=== PATIENT | female | born 1945 | race Caucasian/White ===

== ENCOUNTER → 2017-07-23 | Outpatient (CLI) | payer MEDICARE, BC ==
--- NOTE | 2017-07-23 12:58 | XR ---
EXAMINATION TYPE: XR Hip Complete RT DATE OF EXAM: 07/23/2017 COMPARISON: NONE HISTORY: Chronic pain TECHNIQUE: 2 views submitted FINDINGS: There is no evidence of erosive change or acute fracture. Complete loss of joint space of the right hip with remodeling of the femoral head and acetabulum. Vas cular calcifications noted. IMPRESSION: 1. Severe osteoarthritis with complete loss of joint space.
== END | disposition home or self-care (01) ==
LOC: RADXRYALE 12:34
PROVIDERS: ATTEND Family Medicine
DX: M16.11 Unilateral primary osteoarthritis, right hip (principal)
CPT/HCPCS: 73502

== ENCOUNTER → 2017-09-12 | Outpatient (CLI) | payer MEDICARE, BC ==
[2017-09-12 09:07] LABS: HCT 31.7 % (34.0-46.0); Hypochromasia Slight; MCH 31.1 pg (25.0-35.0); MCHC 31.6 g/dL (31.0-37.0); MCV 98.6 fL (80.0-100.0); Mean Platelet Volume 6.6; Platelet Count 316 k/uL (150-450); RBC 3.21 m/uL (3.80-5.40); RDW 13.6 % (11.5-15.5); WBC 9.3 k/uL (3.8-10.6)
[2017-09-12 09:11] LABS: Appearance,Urine Clear (Clear); Bilirubin,Urine Negative (Negative); Blood,Urine Negative (Negative); Color,Urine Colorless; Glucose,Urine (UA) Negative (Negative); Ketones,Urine Negative (Negative); Leukocyte Esterase,Urine Negative (Negative); Nitrite,Urine Negative (Negative); Protein,Urine Negative (Negative); Specific Gravity,Urine 1.006 (1.001-1.035); Urobilinogen,Urine <2.0 mg/dL (<2.0)
[2017-09-12 09:13] LABS: Partial Thromboplastin Time 23.2 sec (22.0-30.0); Prothrombin Time 9.6 sec (9.0-12.0)
[2017-09-12 09:18] LABS: Albumin 3.7 g/dL (3.5-5.0); Calcium 9.4 mg/dL (8.4-10.2); Potassium 5.4 mmol/L (3.5-5.1); Total Bilirubin 0.3 mg/dL (0.2-1.3); Total Protein 6.4 g/dL (6.3-8.2)
== END | disposition home or self-care (01) ==
LOC: LABPAT 08:20
PROVIDERS: ATTEND Orthopaedic Surgery
DX: Z01.812 Encounter for preprocedural laboratory examination (principal)
CPT/HCPCS: 80053; 81003; 85027; 85610; 85730; 87070

== ENCOUNTER 2017-09-23 07:00 | Inpatient (IN) | payer MEDICARE, BC ==
[2017-09-11 09:23] VITALS: BMI 34.7
[~2017-09-23 07:00] MED LIST: ACETAMINOPHEN TAB 500 MG TAB PO ONE; HYDROmorphone 0.5 MG/0.5 ML SYRINGE IVP PRN; LIDOCAINE 1% 20 ML VIAL (10MG/ML) FOR IV START INTRADERMA PRN; MELOXICAM 7.5 MG TAB PO ONE; ONDANSETRON 4 MG/2 ML VIAL IVP ONE; ROPIVACAINE 246.25 MG, EPINEPHrine 0.5 MG, KETOROLAC 30 MG, cloNIDine HCL/PF 80 MCG, WA... MISCELLANE ONE; TRANEXAMIC ACID 1,000 MG in SODIUM CHLORIDE 0.9% 50 ML IVPB ONE; ceFAZolin IN SWFI 2 GM/20 ML SYRINGE IVP ONE
[2017-09-23] MEDS: LACTATED RINGERS 1,000 ML IV SCH (08:05)
[2017-09-23 08:09] LABS: Glucose,Whole Blood 174 mg/dL (75-99)
[2017-09-23] MEDS ORDERED: HYDROmorphone 0.5 MG/0.5 ML SYRINGE IVP PRN ×3 (08:52)
[2017-09-23] MEDS ORDERED: DIAZEPAM 5 MG TAB PO PRN ×2 (08:52)
[2017-09-23] MEDS ORDERED: MAGNESIUM HYDROXIDE 2,400 MG/10 ML CUP PO PRN (08:52)
[2017-09-23] MEDS ORDERED: NALOXONE 0.4 MG/ML 1 ML VIAL IV PRN (08:52)
[2017-09-23] MEDS ORDERED: hydrOXYzine PAMOATE 25 MG CAP PO PRN (08:52)
[2017-09-23] MEDS ORDERED: ONDANSETRON 4 MG/2 ML VIAL IVP PRN (08:52)
[2017-09-23] MEDS ORDERED: HYDROcodone/APAP 5-325MG 1 EACH TAB PO PRN ×2 (08:52)
[2017-09-23] MEDS ORDERED: SODIUM CHLORIDE 0.9% 100 ML BAG ONE (09:02)
[2017-09-23] MEDS ORDERED: TRANEXAMIC ACID 1,000 MG/10 ML VIAL ONE (09:02)
[2017-09-23] MEDS ORDERED: MIDAZOLAM 2 MG/2 ML VIAL ONE (09:02)
[2017-09-23] MEDS ORDERED: fentaNYL (PF) 50 MCG/ML 2 ML AMP ONE (09:02)
[2017-09-23] MEDS ORDERED: SODIUM CHLORIDE 0.9% IRRIG 1,000 ML BTL IRRIGATION ONE (09:02)
[2017-09-23] MEDS ORDERED: LIDOCAINE 1% INJ 10MG/ML (20 ML MDV) ONE (09:02)
[2017-09-23] MEDS ORDERED: HEPARIN SODIUM,PORCINE 10,000 UNIT/ML 1 ML VIAL ONE (09:02)
[2017-09-23] MEDS ORDERED: PROPOFOL 10 MG/ML 20 ML VIAL IV ONE (09:02)
[2017-09-23] MEDS ORDERED: ceFAZolin 3,000 MG in SODIUM CHLORIDE 0.9% IRRIGATIO 3,000 ML IRRIGATION ONE (09:47)
[2017-09-23] MEDS ORDERED: LACTATED RINGERS 1,000 ML IV ONE ×2 (10:05)
--- NOTE | 2017-09-23 10:43 | P.OP ---
Date of Procedure: 09/23/17 Preoperative Diagnosis: Severe osteoarthritis right hip Postoperative Diagnosis: Severe osteoarthritis right hip Procedure(s) Performed: Right total hip arthroplasty with a direct anterior approach Implants: Johnson and nephew Polarstem size 2 standard Johnson & Nephew R3, 3 hole acetabular shell, 48 mm Johnson & Nephew reflection 6.5 mm cancellus screw, 20 mm 2 Johnson [employer] Nephew R3, XLPE 20 acetabular liner Johnson & Nephew Oxinium femoral head 32 m, +0 All components were press-fit. The articulation is Oxinium on polyethylene. Anesthesia: spinal Surgeon: Neil Ann Housetrailer Servicer #1: Briseida Ledesma Estimated Blood Loss (ml): 50 Pathology: other (Femoral head) Condition: stable Disposition: PACU Indications for Procedure: After failure of conservative treatment we discussed the surgical and nonsurgical treatment options at length. Patient wishes to proceed with a total hip arthroplasty with a direct anterior approach. Complications specific to this procedure were discussed at length, including but not limited to infection, leg length discrepancy, dislocation, and nerve injury. Patient is aware of all these complications and informed consent was obtained Operative Findings: The operative findings are consistent with severe osteoarthritis the right hip Description of Procedure: Patient was seen and evaluated in the preoperative area, consent was reviewed, and the surgical site was marked with a skin marker. Patient was then brought to the operating room and given prophylactic antibiotics intravenously. 1 g of Tranexamic acid was also given. A spinal anesthetic was administered by the anesthesia department. The patient was then placed on the [place] table with the bony prominences well-padded. The hip area was then prepped and draped in usual sterile fashion. A universal timeout was then performed, which confirmed the patient's name, surgical site, ALLERGIES, and procedure being performed. Next the incision site was located at 1 cm distal and 1 cm lateral to the anterior superior iliac spine. The skin and subcutaneous tissues were sharply incised. Incision was carefully dissected down to the fascia overlying the tensor fascia nelia muscle. This fascia was then incised in line with the incision. Next, using blunt finger dissection, the tensor fascia nelia muscle was dissected off its investing fascia. The muscle was then carefully retracted laterally with a cobra retractor over the lateral neck of the femur. Next, the circumflex vessels were identified and cauterized using the AquaMantis device. The anterior hip capsule was then exposed. The capsule was then opened and an inverted T fashion. Cobra retractors were then placed intracapsularly. The proximal femur was then visualized. The femoral neck was then osteotomized appropriate level above the lesser trochanter. Small amount of traction was placed with the [place] table. A small wedge of bone was then removed from the remaining femoral head. Next, using a corkscrew femoral head was easily removed from the acetabulum. On gross visual inspection, the femoral head had complete loss of articular cartilage in multiple periarticular osteophytes. Attention was then turned to the acetabulum. the acetabulum was exposed and any remaining labrum was excised. Sequential reaming of the acetabulum was performed using fluoroscopic guidance. When the appropriate size was reached, a trial was then placed. The position and fit of the trial was checked with fluoroscopy. The trial was then removed. Then, using fluoroscopic guidance, the final implant was impacted at 20 of anteversion and 40 of abduction, and fully seated in the acetabulum. 2 screws were then placed in the acetabulum. Again fluoroscopy was used to check position of the screws. Next, the liner was then impacted, with a 20 elevated liner located in the anterior superior quadrant. Component locking was confirmed. Attention was then directed to the femur. With the aid of the [place] table, the femur was externally rotated to approximately 130, extended, and abducted under the opposite leg. A side hook was then placed under the proximal femur, and the side hook elevator was used to elevate the proximal femur. Retractors were then placed. A capsular release was performed, as well as a release of the conjoined tendon, which afforded excellent visualization of the proximal femur. Next, a box osteotome was used to lateralize the proximal femur. A deck hand was then used to locate the femoral canal. Sequential broaching was then performed with appropriate size which afforded excellent fixation in the proximal femur. A trial was then placed with appropriate head and neck, and the hip was gently reduced with the aid of the [place] table. Fluoroscopy was then used to check position of the components, as well as to ensure equal leg lengths. The hip was then gently dislocated and the trials were then removed. Final implants were then impacted and the hip was again reduced. Final fluoroscopic x-rays confirmed that the components were in anatomic position, as well as equal leg lengths. The hip was also taken through range of motion, and found to be stable. The hip was then copiously irrigated with antibiotic solution with pulsatile lavage. The hip was then irrigated with Irrisept solution. The soft tissues were then injected with a ropivacaine solution, which consisted of 246.25 mg of ropivacaine, 0.5 mg of epinephrine, 30 mg of Toradol, 80 g of clonidine, and 48.45 mL of sterile water, for a total of 100 mL of fluid injected. A second dose of 1 g of Tranexamic acid was also given. the fascia was then closed with 2-0 strata fix suture. The subcutaneous tissue was closed with 3-0 Vicryl. The subcuticular tissue was closed with 3-0 strata fix suture. The skin was then closed with Dermabond glue and a sterile silver dressing. The patient was then transferred to the recovery room in stable condition. The wardrobe assistant ALEN Tinajero was required due to the complexity of surgery, and the need for skilled certified surgical tech/first assistant for positioning, draping, exposure, retraction, and closure of the wound.
[2017-09-23 11:11] LABS: Glucose,Whole Blood 169 mg/dL (75-99)
--- NOTE | 2017-09-23 11:52 | XR ---
Limited right hip HISTORY: Status post right hip arthroplasty Single frontal view of the right hip Patient is post right hip arthroplasty. Lucency present in the soft tissues compatible with postop st ate. The calcifications noted. There is anatomic alignment. IMPRESSION: Orthopedic follow-up.
--- NOTE | 2017-09-23 12:21 | XR ---
Limited right hip HISTORY: Anterior hip replacement 2 intraoperative C-arm images document the procedure.
--- NOTE | 2017-09-23 12:21 | FL ---
Fluoroscopy HISTORY: Anterior hip replacement 30 seconds fluoroscopy time supplied to the referring clinician. 2 intraoperative C-arm images docum ent the procedure. See dictated report from orthopedic surgery.
[2017-09-23 17:20] LABS: Glucose,Whole Blood 212 mg/dL (75-99)
[2017-09-23] MEDS: SODIUM CHLORIDE 0.9% 1,000 ML IV SCH (18:16)
[2017-09-23] MEDS: ceFAZolin IN SWFI 2 GM/20 ML SYRINGE IVP SCH ×2 (18:17→23:07)
[2017-09-23] MEDS: SENNOSIDES-DOCUSATE SODIUM 1 EACH TAB PO SCH (20:19)
[2017-09-23] MEDS: metFORMIN 500 MG TAB PO SCH (20:20)
[2017-09-23] MEDS: ASPIRIN 325 MG TAB PO SCH (20:20)
[2017-09-23] MEDS: ATORVASTATIN 40 MG TAB PO SCH (20:20)
[2017-09-23] MEDS: glipiZIDE 10 MG TAB PO SCH (20:20)
[2017-09-23 21:19] LABS: Glucose,Whole Blood 211 mg/dL (75-99)
[2017-09-23] MEDS ORDERED: INSULIN ASPART 100 UNIT/ML 1 ML 10 ML VIAL SQ ONE (21:24)
--- NOTE | 2017-09-23 22:41 | P.CONS ---
History of Present Illness - Reason for Consult Consult date: 09/23/17 Medical management of hypertension and diabetes - Chief Complaint Right hip surgery elective - History of Present Illness Patient is a 72-year-old female with a known history of hypertension, diabetes type 2 [id number] and osteoarthritis admitted to the hospital for right total hip arthroplasty due to worsening pain. Patient tolerated the procedure very well. Currently denied any complaints of chest pain or shortness of breath. No nausea vomiting or abdominal pain. No headache or dizziness or lightheadedness. Patient denied any other complaints. No complaints of chest pain or shortness of breath. Right hip pain is controlled with pain medications. Review of Systems Constitutional: Patient denies any fever or chills . No generalized weakness or weight loss. Abdomen: Patient denied nausea vomiting and diarrhea and abdominal pain. Cardiovascular: Patient denies any chest pain or short of breath no palpitations. Respiratory: patient denied any cough is from production. No shortness of breath Neurologic: Patient denied any numbness or tingling headache. Musculoskeletal: Patient denies any complaints of joint swelling or deformity. Skin: Negative Psychiatric: Negative Endocrine: No heat or cold intolerance. No recent weight gain. Genitourinary: No dysuria or hematuria. All other 14 point ROS negative except the above Past Medical History Past Medical History: Diabetes Mellitus, Hypertension, Osteoarthritis (OA) Additional Past Medical History / Comment(s): LOW IRON., URINE URGENCY., BACK AND HIP PAIN, USING CANE. History of Any Multi-Drug Resistant Organisms: None Reported Past Surgical History: Tubal Ligation Additional Past Surgical History / Comment(s): COLONOSCOPY, EGD., TRH Past Anesthesia/Blood Transfusion Reactions: No Reported Reaction Past Psychological History: No Psychological Hx Reported Smoking Status: Never smoker Past Alcohol Use History: None Reported Past Drug Use History: None Reported - Past Family History Mother Family Medical History: Cancer Additional Family Medical History / Comment(s): SKIN CANCER Father Family Medical History: CVA/TIA Medications and Allergies Home Medications Medication Instructions Recorded Confirmed Type Cholecalciferol [Vitamin D3] 1,000 unit PO DAILY 09/11/17 09/23/17 History Cinnamon Bark [Cinnamon] 1,000 mg PO BID 09/11/17 09/23/17 History Ferrous Sulfate [Iron] 325 mg PO HS 09/11/17 09/23/17 History Garlic 1 tab PO DAILY 09/11/17 09/23/17 History Losartan [Cozaar] 25 mg PO DAILY 09/11/17 09/23/17 History Pioglitazone [Actos] 45 mg PO DAILY 09/11/17 09/23/17 History Selenium 100 mcg PO HS 09/11/17 09/23/17 History Simvastatin [Zocor] 80 mg PO HS 09/11/17 09/23/17 History glipiZIDE [Glucotrol] 20 mg PO BID 09/11/17 09/23/17 History metFORMIN HCL [Glucophage] 1,000 mg PO BID 09/11/17 09/23/17 History Allergies Allergy/AdvReac Type Severity Reaction Status Date / Time ciprofloxacin [From Cipro] Allergy Unknown Itching, Verified 09/23/17 12:01 Rash Physical Exam Vitals: Vital Signs Temp Pulse Pulse Resp BP Pulse Ox 09/23/17 12:05 16 09/23/17 12:04 97.3 F L 09/23/17 11:30 68 16 127/57 99 09/23/17 11:15 70 16 127/59 99 09/23/17 11:00 96.8 F L 71 71 H 128/60 100 09/23/17 08:03 98.1 F 79 16 190/74 97 Intake and Output 09/23/17 09/23/17 09/23/17 06:59 14:59 22:59 Intake Total 1301 Output Total 150 Balance 1151 Intake: IV 1301 Output: Urine 100 Estimated Blood Loss 50 Other: Weight 86.183 kg PHYSICAL EXAMINATION: Patient is lying in the bed comfortably, no acute distress, awake alert and oriented.. HEENT: Normocephalic. Neck is supple. Pupils reactive. Nostrils clear. Oral cavity is moist. Ears reveal no drainage. Neck reveals no JVD, carotid bruits, or thyromegaly. CHEST EXAMINATION: Trachea is central. Symmetrical expansion. Lung cristobal clear to auscultation and percussion. CARDIAC: Normal S1, S2 with no gallops. No murmurs ABDOMEN: Soft. Bowel sounds normal. No organomegaly. No abdominal bruits. Extremities: reveal no edema. No clubbing or cyanosis Neurologically awake, alert, oriented x3 with well-coordinated movements. No focal deficits noted Skin: No rash or skin lesions. Psychiatric: Coperative. Nonsuicidal Musculoskeletal: No joint swelling or deformity. Normal range of motion. Right hip surgical site anterior intact. Results CBC & Chem 7: 09/23/17 08:01 Labs: Abnormal Lab Results - Last 24 Hours (Table) 09/23/17 09/23/17 09/23/17 Range/Units 08:01 08:04 11:09 Potassium 5.4 H (3.5-5.1) mmol/L POC Glucose (mg/dL) 174 H 169 H (75-99) mg/dL 09/23/17 Range/Units 17:01 Potassium (3.5-5.1) mmol/L POC Glucose (mg/dL) 212 H (75-99) mg/dL Assessment and Plan Assessment: Status post right total hip arthroplasty Diabetes type 2 mew-yqvaglf-gwclosjoe Hypertension Osteoarthritis Urinary urgency Back pain and hip pain. DVT prophylaxis Plan: Patient will be continued on current pain management and bowel regimen. Incentive spirometry and DVT prophylaxis. Patient will be continued on metformin, Actos and glipizide as per home dose. Continue with losartan. Encourage ambulation. Will follow closely and further recommendations based on the clinical course. Thank you for your consult Time with Patient: Greater than 30
[2017-09-24 01:31] LABS: Glucose,Whole Blood 95 mg/dL (75-99)
[2017-09-24] MEDS: LACTATED RINGERS 1,000 ML IV SCH (05:23)
[2017-09-24] MEDS: SODIUM CHLORIDE 0.9% 1,000 ML IV SCH (05:23)
[2017-09-24 07:01] LABS: Glucose,Whole Blood 162 mg/dL (75-99)
[2017-09-24] MEDS: INSULIN ASPART 100 UNIT/ML 1 ML 10 ML VIAL SQ SCH ×4 (07:40→20:32)
[2017-09-24] MEDS: ONDANSETRON 4 MG/2 ML VIAL IVP PRN ×2 (07:40→16:20)
[2017-09-24 07:47] LABS: Basophils % (A) 0 %; Eosinophils # (A) 0.1 k/uL (0-0.7); Eosinophils % (A) 1 %; Hypochromasia Slight; Lymphocytes % (A) 9 %; MCH 30.1 pg (25.0-35.0); MCHC 30.9 g/dL (31.0-37.0); MCV 97.4 fL (80.0-100.0); Mean Platelet Volume 8.1; Monocytes # (A) 1.1 k/uL (0-1.0); Monocytes % (A) 11 %; Neutrophils % (A) 78 %; Platelet Count 264 k/uL (150-450); RBC 2.77 m/uL (3.80-5.40); RDW 13.3 % (11.5-15.5); WBC 10.2 k/uL (3.8-10.6)
[2017-09-24 07:58] LABS: HGB 8.3 gm/dL (11.4-16.0)
[2017-09-24] MEDS: PIOGLITAZONE 45 MG TAB PO SCH (08:22)
[2017-09-24] MEDS: glipiZIDE 10 MG TAB PO SCH ×2 (08:23→20:34)
[2017-09-24] MEDS: LOSARTAN 25 MG TAB PO SCH (08:23)
[2017-09-24] MEDS: ASPIRIN 325 MG TAB PO SCH ×2 (08:23→20:33)
[2017-09-24] MEDS: MELOXICAM 7.5 MG TAB PO SCH (08:23)
[2017-09-24] MEDS: metFORMIN 500 MG TAB PO SCH ×2 (08:23→20:34)
[2017-09-24] MEDS ORDERED: KETOROLAC 60 MG/2 ML VIAL IM STA (10:16)
[2017-09-24] MEDS ORDERED: traMADol 50 MG TAB PO PRN ×2 (10:18)
[2017-09-24] MEDS: KETOROLAC 30 MG/ML 1 ML VIAL IVP PRN ×2 (10:25→16:20)
--- NOTE | 2017-09-24 10:26 | P.PN ---
Subjective Progress Note Date: 09/24/17 This is a 72-year-old female who is status post right total hip arthroplasty. This is post-operative day #1. Patient is seen and evaluated at bedside with Dr. Neil Ann. Patient reports pain in the right hip and states that the pain medication made her sick. Patient states that she has not been up and walking with physical therapy yet. Patient denies any fever/chills, numbness, weakness, tingling, abdominal pain, shortness of breath or chest pain. Objective - Vital Signs Vital signs: Vital Signs Temp 98.1 F 09/24/17 07:42 Pulse 77 09/24/17 07:42 Resp 16 09/24/17 07:42 BP 164/68 09/24/17 07:42 Pulse Ox 100 09/24/17 07:42 Intake & Output 09/23/17 09/24/17 09/24/17 18:59 06:59 18:59 Intake Total 1301 1240 Output Total 150 Balance 1151 1240 Weight 86.183 kg Intake: IV 1301 Intake, IV Titration 1040 Amount Sodium Chloride 0.9% 1, 1040 000 ml @ 65 mls/hr IV . [id number] [facility] Rx#:[id number] Other 200 Output: Urine 100 Estimated Blood Loss 50 Other: # Voids 1 - Exam Vital signs are stable. Patient is in no acute distress and is alert and oriented 3. Calf is soft and nontender to palpation. Dressing is clean, dry, and intact. Patient has full foot and ankle motion without pain or difficulty. Neurovascular status and circulatory status are intact. - Labs CBC & Chem 7: 09/24/17 06:23 09/23/17 08:01 Labs: Abnormal Lab Results - Last 24 Hours (Table) 09/23/17 09/23/17 09/23/17 Range/Units 11:09 17:01 21:04 RBC (3.80-5.40) m/uL Hgb (11.4-16.0) gm/dL Hct (34.0-46.0) % MCHC (31.0-37.0) g/dL Neutrophils # (1.3-7.7) k/uL Monocytes # (0-1.0) k/uL POC Glucose (mg/dL) 169 H 212 H 211 H (75-99) mg/dL 09/24/17 09/24/17 Range/Units 06:23 06:56 RBC 2.77 L (3.80-5.40) m/uL Hgb 8.3 L D (11.4-16.0) gm/dL Hct 27.0 L (34.0-46.0) % MCHC 30.9 L (31.0-37.0) g/dL Neutrophils # 8.0 H (1.3-7.7) k/uL Monocytes # 1.1 H (0-1.0) k/uL POC Glucose (mg/dL) 162 H (75-99) mg/dL Assessment and Plan (1) Primary osteoarthritis of right hip Current Visit: Yes Status: Acute Code(s): M16.11 - UNILATERAL PRIMARY OSTEOARTHRITIS, RIGHT HIP SNOMED Code(s): 494269824 (2) S/P total hip arthroplasty Current Visit: Yes Status: Acute Code(s): Z96.649 - PRESENCE OF UNSPECIFIED ARTIFICIAL HIP JOINT SNOMED Code(s): 614938466832 Plan: Continue routine postop care. Toradol and tramadol for pain. Continue antocoagulation with aspirin. Weightbearing as tolerated with a walker. Leave dressing in place for 1 week. Possible discharge home tomorrow.
[2017-09-24 11:52] LABS: Glucose,Whole Blood 182 mg/dL (75-99)
[2017-09-24 17:24] LABS: Glucose,Whole Blood 146 mg/dL (75-99)
[2017-09-24 20:33] LABS: Glucose,Whole Blood 251 mg/dL (75-99)
[2017-09-24] MEDS: SENNOSIDES-DOCUSATE SODIUM 1 EACH TAB PO SCH (20:33)
[2017-09-24] MEDS: ATORVASTATIN 40 MG TAB PO SCH (20:33)
--- NOTE | 2017-09-24 22:24 | P.PN ---
Subjective Progress Note Date: 09/24/17 Principal diagnosis: status post right total hip arthroplasty Patient is a 72-year-old female with a known history of hypertension, diabetes type 2 [id number] and osteoarthritis admitted to the hospital for right total hip arthroplasty due to worsening pain. Patient tolerated the procedure very well. Currently denied any complaints of chest pain or shortness of breath. No nausea vomiting or abdominal pain. No headache or dizziness or lightheadedness. Patient denied any other complaints. No complaints of chest pain or shortness of breath. Right hip pain is controlled with pain medications. 09/24/2017 Patient denied any complaints of chest pain or shortness of breath. Patient still having right hip pain. Patient says that [place] made her sick and she was feeling nauseated. Patient did receive Zofran. Otherwise no fever no chills. Patient says that she did not have any bowel movement today. No headache or dizziness or lightheadedness. Patient is using incentive spirometry. Blood sugar up to 182 today All other review of systems negative except the above Current medications reviewed Objective - Vital Signs Vital signs: Vital Signs Temp 97.8 F 09/24/17 20:00 Pulse 84 09/24/17 20:00 Resp 16 09/24/17 20:00 BP 144/67 09/24/17 20:00 Pulse Ox 98 09/24/17 20:00 Intake & Output 09/24/17 09/24/17 09/25/17 06:59 18:59 06:59 Intake Total 1240 195 Balance 1240 195 Intake: Intake, IV Titration 1040 195 Amount Sodium Chloride 0.9% 1, 1040 195 000 ml @ 65 mls/hr IV . [id number] [facility] Rx#:[id number] Other 200 Other: Voiding Method Toilet # Voids 1 1 1 - Exam PHYSICAL EXAMINATION: Patient is lying in the bed comfortably, no acute distress, awake alert and oriented.. HEENT: Normocephalic. Neck is supple. Pupils reactive. Nostrils clear. Oral cavity is moist. Ears reveal no drainage. Neck reveals no JVD, carotid bruits, or thyromegaly. CHEST EXAMINATION: Trachea is central. Symmetrical expansion. Lung cristobal clear to auscultation and percussion. CARDIAC: Normal S1, S2 with no gallops. No murmurs ABDOMEN: Soft. Bowel sounds normal. No organomegaly. No abdominal bruits. Extremities: reveal no edema. No clubbing or cyanosis Neurologically awake, alert, oriented x3 with well-coordinated movements. No focal deficits noted Skin: No rash or skin lesions. Psychiatric: Coperative. Nonsuicidal Musculoskeletal: No joint swelling or deformity. Normal range of motion. Right hip surgical site intact - Labs CBC & Chem 7: 09/24/17 06:23 09/23/17 08:01 Labs: Abnormal Lab Results - Last 24 Hours (Table) 09/24/17 09/24/17 09/24/17 Range/Units 06:23 06:56 11:35 RBC 2.77 L (3.80-5.40) m/uL Hgb 8.3 L D (11.4-16.0) gm/dL Hct 27.0 L (34.0-46.0) % MCHC 30.9 L (31.0-37.0) g/dL Neutrophils # 8.0 H (1.3-7.7) k/uL Monocytes # 1.1 H (0-1.0) k/uL POC Glucose (mg/dL) 162 H 182 H (75-99) mg/dL 09/24/17 09/24/17 Range/Units 17:12 20:30 RBC (3.80-5.40) m/uL Hgb (11.4-16.0) gm/dL Hct (34.0-46.0) % MCHC (31.0-37.0) g/dL Neutrophils # (1.3-7.7) k/uL Monocytes # (0-1.0) k/uL POC Glucose (mg/dL) 146 H 251 H (75-99) mg/dL Assessment and Plan Assessment: Status post right total hip arthroplasty Diabetes type 2 [id number]-ydtbkrizu Nausea likely due to narcotic pain medications. Improved now Normocytic anemia with hemoglobin 8.3 Hypertension Osteoarthritis Urinary urgency Back pain and hip pain. DVT prophylaxis Plan: Patient will be continued on current pain management and bowel regimen. Incentive spirometry and DVT prophylaxis. Patient will be continued on metformin, Actos and glipizide as per home dose. Added insulin sliding scale as well. Continue with losartan. Encourage ambulation. Will follow closely and further recommendations based on the clinical course. Thank you for your consult Time with Patient: Greater than 30
[2017-09-25 07:04] LABS: Glucose,Whole Blood 166 mg/dL (75-99)
[2017-09-25] MEDS: INSULIN ASPART 100 UNIT/ML 1 ML 10 ML VIAL SQ SCH ×5 (07:20→20:33)
--- NOTE | 2017-09-25 08:15 | P.PN ---
Subjective This is a 72-year-old female who is status post right total hip arthroplasty. This is post-operative day #2. Patient is seen and evaluated at bedside. Patient complains of constipation today. Patient states that she is passing gas. Patient states that she has been up and walking with physical therapy the bathroom and back. Patient denies any fever/chills, numbness, weakness, tingling , abdominal pain, shortness of breath or chest pain. Objective - Vital Signs Vital signs: Vital Signs Temp 99.0 F 09/25/17 00:05 Pulse 74 09/25/17 00:05 Resp 14 09/25/17 00:05 BP 123/65 09/25/17 00:05 Pulse Ox 100 09/25/17 00:05 Intake & Output 09/24/17 09/25/17 09/25/17 18:59 06:59 18:59 Intake Total 195 Balance 195 Intake: Intake, IV Titration 195 Amount Sodium Chloride 0.9% 1, 195 000 ml @ 65 mls/hr IV . [id number] [facility] Rx#:[id number] Other: Voiding Method Toilet # Voids 1 1 - Exam Vital signs are stable. Patient is in no acute distress and is alert and oriented 3. Calf is soft and nontender to palpation. Dressing is clean, dry, and intact. Patient has full foot and ankle motion without pain or difficulty. Neurovascular status and circulatory status are intact. - Labs CBC & Chem 7: 09/24/17 06:23 09/23/17 08:01 Labs: Abnormal Lab Results - Last 24 Hours (Table) 09/24/17 09/24/17 09/24/17 Range/Units 11:35 17:12 20:30 POC Glucose (mg/dL) 182 H 146 H 251 H (75-99) mg/dL 09/25/17 Range/Units 06:45 POC Glucose (mg/dL) 166 H (75-99) mg/dL Assessment and Plan (1) Primary osteoarthritis of right hip Current Visit: Yes Status: Acute Code(s): M16.11 - UNILATERAL PRIMARY OSTEOARTHRITIS, RIGHT HIP SNOMED Code(s): 989526447 (2) S/P total hip arthroplasty Current Visit: Yes Status: Acute Code(s): Z96.649 - PRESENCE OF UNSPECIFIED ARTIFICIAL HIP JOINT SNOMED Code(s): 806864194241 Plan: Continue routine postop care. Toradol and tramadol for pain. Continue antocoagulation with aspirin. Weightbearing as tolerated with a walker. Leave dressing in place for 1 week. Possible discharge home tomorrow.
[2017-09-25] MEDS: metFORMIN 500 MG TAB PO SCH ×2 (08:30→20:33)
[2017-09-25] MEDS: MELOXICAM 7.5 MG TAB PO SCH (08:30)
[2017-09-25] MEDS: glipiZIDE 10 MG TAB PO SCH ×2 (08:30→20:33)
[2017-09-25] MEDS: ASPIRIN 325 MG TAB PO SCH ×2 (08:30→20:33)
[2017-09-25] MEDS: LOSARTAN 25 MG TAB PO SCH (08:30)
[2017-09-25] MEDS: PIOGLITAZONE 45 MG TAB PO SCH (08:30)
[2017-09-25] MEDS: KETOROLAC 30 MG/ML 1 ML VIAL IVP PRN (09:13)
[2017-09-25 11:06] LABS: Glucose,Whole Blood 181 mg/dL (75-99)
[2017-09-25 12:51] LABS: Hemoglobin A1C 7.1 % (4.0-6.0)
--- NOTE | 2017-09-25 16:29 | P.PN ---
Subjective Progress Note Date: 09/25/17 Progress note being dictated for Dr. Bowens status post right total hip arthroplasty Patient is a 72-year-old female with a known history of hypertension, diabetes type 2 bft-qfvvsfs-hoykznrpd and osteoarthritis admitted to the hospital for right total hip arthroplasty due to worsening pain. Patient tolerated the procedure very well. Currently denied any complaints of chest pain or shortness of breath. No nausea vomiting or abdominal pain. No headache or dizziness or lightheadedness. Patient denied any other complaints. No complaints of chest pain or shortness of breath. Right hip pain is controlled with pain medications. 09/24/2017 Patient denied any complaints of chest pain or shortness of breath. Patient still having right hip pain. Patient says that [place] made her sick and she was feeling nauseated. Patient did receive Zofran. Otherwise no fever no chills. Patient says that she did not have any bowel movement today. No headache or dizziness or lightheadedness. Patient is using incentive spirometry. Blood sugar up to 182 today All other review of systems negative except the above Current medications reviewed 09/25/2017 passing flatus, positive bowel movement this morning. Nausea subsided. Ambulating with physical therapy in the hallway, tolerating exertion well. Blood sugars 180 to 200s. Denies chest pain, palpitations or shortness of breath. Denies lightheadedness dizziness or focal deficits. Objective - Vital Signs Vital signs: Vital Signs Temp 99.0 F 09/25/17 13:54 Pulse 99 09/25/17 13:54 Resp 18 09/25/17 13:54 BP 133/69 09/25/17 13:54 Pulse Ox 100 09/25/17 00:05 Intake & Output 09/24/17 09/25/17 09/25/17 18:59 06:59 18:59 Intake Total 195 300 Balance 195 300 Intake: Intake, IV Titration 195 Amount Sodium Chloride 0.9% 1, 195 000 ml @ 65 mls/hr IV . [id number] DOROTHY Rx#:[id number] Oral 300 Other: Voiding Method Toilet # Voids 1 1 2 - Exam Patient is sitting up in chair comfortably, no acute distress, awake alert and oriented.. HEENT: Normocephalic. Neck is supple. Pupils reactive. Nostrils clear. Oral cavity is moist. Ears reveal no drainage. Neck reveals no JVD, carotid bruits, or thyromegaly. CHEST EXAMINATION: Trachea is central. Symmetrical expansion. Lung cristobal clear to auscultation and percussion. CARDIAC: Normal S1, S2 with no gallops. No murmurs ABDOMEN: Soft. Bowel sounds normal. No organomegaly. No abdominal bruits. Extremities: reveal no edema. No clubbing or cyanosis Neurologically awake, alert, oriented x3 with well-coordinated movements. No focal deficits noted Skin: No rash or skin lesions. Psychiatric: Coperative. Nonsuicidal Musculoskeletal: No joint swelling or deformity. Normal range of motion. Right hip surgical site intact - Labs CBC & Chem 7: 09/24/17 06:23 09/23/17 08:01 Labs: Abnormal Lab Results - Last 24 Hours (Table) 09/24/17 09/24/17 09/24/17 Range/Units 06:23 17:12 20:30 POC Glucose (mg/dL) 146 H 251 H (75-99) mg/dL Hemoglobin A1c 7.1 H (4.0-6.0) % 09/25/17 09/25/17 Range/Units 06:45 10:56 POC Glucose (mg/dL) 166 H 181 H (75-99) mg/dL Hemoglobin A1c (4.0-6.0) % Assessment and Plan Assessment: Status post right total hip arthroplasty Diabetes type 2 caw-lmwophb-mzuzgzzco Nausea likely due to narcotic pain medications. Resolved Normocytic anemia with hemoglobin 8.3 Hypertension Osteoarthritis Urinary urgency Back pain and hip pain. DVT prophylaxis Plan: Continue current medication regime ,monitoring and symptomatic treatment. Pre-meal insulin added to med regime in addition to metformin, Actos and glipizide as per home dose. Patient will be continued on current pain management and bowel regimen. Aggressive pulmonary toileting with Incentive spirometry reinforced. DVT prophylaxis as per orthopedics. Discharge planning in progress for tomorrow as per orthopedics to subacute rehab. The impression and plan of care has been dictated as directed. : I performed a history and examination of this patient, discussed the same with the dictator. I agree with the dictator's note ,documented as a scribe. Any additional findings or plans will be noted.
[2017-09-25 17:10] LABS: Glucose,Whole Blood 234 mg/dL (75-99)
[2017-09-25 19:56] LABS: Glucose,Whole Blood 232 mg/dL (75-99)
[2017-09-25] MEDS: ATORVASTATIN 40 MG TAB PO SCH (20:33)
[2017-09-25] MEDS: SENNOSIDES-DOCUSATE SODIUM 1 EACH TAB PO SCH (20:36)
[2017-09-26 01:59] VITALS: RESP 16
[2017-09-26 06:58] LABS: Glucose,Whole Blood 125 mg/dL (75-99)
[2017-09-26 07:04] LABS: Basophils % (A) 0 %; Eosinophils # (A) 0.2 k/uL (0-0.7); Eosinophils % (A) 2 %; HCT 24.6 % (34.0-46.0); Lymphocytes # (A) 1.1 k/uL (1.0-4.8); Lymphocytes % (A) 9 %; MCH 31.1 pg (25.0-35.0); MCHC 32.5 g/dL (31.0-37.0); MCV 95.7 fL (80.0-100.0); Mean Platelet Volume 7.7; Monocytes # (A) 1.1 k/uL (0-1.0); Monocytes % (A) 9 %; Neutrophils # (A) 9.7 k/uL (1.3-7.7); Neutrophils % (A) 80 %; Platelet Count 261 k/uL (150-450); RBC 2.57 m/uL (3.80-5.40); RDW 13.4 % (11.5-15.5); WBC 12.2 k/uL (3.8-10.6)
[2017-09-26] MEDS: INSULIN ASPART 100 UNIT/ML 1 ML 10 ML VIAL SQ SCH ×4 (07:08→12:52)
[2017-09-26 07:43] VITALS: BP 142/78; PULSE 96; TEMP 99.5
[2017-09-26] MEDS: ASPIRIN 325 MG TAB PO SCH (08:00)
[2017-09-26] MEDS: glipiZIDE 10 MG TAB PO SCH (08:00)
[2017-09-26] MEDS: MELOXICAM 7.5 MG TAB PO SCH (08:00)
[2017-09-26] MEDS: metFORMIN 500 MG TAB PO SCH (08:01)
[2017-09-26] MEDS: LOSARTAN 25 MG TAB PO SCH (08:01)
[2017-09-26] MEDS: PIOGLITAZONE 45 MG TAB PO SCH (08:01)
--- NOTE | 2017-09-26 08:09 | P.DS ---
Providers Date of admission: 09/23/17 07:29 Expected date of discharge: 09/26/17 Attending physician: Neil Ann Consults: 09/23/17 08:52 Consult Physician Routine Consulting Provider: Neil Clay Consult Reason/Comments: medical management Do you want consulting provider notified?: Yes 09/23/17 11:34 Consult Physician Routine Consulting Provider: Emperatriz Veliz Consult Reason/Comments: medical management Do you want consulting provider notified?: Already Contacted Primary care physician: Neil Clay - Discharge Diagnosis(es) (1) Primary osteoarthritis of right hip Current Visit: Yes Status: Acute (2) S/P total hip arthroplasty Current Visit: Yes Status: Acute Hospital Course: This is a 72-year-old female with known history of degenerative arthritis of the right hip. The patient presents for evaluation. After discussion and consideration patient elects to proceed with total hip arthroplasty. The patient is seen preoperatively by Dr. Ann and medically cleared for surgery by their primary care physician. Patient is admitted to [facility] on 09/23/2017 for total hip arthroplasty. The procedures performed without complication or sequelae. The patient is doing well postoperatively. Labs and vital signs are stable on day of discharge. On day of discharge patient's hip incision is healing well. There is minimal erythema. There is no drainage noted at this time. There is minimal soft tissue swelling to the hip and thigh. Patient has full foot and ankle motion without difficulty or pain. Neurovascular status to the right lower extremity is intact. Patient is discharged to rehab in good condition. Please see med rec for accurate list of home medications. Plan - Discharge Summary Discharge Rx Participant: Yes New Discharge Prescriptions: New Aspirin 325 mg PO BID #60 tab Sennosides [Senokot] 1 tab PO BID #60 tablet traMADol HCl [Ultram] 50 mg PO Q6H PRN #90 tab PRN Reason: Pain No Action metFORMIN HCL [Glucophage] 1,000 mg PO BID glipiZIDE [Glucotrol] 20 mg PO BID Losartan [Cozaar] 25 mg PO DAILY Cholecalciferol [Vitamin D3] 1,000 unit PO DAILY Pioglitazone [Actos] 45 mg PO DAILY Simvastatin [Zocor] 80 mg PO HS Selenium 100 mcg PO HS Garlic 1 tab PO DAILY Ferrous Sulfate [Iron] 325 mg PO HS Cinnamon Bark [Cinnamon] 1,000 mg PO BID Discharge Medication List Cholecalciferol [Vitamin D3] 1,000 unit PO DAILY 09/11/17 [History] Cinnamon Bark [Cinnamon] 1,000 mg PO BID 09/11/17 [History] Ferrous Sulfate [Iron] 325 mg PO HS 09/11/17 [History] Garlic 1 tab PO DAILY 09/11/17 [History] Losartan [Cozaar] 25 mg PO DAILY 09/11/17 [History] Pioglitazone [Actos] 45 mg PO DAILY 09/11/17 [History] Selenium 100 mcg PO HS 09/11/17 [History] Simvastatin [Zocor] 80 mg PO HS 09/11/17 [History] glipiZIDE [Glucotrol] 20 mg PO BID 09/11/17 [History] metFORMIN HCL [Glucophage] 1,000 mg PO BID 09/11/17 [History] Aspirin 325 mg PO BID #60 tab 09/26/17 [Rx] Sennosides [Senokot] 1 tab PO BID #60 tablet 09/26/17 [Rx] traMADol HCl [Ultram] 50 mg PO Q6H PRN #90 tab 09/26/17 [Rx] Follow up Appointment(s)/Referral(s): Neil Ann DO [Doctor of Osteopathic Medicine] - 10/06/17 3:30 pm Neil Clay DO [Primary Care Provider] - 10/03/17 11:00 am (with ALEN Copeland) [facility] Visiting Nurse, [NON-STAFF] - Patient Instructions/Handouts: Anterior Hip Replacement (DC) Activity/Diet/Wound Care/Special [phone] - delivered to bedside Weightbearing as tolerated with walker Leave dressing intact. Dressing may be removed by home care nurse in 10 days. May shower with dressing on. Follow-up with [facility] in 2 weeks, please call with any questions or concerns [phone] Discharge Disposition: TRANSFER TO SNF/ECF
[2017-09-26 11:27] LABS: Glucose,Whole Blood 144 mg/dL (75-99)
--- NOTE | 2017-09-26 16:21 | P.PN ---
Subjective Progress Note Date: 09/26/17 Progress note being dictated for Dr. Bowens status post right total hip arthroplasty Patient is a 72-year-old female with a known history of hypertension, diabetes type 2 yri-hjtexsq-xwspojxgy and osteoarthritis admitted to the hospital for right total hip arthroplasty due to worsening pain. Patient tolerated the procedure very well. Currently denied any complaints of chest pain or shortness of breath. No nausea vomiting or abdominal pain. No headache or dizziness or lightheadedness. Patient denied any other complaints. No complaints of chest pain or shortness of breath. Right hip pain is controlled with pain medications. 09/24/2017 Patient denied any complaints of chest pain or shortness of breath. Patient still having right hip pain. Patient says that [place] made her sick and she was feeling nauseated. Patient did receive Zofran. Otherwise no fever no chills. Patient says that she did not have any bowel movement today. No headache or dizziness or lightheadedness. Patient is using incentive spirometry. Blood sugar up to 182 today All other review of systems negative except the above Current medications reviewed 09/25/2017 passing flatus, positive bowel movement this morning. Nausea subsided. Ambulating with physical therapy in the hallway, tolerating exertion well. Blood sugars 180 to 200s. Denies chest pain, palpitations or shortness of breath. Denies lightheadedness dizziness or focal deficits. 09/26/2017 continues to do well. Pain controlled. Blood sugars controlled. Denies nausea vomiting. Passing flatus. Denies lightheadedness dizziness or focal deficits. Awaiting discharge to subacute rehab. Objective - Vital Signs Vital signs: Vital Signs Temp 99.5 F 09/26/17 07:27 Pulse 96 09/26/17 07:27 Resp 16 09/26/17 07:27 BP 142/78 09/26/17 07:27 Pulse Ox 100 09/26/17 07:27 Intake & Output 09/25/17 09/26/17 09/26/17 18:59 06:59 18:59 Intake Total 540 300 358 Balance 540 300 358 Intake: Oral 540 300 358 Other: # Voids 2 1 2 # Bowel Movements 2 - Exam Patient is sitting up in bed comfortably, no acute distress, awake alert and oriented.. HEENT: Normocephalic. Neck is supple. Pupils reactive. Nostrils clear. Oral cavity is moist. Neck reveals no JVD, carotid bruits, or thyromegaly. CHEST EXAMINATION: Trachea is central. Symmetrical expansion. Lung cristobal clear to auscultation and percussion. CARDIAC: Normal S1, S2 with no gallops. No murmurs ABDOMEN: Soft. Bowel sounds normal. No organomegaly. No abdominal bruits. Extremities: reveal no edema. No clubbing or cyanosis Neurologically awake, alert, oriented x3 with well-coordinated movements. No focal deficits noted Skin: No rash or skin lesions. Psychiatric: Coperative. Nonsuicidal Musculoskeletal: No joint swelling or deformity. Normal range of motion. Right hip surgical site intact - Labs CBC & Chem 7: 09/26/17 06:20 09/23/17 08:01 Labs: Abnormal Lab Results - Last 24 Hours (Table) 09/25/17 09/25/17 09/26/17 Range/Units 17:04 19:50 06:20 WBC 12.2 H (3.8-10.6) k/uL RBC 2.57 L (3.80-5.40) m/uL Hgb 8.0 L (11.4-16.0) gm/dL Hct 24.6 L (34.0-46.0) % Neutrophils # 9.7 H (1.3-7.7) k/uL Monocytes # 1.1 H (0-1.0) k/uL POC Glucose (mg/dL) 234 H 232 H (75-99) mg/dL 09/26/17 09/26/17 Range/Units 06:51 11:10 WBC (3.8-10.6) k/uL RBC (3.80-5.40) m/uL Hgb (11.4-16.0) gm/dL Hct (34.0-46.0) % Neutrophils # (1.3-7.7) k/uL Monocytes # (0-1.0) k/uL POC Glucose (mg/dL) 125 H 144 H (75-99) mg/dL Assessment and Plan Assessment: Status post right total hip arthroplasty Diabetes type 2 ztt-vhorumx-emzvpfhqm Nausea likely due to narcotic pain medications. Resolved Normocytic anemia with hemoglobin 8.3 Hypertension Osteoarthritis Urinary urgency Back pain and hip pain. DVT prophylaxis Plan: Continue current medication regime ,monitoring and symptomatic treatment. Pain management, DVT prophylaxis as per orthopedic surgery.Aggressive pulmonary toileting with Incentive spirometry. Discharge planning in progress as per orthopedics to subacute rehab. Follow-up with PCP 1 week after discharge from subacute rehab. The impression and plan of care has been dictated as directed. : I performed a history and examination of this patient, discussed the same with the dictator. I agree with the dictator's note ,documented as a scribe. Any additional findings or plans will be noted.
== END 2017-09-26 14:46 | DRG 470 ==
LOC: 2ORMAIN 07:29 → 3SUR 10:59
PROVIDERS: ADMIT Orthopaedic Surgery; ATTEND Orthopaedic Surgery
PROC: 0SR906A Replacement of Right Hip Joint with Oxidized Zirconium on Polyethylene Synthetic Substitute, Uncemented, Open Approach (ICD-10-PCS; principal; 2017-09-23 09:15)
DX: M16.11 Unilateral primary osteoarthritis, right hip (principal); D64.9 Anemia, unspecified; E11.9 Type 2 diabetes mellitus without complications; I10 Essential (primary) hypertension; K59.00 Constipation, unspecified; Z80.8 Family history of malignant neoplasm of other organs or systems; Z79.84 Long term (current) use of oral hypoglycemic drugs; Z79.899 Other long term (current) drug therapy; Z88.1 Allergy status to other antibiotic agents; E78.5 Hyperlipidemia, unspecified; R11.0 Nausea; T40.2X5A Adverse effect of other opioids, initial encounter; R39.15 Urgency of urination; M54.9 Dorsalgia, unspecified
CPT/HCPCS: 73501; 83036; 84132; 85025; 86850; 86891; 86900; 86901; 88300

== ENCOUNTER → 2017-12-23 | Outpatient (CLI) | payer MEDICARE, BC ==
--- NOTE | 2017-12-24 11:20 | MM ---
Reason for exam: screening (asymptomatic). Last mammogram was performed 7 years and 7 months ago. History: Patient is postmenopausal. Physical Findings: A clinical breast exam by your physician is recommended on an annual basis and results should be correlated with mammographic findings. MG 3D Screening Mammo W/Cad Bilateral CC and MLO view(s) were taken. Prior study comparison: June 06, 2010, bilateral digital screening mammo w/CAD. July 01, 2008, bilateral digital screening mammogram. The breast tissue is heterogeneously dense. This may lower the sensitivity of mammography. No significant changes when compared with prior studies. ASSESSMENT: Negative, BI-RAD 1 RECOMMENDATION: Routine screening mammogram of both breasts in 1 year.
== END | disposition home or self-care (01) ==
LOC: RADMAMWWP 06:45
PROVIDERS: ATTEND Family Medicine
DX: Z12.31 Encounter for screening mammogram for malignant neoplasm of breast (principal)
CPT/HCPCS: 77063; 77067

== ENCOUNTER → 2020-07-19 | Outpatient (CLI) | payer MEDICARE, BC ==
--- NOTE | 2020-07-20 07:22 | ECHOF ---
Referral Reason:Cardiomegaly I51.7 MEASUREMENTS -------- HEIGHT: 157.5 cm WEIGHT: 81.6 kg BP: RVIDd: 3.5 cm (< 3.3) IVSd: 1.1 cm (0.6 - 1.1) LVIDd: 5.0 cm (3.9 - 5.3) LVPWd: 1.0 cm (0.6 - 1.1) IVSs: 1.6 cm LVIDs: 3.8 cm LVPWs: 1.4 cm LA Diam: 4.8 cm (2.7 - 3.8) LAESV Index (A-L): 34.21 ml/m Ao Diam: 2.6 cm (2.0 - 3.7) AV Cusp: 1.9 cm (1.5 - 2.6) MV EXCURSION: 18.742 mm (> 18.000) MV EF SLOPE: 131 mm/s (70 - 150) EPSS: 1.0 cm RAP: 5.00 mmHg RVSP: 55.38 mmHg FINDINGS -------- Atrial fibrillation. This was a technically adequate study. The left ventricular size is normal. There is borderline concentric left ventricular hypertrophy. There is moderate global hypokinesis of LV . Overall left ventricular systolic function is moderat ricci impaired with, an EF between 35 - 40 %. The right ventricle is mildly enlarged. LA is moderately dilated 34-39 ml/m2 The right atrial size is normal. Interatrial and interventricular septum intact. There is mild aortic valve sclerosis. The mitral valve leaflets are mildly thickened. Moderate mitral annular calcification present. Mo hkmwmw-jy-kyuirz mitral regurgitation is present. Moderate tricuspid regurgitation present. There is moderate to severe pulmonary hypertension. The right ventricular systolic pressure, as measured by Doppler, is 55.38mmHg. Trace/mild (physiologic) pulmonic regurgitation. The aortic root size is normal. Normal inferior vena cava with normal inspiratory collapse consistent with estimated right atrial pre ssure of 5 mmHg. There is a trivial pericardial effusion present. CONCLUSIONS -------- 1. There is borderline concentric left ventricular hypertrophy. 2. There is moderate global hypokinesis of LV . 3. Overall left ventricular systolic function is moderately impaired with, an EF between 35 - 40 %. 4. The right ventricle is mildly enlarged. 5. LA is moderately dilated 34-39 ml/m2 6. There is mild aortic valve sclerosis. 7. The mitral valve leaflets are mildly thickened. 8. Moderate mitral annular calcification present. 9. Hglxrmsg-ab-rjvunq mitral regurgitation is present. 10. Moderate tricuspid regurgitation present. 11. There is moderate to severe pulmonary hypertension. 12. Trace/mild (physiologic) pulmonic regurgitation. 13. There is a trivial pericardial effusion present. INSULATION POWER UNIT TENDER: Christy Ramesh RDCS
== END | disposition home or self-care (01) ==
LOC: RADECHMAIN 13:48
PROVIDERS: ATTEND Family Medicine
DX: I08.1 Rheumatic disorders of both mitral and tricuspid valves (principal); I27.20 Pulmonary hypertension, unspecified; I31.3 Pericardial effusion (noninflammatory)
CPT/HCPCS: 93306

== ENCOUNTER 2022-03-20 06:12 | Day surgery (SDC) | payer MEDICARE, BC ==
[2022-03-15 15:20] VITALS: BMI 28.5
[~2022-03-20 06:12] MED LIST changes: -ACETAMINOPHEN TAB 500 MG TAB PO ONE; +GENTAMICIN 0.3% OPHTH DROPS 5 ML BTL OPHTHALMIC PRN; -HYDROmorphone 0.5 MG/0.5 ML SYRINGE IVP PRN; -LIDOCAINE 1% 20 ML VIAL (10MG/ML) FOR IV START INTRADERMA PRN; -MELOXICAM 7.5 MG TAB PO ONE; -ONDANSETRON 4 MG/2 ML VIAL IVP ONE; -ROPIVACAINE 246.25 MG, EPINEPHrine 0.5 MG, KETOROLAC 30 MG, cloNIDine HCL/PF 80 MCG, WA... MISCELLANE ONE; +TETRACAINE 0.5% OPHTH (PF) DROPS 4 ML BTL OP PRN; +TIMOLOL 0.5% OPHTH DROPS 5 ML BTL OP PRN; -TRANEXAMIC ACID 1,000 MG in SODIUM CHLORIDE 0.9% 50 ML IVPB ONE; -ceFAZolin IN SWFI 2 GM/20 ML SYRINGE IVP ONE
[2022-03-20] MEDS: CYCLOPENTOLATE 1% OPHTH SOLN 2 ML BTL OP PRN ×3 (06:55→07:22)
[2022-03-20] MEDS ORDERED: LACTATED RINGERS 1,000 ML IV ONE (06:57)
[2022-03-20] MEDS: PHENYLEPHRINE 2.5% OPHTH DRP 2ML OP PRN ×3 (07:00→07:27)
[2022-03-20 07:03] VITALS: RESP 16; TEMP 97.9
[2022-03-20] MEDS ORDERED: LACTATED RINGERS 1,000 ML IV SCH (07:09)
[2022-03-20 07:22] LABS: Glucose,Whole Blood 132 mg/dL (70-110)
[2022-03-20] MEDS ORDERED: MIDAZOLAM 2 MG/2 ML VIAL ONE (07:44)
[2022-03-20] MEDS ORDERED: fentaNYL (PF) 50 MCG/ML 2 ML AMP ONE (07:44)
[2022-03-20] MEDS ORDERED: LIDOCAINE 1% (PF) 10MG/ML VIAL SQ ONE (08:00)
[2022-03-20] MEDS ORDERED: BALANCED SALT IRRIG SOLN COMB2 15 ML IRRIG.SOLN INTRAOCULA ONE (08:00)
[2022-03-20] MEDS ORDERED: EPINEPHrine (PF) 0.3 ML in BALANCED SALT IRRIG SOLN COMB2 500 ML IRRIGATION ONE (08:00)
[2022-03-20] MEDS ORDERED: HYALURONATE SODIUM INTRAOCULAR 1 EACH SYRINGE (12MG/ML) INTRAOCULA ONE (08:00)
--- NOTE | 2022-03-20 08:13 | P.OP ---
Date of Procedure: 03/20/22 Preoperative Diagnosis: NS & CS Postoperative Diagnosis: same Procedure(s) Performed: PIOL, OD Implants: [id number] 18.50 Anesthesia: MAC Surgeon: Alvaro Ramirez Pathology: none sent Condition: stable Disposition: same day Indications for Procedure: blurry vision Operative Findings: no complications
[2022-03-20 08:38] VITALS: BP 137/63; PULSE 69
--- NOTE | 2022-03-21 00:09 | OP ---
OPERATIVE REPORT PREOPERATIVE DIAGNOSIS: Nuclear sclerosis, cortical sclerosis. POSTOPERATIVE DIAGNOSIS: Nuclear sclerosis, cortical sclerosis. OPERATION: Phacoemulsification of cataract and interocular lens implant, right eye. ESTIMATED BLOOD LOSS: Zero. SPECIMEN TAKEN: None. NARRATIVE: After obtaining the appropriate consent, the patient was brought to the operating room where the patient was placed under cardiac monitoring and prepped and draped in the usual sterile manner. At the 11 o'clock position, a 15-degree super sharp blade was used to create a paracentesis followed by instillation of 1% Xylocaine MPF 50:50 mix with BSS into the anterior chamber. This was followed by Amvisc viscoelastic to stabilize the anterior chamber. At the 9 o'clock position a self-sealing corneal flap incision was created using 2.8 mm uzair keratome. A cystotome was used to initiate a continuous tear capsulorrhexis which was completed with the Utrata forceps. A Binkhorst cannula was used to hydrodissect the lens nucleus followed by hydrodelineation. Phacoemulsification of the lens was performed utilizing phacochop in 13.31 seconds at 20% power. The remaining cortical material was removed using the irrigation aspiration mode followed by additional 1% Xylocaine MPF into the anterior chamber followed by viscoelastic to stabilize the capsular bag. A [employer]ch [employer] Lomb MX60e 18.5 diopters posterior chamber lens was placed into the capsular bag without difficulty. The remaining viscoelastic material was removed from the anterior chamber with the irrigation/aspiration. Balanced salt solution was used to normalize the intraocular pressure. The incision was checked for watertight integrity. The patient then received 2 drops of 0.5% timolol followed by 2 drops Vigamox, was lightly patched and shielded in the usual manner. There were no complications from the procedure. The patient tolerated the procedure well and was returned to recovery in good condition. MMODL / IJN: [id number] /
== END 2022-03-20 08:59 | disposition home or self-care (01) ==
LOC: OR 06:12
PROVIDERS: ATTEND Ophthalmology
DX: H25.11 Age-related nuclear cataract, right eye (principal); I25.10 Atherosclerotic heart disease of native coronary artery without angina pectoris; I12.9 Hypertensive chronic kidney disease with stage 1 through stage 4 chronic kidney disease, or unspecified chronic kidney disease; E11.22 Type 2 diabetes mellitus with diabetic chronic kidney disease; E78.5 Hyperlipidemia, unspecified; Z88.5 Allergy status to narcotic agent; Z79.899 Other long term (current) drug therapy
CPT/HCPCS: 66984; C1780; J2250; J0171; J3010; J2001

== ENCOUNTER 2022-04-17 06:23 | Day surgery (SDC) | payer MEDICARE, BC ==
[2022-04-12 15:51] VITALS: BMI 28.5
[2022-04-17] MEDS ORDERED: LACTATED RINGERS 1,000 ML IV SCH (06:25)
[2022-04-17] MEDS ORDERED: LIDOCAINE 1% (10MG/ML) FOR IV START INTRADERMA PRN (06:25)
[2022-04-17] MEDS ORDERED: fentaNYL (PF) 50 MCG/ML 2 ML AMP IV PRN (07:00)
[2022-04-17] MEDS ORDERED: ONDANSETRON 4 MG/2 ML VIAL IVP PRN (07:00)
[2022-04-17] MEDS: CYCLOPENTOLATE 1% OPHTH SOLN 2 ML BTL OP PRN ×3 (07:26→07:36)
[2022-04-17 07:31] VITALS: TEMP 97.1
[2022-04-17] MEDS: PHENYLEPHRINE 2.5% OPHTH DRP 2ML OP PRN ×3 (07:48→07:56)
[2022-04-17] MEDS ORDERED: MIDAZOLAM 2 MG/2 ML VIAL ONE (08:13)
[2022-04-17] MEDS ORDERED: fentaNYL (PF) 50 MCG/ML 2 ML AMP ONE (08:13)
[2022-04-17] MEDS ORDERED: HYALURONATE SODIUM INTRAOCULAR 1 EACH SYRINGE (12MG/ML) INTRAOCULA ONE (08:22)
[2022-04-17] MEDS ORDERED: LIDOCAINE 1% (PF) 10MG/ML VIAL MISCELLANE ONE (08:22)
[2022-04-17] MEDS ORDERED: BALANCED SALT IRRIG SOLN COMB2 15 ML IRRIG.SOLN IRRIGATION ONE (08:22)
[2022-04-17] MEDS ORDERED: EPINEPHrine (PF) 0.3 ML in BALANCED SALT IRRIG SOLN COMB2 500 ML IRRIGATION ONE (08:24)
--- NOTE | 2022-04-17 08:40 | P.OP ---
Date of Procedure: 04/17/22 Preoperative Diagnosis: NS & CS Postoperative Diagnosis: same Procedure(s) Performed: PIOL, OS Implants: [id number] 18.50 Anesthesia: MAC Surgeon: Alvaro Ramirez Pathology: none sent Disposition: same day Indications for Procedure: blurry vision Operative Findings: no complications
[2022-04-17 08:46] VITALS: RESP 16
[2022-04-17 09:17] VITALS: BP 144/56; PULSE 70
--- NOTE | 2022-04-17 21:19 | OP ---
OPERATIVE REPORT PREOPERATIVE DIAGNOSES: Nuclear sclerosis, cortical sclerosis. POSTOPERATIVE DIAGNOSES: Nuclear sclerosis, cortical sclerosis. OPERATION: Phacoemulsification of cataract and interocular lens implant, left eye. ESTIMATED BLOOD LOSS: Zero. SPECIMEN TAKEN: None. NARRATIVE: After obtaining the appropriate consent, the patient was brought to the operating room where the patient was placed under cardiac monitoring and prepped and draped in the usual sterile manner. At the 5 o'clock position, a 15-degree super sharp blade was used to create a paracentesis followed by instillation of 1% Xylocaine MPF 50:50 mix with BSS into the anterior chamber. This was followed by Amvisc viscoelastic to stabilize the anterior chamber. At the 3 o'clock position a self-sealing corneal flap incision was created using 2.8 mm uzair keratome. A cystotome was used to initiate a continuous tear capsulorrhexis which was completed with the Utrata forceps. A Binkhorst cannula was used to hydrodissect the lens nucleus followed by hydrodelineation. Phacoemulsification of the lens was performed utilizing phacochop in 12.69 seconds at 16% power. The remaining cortical material was removed using the irrigation aspiration mode followed by additional 1% Xylocaine MPF into the anterior chamber followed by viscoelastic to stabilize the capsular bag. A [employer]ch [employer] Lomb MX60E 18.5 diopters posterior chamber lens was placed into the capsular bag without difficulty. The remaining viscoelastic material was removed from the anterior chamber with the irrigation/aspiration. Balanced salt solution was used to normalize the intraocular pressure. The incision was checked for watertight integrity. The patient then received 2 drops of 0.5% timolol followed by 2 drops Vigamox, was lightly patched and shielded in the usual manner. There were no complications from the procedure. The patient tolerated the procedure well and was returned to recovery in good condition. MMODL / IJN: [id number] /
== END 2022-04-17 09:35 | disposition home or self-care (01) ==
LOC: OR 06:23
PROVIDERS: ATTEND Ophthalmology
DX: H25.12 Age-related nuclear cataract, left eye (principal); H53.8 Other visual disturbances; E11.22 Type 2 diabetes mellitus with diabetic chronic kidney disease; H00.023 Hordeolum internum right eye, unspecified eyelid; H00.026 Hordeolum internum left eye, unspecified eyelid; N18.4 Chronic kidney disease, stage 4 (severe); Z96.1 Presence of intraocular lens
CPT/HCPCS: 66984; C1780; J2250; J0171; J3010; J2001

== ENCOUNTER 2022-09-22 18:16 | Inpatient (IN) | payer MEDICARE, BC ==
--- NOTE | 2022-09-22 19:06 | ED ---
General Adult HPI - General Chief complaint: Weakness Stated complaint: chest pain SOB Time Seen by Provider: 09/22/22 18:18 Source: patient Mode of arrival: wheelchair - History of Present Illness Initial comments: Dictation was produced using [employer] dictation software. please excuse any grammatical, word or spelling errors. Chief Complaint: 77-year-old female with past medical history of irregular heartbeat, diabetes hypertension presents to the ER for exertional dyspnea, exertional weakness and episode of chest pain today. History of Present Illness: 77-year-old female she has multiple comorbidities. She takes Coumadin for alleged irregular heartbeat. She is not sure if she's been diagnosed with A. fib. Patient has history of diabetes mellitus hypertension. Over the last couple days she's been having exertional fatigue, exertional shortness of breath. She did have some bouts of chest pressure earlier today. States of substernal. Non-rating associated diaphoresis or nausea. Does have some mild nausea. Episodes of chest pain earlier did not radiate. Patient denies any chest pain at the bedside. Daughter at the bedside states that patient had a echo cardiac exam that showed some mild fluid around the heart. Patient states that she does not feel any symptoms when at rest. Symptoms only seem to be noticeable whenever she tries to perform her activities of daily living. The ROS documented in this emergency department record has been reviewed and confirmed by me. Those systems with pertinent positive or negative responses have been documented in the HPI. All other systems are other negative and/or noncontributory. - Related Data Home Medications Medication Instructions Recorded Confirmed Pioglitazone [Actos] 45 mg PO DAILY 09/11/17 09/22/22 Warfarin [Coumadin] 5 mg PO MOFR@2100 12/16/18 09/22/22 allopurinoL [Zyloprim] 100 mg PO HS 12/16/18 09/22/22 calcitrioL [Calcitriol] 0.25 mcg PO MOWEFRSA 12/16/18 09/22/22 Cholecalciferol [Vitamin D3 (125 125 mcg PO HS 09/14/21 09/22/22 Mcg = 5000 Iu)] Cinnamon Bark [Cinnamon] 1,000 mg PO QID 09/14/21 09/22/22 Cyanocobalamin [Vitamin B-12] 500 mg PO DAILY 09/14/21 09/22/22 Garlic 1,000 mg PO DAILY 09/14/21 09/22/22 Glimepiride [Amaryl] 2 mg PO DAILY 09/14/21 09/22/22 Pravastatin Sodium [Pravachol] 10 mg PO HS 09/14/21 09/22/22 Selenium 200 mg PO HS 09/14/21 09/22/22 Darbepoetin Matt [Aranesp] 40 mcg SQ Q14D 09/22/22 09/22/22 Folic Acid 0.4 mg PO DAILY 09/22/22 09/22/22 Metoprolol Succinate (ER) [Toprol 50 mg PO DAILY 09/22/22 09/22/22 Xl] Sodium Bicarbonate Tab 650 mg PO TID 09/22/22 09/22/22 Spironolactone [Aldactone] 12.5 mg PO HS 09/22/22 09/22/22 Warfarin [Coumadin] 2.5 mg PO SUTUWETHSA@2100 09/22/22 09/22/22 Allergies Allergy/AdvReac Type Severity Reaction Status Date / Time ciprofloxacin [From Cipro] Allergy Unknown Itching, Verified 09/22/22 19:48 Rash codeine Allergy Itching Verified 09/22/22 19:48 Review of Systems ROS Statement: Those systems with pertinent positive or pertinent negative responses have been documented in the HPI. ROS Other: All systems not noted in ROS Statement are negative. Past Medical History Past Medical History: Blood Disorder, Diabetes Mellitus, Hypertension, Osteoarthritis (OA), Renal Disease Additional Past Medical History / Comment(s): LOW IRON., URINE URGENCY., BACK AND HIP PAIN, USING CANE. STAGE 4 KIDNEY DISEASE. History of Any Multi-Drug Resistant Organisms: None Reported Past Surgical History: Orthopedic Surgery, Tubal Ligation Additional Past Surgical History / Comment(s): COLONOSCOPY, EGD., TRH. RIGHT HIP REPLACEMENT. LEFT CATARACT SURGERY - MAR 2022 Past Anesthesia/Blood Transfusion Reactions: No Reported Reaction Past Psychological History: No Psychological Hx Reported Smoking Status: Never smoker Past Alcohol Use History: None Reported Past Drug Use History: None Reported - Past Family History Mother Family Medical History: Cancer Additional Family Medical History / Comment(s): SKIN CANCER Father Family Medical History: CVA/TIA General Exam - General Exam Comments Initial Comments: PHYSICAL EXAM: General Impression: Alert and oriented x3, not in acute distress HEENT: Normocephalic atraumatic, extra-ocular movements intact, pupils equal and reactive to light bilaterally, mucous membranes moist. Cardiovascular: Heart regular rate and rhythm Chest: Able to complete full sentences, no retractions, no tachypnea Abdomen: abdomen soft, non-tender, non-distended, no organomegaly Musculoskeletal: Pulses present and equal in all extremities, no peripheral edema Motor: no focal deficits noted Neurological: CN II-XII grossly intact, no focal motor or sensory deficits noted Skin: Intact with no visualized rashes Psych: Normal affect and mood Course Vital Signs 09/22/22 09/22/22 09/22/22 18:19 19:30 21:16 Temperature 98.3 F Pulse Rate 100 90 85 Respiratory 20 18 20 Rate Blood Pressure 128/68 116/66 116/66 O2 Sat by Pulse 96 96 98 Oximetry EKG Findings - EKG Comments: EKG Findings:: My EKG interpretation: Ventricular rate 94, A. fib, QRS 86, QTC 44. No [place] prolongation, no QTC prolongation, no ST or T-wave changes noted. No old EKG for comparison. Medical Decision Making - Medical Decision Making Was pt. sent in by a medical professional or institution (, PA, EMPLOYMENT TRAINING SPECIALIST, urgent care, hospital, or correction...) When possible be specific @ -No Did you speak to anyone other than the patient for history (EMS, parent, family, police, friend...)? What history was obtained from this source @ -Family at the bedside reports patient has a cough Did you review nursing and triage notes (agree or disagree)? Why? @ -I reviewed and agree with nursing and triage notes Were old charts reviewed (outside hosp., previous admission, EMS record, old EKG, old radiological studies, urgent care reports/EKG's, correction records)? Report findings @ -No old charts were reviewed Differential Diagnosis (chest pain, altered mental status, abdominal pain women, abdominal pain men, vaginal bleeding, musculoskeletal, weakness, fever, dyspnea, syncope, headache, dizziness, GI bleed, back pain, seizure, CVA, palpatations, mental health)? @ -Differential Weakness: Hypoglycemia, shock, sepsis, hyponatremia, anemia, infection, [place], ETOH, adverse medicine reaction, overdose, stroke, this is not meant to be an all-inclusive list. EKG interpreted by me (3pts min.). @ -See above X-rays interpreted by me (1pt min.). @ -Findings of congestive heart failure on chest x-ray CT interpreted by me (1pt min.). @ -None done U/S interpreted by me (1pt. min.). @ -None done What testing was considered but not performed or refused? (CT, X-rays, U/S, labs)? Why? @ -None What meds were considered but not given or refused? Why? @ -None Did you discuss the management of the patient with other professionals (pr ofessionals i.e. , PA, EMPLOYMENT TRAINING SPECIALIST, lab, RT, psych nurse, clinical social work therapist, computer tester, teacher, press officer, home health care case manager)? Give summary @ -Discussed with Anayeli for admission to [facility] hospitalist group Was smoking cessation discussed for >3mins.? @ -No Was critical care preformed (if so, how long)? @ -No Were there social determinants of health that impacted care today? How? (Amanda elessness, low income, unemployed, alcoholism, drug addiction, transportation, low edu. Level, literacy, decrease access to med. care, care home, rehab)? @ -No Was there de-escalation of care discussed even if they declined (Discuss DNR or withdrawal of care, Hospice)? DNR status @ -No What co-morbidities impacted this encounter? (DM, HTN, Smoking, COPD, CAD, Cancer, CVA, ARF, Chemo, Hep., AIDS, mental health diagnosis, sleep apnea, morbid obesity)? @ -History of congestive heart failure Was patient admitted / discharged? Hospital course, mention meds given and route, prescriptions, significant lab abnormalities, going to OR and other pertinent info. @ -77-year-old female multiple comorbidities presents to the emergency department with exertional symptoms of fatigue, dyspnea and nausea. Denies any chest pain. Vital signs stable. EKG does not show any signs of ischemia or infarction. Laboratory evaluation shows elevated renal function with creatinine 3.05. Her baseline creatinine is below 2. Patient also has dyspnea with findings of congestive heart failure and x-ray. IV fluids. Patient will need gentle hydration. Undiagnosed new problem with uncertain prognosis? @ -No Drug Therapy requiring intensive monitoring for toxicity (Heparin, Nitro, Insulin, Cardizem)? @ -No Were any procedures done? @ -No Diagnosis/symptom? Acute, or Chronic, or Acute on Chronic? Uncomplicated (without systemic symptoms) or Complicated (systemic symptoms)? @ -1. Acute kidney injury with 2. History of heart failure Side effects of treatment? @ -No Exacerbation, Progression, or Severe Exacerbation? @ -No Poses a threat to life or bodily function? How? (Chest pain, [place], [place], pneumonia, PE, COPD, DKA, ARF, appy, cholecystitis, CVA, Diverticulitis, Homicidal, Suicidal, threat to staff... and all critical care pts) @ -yes - Lab Data Result diagrams: 09/22/22 18:57 09/22/22 18:57 Lab Results 09/22/22 09/22/22 09/22/22 Range/Units 18:57 18:57 18:57 WBC 10.7 H (3.8-10.6) k/uL RBC 3.70 L (3.80-5.40) m/uL Hgb 11.7 (11.4-16.0) gm/dL Hct 37.2 (34.0-46.0) % MCV 100.4 H (80.0-100.0) fL MCH 31.5 (25.0-35.0) pg MCHC 31.4 (31.0-37.0) g/dL RDW 15.2 (11.5-15.5) % Plt Count 181 (150-450) k/uL MPV 11.8 Neutrophils % 77 % Lymphocytes % 8 % Monocytes % 12 % Eosinophils % 1 % Basophils % 0 % Neutrophils # 8.3 H (1.3-7.7) k/uL Lymphocytes # 0.9 L (1.0-4.8) k/uL Monocytes # 1.3 H (0-1.0) k/uL Eosinophils # 0.1 (0-0.7) k/uL Basophils # 0.0 (0-0.2) k/uL Large Platelets Present RBC Morphology Normal Hypochromasia Slight Macrocytosis Slight PT 33.6 H (9.0-12.0) sec INR 3.4 H (<1.2) APTT 38.1 H (22.0-30.0) sec Sodium 134 L (137-145) mmol/L Potassium 5.2 H (3.5-5.1) mmol/L Chloride 101 (98-107) mmol/L Carbon Dioxide 21 L (22-30) mmol/L Anion Gap 12 mmol/L BUN 56 H (7-17) mg/dL Creatinine 3.05 H (0.52-1.04) mg/dL Est GFR (CKD-EPI)AfAm 16 (>60 ml/min/1.73 sqM) Est GFR (CKD-EPI)NonAf 14 (>60 ml/min/1.73 sqM) Glucose 147 H (74-99) mg/dL Calcium 9.0 (8.4-10.2) mg/dL Total Bilirubin 0.8 (0.2-1.3) mg/dL AST 31 (14-36) U/L ALT 22 (4-34) U/L Alkaline Phosphatase 55 (38-126) U/L Troponin I (0.000-0.034) ng/mL Total Protein 7.3 (6.3-8.2) g/dL Albumin 3.7 (3.5-5.0) g/dL 09/22/22 Range/Units 18:57 WBC (3.8-10.6) k/uL RBC (3.80-5.40) m/uL Hgb (11.4-16.0) gm/dL Hct (34.0-46.0) % MCV (80.0-100.0) fL MCH (25.0-35.0) pg MCHC (31.0-37.0) g/dL RDW (11.5-15.5) % Plt Count (150-450) k/uL MPV Neutrophils % % Lymphocytes % % Monocytes % % Eosinophils % % Basophils % % Neutrophils # (1.3-7.7) k/uL Lymphocytes # (1.0-4.8) k/uL Monocytes # (0-1.0) k/uL Eosinophils # (0-0.7) k/uL Basophils # (0-0.2) k/uL Large Platelets RBC Morphology Hypochromasia Macrocytosis PT (9.0-12.0) sec INR (<1.2) APTT (22.0-30.0) sec Sodium (137-145) mmol/L Potassium (3.5-5.1) mmol/L Chloride (98-107) mmol/L Carbon Dioxide (22-30) mmol/L Anion Gap mmol/L BUN (7-17) mg/dL Creatinine (0.52-1.04) mg/dL Est GFR (CKD-EPI)AfAm (>60 ml/min/1.73 sqM) Est GFR (CKD-EPI)NonAf (>60 ml/min/1.73 sqM) Glucose (74-99) mg/dL Calcium (8.4-10.2) mg/dL Total Bilirubin (0.2-1.3) mg/dL AST (14-36) U/L ALT (4-34) U/L Alkaline Phosphatase (38-126) U/L Troponin I 0.023 (0.000-0.034) ng/mL Total Protein (6.3-8.2) g/dL Albumin (3.5-5.0) g/dL Disposition Clinical Impression: HUY (acute kidney injury) Disposition: ADMITTED IP TO THIS HOSP Condition: Fair Referrals: Casey Okeefe MD [Primary Care Provider] - 1-2 days Decision Time: 21:00
[2022-09-22 19:29] LABS: Basophils % (A) 0 %; Eosinophils # (A) 0.1 k/uL (0-0.7); Eosinophils % (A) 1 %; HCT 37.2 % (34.0-46.0); HGB 11.7 gm/dL (11.4-16.0); Hypochromasia Slight; Lymphocytes # (A) 0.9 k/uL (1.0-4.8); Lymphocytes % (A) 8 %; MCH 31.5 pg (25.0-35.0); MCHC 31.4 g/dL (31.0-37.0); MCV 100.4 fL (80.0-100.0); Macrocytosis Slight; Mean Platelet Volume 11.8; Monocytes # (A) 1.3 k/uL (0-1.0); Monocytes % (A) 12 %; Neutrophils # (A) 8.3 k/uL (1.3-7.7); Neutrophils % (A) 77 %; Platelet Count 181 k/uL (150-450); RDW 15.2 % (11.5-15.5); WBC 10.7 k/uL (3.8-10.6)
[2022-09-22 19:35] LABS: ALT 22 U/L (4-34); AST 31 U/L (14-36); African American GFR (CKD) 16 (>60 ml/min/1.73 sqM); Albumin 3.7 g/dL (3.5-5.0); Alkaline Phosphatase 55 U/L (38-126); Anion Gap 12 mmol/L; Blood Urea Nitrogen 56 mg/dL (7-17); Carbon Dioxide 21 mmol/L (22-30); Chloride 101 mmol/L (98-107); Glucose 147 mg/dL (74-99); Non-African American GFR(CKD) 14 (>60 ml/min/1.73 sqM); Potassium 5.2 mmol/L (3.5-5.1); Sodium 134 mmol/L (137-145); Total Bilirubin 0.8 mg/dL (0.2-1.3); Total Protein 7.3 g/dL (6.3-8.2)
--- NOTE | 2022-09-22 19:38 | XR ---
EXAMINATION TYPE: XR chest 2V DATE OF EXAM: 09/22/2022 7:19 PM COMPARISON: None TECHNIQUE: XR chest 2V Frontal and lateral views of the chest. CLINICAL INDICATION:Female, 77 years old with history of Weakness; FINDINGS: Lungs/Pleura: No evidence of focal consolidation or pneumothorax. Blunting of the costophrenic angles is present. Pulmonary vascularity: Pulmonary vascular congestion. Heart/mediastinum: Cardiomediastinal silhouette is enlarged and stable. Musculoskeletal: No acute osseous pathology. IMPRESSION: Cardiomegaly, pulmonary vascular congestion and bilateral pleural effusions. Correlate with BNP for c ongestive heart failure.
[2022-09-22 19:53] LABS: INR 3.4 (<1.2); Partial Thromboplastin Time 38.1 sec (22.0-30.0); Prothrombin Time 33.6 sec (9.0-12.0)
[2022-09-22] MEDS ORDERED: SODIUM CHLORIDE 0.9% 1,000 ML IV STA (20:38)
[2022-09-22] MEDS ORDERED: SODIUM CHLORIDE 0.9% 500 ML IV STA (20:39)
[2022-09-22] MEDS ORDERED: ASPIRIN 81 MG PO STA (20:39)
[2022-09-22 21:33] LABS: Large Platelets Present; RBC Morphology Normal
[2022-09-22] MEDS ORDERED: NALOXONE 0.4 MG/ML 1 ML VIAL IV PRN (21:47)
[2022-09-22] MEDS: SODIUM CHLORIDE 0.9% 1,000 ML IV SCH (22:29)
[2022-09-23] MEDS: SODIUM CHLORIDE 0.9% 1,000 ML IV SCH (04:20)
[2022-09-23 04:46] LABS: Glucose,Whole Blood 114 mg/dL (70-110)
--- NOTE | 2022-09-23 10:38 | P.CRDCN ---
History of Present Illness History of present illness: HISTORY OF PRESENT ILLNESS: This is a 77-year-old female with a past medical history significant for atrial fibrillation, hypertension, hyperlipidemia, diabetes, valvular heart disease, and chronic kidney disease. Patient follows in the office with Dr. Sherman. We hav e been asked to see the patient in consultation for CHF. Patient examined at the bedside. Patient presented to the hospital with weakness, chest pain, and shortness of breath. She states she had blood work drawn outpatient and was told it was abnormal and recommended her to come to the hospital. Patient was found to have worsening kidney function with a creatinine of 3.05. Patient denies any new medication changes. She states she has been eating and drinking okay at home. No vomiting or diarrhea. She denies chest pain or pressure. She reports mild SOB. Vital signs are stable. * EKG reveals atrial fibrillation with controlled ventricular rate * Chest xray cardiomegaly, pulmonary vascular congestion and bilateral pleural effusions. * Laboratory data: WBC 10.7. Hemoglobin 11.7. Platelet count 181. INR 3.4. Sodium 134. Potassium 4.2. BUN 56. Creatinine 3.05 troponin negative 1 * Current home cardiac medications include Coumadin 5 mg on Friday and Friday and 2.5 mg Friday and Friday and Friday, Pravachol 10 mg at night, and Aldactone 12.5 mg at night * Most recent echocardiogram obtained in the office in June 2022 revealed ejection fraction 45-50%, small hypokinetic areas of the inferior and inferior septal nazario at the base, moderate to severe MR, severe TR and moderate pericardial effusion * Patient underwent Lexiscan stress test in August 2020 in the office which was negative for ischemia REVIEW OF SYSTEMS: At the time of my exam: CONSTITUTIONAL: Denies fever or chills. HEENT: Denies blurred vision, vision changes, or eye pain. Denies hemoptysis CARDIOVASCULAR: Denies chest pain. Denies orthopnea. Denies PND. Denies palpitations RESPIRATORY: Denies shortness of breath. GASTROINTESTINAL: Denies abdominal pain. Denies nausea or vomiting. HEMATOLOGIC: Denies bleeding disorders. GENITOURINARY: Denies any blood in urine. SKIN: Denies pruitis. Denies rash. PHYSICAL EXAM: VITAL SIGNS: Reviewed. GENERAL: Well-developed in no acute distress. HEENT: Head is normocephalic. Pupils are equal, round. Sclerae anicteric. Mucous membranes of the mouth are moist. Neck supple. No JVD or thyromegaly LUNGS: Respirations even and unlabored. Lungs diminished bilaterally. HEART: Irregular rate and rhythm. S1 and S2 heard. Systolic murmur ABDOMEN: Soft. Nondistended. Nontender. EXTREMITIES: Normal range of motion. No clubbing or cyanosis. Peripheral pulses intact. No lower extremity edema NEUROLOGIC: Awake and alert. Oriented x 3. ASSESSMENT: Acute kidney injury Chronic kidney disease Volume overload, secondary to acute renal failure Permanent atrial fibrillation Hypertension Hyperlipidemia Diabetes Valvular heart disease PLAN: Obtain 2D echo to assess cardiac structure and function Resume home cardiac medications Hold Aldactone Hold Coumadin secondary to elevated INR. Monitor INR. Await recommendations from nephrology Further recommendations pending patient course Nurse practitioner note has been reviewed by physician. Signing provider agrees with the documented findings, assessment, and plan of care. Past Medical History Past Medical History: Blood Disorder, Diabetes Mellitus, Hypertension, Osteoarthritis (OA), Renal Disease Additional Past Medical History / Comment(s): LOW IRON., URINE URGENCY., Ireg Heartbeat (unsure if afib) On coumadin. STAGE 4 KIDNEY DISEASE. History of Any Multi-Drug Resistant Organisms: None Reported Past Surgical History: Orthopedic Surgery, Tubal Ligation Additional Past Surgical History / Comment(s): COLONOSCOPY, EGD., TRH. RIGHT HIP REPLACEMENT. LEFT CATARACT SURGERY - MAR 2022, Lens implant to bilat eyes June 2022 Past Anesthesia/Blood Transfusion Reactions: No Reported Reaction Past Psychological History: No Psychological Hx Reported Smoking Status: Never smoker Past Alcohol Use History: None Reported Past Drug Use History: None Reported - Past Family History Mother Family Medical History: Cancer Additional Family Medical History / Comment(s): SKIN CANCER Father Family Medical History: CVA/TIA Medications and Allergies Home Medications Medication Instructions Recorded Confirmed Type Pioglitazone [Actos] 45 mg PO DAILY 09/11/17 09/22/22 History Warfarin [Coumadin] 5 mg PO MOFR@2100 12/16/18 09/22/22 History allopurinoL [Zyloprim] 100 mg PO HS 12/16/18 09/22/22 History calcitrioL [Calcitriol] 0.25 mcg PO MOWEFRSA 12/16/18 09/22/22 History Cholecalciferol [Vitamin D3 (125 125 mcg PO HS 09/14/21 09/22/22 History Mcg = 5000 Iu)] Cinnamon Bark [Cinnamon] 1,000 mg PO QID 09/14/21 09/22/22 History Cyanocobalamin [Vitamin B-12] 500 mg PO DAILY 09/14/21 09/22/22 History Garlic 1,000 mg PO DAILY 09/14/21 09/22/22 History Glimepiride [Amaryl] 2 mg PO DAILY 09/14/21 09/22/22 History Pravastatin Sodium [Pravachol] 10 mg PO HS 09/14/21 09/22/22 History Selenium 200 mg PO HS 09/14/21 09/22/22 History Darbepoetin Matt [Aranesp] 40 mcg SQ Q14D 09/22/22 09/22/22 History Folic Acid 0.4 mg PO DAILY 09/22/22 09/22/22 History Metoprolol Succinate (ER) [Toprol 50 mg PO DAILY 09/22/22 09/22/22 History Xl] Sodium Bicarbonate Tab 650 mg PO TID 09/22/22 09/22/22 History Spironolactone [Aldactone] 12.5 mg PO HS 09/22/22 09/22/22 History Warfarin [Coumadin] 2.5 mg PO SUTUWETHSA@2100 09/22/22 09/22/22 History Allergies Allergy/AdvReac Type Severity Reaction Status Date / Time ciprofloxacin [From Cipro] Allergy Unknown Itching, Verified 09/22/22 19:48 Rash codeine Allergy Itching Verified 09/22/22 19:48 Physical Exam Vitals: Vital Signs Temp Pulse Pulse Resp BP BP Pulse Ox 09/23/22 04:50 98.1 F 83 16 112/51 97 09/23/22 04:22 98 F 85 18 124/67 99 09/23/22 02:21 84 16 116/64 96 09/23/22 00:19 86 16 117/62 96 09/22/22 21:16 85 20 116/66 98 09/22/22 19:30 90 18 116/66 96 09/22/22 18:19 98.3 F 100 20 128/68 96 Intake and Output 07/02/23 07/03/23 07/03/23 22:59 06:59 14:59 Intake Total 150 Balance 150 Intake: Intake, IV Titration 150 Amount Sodium Chloride 0.9% 1, 150 000 ml @ 75 mls/hr IV . [id number] [facility] Rx#:[id number] Other: Weight 58.967 kg 58.967 kg Results 09/22/22 18:57 09/22/22 18:57 Cardiac Enzymes 09/22/22 09/22/22 Range/Units 18:57 18:57 AST 31 (14-36) U/L Troponin I 0.023 (0.000-0.034) ng/mL Coagulation 09/22/22 Range/Units 18:57 PT 33.6 H (9.0-12.0) sec APTT 38.1 H (22.0-30.0) sec CBC 09/22/22 Range/Units 18:57 WBC 10.7 H (3.8-10.6) k/uL RBC 3.70 L (3.80-5.40) m/uL Hgb 11.7 (11.4-16.0) gm/dL Hct 37.2 (34.0-46.0) % Plt Count 181 (150-450) k/uL Comprehensive Metabolic Panel 09/22/22 Range/Units 18:57 Sodium 134 L (137-145) mmol/L Potassium 5.2 H (3.5-5.1) mmol/L Chloride 101 (98-107) mmol/L Carbon Dioxide 21 L (22-30) mmol/L BUN 56 H (7-17) mg/dL Creatinine 3.05 H (0.52-1.04) mg/dL Glucose 147 H (74-99) mg/dL Calcium 9.0 (8.4-10.2) mg/dL AST 31 (14-36) U/L ALT 22 (4-34) U/L Alkaline Phosphatase 55 (38-126) U/L Total Protein 7.3 (6.3-8.2) g/dL Albumin 3.7 (3.5-5.0) g/dL Current Medications Generic Name Dose Route Start Last Admin Trade Name Freq PRN Reason Stop Dose Admin Sodium Chloride 1,000 mls @ 75 mls/hr 09/22/22 22:00 09/23/22 04:20 Saline 0.9% IV 75 mls/hr .[id number] DOROTHY Administration Naloxone HCl 0.2 mg 09/22/22 21:47 Naloxone 0.4 Mg/Ml 1 Ml Vial IV Q2M PRN Opioid Reversal Intake and Output 09/22/22 09/23/22 09/23/22 22:59 06:59 14:59 Intake Total 150 Balance 150 Intake: Intake, IV Titration 150 Amount Sodium Chloride 0.9% 1, 150 000 ml @ 75 mls/hr IV . [id number] [facility] Rx#:[id number] Other: Weight 58.967 kg 58.967 kg 09/22/22 18:57 09/22/22 18:57
[2022-09-23] MEDS ORDERED: DEXTROSE 50% SYRINGE 50 ML IVP PRN ×2 (11:08)
--- NOTE | 2022-09-23 11:09 | P.HPIM ---
History of Present Illness This is a pleasant 77 years old female with multiple medical problems including Diabetes Mellitus, Hypertension, Osteoarthritis chronic kidney disease atrial fibrillation on Coumadin Patient presents because of chest pain which is resolved now but she was complaining of from the nausea since yesterday we'll generally weak although walking fine. She didn't vomit and she had a good appetite. She denies any urinary symptoms, no abdominal pain or diarrhea. No headaches weakness numbness. Vitals are stable and patient is afebrile Showing mild leukocytosis 10.7, rest of CBC is unremarkable. INR 3.4. Creatinine is elevated at 3.05, baseline is around 1.8-2.1 EKG showing atrial fibrillation with a rate of 94. chest x-ray: Cardia megaly, pulmonary vascular Congestion, procedure In the emergency room patient received aspirin and normal saline echo from 06/2820 showing ejection fraction 35-40% with moderate to severe mitral regurgitation and moderate tricuspid regurgitation Review of Systems Review of systems CONSTITUTIONAL: No fever, no malaise, no fatigue. HEENT: No recent visual problems or hearing problems. Denied any sore throat. CARDIOVASCULAR: No orthopnea, PND, no palpitations, no syncope. PULMONARY: No shortness of breath, no cough, no hemoptysis. GASTROINTESTINAL: No diarrhea, no nausea, no vomiting, no abdominal pain. Normoactive bowel sounds. NEUROLOGICAL: No headaches, no weakness, no numbness. HEMATOLOGICAL: Denies any bleeding or petechiae. GENITOURINARY: Denies any burning micturition, frequency, or urgency. MUSCULOSKELETAL/RHEUMATOLOGICAL: Denies any joint pain, swelling, or any muscle pain. ENDOCRINE: Denies any polyuria or polydipsia. Past Medical History Past Medical History: Blood Disorder, Diabetes Mellitus, Hypertension, Osteoarthritis (OA), Renal Disease Additional Past Medical History / Comment(s): LOW IRON., URINE URGENCY., Ireg Heartbeat (unsure if afib) On coumadin. STAGE 4 KIDNEY DISEASE. History of Any Multi-Drug Resistant Organisms: None Reported Past Surgical History: Orthopedic Surgery, Tubal Ligation Additional Past Surgical History / Comment(s): COLONOSCOPY, EGD., TRH. RIGHT HIP REPLACEMENT. LEFT CATARACT SURGERY - MAR 2022, Lens implant to bilat eyes June 2022 Past Anesthesia/Blood Transfusion Reactions: No Reported Reaction Past Psychological History: No Psychological Hx Reported Smoking Status: Never smoker Past Alcohol Use History: None Reported Past Drug Use History: None Reported - Past Family History Mother Family Medical History: Cancer Additional Family Medical History / Comment(s): SKIN CANCER Father Family Medical History: CVA/TIA Medications and Allergies Home Medications Medication Instructions Recorded Confirmed Type Pioglitazone [Actos] 45 mg PO DAILY 09/11/17 09/22/22 History Warfarin [Coumadin] 5 mg PO MOFR@2100 12/16/18 09/22/22 History allopurinoL [Zyloprim] 100 mg PO 12/16/18 09/22/22 History calcitrioL [Calcitriol] 0.25 mcg PO MOWEFRSA 12/16/18 09/22/22 History Cholecalciferol [Vitamin D3 (125 125 mcg PO HS 09/14/21 09/22/22 History Mcg = 5000 Iu)] Cinnamon Bark [Cinnamon] 1,000 mg PO QID 09/14/21 09/22/22 History Cyanocobalamin [Vitamin B-12] 500 mg PO DAILY 09/14/21 09/22/22 History Garlic 1,000 mg PO DAILY 09/14/21 09/22/22 History Glimepiride [Amaryl] 2 mg PO DAILY 09/14/21 09/22/22 History Pravastatin Sodium [Pravachol] 10 mg PO 09/14/21 09/22/22 History Selenium 200 mg PO 09/14/21 09/22/22 History Darbepoetin Matt [Aranesp] 40 mcg SQ Q14D 09/22/22 09/22/22 History Folic Acid 0.4 mg PO DAILY 09/22/22 09/22/22 History Metoprolol Succinate (ER) [Toprol 50 mg PO DAILY 09/22/22 09/22/22 History Xl] Sodium Bicarbonate Tab 650 mg PO TID 09/22/22 09/22/22 History Spironolactone [Aldactone] 12.5 mg PO 09/22/22 09/22/22 History Warfarin [Coumadin] 2.5 mg PO SUTUWETHSA@2100 09/22/22 09/22/22 History Allergies Allergy/AdvReac Type Severity Reaction Status Date / Time ciprofloxacin [From Cipro] Allergy Unknown Itching, Verified 09/22/22 19:48 Rash codeine Allergy Itching Verified 09/22/22 19:48 Physical Exam Vitals: Vital Signs Temp Pulse Pulse Pulse Resp BP BP 09/23/22 08:13 98.0 F 82 19 09/23/22 04:50 98.1 F 83 16 112/51 09/23/22 04:22 98 F 85 18 124/67 09/23/22 02:21 84 16 116/64 09/23/22 00:19 86 16 117/62 09/22/22 21:16 85 20 116/66 09/22/22 19:30 90 18 116/66 09/22/22 18:19 98.3 F 100 20 128/68 BP Pulse Ox 09/23/22 08:13 116/65 98 09/23/22 04:50 97 09/23/22 04:22 99 09/23/22 02:21 96 09/23/22 00:19 96 09/22/22 21:16 98 09/22/22 19:30 96 09/22/22 18:19 96 Intake and Output 09/22/22 09/23/22 09/23/22 22:59 06:59 14:59 Intake Total 150 Balance 150 Intake: Intake, IV Titration 150 Amount Sodium Chloride 0.9% 1, 150 000 ml @ 75 mls/hr IV . [id number] [facility] Rx#:[id number] Other: Weight 58.967 kg 58.967 kg GENERAL: The patient is alert and oriented x3, not in any acute distress. Well developed, well nourished. HEENT: Pupils are round and equally reacting to light. EOMI. No scleral icterus. No conjunctival pallor. Normocephalic, atraumatic. No pharyngeal erythema. No thyromegaly. CARDIOVASCULAR: S1 and S2 present. No murmurs, rubs, or gallops. PULMONARY: Chest is clear to auscultation, no wheezing , no crackles. ABDOMEN: Soft, nontender, nondistended, normoactive bowel sounds. No palpable organomegaly. MUSCULOSKELETAL: No joint swelling or deformity. EXTREMITIES: No cyanosis, clubbing, or pedal edema. NEUROLOGICAL: Gross neurological examination did not reveal any focal deficits. SKIN: No rashes. no petechiae. Results CBC & Chem 7: 09/22/22 18:57 09/22/22 18:57 Labs: Abnormal Lab Results - Last 24 Hours (Table) 09/22/22 09/22/22 09/22/22 Range/Units 18:57 18:57 18:57 WBC 10.7 H (3.8-10.6) k/uL RBC 3.70 L (3.80-5.40) m/uL MCV 100.4 H (80.0-100.0) fL Neutrophils # 8.3 H (1.3-7.7) k/uL Lymphocytes # 0.9 L (1.0-4.8) k/uL Monocytes # 1.3 H (0-1.0) k/uL PT 33.6 H (9.0-12.0) sec INR 3.4 H (<1.2) APTT 38.1 H (22.0-30.0) sec Sodium 134 L (137-145) mmol/L Potassium 5.2 H (3.5-5.1) mmol/L Carbon Dioxide 21 L (22-30) mmol/L BUN 56 H (7-17) mg/dL Creatinine 3.05 H (0.52-1.04) mg/dL Glucose 147 H (74-99) mg/dL POC Glucose (mg/dL) (70-110) mg/dL 09/23/22 Range/Units 04:45 WBC (3.8-10.6) k/uL RBC (3.80-5.40) m/uL MCV (80.0-100.0) fL Neutrophils # (1.3-7.7) k/uL Lymphocytes # (1.0-4.8) k/uL Monocytes # (0-1.0) k/uL PT (9.0-12.0) sec INR (<1.2) APTT (22.0-30.0) sec Sodium (137-145) mmol/L Potassium (3.5-5.1) mmol/L Carbon Dioxide (22-30) mmol/L BUN (7-17) mg/dL Creatinine (0.52-1.04) mg/dL Glucose (74-99) mg/dL POC Glucose (mg/dL) 114 H (70-110) mg/dL Thrombosis Risk Factor Assmnt - Choose All That Apply Each Risk Factor Represents 3 Points: Age 75 years or older Other congenital or acquired thrombophilia - If yes, enter type in comment: No Thrombosis Risk Factor Assessment Total Risk Factor Score: 3 Thrombosis Risk Factor Assessment Level: Moderate Risk Assessment and Plan Assessment: acute kidney injury on chronic kidney disease stage III, most likely diabetic nephropathy. Mild coagulopathy secondary to Coumadin Chest pain, resolved most likely musculoskeletal Diabetes mellitus Hypertension Hyperlipidemia History of osteoarthritis Hypothyroidism moderate to severe mitral regurgitation and moderate tricuspid regurgitation Plan: continue with gentle hydration and monitor creatinine. Check a bladder scan. Nephrology consult Monitor glucose hold Coumadin and check INR, goal 2-3 Labs and medication were reviewed.. Continue same treatment. Continue with symptomatic treatment. Resume home medication. Monitor lytes and vitals. DVT and GI prophylaxis. Further recommendations depends on the clinical course of the patient DVT prophylaxis: Subcutaneous heparin GI Prophylaxis: Pepcid PT/OT: Pending Prognosis is guarded
[2022-09-23 11:44] LABS: Glucose,Whole Blood 170 mg/dL (70-110)
[2022-09-23] MEDS: INSULIN ASPART (NovoLOG) 100 UNIT/ML VIAL SQ SCH ×3 (11:57→21:10)
--- NOTE | 2022-09-23 12:10 | P.NPCON ---
History of Present Illness - Reason for Consult chronic renal failure - History of Present Illness Patient is a 77-year-old female with history of type 2 diabetes, hypertension, osteoarthritis and chronic kidney disease NKF stage IV with baseline creatinine around 2.2 mg/dL. Patient is admitted to the hospital with complaints of increased shortness of breath . Patient also has had nausea and is complaining of weakness. She was recently diuresed as outpatient. Not on any diuretics currently. Patient reported chest pain as well which is now resolved. No history of fever or cough Chest x-ray showed evidence of pulmonary vascular congestion. Blood pressure is on the lower side but remains above 100 mmHg systolic. Review of Systems As for HPI Past Medical History Past Medical History: Blood Disorder, Diabetes Mellitus, Hypertension, Osteoarthritis (OA), Renal Disease Additional Past Medical History / Comment(s): LOW IRON., URINE URGENCY., Ireg Heartbeat (unsure if afib) On coumadin. STAGE 4 KIDNEY DISEASE. History of Any Multi-Drug Resistant Organisms: None Reported Past Surgical History: Orthopedic Surgery, Tubal Ligation Additional Past Surgical History / Comment(s): COLONOSCOPY, EGD., TRH. RIGHT HIP REPLACEMENT. LEFT CATARACT SURGERY - MAR 2022, Lens implant to bilat eyes June 2022 Past Anesthesia/Blood Transfusion Reactions: No Reported Reaction Past Psychological History: No Psychological Hx Reported Smoking Status: Never smoker Past Alcohol Use History: None Reported Past Drug Use History: None Reported - Past Family History Mother Family Medical History: Cancer Additional Family Medical History / Comment(s): SKIN CANCER Father Family Medical History: CVA/TIA Medications and Allergies Home Medications Medication Instructions Recorded Confirmed Type Pioglitazone [Actos] 45 mg PO DAILY 09/11/17 09/22/22 History Warfarin [Coumadin] 5 mg PO MOFR@2100 12/16/18 09/22/22 History allopurinoL [Zyloprim] 100 mg PO HS 12/16/18 09/22/22 History calcitrioL [Calcitriol] 0.25 mcg PO MOWEFRSA 12/16/18 09/22/22 History Cholecalciferol [Vitamin D3 (125 125 mcg PO HS 09/14/21 09/22/22 History Mcg = 5000 Iu)] Cinnamon Bark [Cinnamon] 1,000 mg PO QID 09/14/21 09/22/22 History Cyanocobalamin [Vitamin B-12] 500 mcg PO DAILY 09/14/21 09/23/22 History Garlic 1,000 mg PO DAILY 09/14/21 09/22/22 History Glimepiride [Amaryl] 2 mg PO DAILY 09/14/21 09/22/22 History Pravastatin Sodium [Pravachol] 10 mg PO HS 09/14/21 09/22/22 History Selenium 200 mg PO HS 09/14/21 09/22/22 History Darbepoetin Matt [Aranesp] 40 mcg SQ Q14D 09/22/22 09/22/22 History Folic Acid 0.4 mg PO DAILY 09/22/22 09/22/22 History Metoprolol Succinate (ER) [Toprol 50 mg PO DAILY 09/22/22 09/22/22 History Xl] Sodium Bicarbonate Tab 650 mg PO TID 09/22/22 09/22/22 History Spironolactone [Aldactone] 12.5 mg PO HS 09/22/22 09/22/22 History Warfarin [Coumadin] 2.5 mg PO SUTUWETHSA@2100 09/22/22 09/22/22 History Allergies Allergy/AdvReac Type Severity Reaction Status Date / Time ciprofloxacin [From Cipro] Allergy Unknown Itching, Verified 09/22/22 19:48 Rash codeine Allergy Itching Verified 09/22/22 19:48 Physical Exam Vitals: Vital Signs Temp Pulse Pulse Pulse Resp BP BP 09/23/22 08:13 98.0 F 82 19 09/23/22 04:50 98.1 F 83 16 112/51 09/23/22 04:22 98 F 85 18 124/67 09/23/22 02:21 84 16 116/64 09/23/22 00:19 86 16 117/62 09/22/22 21:16 85 20 116/66 09/22/22 19:30 90 18 116/66 09/22/22 18:19 98.3 F 100 20 128/68 BP Pulse Ox 09/23/22 08:13 116/65 98 09/23/22 04:50 97 09/23/22 04:22 99 09/23/22 02:21 96 09/23/22 00:19 96 09/22/22 21:16 98 09/22/22 19:30 96 09/22/22 18:19 96 Intake and Output 09/22/22 09/23/22 09/23/22 22:59 06:59 14:59 Intake Total 150 Balance 150 Intake: Intake, IV Titration 150 Amount Sodium Chloride 0.9% 1, 150 000 ml @ 75 mls/hr IV . [id number] [facility] Rx#:[id number] Other: # Voids 2 Weight 58.967 kg 58.967 kg Patient is awake, comfortable, no acute distress Examination of the heart S1 and S2 Examination of the lungs decreased breath sounds at the bases. No crackles are heard Abdomen is soft nontender Examination of lower extremity shows no significant edema [employer] exam grossly intact Results - Lab Results Most recent lab results Calcium 9.0 mg/dL (8.4-10.2) 09/22/22 18:57 09/22/22 18:57 09/22/22 18:57 Assessment and Plan Assessment: 1. Acute kidney injury, nonoliguric, rule out urine retention. They may be a component of ATN associated with some degree of hypoperfusion. I will continue off of diuretics. Patient received a fluid bolus last night and was started on IV fluids upon admission. Labs are pending from today. No nephrotoxic agents on board. 2. Chronic kidney disease NKF stage IV with baseline creatinine around 2.2-2.5 mg/dL secondary to nephrosclerosis. Patient has been talked to regarding renal replacement therapy as outpatient. 3. Cardiomyopathy with ejection fraction 35-40% on echocardiogram on 07/19/2020 4. Mild hyperkalemia associated with acute kidney injury and use of Aldactone. Rule out urine retention Plan: Follow-up on labs from today. Check bladder scan and rule out urine retention Check UA Hold IV fluids and diuretics for now. Continue with sodium bicarb and calcitriol Thank you for the consultation. We will continue to follow the patient with you during her hospitalization
[2022-09-23] MEDS: METOPROLOL SUCCINATE (ER) 50 MG TAB.ER.24H PO SCH (12:19)
--- NOTE | 2022-09-23 12:23 | CA ---
Transthoracic Echo Report Name: Isabel Klein Age: 77 Gender: F : 1945 Exam Date: 09/23/2022 09:51 Exam Location: [facility] Ht (in): 62 Wt (lb): 130 Ordering Physician: Julia Childers Attending/Referring Phys: [id number], Liseth Dot Compliance Coordinator Christy Ramesh RDCS Procedure CPT: Indications: LV function Cardiac Hx: DM Technical Quality: Good Contrast 1: Total Dose (mL): Contrast 2: Total Dose (mL): MEASUREMENTS (Male / Female) Normal Values 2D ECHO LV Diastolic Diameter PLAX 3.9 cm 4.2 - 5.9 / 3.9 - 5.3 cm LV Systolic Diameter PLAX 3.2 cm IVS Diastolic Thickness 1.2 cm 0.6 - 1.0 / 0.6 - 0.9 cm LVPW Diastolic Thickness 1.3 cm 0.6 - 1.0 / 0.6 - 0.9 cm LV Relative Wall Thickness 0.6 RV Internal Dim ED PLAX 3.4 cm LA Systolic Diameter LX 4.5 cm 3.0 - 4.0 / 2.7 - 3.8 cm LV Diastolic Volume MOD BP 67.4 cm??? 67 - 155 / 56 - 104 cm??? LV Systolic Volume MOD BP 40.4 cm??? - / 19 - 49 cm??? LV Ejection Fraction MOD BP 40.0 % >= 55 % LV Cardiac Index MOD BP 1638.0 cm???/min???m??? LV Diastolic Volume MOD 4C 54.5 cm??? LV Systolic Volume MOD 4C 39.5 cm??? LV Ejection Fraction MOD 4C 27.5 % LV Cardiac Index MOD 4C 911.1 cm???/min???m??? LV Diastolic Length 4C 7.1 cm LV Systolic Length 4C 6.7 cm LV Diastolic Volume MOD 2C 82.2 cm??? LV Systolic Volume MOD 2C 41.5 cm??? LV Ejection Fraction MOD 2C 49.6 % LV Cardiac Index MOD 2C 2473.9 cm???/min???m??? LV Diastolic Length 2C 7.3 cm LV Systolic Length 2C 6.7 cm LA Volume 66.4 cm??? - 58 / 22 - 52 cm??? M-MODE Aortic Root Diameter MM 2.7 cm MV E Point Septal Separation 1.7 cm AV Cusp Separation MM 1.6 cm DOPPLER AV Peak Velocity 120.7 cm/s AV Peak Gradient 5.8 mmHg MV Peak Velocity 168.6 cm/s MV Peak Gradient 11.4 mmHg MV Mean Velocity 77.1 cm/s MV Mean Gradient 3.1 mmHg MV Velocity Time Integral 34.0 cm MV Area PHT 4.8 cm??? Mitral E Point Velocity 137.0 cm/s Mitral A Point Velocity 46.9 cm/s Mitral E to A Ratio 2.9 MV Deceleration Time 158.4 ms TR Peak Velocity 379.0 cm/s TR Peak Gradient 57.5 mmHg Right Ventricular Systolic Press 60.7 mmHg FINDINGS Left Ventricle Left ventricular ejection fraction is estimated at 30-35 %. Mildly increased septal wall thickness. Mildly increased posterior wall thickness. Moderately decreased left ventricular ejection fraction. Right Ventricle Mild right ventricular dilatation. Severe pulmonary hypertension. Right ventricular systolic pressure estimated at 61 mm hg. Right Atrium Normal right atrial size. Left Atrium Moderately increased left atrial diameter. Moderately increased left atrial volume. Mildly increased left atrial area. Mitral Valve Mitral valve thickened. Mild mitral annular calcification. Mild mitral regurgitation. Aortic Valve Trileaflet aortic valve. No aortic valve stenosis or regurgitation. Thickened aortic valve without stenosis. Tricuspid Valve Structurally normal tricuspid valve. Moderate tricuspid regurgitation. Pulmonic Valve Structurally normal pulmonic valve. Trace pulmonic regurgitation. Pericardium Large pericardial effusion. Aorta Normal size aortic root and proximal ascending aorta. CONCLUSIONS Reduced LV systolic function ejection fraction 30-35% Increase right ventricular systolic pressures Moderate to large pericardial effusion with evidence of fibrinous material overlying the epicardial consistent with its chronic nature Previewed by: Dr. Delbert Bond MD (Electronically Signed) Final Date: 23 September 2022 12:22
[2022-09-23 12:28] LABS: INR 2.8 (<1.2); Prothrombin Time 27.4 sec (9.0-12.0)
[2022-09-23 12:36] LABS: African American GFR (CKD) 17 (>60 ml/min/1.73 sqM); Anion Gap 12 mmol/L; Blood Urea Nitrogen 58 mg/dL (7-17); Calcium 8.5 mg/dL (8.4-10.2); Carbon Dioxide 17 mmol/L (22-30); Chloride 102 mmol/L (98-107); Glucose 157 mg/dL (74-99); Non-African American GFR(CKD) 14 (>60 ml/min/1.73 sqM); Sodium 131 mmol/L (137-145)
[2022-09-23 13:51] VITALS: BMI 23.8
[2022-09-23 16:50] LABS: Glucose,Whole Blood 178 mg/dL (70-110)
[2022-09-23] MEDS: SODIUM BICARBONATE TAB 650 MG TAB PO SCH ×2 (17:14→21:11)
[2022-09-23] MEDS ORDERED: WARFARIN 2 MG TAB PO ONE (18:00)
[2022-09-23 20:55] LABS: Glucose,Whole Blood 125 mg/dL (70-110)
[2022-09-23] MEDS: allopurinoL 100 MG TAB PO SCH (21:11)
[2022-09-23] MEDS: PRAVASTATIN SODIUM 20 MG TAB PO SCH (21:11)
[2022-09-23 21:12] LABS: Appearance,Urine Clear (Clear); Bilirubin,Urine Negative (Negative); Blood,Urine Small (Negative); Color,Urine Yellow; Glucose,Urine (UA) Trace (Negative); Ketones,Urine Negative (Negative); Leukocyte Esterase,Urine Moderate (Negative); Nitrite,Urine Negative (Negative); PH, Urine 5.5 (5.0-8.0); Protein,Urine 2+ (Negative); RBC,Urine 4 /hpf (0-5); Specific Gravity,Urine 1.017 (1.001-1.035); Urobilinogen,Urine <2.0 mg/dL (<2.0); WBC,Urine 6 /hpf (0-5)
[2022-09-24 06:20] LABS: Glucose,Whole Blood 83 mg/dL (70-110)
[2022-09-24] MEDS: INSULIN ASPART (NovoLOG) 100 UNIT/ML VIAL SQ SCH ×4 (06:24→21:04)
[2022-09-24 07:27] LABS: INR 2.3 (<1.2); Prothrombin Time 22.2 sec (9.0-12.0)
[2022-09-24] MEDS: CYANOCOBALAMIN 500 MCG TAB PO SCH (09:02)
[2022-09-24] MEDS: FOLIC ACID 1 MG TAB PO SCH (09:02)
[2022-09-24] MEDS: METOPROLOL SUCCINATE (ER) 50 MG TAB.ER.24H PO SCH (09:02)
[2022-09-24] MEDS: SODIUM BICARBONATE TAB 650 MG TAB PO SCH ×3 (09:02→21:04)
[2022-09-24 11:09] LABS: Glucose,Whole Blood 139 mg/dL (70-110)
--- NOTE | 2022-09-24 11:25 | P.PN ---
Subjective HISTORY OF PRESENT ILLNESS: This is a 77-year-old female with a past medical history significant for atrial fibrillation, hypertension, hyperlipidemia, diabetes, valvular heart disease, and chronic kidney disease. Patient follows in the office with Dr. Sherman. We have been asked to see the patient in consultation for CHF. Patient examined at the bedside. Patient presented to the hospital with weakness, chest pain, and shortness of breath. She states she had blood work drawn outpatient and was told it was abnormal and recommended her to come to the hospital. Patient was found to have worsening kidney function with a creatinine of 3.05. Patient denies any new medication changes. She states she has been eating and drinking okay at home. No vomiting or diarrhea. She denies chest pain or pressure. She reports mild SOB. Vital signs are stable. * EKG reveals atrial fibrillation with controlled ventricular rate * Chest xray cardiomegaly, pulmonary vascular congestion and bilateral pleural effusions. * Laboratory data: WBC 10.7. Hemoglobin 11.7. Platelet count 181. INR 3.4. Sodium 134. Potassium 4.2. BUN 56. Creatinine 3.05 troponin negative 1 * Current home cardiac medications include Coumadin 5 mg on Friday and Friday and 2.5 mg Friday and Friday and Friday, Pravachol 10 mg at night, and Aldactone 12.5 mg at night * Most recent echocardiogram obtained in the office in June 2022 revealed ejection fraction 45-50%, small hypokinetic areas of the inferior and inferior septal nazario at the base, moderate to severe MR, severe TR and moderate pericardial effusion * Patient underwent Lexiscan stress test in August 2020 in the office which was negative for ischemia 09/24/2022 Patient examined this morning at the bedside. Patient denies chest pain or pressure. She currently denies shortness of breath. Echocardiogram completed revealing ejection fraction 30-35%, increased right ventricular systolic pressures, moderate to large pericardial effusion with evidence of fibrinous material overlying the epicardial consistent with its chronic nature. INR 2.3 PHYSICAL EXAM: VITAL SIGNS: Reviewed. GENERAL: Well-developed in no acute distress. HEENT: Head is normocephalic. Pupils are equal, round. Sclerae anicteric. Mucous membranes of the mouth are moist. Neck supple. No JVD or thyromegaly LUNGS: Respirations even and unlabored. Lungs diminished bilaterally. HEART: Irregular rate and rhythm. S1 and S2 heard. Systolic murmur ABDOMEN: Soft. Nondistended. Nontender. EXTREMITIES: Normal range of motion. No clubbing or cyanosis. Peripheral pulses intact. No lower extremity edema NEUROLOGIC: Awake and alert. Oriented x 3. ASSESSMENT: Acute kidney injury Chronic kidney disease Volume overload, secondary to acute renal failure Permanent atrial fibrillation Nonischemic cardiomyopathy, EF 45%, now 30-35% Hypertension Hyperlipidemia Diabetes Valvular heart disease PLAN: Continue current cardiac medications Hold Aldactone Recommend ACEI/ARB when renal function improves Continue Coumadin. Monitor INR. Nephrology following Will address worsening cardiomyopathy on an outpatient basis Further recommendations pending patient course Nurse practitioner note has been reviewed by physician. Signing provider agrees with the documented findings, assessment, and plan of care. Objective - Vital Signs Vital signs: Vital Signs Temp 98.7 F 09/24/22 07:21 Pulse 87 09/24/22 07:21 Resp 16 09/24/22 07:21 BP 129/76 09/24/22 07:21 Pulse Ox 95 09/24/22 09:32 FiO2 Intake & Output 09/23/22 09/24/22 09/24/22 18:59 06:59 18:59 Weight 58.967 kg 67 kg Other: Voiding Method Toilet # Voids 3 0 # Bowel Movements 1 - Labs CBC & Chem 7: 09/22/22 18:57 09/23/22 11:12 Labs: Abnormal Lab Results - Last 24 Hours (Table) 09/23/22 09/23/22 09/23/22 Range/Units 11:12 11:12 11:20 PT 27.4 H (9.0-12.0) sec INR 2.8 H (<1.2) Sodium 131 L (137-145) mmol/L Carbon Dioxide 17 L (22-30) mmol/L BUN 58 H (7-17) mg/dL Creatinine 2.96 H (0.52-1.04) mg/dL Glucose 157 H (74-99) mg/dL POC Glucose (mg/dL) (70-110) mg/dL Hemoglobin A1c 7.2 H (<=6.0) % Urine Protein (Negative) Urine Glucose (UA) (Negative) Urine Blood (Negative) Ur Leukocyte Esterase (Negative) Urine WBC (0-5) /hpf 0709/23/22 09/23/22 Range/Units 11:42 16:41 16:48 PT (9.0-12.0) sec INR (<1.2) Sodium (137-145) mmol/L Carbon Dioxide (22-30) mmol/L BUN (7-17) mg/dL Creatinine (0.52-1.04) mg/dL Glucose (74-99) mg/dL POC Glucose (mg/dL) 170 H 178 H (70-110) mg/dL Hemoglobin A1c (<=6.0) % Urine Protein 2+ H (Negative) Urine Glucose (UA) Trace H (Negative) Urine Blood Small H (Negative) Ur Leukocyte Esterase Moderate H (Negative) Urine WBC 6 H (0-5) /hpf 09/23/22 09/24/22 09/24/22 Range/Units 20:53 05:30 11:07 PT 22.2 H (9.0-12.0) sec INR 2.3 H (<1.2) Sodium (137-145) mmol/L Carbon Dioxide (22-30) mmol/L BUN (7-17) mg/dL Creatinine (0.52-1.04) mg/dL Glucose (74-99) mg/dL POC Glucose (mg/dL) 125 H 139 H (70-110) mg/dL Hemoglobin A1c (<=6.0) % Urine Protein (Negative) Urine Glucose (UA) (Negative) Urine Blood (Negative) Ur Leukocyte Esterase (Negative) Urine WBC (0-5) /hpf
--- NOTE | 2022-09-24 11:54 | P.PN ---
Subjective Patient is seen for follow-up for chronic kidney disease and acute kidney injury. Patient was admitted to the hospital with weakness. She was also short of breath. Chest x-ray showed evidence of pulmonary vascular congestion however clinically patient does not appear to be volume overloaded. Blood pressure was on the lower side. Patient received IV fluids initially after admission. Patient reports good urine output with bladder scan not documented. Labs are pending from today Objective - Vital Signs Vital signs: Vital Signs Temp 98.7 F 09/24/22 07:21 Pulse 87 09/24/22 07:21 Resp 16 09/24/22 07:21 BP 129/76 09/24/22 07:21 Pulse Ox 95 09/24/22 09:32 FiO2 Intake & Output 09/23/22 09/24/22 09/24/22 18:59 06:59 18:59 Weight 58.967 kg 67 kg Other: Voiding Method Toilet # Voids 3 0 # Bowel Movements 1 - Exam Patient is awake, comfortable, no acute distress Examination of the heart S1 and S2 Examination of the lungs decreased breath sounds at the bases. No crackles are heard Abdomen is soft nontender Examination of lower extremity shows no significant edema [employer]MENT [employer]GER exam grossly intact - Labs CBC & Chem 7: 09/22/22 18:57 09/23/22 11:12 Labs: Abnormal Lab Results - Last 24 Hours (Table) 09/23/22 09/23/22 09/23/22 Range/Units 11:12 11:12 11:20 PT 27.4 H (9.0-12.0) sec INR 2.8 H (<1.2) Sodium 131 L (137-145) mmol/L Carbon Dioxide 17 L (22-30) mmol/L BUN 58 H (7-17) mg/dL Creatinine 2.96 H (0.52-1.04) mg/dL Glucose 157 H (74-99) mg/dL POC Glucose (mg/dL) (70-110) mg/dL Hemoglobin A1c 7.2 H (<=6.0) % Urine Protein (Negative) Urine Glucose (UA) (Negative) Urine Blood (Negative) Ur Leukocyte Esterase (Negative) Urine WBC (0-5) /hpf 09/23/22 09/23/22 09/23/22 Range/Units 16:41 16:48 20:53 PT (9.0-12.0) sec INR (<1.2) Sodium (137-145) mmol/L Carbon Dioxide (22-30) mmol/L BUN (7-17) mg/dL Creatinine (0.52-1.04) mg/dL Glucose (74-99) mg/dL POC Glucose (mg/dL) 178 H 125 H (70-110) mg/dL Hemoglobin A1c (<=6.0) % Urine Protein 2+ H (Negative) Urine Glucose (UA) Trace H (Negative) Urine Blood Small H (Negative) Ur Leukocyte Esterase Moderate H (Negative) Urine WBC 6 H (0-5) /hpf 09/24/22 09/24/22 Range/Units 05:30 11:07 PT 22.2 H (9.0-12.0) sec INR 2.3 H (<1.2) Sodium (137-145) mmol/L Carbon Dioxide (22-30) mmol/L BUN (7-17) mg/dL Creatinine (0.52-1.04) mg/dL Glucose (74-99) mg/dL POC Glucose (mg/dL) 139 H (70-110) mg/dL Hemoglobin A1c (<=6.0) % Urine Protein (Negative) Urine Glucose (UA) (Negative) Urine Blood (Negative) Ur Leukocyte Esterase (Negative) Urine WBC (0-5) /hpf Assessment and Plan Assessment: 1. Acute kidney injury, nonoliguric. Bladder scan not documented. They may be a component of ATN associated with some degree of hypoperfusion. I will continue off of diuretics. Patient received a fluid bolus last night and was started on IV fluids upon admission. Labs are pending from today. No nephrotoxic agents on board. 2. Chronic kidney disease NKF stage IV with baseline creatinine around 2.2-2.5 mg/dL secondary to nephrosclerosis. Patient has been talked to regarding renal replacement therapy as outpatient. 3. Cardiomyopathy with ejection fraction 35-40% on echocardiogram on 07/19/2020 4. Mild hyperkalemia associated with acute kidney injury and use of Aldactone. No urine retention 5. Non-gap metabolic acidosis secondary to renal failure maintained on sodium bicarb. Plan: Follow-up on labs from today. Check bladder scan and rule out urine retention Continue off of IV fluids Continue with sodium bicarb and calcitriol
[2022-09-24 16:43] LABS: Glucose,Whole Blood 217 mg/dL (70-110)
[2022-09-24] MEDS ORDERED: WARFARIN 2.5 MG TAB PO ONE (18:00)
[2022-09-24 20:39] LABS: Glucose,Whole Blood 162 mg/dL (70-110)
[2022-09-24] MEDS: PRAVASTATIN SODIUM 20 MG TAB PO SCH (21:04)
[2022-09-24] MEDS: allopurinoL 100 MG TAB PO SCH (21:04)
[2022-09-25 06:29] LABS: Glucose,Whole Blood 83 mg/dL (70-110)
[2022-09-25] MEDS: INSULIN ASPART (NovoLOG) 100 UNIT/ML VIAL SQ SCH ×2 (07:03→11:57)
[2022-09-25 07:26] LABS: Prothrombin Time 19.9 sec (9.0-12.0)
[2022-09-25 07:28] VITALS: BP 126/70; PULSE 68; RESP 15; TEMP 97.8
--- NOTE | 2022-09-25 09:14 | P.PN ---
Subjective Date of service for this note a 09/24/2022 This is a pleasant 77 years old female with multiple medical problems including Diabetes Mellitus, Hypertension, Osteoarthritis chronic kidney disease atrial fibrillation on Coumadin Patient presents because of chest pain which is resolved now but she was complaining of from the nausea since yesterday we'll generally weak although walking fine. She didn't vomit and she had a good appetite. She denies any urinary symptoms, no abdominal pain or diarrhea. No headaches weakness numbness. Vitals are stable and patient is afebrile Showing mild leukocytosis 10.7, rest of CBC is unremarkable. INR 3.4. Creatinine is elevated at 3.05, baseline is around 1.8-2.1 EKG showing atrial fibrillation with a rate of 94. chest x-ray: Cardia megaly, pulmonary vascular Congestion, procedure In the emergency room patient received aspirin and normal saline echo from 06/2820 showing ejection fraction 35-40% with moderate to severe mitral regurgitation and moderate tricuspid regurgitation 09/24/2022, patient seen and examined by me at bedside. She is lying in bed comfortable, no new complaints. She is overall looks tired and weak but improving gradually. No chest pain or dyspnea. INR was 2.3 and pharmacy to dose Coumadin. Patient remains on ceftriaxone with urine cultures pending She has evidence of cardiomyopathy with 30-35% and cardiology will address as an outpatient including stress test. Aldactone on hold CREATININE IS 2.9, BASELINE 1.8. CONTINUE TO MONITOR CREATININE Objective - Vital Signs Vital signs: Vital Signs Temp 97.8 F 09/25/22 07:28 Pulse 68 09/25/22 07:28 Resp 15 09/25/22 07:28 BP 126/70 09/25/22 07:28 Pulse Ox 95 09/25/22 07:28 FiO2 Intake & Output 09/24/22 09/25/22 09/25/22 18:59 06:59 18:59 Output Total 0 Balance 0 Weight 66 kg Output: Post Void Residual 0 Other: # Voids 5 3 # Bowel Movements 1 - Exam GENERAL: The patient is alert and oriented x3, not in any acute distress. Well developed, well nourished. HEENT: Pupils are round and equally reacting to light. EOMI. No scleral icterus. No conjunctival pallor. Normocephalic, atraumatic. No pharyngeal erythema. No thyromegaly. CARDIOVASCULAR: S1 and S2 present. No murmurs, rubs, or gallops. PULMONARY: Chest is clear to auscultation, no wheezing . no crackles. ABDOMEN: Soft, nontender, nondistended, normoactive bowel sounds. No palpable organomegaly. MUSCULOSKELETAL: No joint swelling or deformity. EXTREMITIES: No cyanosis, clubbing, . No leg edema. NEUROLOGICAL: Gross neurological examination did not reveal any focal deficits. SKIN: No rashes. no petechiae. - Labs CBC & Chem 7: 09/22/22 18:57 09/23/22 11:12 Labs: Abnormal Lab Results - Last 24 Hours (Table) 09/24/22 09/24/22 09/24/22 Range/Units 11:07 16:42 20:38 PT (9.0-12.0) sec INR (<1.2) POC Glucose (mg/dL) 139 H 217 H 162 H (70-110) mg/dL 09/25/22 Range/Units 06:07 PT 19.9 H (9.0-12.0) sec INR 2.0 H (<1.2) POC Glucose (mg/dL) (70-110) mg/dL Assessment and Plan Assessment: acute kidney injury on chronic kidney disease stage III, most likely diabetic nephropathy. Mild coagulopathy secondary to Coumadin Chest pain, resolved most likely musculoskeletal Diabetes mellitus Hypertension Hyperlipidemia History of osteoarthritis Hypothyroidism moderate to severe mitral regurgitation and moderate tricuspid regurgitation Plan: continue with gentle hydration and monitor creatinine. Check a bladder scan. Nephrology consult Monitor glucose hold Coumadin and check INR, goal 2-3 Labs and medication were reviewed.. Continue same treatment. Continue with symptomatic treatment. Resume home medication. Monitor lytes and vitals. DVT and GI prophylaxis. Further recommendations depends on the clinical course of the patient DVT prophylaxis: Subcutaneous heparin GI Prophylaxis: Pepcid PT/OT: Pending Prognosis is guarded
[2022-09-25] MEDS: SODIUM BICARBONATE TAB 650 MG TAB PO SCH (09:59)
[2022-09-25] MEDS: METOPROLOL SUCCINATE (ER) 50 MG TAB.ER.24H PO SCH (10:00)
[2022-09-25] MEDS: CYANOCOBALAMIN 500 MCG TAB PO SCH (10:00)
[2022-09-25] MEDS: FOLIC ACID 1 MG TAB PO SCH (10:00)
--- NOTE | 2022-09-25 10:00 | P.PN ---
Subjective HISTORY OF PRESENT ILLNESS: This is a 77-year-old female with a past medical history significant for atrial fibrillation, hypertension, hyperlipidemia, diabetes, valvular heart disease, and chronic kidney disease. Patient follows in the office with Dr. Sherman. We have been asked to see the patient in consultation for CHF. Patient examined at the bedside. Patient presented to the hospital with weakness, chest pain, and shortness of breath. She states she had blood work drawn outpatient and was told it was abnormal and recommended her to come to the hospital. Patient was found to have worsening kidney function with a creatinine of 3.05. Patient denies any new medication changes. She states she has been eating and drinking okay at home. No vomiting or diarrhea. She denies chest pain or pressure. She reports mild SOB. Vital signs are stable. * EKG reveals atrial fibrillation with controlled ventricular rate * Chest xray cardiomegaly, pulmonary vascular congestion and bilateral pleural effusions. * Laboratory data: WBC 10.7. Hemoglobin 11.7. Platelet count 181. INR 3.4. Sodium 134. Potassium 4.2. BUN 56. Creatinine 3.05 troponin negative 1 * Current home cardiac medications include Coumadin 5 mg on Friday and Friday and 2.5 mg Friday and Friday and Friday, Pravachol 10 mg at night, and Aldactone 12.5 mg at night * Most recent echocardiogram obtained in the office in June 2022 revealed ejection fraction 45-50%, small hypokinetic areas of the inferior and inferior septal nazario at the base, moderate to severe MR, severe TR and moderate pericardial effusion * Patient underwent Lexiscan stress test in August 2020 in the office which was negative for ischemia 09/24/2022 Patient examined this morning at the bedside. Patient denies chest pain or pressure. She currently denies shortness of breath. Echocardiogram completed revealing ejection fraction 30-35%, increased right ventricular systolic pressures, moderate to large pericardial effusion with evidence of fibrinous material overlying the epicardial consistent with its chronic nature. INR 2.3 09/25/2022 Patient examined this morning. Patient denies chest pain or pressure. She denies shortness of breath. Vital signs are stable. INR today 2.0. Patient remains on Coumadin. Kidney function from this morning is currently pending. PHYSICAL EXAM: VITAL SIGNS: Reviewed. GENERAL: Well-developed in no acute distress. HEENT: Head is normocephalic. Pupils are equal, round. Sclerae anicteric. Mucous membranes of the mouth are moist. Neck supple. No JVD or thyromegaly LUNGS: Respirations even and unlabored. Lungs diminished bilaterally. HEART: Irregular rate and rhythm. S1 and S2 heard. Systolic murmur ABDOMEN: Soft. Nondistended. Nontender. EXTREMITIES: Normal range of motion. No clubbing or cyanosis. Peripheral pulses intact. No lower extremity edema NEUROLOGIC: Awake and alert. Oriented x 3. ASSESSMENT: Acute kidney injury Chronic kidney disease Mild volume overload, secondary to acute renal failure Permanent atrial fibrillation Nonischemic cardiomyopathy, EF 45%, now 30-35% Hypertension Hyperlipidemia Diabetes Valvular heart disease PLAN: Continue current cardiac medications Hold Aldactone Recommend ACEI/ARB when renal function improves Continue Coumadin. Monitor INR. Nephrology following Will address worsening cardiomyopathy on an outpatient basis Stable from a cardiac standpoint Further recommendations pending patient course Nurse practitioner note has been reviewed by physician. Signing provider agrees with the documented findings, assessment, and plan of care. Objective - Vital Signs Vital signs: Vital Signs Temp 97.8 F 09/25/22 07:28 Pulse 68 09/25/22 07:28 Resp 15 09/25/22 07:28 BP 126/70 09/25/22 07:28 Pulse Ox 95 09/25/22 07:28 FiO2 Intake & Output 09/24/22 09/25/22 09/25/22 18:59 06:59 18:59 Output Total 0 Balance 0 Weight 66 kg Output: Post Void Residual 0 Other: # Voids 5 3 # Bowel Movements 1 - Labs CBC & Chem 7: 09/22/22 18:57 09/23/22 11:12 Labs: Abnormal Lab Results - Last 24 Hours (Table) 09/24/22 09/24/22 09/24/22 Range/Units 11:07 16:42 20:38 PT (9.0-12.0) sec INR (<1.2) POC Glucose (mg/dL) 139 H 217 H 162 H (70-110) mg/dL 09/25/22 Range/Units 06:07 PT 19.9 H (9.0-12.0) sec INR 2.0 H (<1.2) POC Glucose (mg/dL) (70-110) mg/dL
[2022-09-25 11:01] LABS: Glucose,Whole Blood 150 mg/dL (70-110)
[2022-09-25 11:33] LABS: BUN/Creat Ratio 21.21 Ratio (12.00-20.00); Blood Urea Nitrogen 61.5 mg/dL (9.0-27.0); Calcium 8.4 mg/dL (8.7-10.3); Carbon Dioxide 15.4 mmol/L (21.6-31.8); Chloride 101 mmol/L (96-109); Glucose 90 mg/dL (70-110); Potassium 4.7 mmol/L (3.5-5.5); Sodium 132 mmol/L (135-145)
--- NOTE | 2022-09-25 12:20 | P.PN ---
Subjective Patient is seen for follow-up for chronic kidney disease and acute kidney injury. Patient was admitted to the hospital with weakness. She was also short of breath. Chest x-ray showed evidence of pulmonary vascular congestion however clinically patient does not appear to be volume overloaded. Blood pressure was on the lower side. Patient received IV fluids initially after admission. Patient reports good urine output with bladder scan not documented. Serum creatinine remains around 2.9 mg/dL. Patient wants to go home. Objective - Vital Signs Vital signs: Vital Signs Temp 97.8 F 09/25/22 07:28 Pulse 68 09/25/22 07:28 Resp 15 09/25/22 07:28 BP 126/70 09/25/22 07:28 Pulse Ox 95 09/25/22 07:28 FiO2 Intake & Output 09/24/22 09/25/22 09/25/22 18:59 06:59 18:59 Output Total 0 Balance 0 Weight 66 kg Output: Post Void Residual 0 Other: # Voids 5 3 # Bowel Movements 1 - Exam Patient is awake, comfortable, no acute distress Examination of the heart S1 and S2 Examination of the lungs decreased breath sounds at the bases. No crackles are heard Abdomen is soft nontender Examination of lower extremity shows no significant edema TOOL SMITH exam grossly intact - Labs CBC & Chem 7: 09/22/22 18:57 09/25/22 06:07 Labs: Abnormal Lab Results - Last 24 Hours (Table) 09/24/22 09/24/22 09/25/22 Range/Units 16:42 20:38 06:07 PT (9.0-12.0) sec INR (<1.2) Sodium 132 L (135-145) mmol/L Carbon Dioxide 15.4 L (21.6-31.8) mmol/L Anion Gap 15.60 H (4.00-12.00) mmol/L BUN 61.5 H (9.0-27.0) mg/dL Creatinine 2.9 H (0.6-1.5) mg/dL Est GFR (CKD-EPI) 16 L (>=60) BUN/Creatinine Ratio 21.21 H (12.00-20.00) Ratio POC Glucose (mg/dL) 217 H 162 H (70-110) mg/dL Calcium 8.4 L (8.7-10.3) mg/dL 09/25/22 09/25/22 Range/Units 06:07 11:00 PT 19.9 H (9.0-12.0) sec INR 2.0 H (<1.2) Sodium (135-145) mmol/L Carbon Dioxide (21.6-31.8) mmol/L Anion Gap (4.00-12.00) mmol/L BUN (9.0-27.0) mg/dL Creatinine (0.6-1.5) mg/dL Est GFR (CKD-EPI) (>=60) BUN/Creatinine Ratio (12.00-20.00) Ratio POC Glucose (mg/dL) 150 H (70-110) mg/dL Calcium (8.7-10.3) mg/dL Microbiology - Last 24 Hours (Table) 09/24/22 08:45 Urine Culture - Final Urine,Clean Catch Assessment and Plan Assessment: 1. Acute kidney injury, nonoliguric. Nurine retention.. They may be a component of ATN associated with some degree of hypoperfusion. I will continue off of diuretics. Patient received a fluid bolus last night and was started on IV fluids upon admission. Creatinine staying around 2.9 mg/dL No nephrotoxic agents on board. 2. Chronic kidney disease NKF stage IV with baseline creatinine around 2.2-2.5 mg/dL secondary to nephrosclerosis. Patient has been talked to regarding renal replacement therapy as outpatient. 3. Cardiomyopathy with ejection fraction 35-40% on echocardiogram on 07/19/2020 4. Mild hyperkalemia associated with acute kidney injury and use of Aldactone. No urine retention 5. Non-gap metabolic acidosis secondary to renal failure maintained on sodium bicarb. Plan: Patient can be discharged from nephrology standpoint. Follow-up as outpatient in 1 week.
--- NOTE | 2022-09-25 12:46 | P.DS ---
Providers Date of admission: 09/22/22 21:47 Expected date of discharge: 09/25/22 Attending physician: Jessica Hernandes Consults: 09/22/22 21:47 Consult Physician Routine Consulting Provider: Shane Sherman Consult Reason/Comments: heart failure Do you want consulting provider notified?: Yes Consult Physician Routine Consulting Provider: Ebony Sommer Consult Reason/Comments: ilda Do you want consulting provider notified?: Yes Primary care physician: Casey Okeefe Hospital Course: Discharge diagnoses; acute kidney injury on chronic kidney disease stage III, most likely diabetic nephropathy. Mild coagulopathy secondary to Coumadin Chest pain, resolved most likely musculoskeletal Diabetes mellitus Hypertension Hyperlipidemia History of osteoarthritis Hypothyroidism moderate to severe mitral regurgitation and moderate tricuspid regurgitation Cardiomyopathy Hospital course; This is a pleasant 77 years old female with multiple medical problems including Diabetes Mellitus, Hypertension, Osteoarthritis chronic kidney disease atrial fibrillation on Coumadin Patient presents because of chest pain which is resolved now but she was complaining of from the nausea since yesterday we'll generally weak although walking fine. She didn't vomit and she had a good appetite. She denies any urinary symptoms, no abdominal pain or diarrhea. No headaches weakness numbness. Vitals are stable and patient is afebrile Showing mild leukocytosis 10.7, rest of CBC is unremarkable. INR 3.4. Creatinine is elevated at 3.05, baseline is around 1.8-2.1 EKG showing atrial fibrillation with a rate of 94. chest x-ray: Cardia megaly, pulmonary vascular Congestion, procedure In the emergency room patient received aspirin and normal saline echo from 06/2820 showing ejection fraction 35-40% with moderate to severe mitral regurgitation and moderate tricuspid regurgitation 09/24/2022, patient seen and examined by me at bedside. She is lying in bed comfortable, no new complaints. She is overall looks tired and weak but improving gradually. No chest pain or dyspnea. INR was 2.3 and pharmacy to dose Coumadin. Patient remains on ceftriaxone with urine cultures pending She has evidence of cardiomyopathy with 30-35% and cardiology will address as an outpatient including stress test. Aldactone on hold CREATININE IS 2.9, BASELINE 1.8. CONTINUE TO MONITOR CREATININE 09/25 Patient seen and examined. Renal function remains stable, nephrology cleared the patient for discharge. Cardiology recommended outpatient follow-up at which time they will consider ischemic workup for patient's cardiomyopathy PHYSICAL EXAMINATION: GENERAL: The patient is alert and oriented x3, not in any acute distress. Well developed, well nourished. HEENT: Pupils are round and equally reacting to light. EOMI. No scleral icterus. No conjunctival pallor. Normocephalic, atraumatic. No pharyngeal erythema. No thyromegaly. CARDIOVASCULAR: S1 and S2 present. No murmurs, rubs, or gallops. PULMONARY: Chest is clear to auscultation, no wheezing or crackles. ABDOMEN: Soft, nontender, nondistended, normoactive bowel sounds. No palpable organomegaly. MUSCULOSKELETAL: No joint swelling or deformity. EXTREMITIES: No cyanosis, clubbing, or pedal edema. NEUROLOGICAL: Gross neurological examination did not reveal any focal deficits. SKIN: No rashes. Patient Condition at Discharge: Fair Plan - Discharge Summary Discharge Rx Participant: No New Discharge Prescriptions: Continue Pioglitazone [Actos] 45 mg PO DAILY allopurinoL [Zyloprim] 100 mg PO HS calcitrioL [Calcitriol] 0.25 mcg PO MOWEFRSA Warfarin [Coumadin] 5 mg PO MOFR@2100 Garlic 1,000 mg PO DAILY Cyanocobalamin [Vitamin B-12] 500 mcg PO DAILY Metoprolol Succinate (ER) [Toprol XL] 50 mg PO DAILY Sodium Bicarbonate Tab 650 mg PO TID Darbepoetin Matt [Aranesp] 40 mcg SQ Q14D Selenium 200 mg PO HS Pravastatin Sodium [Pravachol] 10 mg PO HS Glimepiride [Amaryl] 2 mg PO DAILY Cinnamon Bark [Cinnamon] 1,000 mg PO QID Cholecalciferol [Vitamin D3 (125 Mcg = 5000 Iu)] 125 mcg PO HS Folic Acid 0.4 mg PO DAILY Discontinued Warfarin [Coumadin] 2.5 mg PO SUTUWETHSA@2100 Spironolactone [Aldactone] 12.5 mg PO HS Discharge Medication List Pioglitazone [Actos] 45 mg PO DAILY 09/11/17 [History] Warfarin [Coumadin] 5 mg PO MOFR@2100 12/16/18 [History] allopurinoL [Zyloprim] 100 mg PO HS 12/16/18 [History] calcitrioL [Calcitriol] 0.25 mcg PO MOWEFRSA 12/16/18 [History] Cholecalciferol [Vitamin D3 (125 Mcg = 5000 Iu)] 125 mcg PO HS 09/14/21 [History] Cinnamon Bark [Cinnamon] 1,000 mg PO QID 09/14/21 [History] Cyanocobalamin [Vitamin B-12] 500 mcg PO DAILY 09/14/21 [History] Garlic 1,000 mg PO DAILY 09/14/21 [History] Glimepiride [Amaryl] 2 mg PO DAILY 09/14/21 [History] Pravastatin Sodium [Pravachol] 10 mg PO HS 09/14/21 [History] Selenium 200 mg PO HS 09/14/21 [History] Darbepoetin Matt [Aranesp] 40 mcg SQ Q14D 09/22/22 [History] Folic Acid 0.4 mg PO DAILY 09/22/22 [History] Metoprolol Succinate (ER) [Toprol XL] 50 mg PO DAILY 09/22/22 [History] Sodium Bicarbonate Tab 650 mg PO TID 09/22/22 [History] Follow up Appointment(s)/Referral(s): Casey Okeefe MD [Primary Care Provider] - 1-2 days Ebony Sommer MD [STAFF PHYSICIAN] - 1 Week Shane Sherman MD [STAFF PHYSICIAN] - 1 Week Discharge Disposition: HOME SELF-CARE
[2022-09-25] MEDS ORDERED: WARFARIN 3 MG TAB PO ONE (18:00)
--- NOTE | 2022-09-26 12:02 | CDI ---
Documentation Clarification Form Date: 09/26/2022 11:49:42 AM From: Monae Vivar Phone: Admit Date: 09/22/2022 09:47:00 PM Patient Name: Isabel Klein Visit Number: [id number] Discharge Date: 09/25/2022 02:32:00 PM ATTENTION: The Clinical Documentation Specialists (CDI) and [facility] Coding Staff appreciate your assistance in clarifying documentation. Please respond to the clarification below the line at the bottom and electronically sign. The CDI & [facility] Coding staff will review the response and follow-up if needed. Please note: Queries are made part of the Legal Health Record. If you have any questions, please contact the author of this message via ITS. Dr. Lex Daniels Your patient has the documented diagnosis of unspecified CHF ED Note and throughout the notes. Additional information regarding the type & acuity of CHF is requested. History/Risk Factors: 77yo F, DMII w CKD IV, Volume overload, secondary toacute renal failure, mildcoagulopathyd/t Coumadin, HTN, HLD, OA, Hypothyroidism, MR & TR, NICM, Permanent atrial fibrillation Clinical Indicators: VS/Pulse OX: 98 Echocardiogram Results: ReducedLV systolic function ejection fraction 30-35% Increase RV systolicpressures. Moderate to largepericardial effusionwith evidence of fibrinous material overlying the epicardial consistent with its chronic nature Chest X Ray: Cardiomegaly, pulmonary vascularcongestionandbilateral pleural effusions. Correlate with BNP forcongestive heart failure. Treatment: Continue current cardiac medications. Hold Aldactone. Recommend ACEI/ARB when renal function improves. Continue Coumadin. Monitor INR. Nephrology following In your professional opinion, can you please clarify the type & acuity of CHF if known? [ ] Acute Systolic Heart Failure (reduced EF) [ ] Chronic Systolic Heart Failure (reduced EF) [ ] Acute on Chronic Systolic Heart Failure (reduced EF) [ ] Acute Diastolic Heart Failure (preserved EF) [ ] Chronic Diastolic Heart Failure (preserved EF) [ ] Acute on Chronic Diastolic Heart Failure (preserved EF) [ ] Acute Systolic & Diastolic Heart Failure [ ] Chronic Systolic & Diastolic Heart Failure [ ] Acute on Chronic Heart Failure Systolic & Diastolic Heart Failure [ ] Other, please specify [ ] Unable to determine (Template Last Revised: April 2020) MTDD
--- NOTE | 2022-09-30 11:18 | CDI ---
Documentation Clarification Form Date: 09/30/2022 11:09 AM From: Monae Vivar Phone: Admit Date:309:47:00 PM Patient Name:Mireille Klein Visit Number: [id number] Discharge Date::32:00 PM ATTENTION: The Clinical Documentation Specialists (CDI) and [facility] Coding Staff appreciate yourassistancein clarifying documentation. Please respond to the clarification below the line at the bottom and electronically sign. The CDI [facility] Coding staff will review the response andfollow-upif needed. Please note: Queries are made part of the Legal Health Record. If you have any questions, pleasecontactthe author of this message via ITS. Dr. Lex Daniels Thank you for acknowledging the previous query; however, it was signed with no clarification. Your patient has the documented diagnosis of unspecifiedCHFED Note and throughout the notes. Additional information regarding the type acuity ofCHF is requested. History/Risk Factors: 77yo F,DMIIwCKD IV,Volume overload, secondary toacute renal failure, HTN,HLD,OA,MR, TR,mildcoagulopathyd/t Coumadin,Hypothyroidism, MR, TR,NICM,Permanent atrial fibrillation Clinical Indicators: VS/Pulse OX: 98 EchocardiogramResults:ReducedLV systolic function ejection fraction 30-35%. Increase RV systolicpressures. Moderate to largepericardial effusionwith evidence of fibrinous material overlying the epicardial consistent with its chronic nature Chest X Ray:Cardiomegaly, pulmonary vascularcongestionandbilateral pleural effusions. Correlate with BNP forcongestive heart failure. Treatment: Continue current cardiac medications. Hold Aldactone. Recommend ACEI/ARB when renal function improves. Continue Coumadin. Monitor INR. Nephrology following In your professional opinion, can you please clarify the type acuity ofCHFif known? [ x]Acute Systolic Heart Failure(reducedEF) [ ]Chronic Systolic Heart Failure(reducedEF) [ ]Acute on Chronic Systolic Heart Failure(reducedEF) [ ]Acute Diastolic Heart Failure(preserved EF) [ ]Chronic Diastolic Heart Failure(preserved EF) [ ]Acute on Chronic Diastolic Heart Failure(preserved EF) [ ] Acute SystolicDiastolic Heart Failure [ ] Chronic SystolicDiastolic Heart Failure [ ]Acute on Chronic Heart Failure SystolicDiastolic Heart Failure [ ] Other, please specify [ ] Unable to determine (Template LastRevised: April 2020) MTDD
== END 2022-09-25 14:32 | disposition home or self-care (01) | DRG 682 ==
LOC: EC 18:16 → 4SSUR 21:47
PROVIDERS: ADMIT Hospitalist; ATTEND Hospitalist
DX: N17.0 Acute kidney failure with tubular necrosis (principal); I50.21 Acute systolic (congestive) heart failure; E87.20 Acidosis, unspecified; I13.0 Hypertensive heart and chronic kidney disease with heart failure and stage 1 through stage 4 chronic kidney disease, or unspecified chronic kidney disease; I42.8 Other cardiomyopathies; I48.21 Permanent atrial fibrillation; I31.39 Other pericardial effusion (noninflammatory); N18.4 Chronic kidney disease, stage 4 (severe); E11.22 Type 2 diabetes mellitus with diabetic chronic kidney disease; E03.9 Hypothyroidism, unspecified; I08.1 Rheumatic disorders of both mitral and tricuspid valves; R79.1 Abnormal coagulation profile; T45.515A Adverse effect of anticoagulants, initial encounter; M19.90 Unspecified osteoarthritis, unspecified site; E78.5 Hyperlipidemia, unspecified; E87.5 Hyperkalemia; R07.89 Other chest pain; Z96.641 Presence of right artificial hip joint; Z79.01 Long term (current) use of anticoagulants; Z79.84 Long term (current) use of oral hypoglycemic drugs; Z79.899 Other long term (current) drug therapy; Z88.5 Allergy status to narcotic agent; Z88.1 Allergy status to other antibiotic agents
CPT/HCPCS: 36415; 71046; 80048; 80053; 81001; 83036; 83605; 84484; 85025; 85610; 85730; 87086; 93005; 93306; 94760; 99285

== ENCOUNTER → 2023-04-08 | Outpatient (CLI) | payer MEDICARE, BC ==
[2023-04-08 18:48] LABS: BUN/Creat Ratio 16.69 Ratio (12.00-20.00); Blood Urea Nitrogen 48.4 mg/dL (9.0-27.0); Calcium 9.3 mg/dL (8.7-10.3); Carbon Dioxide 21.7 mmol/L (21.6-31.8); Chloride 98 mmol/L (96-109); Glucose 132 mg/dL (70-110); Potassium 4.7 mmol/L (3.5-5.5); Sodium 134 mmol/L (135-145)
== END | disposition home or self-care (01) ==
LOC: LABWHC1 13:41
PROVIDERS: ATTEND Internal Medicine
DX: N18.4 Chronic kidney disease, stage 4 (severe) (principal)
CPT/HCPCS: 36415; 80048; 83735

== ENCOUNTER → 2023-05-13 | Day surgery (SDC) | payer MEDICARE, BC ==
[2023-05-09 10:57] VITALS: BMI 27.6
[~2023-05-13] MED LIST changes: -GENTAMICIN 0.3% OPHTH DROPS 5 ML BTL OPHTHALMIC PRN; +LACTATED RINGERS 1,000 ML IV SCH; +LIDOCAINE 1% (10MG/ML) FOR IV START INTRADERMA PRN; +NALOXONE 0.4 MG/ML 1 ML VIAL IV PRN; +PROPOFOL 10 MG/ML 20 ML VIAL IV ONE; -TETRACAINE 0.5% OPHTH (PF) DROPS 4 ML BTL OP PRN; -TIMOLOL 0.5% OPHTH DROPS 5 ML BTL OP PRN; +fentaNYL (PF) 50 MCG/ML 2 ML AMP IV PRN; +fentaNYL (PF) 50 MCG/ML 2 ML AMP ONE; +traMADol 50 MG TAB PO PRN
--- NOTE | 2023-05-13 11:04 | P.GSHP ---
History of Present Illness H&P Date: 05/13/23 Chief Complaint: Renal failure 78-year-old female here today for dialysis catheter insertion. Last seen 2 years ago roughly. Patient with chronic renal failure. We were contacted by her residential worker stating that she needed dialysis catheter placement BRITTANY. Past Medical History Past Medical History: Atrial Fibrillation, Blood Disorder, Chest Pain / Angina, Heart Failure, Diabetes Mellitus, Hypertension, Mitral Valve Prolapse (MVP), Osteoarthritis (OA), Renal Disease Additional Past Medical History / Comment(s): LOW IRON., URINE URGENCY., BACK AND HIP PAIN, USING CANE. STAGE 4 KIDNEY DISEASE,Valvular heart disease. History of Any Multi-Drug Resistant Organisms: None Reported Past Surgical History: Orthopedic Surgery, Tubal Ligation Additional Past Surgical History / Comment(s): COLONOSCOPY, EGD., TRH. RIGHT HIP REPLACEMENT. bilat CATARACT SURGERY Past Anesthesia/Blood Transfusion Reactions: No Reported Reaction Smoking Status: Never smoker - Past Family History Mother Family Medical History: Cancer Additional Family Medical History / Comment(s): SKIN CANCER, stroke Father Family Medical History: CVA/TIA Medications and Allergies Home Medications Medication Instructions Recorded Confirmed Type Pioglitazone [Actos] 45 mg PO DAILY 09/11/17 05/09/23 History Warfarin [Coumadin] 2.5 tab PO SUMOTUTHFRSA 12/16/18 05/12/23 History calcitrioL 0.25 mcg PO MOWEFR 12/16/18 05/09/23 History Cholecalciferol [Vitamin D3 (125 125 mcg PO HS 09/14/21 05/09/23 History Mcg = 5000 Iu)] Cinnamon Bark [Cinnamon] 1,000 mg PO QID 09/14/21 05/09/23 History Cyanocobalamin [Vitamin B-12] 500 mcg PO DAILY 09/14/21 05/09/23 History Garlic 1,000 mg PO DAILY 09/14/21 05/09/23 History Glimepiride [Amaryl] 2 mg PO DAILY 09/14/21 05/09/23 History Pravastatin Sodium [Pravachol] 10 mg PO HS 09/14/21 05/09/23 History Selenium 200 mg PO HS 09/14/21 05/09/23 History Folic Acid 0.4 mg PO DAILY 09/22/22 05/09/23 History Metoprolol Succinate (ER) [Toprol 25 mg PO DAILY 09/22/22 05/09/23 History XL] Sodium Bicarbonate Tab 650 mg PO TID 09/22/22 05/09/23 History Warfarin [Coumadin] 5 mg PO WE 05/09/23 05/09/23 History Allergies Allergy/AdvReac Type Severity Reaction Status Date / Time ciprofloxacin [From Cipro] Allergy Unknown Itching, Verified 05/13/23 10:56 Rash codeine Allergy Itching Verified 05/13/23 10:56 Surgical - Exam Physical exam: General: Well-developed, well-nourished HEENT: Normocephalic, sclerae nonicteric Abdomen: Nontender, nondistended, no palpable hernias Extremities: No edema Neuro: Alert and oriented Assessment and Plan (1) Renal failure Narrative/Plan: 78-year-old female with renal failure. Will proceed with peritoneal dialysis catheter insertion at this time. Risks of bleeding, infection, scarring, poor function, fluid leak, hernia all reviewed. Patient understands and wishes to proceed. Current Visit: Yes Status: Acute Code(s): N19 - UNSPECIFIED KIDNEY FAILURE SNOMED Code(s): 41997861
[2023-05-13 11:13] LABS: Glucose,Whole Blood 66 mg/dL (70-110)
[2023-05-13] MEDS: SODIUM CHLORIDE 0.9% 1,000 ML IV ONE (11:24)
[2023-05-13] MEDS: HEPARIN SODIUM,PORCINE 5,000 UNIT/ML 1 ML VIAL SQ PRN (11:25)
[2023-05-13] MEDS: ONDANSETRON 4 MG/2 ML VIAL IVP ONE (11:25)
[2023-05-13] MEDS: ACETAMINOPHEN TAB 500 MG TAB PO PRN (11:25)
[2023-05-13] MEDS: DEXTROSE 50% SYRINGE 50 ML IVP ONE (11:25)
[2023-05-13 11:41] VITALS: TEMP 97.9
[2023-05-13 11:47] LABS: Glucose,Whole Blood 118 mg/dL (70-110)
[2023-05-13] MEDS: LIDOCAINE 1%-EPI 1:100,000 50 ML VIAL SQ ONE ×2 (11:49)
[2023-05-13 12:19] LABS: African American GFR (CKD) 16 (>60 ml/min/1.73 sqM); Anion Gap 14 mmol/L; Blood Urea Nitrogen 67 mg/dL (7-17); Calcium 8.6 mg/dL (8.4-10.2); Carbon Dioxide 16 mmol/L (22-30); Chloride 105 mmol/L (98-107); Glucose 73 mg/dL (74-99); Non-African American GFR(CKD) 14 (>60 ml/min/1.73 sqM); Sodium 135 mmol/L (137-145)
[2023-05-13 12:22] LABS: Potassium 5.2 mmol/L (3.5-5.1)
--- NOTE | 2023-05-13 12:27 | P.OP ---
Date of Procedure: 05/13/23 Procedure(s) Performed: PREOPERATIVE DIAGNOSIS: Renal failure POSTOPERATIVE DIAGNOSIS: Same PROCEDURE: Peritoneal dialysis catheter insertion SURGEON: Enzo EBL: Minimal ANESTHESIA: Sedation plus local COMPLICATIONS: None OPERATIVE PROCEDURE: The patient was placed in the operative table in the supine position. The abdomen was prepped and draped in usual sterile fashion. A small vertical incision was made in the right periumbilical location. Dissection down through the subcutaneous tissues took place using electrocautery. The anterior rectus was divided vertically using the scalpel. The rectus was bluntly. The posterior rectus was visualized. An 0 Vicryl pursestring was placed. A small opening in the posterior rectus fascia and peritoneum took place using a Metzenbaum scissors. There were no adhesions to the suture that was placed. The patient did have ascites that was serous in nature. Approximately 200 cc was evacuated. The pigtail catheter was advanced into the pelvis over a stylette. No resistance was met. The inner cuff was secured to the fascia using the 0 Vicryl pursestring that was placed. The catheter was tunneled to an exit site in the right lateral lower quadrant. The catheter was connected to the 1 L bag of saline and approximated 800 mL of saline was easily introduced into the peritoneal cavity. The fluid was then allowed to evacuate. The majority of the fluid was returned. The anterior rectus fascia was then reapproximated using a running 0 Vicryl stitch. The subcutaneous tissues reprepped using 3-0 Vicryl sutures and the skin using 4-0 Monocryl sutures. The outpatient dialysis adapter was applied to the end of the catheter. Sterile dressings were then applied after skin glue was placed over the incision. DISPOSITION: Stable to recovery room
[2023-05-13 12:40] LABS: Glucose,Whole Blood 117 mg/dL (70-110)
[2023-05-13 12:47] LABS: INR 1.6 (<1.2); Prothrombin Time 16.8 sec (10.0-12.5)
[2023-05-13 13:46] VITALS: RESP 16
[2023-05-13 14:16] VITALS: BP 123/73; PULSE 68
== END ==
LOC: OR 10:41
PROVIDERS: ATTEND Surgery
DX: I13.0 Hypertensive heart and chronic kidney disease with heart failure and stage 1 through stage 4 chronic kidney disease, or unspecified chronic kidney disease (principal); E11.22 Type 2 diabetes mellitus with diabetic chronic kidney disease; N18.9 Chronic kidney disease, unspecified; I50.9 Heart failure, unspecified; M19.90 Unspecified osteoarthritis, unspecified site; I48.91 Unspecified atrial fibrillation; Z79.84 Long term (current) use of oral hypoglycemic drugs; Z88.1 Allergy status to other antibiotic agents; Z79.899 Other long term (current) drug therapy; Z88.5 Allergy status to narcotic agent
CPT/HCPCS: 80048; 85610; 49421; C1752; J1644; J0690; J2405; J3010; J2704

== ENCOUNTER 2023-05-14 09:54 | Inpatient (IN) | payer MEDICARE, BC ==
--- NOTE | 2023-05-14 11:49 | ED ---
Recheck HPI - General Chief Complaint: Recheck/Abnormal Lab/Rx Stated Complaint: post op-abn labs Time Seen by Provider: 05/14/23 10:30 Source: patient, RN notes reviewed Mode of arrival: wheelchair Limitations: no limitations - History of Present Illness Initial Comments: 78-year-old female presents emergency department with chief complaint of abnormal labs. Patient states she had a peritoneal dialysis catheter placed by Dr. Giraldo yesterday. Patient states that her blood sugar was low at that time which was corrected and she was sent home. She received a phone call from her PCP stating that her labs were off and she needed to come back to emergency department. She has no complaints other than that there is some drainage of her dressing. Patient denies fever or increasing pain - Related Data Home Medications Medication Instructions Recorded Confirmed Pioglitazone [Actos] 45 mg PO DAILY 09/11/17 05/14/23 Warfarin [Coumadin] 2.5 tab PO SUMOTUTHFRSA@209912/16/18 05/14/23 calcitrioL 0.25 mcg PO MOTUWETHFR 12/16/18 05/14/23 Cholecalciferol [Vitamin D3 (125 125 mcg PO HS 09/14/21 05/14/23 Mcg = 5000 Iu)] Cinnamon Bark [Cinnamon] 1,000 mg PO QID 09/14/21 05/14/23 Cyanocobalamin [Vitamin B-12] 500 mcg PO DAILY 09/14/21 05/14/23 Garlic 1,000 mg PO DAILY 09/14/21 05/14/23 Glimepiride [Amaryl] 2 mg PO DAILY 09/14/21 05/14/23 Pravastatin Sodium [Pravachol] 10 mg PO HS 09/14/21 05/14/23 Selenium 200 mg PO HS 09/14/21 05/14/23 Metoprolol Succinate (ER) [Toprol 25 mg PO DAILY 09/22/22 05/14/23 XL] Sodium Bicarbonate Tab 650 mg PO BID 09/22/22 05/14/23 Warfarin [Coumadin] 5 mg PO WE@209905/09/23 05/14/23 Folic Acid 0.8 mg PO DAILY 05/14/23 05/14/23 Allergies Allergy/AdvReac Type Severity Reaction Status Date / Time ciprofloxacin [From Cipro] Allergy Unknown Itching, Verified 05/14/23 13:10 Rash codeine Allergy Itching Verified 05/14/23 13:10 Review of Systems ROS Statement: Those systems with pertinent positive or pertinent negative responses have been documented in the HPI. ROS Other: All systems not noted in ROS Statement are negative. Past Medical History Past Medical History: Atrial Fibrillation, Blood Disorder, Chest Pain / Angina, Heart Failure, Diabetes Mellitus, Hypertension, Mitral Valve Prolapse (MVP), Osteoarthritis (OA), Renal Disease Additional Past Medical History / Comment(s): LOW IRON., URINE URGENCY., BACK AND HIP PAIN, USING CANE. STAGE 4 KIDNEY DISEASE,Valvular heart disease. History of Any Multi-Drug Resistant Organisms: None Reported Past Surgical History: Orthopedic Surgery, Tubal Ligation Additional Past Surgical History / Comment(s): COLONOSCOPY, EGD., TRH. RIGHT HIP REPLACEMENT. bilat CATARACT SURGERY Past Anesthesia/Blood Transfusion Reactions: No Reported Reaction Past Psychological History: No Psychological Hx Reported Smoking Status: Never smoker - Past Family History Mother Family Medical History: Cancer Additional Family Medical History / Comment(s): SKIN CANCER, stroke Father Family Medical History: CVA/TIA General Exam Limitations: no limitations General appearance: alert, in no apparent distress Head exam: Present: atraumatic, normocephalic, normal inspection Eye exam: Present: normal appearance, PERRL, EOMI. Absent: scleral icterus, conjunctival injection, periorbital swelling ENT exam: Present: normal exam, normal oropharynx, mucous membranes moist Neck exam: Present: normal inspection, full ROM. Absent: tenderness, meningismus, lymphadenopathy Respiratory exam: Present: normal lung sounds bilaterally. Absent: respiratory distress, wheezes, rales, rhonchi, stridor Cardiovascular Exam: Present: regular rate, normal rhythm, normal heart sounds. Absent: systolic murmur, diastolic murmur, rubs, gallop, clicks GI/Abdominal exam: Present: soft, normal bowel sounds. Absent: distended, tenderness, guarding, rebound, rigid Course Vital Signs 05/14/23 09:55 Temperature 97.3 F L Pulse Rate 56 L Respiratory 16 Rate Blood Pressure 119/75 O2 Sat by Pulse 98 Oximetry Medical Decision Making - Medical Decision Making Was pt. sent in by a medical professional or institution (, PA, [employer] WINDOW REPAIRER, urgent care, hospital, or long term...) When possible be specific @ -No Did you speak to anyone other than the patient for history (EMS, parent, family, police, friend...)? What history was obtained from this source @ -No Did you review nursing and triage notes (agree or disagree)? Why? @ -I reviewed and agree with nursing and triage notes Were old charts reviewed (outside hosp., previous admission, EMS record, old EKG, old radiological studies, urgent care reports/EKG's, long term records)? Report findings @ -[Reviewed procedure and labs from yesterday Differential Diagnosis (chest pain, altered mental status, abdominal pain women, abdominal pain men, vaginal bleeding, weakness, fever, dyspnea, syncope, headache, dizziness, GI bleed, back pain, seizure, CVA, palpatations, mental health, musculoskeletal)? @ -Hyperkalemia, renal failure, dehydration, peritoneal dialysis, EKG interpreted by me (3pts min.). @ -As above X-rays interpreted by me (1pt min.). @ -None done CT interpreted by me (1pt min.). @ -None done U/S interpreted by me (1pt. min.). @ -None done What testing was considered but not performed or refused? (CT, X-rays, U/S, labs)? Why? @ -None What meds were considered but not given or refused? Why? @ -None Did you discuss the management of the patient with other professionals (professionals i.e. , PA, [employer] WINDOW REPAIRER, lab, RT, psych nurse, social sciences department chair, operations business partner, teacher, forest fire management officer, shelter case manager)? Give summary @ -Dr. dickinson for admission for hyperkalemia, renal failure Was smoking cessation discussed for >3mins.? @ -No Was critical care preformed (if so, how long)? @ -No Were there social determinants of health that impacted care today? How? (Homelessness, low income, unemployed, alcoholism, drug addiction, transportation, low edu. Level, literacy, decrease access to med. care, m[facility], rehab)? @ -No Was there de-escalation of care discussed even if they declined (Discuss DNR or withdrawal of care, Hospice)? DNR status @ -No What co-morbidities impacted this encounter? (DM, HTN, Smoking, COPD, CAD, Cancer, CVA, ARF, Chemo, Hep., AIDS, mental health diagnosis, sleep apnea, morbid obesity)? @ -[Renal failure Was patient admitted / discharged? Hospital course, mention meds given and route, prescriptions, significant lab abnormalities, going to OR and other p ertinent info. @ -Admitted patient has hyperkalemia, worsening kidney function. Patient be admitted for mild hydration, treatment of hyperkalemia. Undiagnosed new problem with uncertain prognosis? @ -No Drug Therapy requiring intensive monitoring for toxicity (Heparin, Nitro, Insulin, Cardizem)? @ -No Were any procedures done? @ -No Diagnosis/symptom? @ -[Hyperkalemia, renal failure Acute, or Chronic, or Acute on Chronic? @ -Acute Uncomplicated (without systemic symptoms) or Complicated (systemic symptoms)? @ -[Complicated Side effects of treatment? @ -[No Exacerbation, Progression, or Severe Exacerbation? @ -No Poses a threat to life or bodily function? How? (Chest pain, [place], [place], pneumonia, PE, COPD, DKA, ARF, appy, cholecystitis, CVA, Diverticulitis, Homicidal, Suicidal, threat to staff... and all critical care pts) @ -Yes renal failure, hyperkalemia may cause dysrhythmia - Lab Data Result diagrams: 05/14/23 11:56 05/14/23 11:56 Lab Results 05/14/23 05/14/23 05/14/23 Range/Units 11:56 11:56 11:56 WBC 11.7 H (3.8-10.6) k/uL RBC 3.84 (3.80-5.40) m/uL Hgb 12.5 (11.4-16.0) gm/dL Hct 40.1 (34.0-46.0) % MCV 104.5 H (80.0-100.0) fL MCH 32.4 (25.0-35.0) pg MCHC 31.0 (31.0-37.0) g/dL RDW 14.2 (11.5-15.5) % Plt Count 176 (150-450) k/uL MPV 8.9 Neutrophils % 85 % Lymphocytes % 7 % Monocytes % 6 % Eosinophils % 1 % Basophils % 0 % Neutrophils # 10.0 H (1.3-7.7) k/uL Lymphocytes # 0.8 L (1.0-4.8) k/uL Monocytes # 0.7 (0-1.0) k/uL Eosinophils # 0.1 (0-0.7) k/uL Basophils # 0.0 (0-0.2) k/uL Hypochromasia Moderate Macrocytosis Moderate PT 14.7 H (10.0-12.5) sec INR 1.4 H (<1.2) APTT 28.4 (22.0-30.0) sec Sodium 133 L (137-145) mmol/L Potassium 6.1 H* (3.5-5.1) mmol/L Chloride 107 (98-107) mmol/L Carbon Dioxide 16 L (22-30) mmol/L Anion Gap 10 mmol/L BUN 71 H (7-17) mg/dL Creatinine 3.06 H (0.52-1.04) mg/dL Est GFR (CKD-EPI)AfAm 16 (>60 ml/min/1.73 sqM) Est GFR (CKD-EPI)NonAf 14 (>60 ml/min/1.73 sqM) Glucose 153 H (74-99) mg/dL Calcium 8.5 (8.4-10.2) mg/dL Total Bilirubin 0.8 (0.2-1.3) mg/dL AST 34 (14-36) U/L ALT 14 (4-34) U/L Alkaline Phosphatase 65 (38-126) U/L Total Protein 7.1 (6.3-8.2) g/dL Albumin 3.3 L (3.5-5.0) g/dL - EKG Data -: EKG Interpreted by [place] EKG Comments: EKG performed at 13: 52 A-fib with a rate of 66 QRS 138 QT/QTc 466/480 Disposition Clinical Impression: Renal failure, Hyperkalemia Disposition: ADMITTED IP TO THIS HOSP Condition: Fair Referrals: Casey Okeefe MD [Primary Care Provider] - 1-2 days Time of Disposition: 14:18
[2023-05-14 13:00] LABS: Basophils % (A) 0 %; Eosinophils # (A) 0.1 k/uL (0-0.7); Eosinophils % (A) 1 %; HCT 40.1 % (34.0-46.0); HGB 12.5 gm/dL (11.4-16.0); Hypochromasia Moderate; Lymphocytes # (A) 0.8 k/uL (1.0-4.8); Lymphocytes % (A) 7 %; MCH 32.4 pg (25.0-35.0); MCV 104.5 fL (80.0-100.0); Macrocytosis Moderate; Mean Platelet Volume 8.9; Monocytes # (A) 0.7 k/uL (0-1.0); Monocytes % (A) 6 %; Neutrophils % (A) 85 %; Platelet Count 176 k/uL (150-450); RBC 3.84 m/uL (3.80-5.40); RDW 14.2 % (11.5-15.5); WBC 11.7 k/uL (3.8-10.6)
[2023-05-14 13:06] LABS: INR 1.4 (<1.2); Partial Thromboplastin Time 28.4 sec (22.0-30.0); Prothrombin Time 14.7 sec (10.0-12.5)
[2023-05-14 13:12] LABS: ALT 14 U/L (4-34); AST 34 U/L (14-36); African American GFR (CKD) 16 (>60 ml/min/1.73 sqM); Albumin 3.3 g/dL (3.5-5.0); Alkaline Phosphatase 65 U/L (38-126); Anion Gap 10 mmol/L; Blood Urea Nitrogen 71 mg/dL (7-17); Calcium 8.5 mg/dL (8.4-10.2); Carbon Dioxide 16 mmol/L (22-30); Chloride 107 mmol/L (98-107); Glucose 153 mg/dL (74-99); Non-African American GFR(CKD) 14 (>60 ml/min/1.73 sqM); Sodium 133 mmol/L (137-145); Total Bilirubin 0.8 mg/dL (0.2-1.3); Total Protein 7.1 g/dL (6.3-8.2)
[2023-05-14 13:40] LABS: Potassium 6.1 mmol/L (3.5-5.1)
[2023-05-14] MEDS ORDERED: ACETAMINOPHEN TAB 325 MG TAB PO PRN (14:18)
[2023-05-14] MEDS ORDERED: NALOXONE 0.4 MG/ML 1 ML VIAL IV PRN (14:18)
[2023-05-14] MEDS: DEXTROSE 50% SYRINGE 50 ML IVP ONE (15:28)
[2023-05-14] MEDS: INSULIN REGULAR 100 UNIT/ML VIAL (IV) IV ONE (15:28)
[2023-05-14] MEDS: SODIUM CHLORIDE 0.9% 500 ML 500 ML IV ONE (15:40)
[2023-05-14] MEDS: SODIUM ZIRCONIUM CYCLOSILICATE 10 GM PACKET PO ONE (15:40)
[2023-05-15] MEDS ORDERED: DEXTROSE 50% SYRINGE 50 ML IVP PRN ×2 (10:27)
[2023-05-15] MEDS: METOPROLOL SUCCINATE (ER) 25 MG TAB.ER.24H PO SCH (11:03)
[2023-05-15] MEDS: SODIUM BICARBONATE TAB 650 MG TAB PO SCH (11:03)
[2023-05-15] MEDS: CYANOCOBALAMIN 500 MCG TAB PO SCH (11:03)
[2023-05-15] MEDS: FOLIC ACID 1 MG TAB PO SCH (11:03)
[2023-05-15 12:05] LABS: Glucose,Whole Blood 96 mg/dL (70-110)
[2023-05-15] MEDS: INSULIN ASPART (NovoLOG) 100 UNIT/ML VIAL SQ SCH (12:10)
--- NOTE | 2023-05-15 14:05 | P.NPCON ---
History of Present Illness - Reason for Consult chronic renal failure - History of Present Illness Patient is an 78-year-old female with chronic kidney disease and Stage V status post PD catheter placement [address] Giraldo. Patient is admitted to the hospital with elevated potassium noted on labs done as outpatient. Patient has had decreased oral intake. No complaints of nausea or vomiting. No complaints of shortness of breath. Diuretics were recently decreased as outpatient per daughter. Potassium was 6.1 and serum creatinine at 3.0 yesterday. Serum potassium improved to 5.4. Patient denies any urinary symptoms. Blood pressure has been 102-117 systolic. Review of Systems As per HPI Past Medical History Past Medical History: Atrial Fibrillation, Blood Disorder, Chest Pain / Angina, Heart Failure, Diabetes Mellitus, Hypertension, Mitral Valve Prolapse (MVP), Osteoarthritis (OA), Renal Disease Additional Past Medical History / Comment(s): LOW IRON., URINE URGENCY., BACK AND HIP PAIN, USING CANE. STAGE 4 KIDNEY DISEASE,Valvular heart disease. History of Any Multi-Drug Resistant Organisms: None Reported Past Surgical History: Orthopedic Surgery, Tubal Ligation Additional Past Surgical History / Comment(s): COLONOSCOPY, EGD., TRH. RIGHT HIP REPLACEMENT. bilat CATARACT SURGERY Past Anesthesia/Blood Transfusion Reactions: No Reported Reaction Past Psychological History: No Psychological Hx Reported Smoking Status: Never smoker - Past Family History Mother Family Medical History: Cancer Additional Family Medical History / Comment(s): SKIN CANCER, stroke Father Family Medical History: CVA/TIA Medications and Allergies Home Medications Medication Instructions Recorded Confirmed Type Pioglitazone [Actos] 45 mg PO DAILY 09/11/17 05/14/23 History Warfarin [Coumadin] 2.5 tab PO SUMOTUTHFRSA@2100 12/16/18 05/14/23 History calcitrioL 0.25 mcg PO MOTUWETHFR 12/16/18 05/14/23 History Cholecalciferol [Vitamin D3 (125 125 mcg PO HS 09/14/21 05/14/23 History Mcg = 5000 Iu)] Cinnamon Bark [Cinnamon] 1,000 mg PO QID 09/14/21 05/14/23 History Cyanocobalamin [Vitamin B-12] 500 mcg PO DAILY 09/14/21 05/14/23 History Garlic 1,000 mg PO DAILY 09/14/21 05/14/23 History Glimepiride [Amaryl] 2 mg PO DAILY 09/14/21 05/14/23 History Pravastatin Sodium [Pravachol] 10 mg PO HS 09/14/21 05/14/23 History Selenium 200 mg PO HS 09/14/21 05/14/23 History Metoprolol Succinate (ER) [Toprol 25 mg PO DAILY 09/22/22 05/14/23 History XL] Sodium Bicarbonate Tab 650 mg PO BID 09/22/22 05/14/23 History Warfarin [Coumadin] 5 mg PO WE@2100 05/09/23 05/14/23 History Folic Acid 0.8 mg PO DAILY 05/14/23 05/14/23 History Allergies Allergy/AdvReac Type Severity Reaction Status Date / Time ciprofloxacin [From Cipro] Allergy Unknown Itching, Verified 05/14/23 13:10 Rash codeine Allergy Itching Verified 05/14/23 13:10 Physical Exam Vitals: Vital Signs Temp Pulse Pulse Resp BP BP Pulse Ox 05/15/23 08:20 97.8 F 81 16 120/57 97 05/15/23 05:08 97.8 F 80 18 102/75 98 05/15/23 00:36 88 16 117/56 97 05/14/23 21:10 66 16 107/50 97 05/14/23 20:21 18 108/53 98 05/14/23 18:00 72 19 116/72 97 05/14/23 16:38 69 20 118/76 97 Patient is awake, comfortable, no acute distress Examination of the heart S1 and S2 Examination of the lungs bilateral breath sounds are heard. Abdomen is soft nontender PD catheter site is dressed. Some drainage noted on the dressing. Examination of lower extremity shows chronic edema 3+ bilaterally [employer] SUPER[employer] exam grossly intact Results - Lab Results Most recent lab results Calcium 8.5 mg/dL (8.4-10.2) 05/14/23 11:56 05/14/23 11:56 05/14/23 19:50 Assessment and Plan Assessment: 1. CKD stage V with renal function not too far from baseline. Previous creatinine was 2.9 and 3.1 in March 2023 and in September 2022. Status post PD catheter placement 2 days ago. No indication for acute hemodialysis. 2. Hyperkalemia associated with advanced chronic kidney disease and recent decrease in dose of loop diuretics 3. [place] metabolic acidosis secondary to renal failure 4. Volume overload Plan: Add IV loop diuretics Repeat labs in a.m. Consults Dr. Giraldo as drainage noted from PD catheter exit site. No indication for acute hemodialysis Continue with oral sodium bicarb Continue with calcitriol Thank you for the consultation. We will continue to follow the patient with you during her hospitalization
[2023-05-15 16:58] LABS: Glucose,Whole Blood 227 mg/dL (70-110)
[2023-05-15 20:11] LABS: Glucose,Whole Blood 205 mg/dL (70-110)
[2023-05-15] MEDS: CHOLECALCIFEROL 125 MCG (5000 IU) TABLET PO SCH (20:42)
[2023-05-15] MEDS: PRAVASTATIN SODIUM 20 MG TAB PO SCH (20:42)
[2023-05-15] MEDS: FUROSEMIDE 10 MG/ML 10 ML VIAL IV SCH (20:44)
[2023-05-15] MEDS: DOCUSATE 100 MG CAP PO SCH (21:06)
--- NOTE | 2023-05-15 23:29 | P.HPIM ---
History of Present Illness H&P Date: 05/15/23 Chief Complaint: Abnormal labs Patient is a 78-year-old female with a past medical history of CKD stage V, status post peritoneal dialysis catheter placed on last Friday, atrial fibrillation on anticoagulation with Coumadin, hypertension, diabetes type 2, mitral valve prolapse and osteoarthritis was sent to ER by his PCP due to abnormal lab. Patient received phone call from her PCP stating her labs are off and was recommended to go to ER. Patient had peritoneal dialysis catheter placed by Dr. melendez on Friday. Patient also complaining of some blood oozing from her dressing as well. Denies any complaints of fever or chills. No nausea or vomiting. Complains of cough and congestion in the lungs. No complaints of chest pain. Does have leg swelling. EKG showed atrial fibrillation with heart rate 66. Laboratory data showed WBC 11.7 hemoglobin 12.5 and platelets 176 INR 1.4 Sodium 133 potassium 6.1 with slight hemolysis Chloride 107 bicarb is 16 BUN 71 and creatinine 3.06 and blood sugar 153. Liver enzymes are not elevated. Review of Systems Constitutional: Patient denies any fever or chills . Does complain of generalized weakness. Abdomen: Patient denied any nausea or vomiting or abd. pain. Abdominal distention. Cardiovascular: Patient denies any chest pain. Patient does have short of breath no palpitations. Leg swelling. Respiratory: patient does have cough with whitish sputum production. Positive for shortness of breath Neurologic: Patient denied any numbness or tingling or headache. Musculoskeletal: Patient denies any complaints of joint swelling or deformity. Skin: Negative Psychiatric: Negative Endocrine: No heat or cold intolerance. No recent weight gain. Genitourinary: No dysuria or hematuria. All other 14 point ROS negative except the above Past Medical History Past Medical History: Atrial Fibrillation, Blood Disorder, Chest Pain / Angina, Heart Failure, Diabetes Mellitus, Hypertension, Mitral Valve Prolapse (MVP), Osteoarthritis (OA), Renal Disease Additional Past Medical History / Comment(s): LOW IRON., URINE URGENCY., BACK AND HIP PAIN, USING CANE. STAGE 4 KIDNEY DISEASE,Valvular heart disease. History of Any Multi-Drug Resistant Organisms: None Reported Past Surgical History: Orthopedic Surgery, Tubal Ligation Additional Past Surgical History / Comment(s): COLONOSCOPY, EGD., TRH. RIGHT HIP REPLACEMENT. bilat CATARACT SURGERY Past Anesthesia/Blood Transfusion Reactions: No Reported Reaction Past Psychological History: No Psychological Hx Reported Smoking Status: Never smoker - Past Family History Mother Family Medical History: Cancer Additional Family Medical History / Comment(s): SKIN CANCER, stroke Father Family Medical History: CVA/TIA Medications and Allergies Home Medications Medication Instructions Recorded Confirmed Type Pioglitazone [Actos] 45 mg PO DAILY 09/11/17 05/14/23 History Warfarin [Coumadin] 2.5 tab PO SUMOTUTHFRSA@209912/16/18 05/14/23 History calcitrioL 0.25 mcg PO MOTUWETHFR 12/16/18 05/14/23 History Cholecalciferol [Vitamin D3 (125 125 mcg PO HS 09/14/21 05/14/23 History Mcg = 5000 Iu)] Cinnamon Bark [Cinnamon] 1,000 mg PO QID 09/14/21 05/14/23 History Cyanocobalamin [Vitamin B-12] 500 mcg PO DAILY 09/14/21 05/14/23 History Garlic 1,000 mg PO DAILY 09/14/21 05/14/23 History Glimepiride [Amaryl] 2 mg PO DAILY 09/14/21 05/14/23 History Pravastatin Sodium [Pravachol] 10 mg PO HS 09/14/21 05/14/23 History Selenium 200 mg PO HS 09/14/21 05/14/23 History Metoprolol Succinate (ER) [Toprol 25 mg PO DAILY 09/22/22 05/14/23 History XL] Sodium Bicarbonate Tab 650 mg PO BID 09/22/22 05/14/23 History Warfarin [Coumadin] 5 mg PO WE@209905/09/23 05/14/23 History Folic Acid 0.8 mg PO DAILY 05/14/23 05/14/23 History Allergies Allergy/AdvReac Type Severity Reaction Status Date / Time ciprofloxacin [From Cipro] Allergy Unknown Itching, Verified 05/15/23 18:52 Rash codeine Allergy Itching Verified 05/15/23 18:52 Physical Exam Vitals: Vital Signs Temp Pulse Pulse Resp BP BP Pulse Ox 05/15/23 08:20 97.8 F 81 16 120/57 97 05/15/23 05:08 97.8 F 80 18 102/75 98 05/15/23 00:36 88 16 117/56 97 05/14/23 21:10 66 16 107/50 97 05/14/23 20:21 18 108/53 98 05/14/23 18:00 72 19 116/72 97 05/14/23 16:38 69 20 118/76 97 PHYSICAL EXAMINATION: Patient is lying in the bed comfortably, no acute distress, awake alert and oriented.. HEENT: Normocephalic. Neck is supple. Pupils reactive. Nostrils clear. Oral cavity is moist. Neck reveals no JVD, carotid bruits, or thyromegaly. CHEST EXAMINATION: Trachea is central. Symmetrical expansion. Bibasilar coarse sounds. No wheezing or rhonchi. CARDIAC: Normal S1, S2 with no gallops. No murmurs ABDOMEN: Soft. Bowel sounds present. Nontender. Dressing currently catheter site. Mild distention. No organomegaly. No abdominal bruits. Extremities: Bilateral trace pedal edema. No clubbing or cyanosis Neurologically awake, alert, oriented x3 with well-coordinated movements. No focal deficits noted Skin: No rash or skin lesions. Psychiatric: Coperative. Nonsuicidal, Musculoskeletal: No joint swelling or deformity. Normal range of motion. Results CBC & Chem 7: 05/14/23 11:56 05/14/23 19:50 Labs: Abnormal Lab Results - Last 24 Hours (Table) 05/14/23 05/14/23 05/14/23 Range/Units 11:56 11:56 11:56 WBC 11.7 H (3.8-10.6) k/uL MCV 104.5 H (80.0-100.0) fL Neutrophils # 10.0 H (1.3-7.7) k/uL Lymphocytes # 0.8 L (1.0-4.8) k/uL PT 14.7 H (10.0-12.5) sec INR 1.4 H (<1.2) Sodium 133 L (137-145) mmol/L Potassium 6.1 H* (3.5-5.1) mmol/L Carbon Dioxide 16 L (22-30) mmol/L BUN 71 H (7-17) mg/dL Creatinine 3.06 H (0.52-1.04) mg/dL Glucose 153 H (74-99) mg/dL Albumin 3.3 L (3.5-5.0) g/dL 02/21/24 Range/Units 19:50 WBC (3.8-10.6) k/uL MCV (80.0-100.0) fL Neutrophils # (1.3-7.7) k/uL Lymphocytes # (1.0-4.8) k/uL PT (10.0-12.5) sec INR (<1.2) Sodium (137-145) mmol/L Potassium 5.4 H (3.5-5.1) mmol/L Carbon Dioxide (22-30) mmol/L BUN (7-17) mg/dL Creatinine (0.52-1.04) mg/dL Glucose (74-99) mg/dL Albumin (3.5-5.0) g/dL Thrombosis Risk Factor Assmnt - DVT/VTE Prophylaxis DVT/VTE Prophylaxis: Pharmacologic Prophylaxis ordered Assessment and Plan Assessment: Hyperkalemia due to chronic kidney disease CKD stage V status post peritoneal dialysis catheter placement on 05/13/2023 Fluid overload Normal anion gap metabolic acidosis leading to CKD Chronic atrial fibrillation on anticoagulation with Coumadin Subtherapeutic INR Mitral valve prolapse Hypertension Osteoarthritis Diabetes type 2 [id number] DVT prophylaxis patient is already on Coumadin Plan: Patient was given a dose of Lokelma and D50/insulin in the ER. Repeat potassium level came down to 5.4. Patient be started back on diuretics and also initiate peritoneal dialysis as per nephrology recommendations.. Continue with sodium bicarbonate and multivitamins. Continue with home medications and follow-up closely. Coumadin is on hold due to bloody oozing from the catheter insertion site. C ontinue the dressing changes and follow-up closely. Nephrology is on board. Continue with insulin sliding scale while in the hospital. Time with Patient: Greater than 30
[2023-05-16 06:17] LABS: Glucose,Whole Blood 105 mg/dL (70-110)
[2023-05-16 08:33] LABS: Basophils # (A) 0.07 X 10*3/uL (0.00-0.10); Eosinophils # (A) 0.15 X 10*3/uL (0.04-0.35); Eosinophils % (A) 2.2 %; HCT 33.3 % (37.2-46.3); HGB 10.7 g/dL (12.0-15.0); Lymphocytes # (A) 0.71 X 10*3/uL (0.90-5.00); Lymphocytes % (A) 10.2 %; MCH 32.3 pg (27.0-32.0); MCHC 32.1 g/dL (32.0-37.0); MCV 100.6 FL (80.0-97.0); Monocytes # (A) 0.93 X 10*3/uL (0.20-1.00); Monocytes % (A) 13.4 %; NRBC Per 100 WBC 0 X 10*3/uL (0.00-0.01); Neutrophils # (A) 5.08 X 10*3/uL (1.80-7.70); Neutrophils % (A) 72.9 %; Platelet Count 154 X 10*3/uL (140-440); RBC 3.31 X 10*6/uL (4.10-5.20); WBC 6.96 X 10*3/uL (4.50-10.00)
[2023-05-16 08:53] LABS: BUN/Creat Ratio 21.48 Ratio (12.00-20.00); Blood Urea Nitrogen 70.9 mg/dL (9.0-27.0); Glucose 89 mg/dL (70-110)
[2023-05-16 08:54] LABS: Calcium 8.6 mg/dL (8.7-10.3); Carbon Dioxide 16.9 mmol/L (21.6-31.8); Chloride 102 mmol/L (96-109); Potassium 5.9 mmol/L (3.5-5.5); Sodium 133 mmol/L (135-145)
[2023-05-16] MEDS: DEXTROSE 50% SYRINGE 50 ML IVP STA (10:40)
[2023-05-16] MEDS: SODIUM BICARB 8.4% 50 ML SYR (1 MEQ/ML) IV STA (10:41)
[2023-05-16] MEDS: INSULIN REGULAR 100 UNIT/ML VIAL (IV) IV ONE (10:41)
--- NOTE | 2023-05-16 11:12 | P.PN ---
Subjective Patient is seen for follow-up CKD stage IV-V. Status post PD catheter placement 3 days ago. Patient was noted to have some drainage which was mostly the ascitic fluid yesterday. The exit site appears to be dry today. Patient was admitted with hyperkalemia. Bladder scan to be performed now to rule out urine retention. Serum potassium was elevated this morning at 5.9. Blood sugar is not high. No active GI bleed noted. Serum creatinine is not too far from baseline of around 2.9 mg/dL No significant complaints today except for constipation. Objective - Vital Signs Vital signs: Vital Signs Temp 98.3 F 05/16/23 06:51 Pulse 77 05/16/23 06:51 Resp 16 05/16/23 06:51 BP 123/73 05/16/23 06:51 Pulse Ox 95 05/16/23 06:51 FiO2 Intake & Output 05/15/23 05/16/23 05/16/23 18:59 06:59 18:59 Output Total 1 250 Balance -1 -250 Weight 67.585 kg Output: Urine 250 Stool 1 Other: Voiding Method Toilet # Voids 2 5 # Bowel Movements 1 - Exam Patient is awake, comfortable, no acute distress Examination of the heart S1 and S2 Examination of the lungs bilateral breath sounds are heard. Abdomen is soft nontender PD catheter site is dressed. Some drainage noted on the dressing. Examination of lower extremity shows chronic edema 3+ bilaterally [employer] exam grossly intact - Labs CBC & Chem 7: 05/16/23 05:11 05/16/23 05:11 Labs: Abnormal Lab Results - Last 24 Hours (Table) 05/15/23 05/15/23 05/16/23 Range/Units 16:57 20:05 05:11 RBC (4.10-5.20) X 10*6/uL Hgb (12.0-15.0) g/dL Hct (37.2-46.3) % MCV (80.0-97.0) FL MCH (27.0-32.0) pg RDW (11.5-14.5) % Lymphocytes # (0.90-5.00) X 10*3/uL Sodium (135-145) mmol/L Potassium (3.5-5.5) mmol/L Carbon Dioxide (21.6-31.8) mmol/L Anion Gap (4.00-12.00) mmol/L BUN (9.0-27.0) mg/dL Creatinine (0.6-1.5) mg/dL Est GFR (CKD-EPI) (>=60) BUN/Creatinine Ratio (12.00-20.00) Ratio POC Glucose (mg/dL) 227 H 205 H (70-110) mg/dL Hemoglobin A1c 7.3 H (<=6.0) % Calcium (8.7-10.3) mg/dL 05/16/23 05/16/23 Range/Units 05:11 05:11 RBC 3.31 L (4.10-5.20) X 10*6/uL Hgb 10.7 L (12.0-15.0) g/dL Hct 33.3 L (37.2-46.3) % MCV 100.6 H (80.0-97.0) FL MCH 32.3 H (27.0-32.0) pg RDW 15.0 H (11.5-14.5) % Lymphocytes # 0.71 L (0.90-5.00) X 10*3/uL Sodium 133 L (135-145) mmol/L Potassium 5.9 H (3.5-5.5) mmol/L Carbon Dioxide 16.9 L (21.6-31.8) mmol/L Anion Gap 14.10 H (4.00-12.00) mmol/L BUN 70.9 H (9.0-27.0) mg/dL Creatinine 3.3 H (0.6-1.5) mg/dL Est GFR (CKD-EPI) 14 L (>=60) BUN/Creatinine Ratio 21.48 H (12.00-20.00) Ratio POC Glucose (mg/dL) (70-110) mg/dL Hemoglobin A1c (<=6.0) % Calcium 8.6 L (8.7-10.3) mg/dL Assessment and Plan Assessment: 1. CKD stage V with renal function not too far from baseline. Previous creatinine was 2.9 and 3.1 in March 2023 and in September 2022. Status post PD catheter placement on 05/13/2023. No indication for acute hemodialysis. 2. Hyperkalemia associated with advanced chronic kidney disease and recent decrease in dose of loop diuretics 3. [place] metabolic acidosis secondary to renal failure 4. Volume overload Plan: Continue with IV Lasix Treat hyperkalemia with insulin D50 and bicarb Continue with oral sodium bicarb. Check bladder scan rule out urine retention. If patient continues to have drainage from the exit site we will drain the ascitic fluid off. This morning however it appears that the exit site was dry with no drainage noted.
[2023-05-16 11:24] LABS: Glucose,Whole Blood 153 mg/dL (70-110)
--- NOTE | 2023-05-16 12:18 | P.GSCN ---
History of Present Illness Consult date: 05/16/23 History of present illness: CHIEF COMPLAINT: Abnormal labs Reason for consult drainage from peritoneal dialysis catheter site HISTORY OF PRESENT ILLNESS: This is a 78-year-old female who was brought into the ER due to abnormal labs with hyperkalemia. Patient is status post peritoneal dialysis catheter placement on 05/13/2023. Patient reports that she was having bloody drainage from the dialysis catheter site. Since the procedure she had to change the bandage about 5 times. Since being admitted to the hospital drainage has slowed down. Drainage had apparently been more serosanguineous in color. Patient is followed by nephrology. They started her on Lasix. Patient denies any abdominal pain. Denies any nausea or vomiting. Ascitic fluid was not drained yesterday. PAST MEDICAL HISTORY: See below PAST SURGICAL HISTORY: See below MEDICATIONS: See below ALLERGIES: See below SOCIAL HISTORY: No illicit drug use. REVIEW OF SYSTEMS: CONSTITUTIONAL: Denies fever or chills. HEENT: Denies blurred vision, vision changes, or eye pain. Denies hemoptysis CARDIOVASCULAR: Denies chest pain or pressure. RESPIRATORY: No shortness of breath. GASTROINTESTINAL: See HPI for pertinent findings HEMATOLOGIC: Denies bleeding disorders. GENITOURINARY: Denies any blood in urine or increased urinary frequency. SKIN: Denies pruitis. Denies rash. PHYSICAL EXAM: VITAL SIGNS: Reviewed GENERAL: Well-developed in no acute distress. HEENT: No sclera icterus. Extraocular movements grossly intact. Moist buccal mucosa. Head is atraumatic, normocephalic. No nasal drainage. ABDOMEN: Soft. Nondistended. PD catheter site with some minimal bleeding noted. Bandage with a small amount of old dried serosanguineous drainage NEUROLOGIC: Alert and oriented. Cranial nerves II through XII grossly intact. LABORATORY DATA: WBC 11.7 down to 6.96 Hgb 12.5 down to 10.7 platelets 154 Sodium 133 potassium 6.1 now 5.9 creatinine 3.3 IMAGING: ASSESSMENT: 1. Serosanguineous drainage from peritoneal dialysis catheter 2. Chronic kidney disease stage IV 3. Volume overload 4. Hyperkalemia PLAN: -Drainage appears to have improved. Continue to monitor. -Nephrology plans if drainage continues to exit from PD catheter site they will drain the ascitic fluid off. -Continue diuretics per nephrology -Continue hyperkalemia management per nephrology -No surgical intervention planned Physician Last Putter Away note has been reviewed by physician. Signing provider agrees with the documented findings, assessment, and plan of care. I have personally seen and examined the patient, reviewed the COATING MIXER /PAs history, exam and MDM and agree with the assessment and plan as written. Based on total visit time, I have performed more than 50% of the visit. As above: Patient doing better with drainage around the catheter exit site. This is likely related to the patient's indwelling ascites. If drainage persist recommend intermittent drainage of her ascites using the dialysis catheter itself. Will follow. Past Medical History Past Medical History: Atrial Fibrillation, Blood Disorder, Chest Pain / Angina, Heart Failure, Diabetes Mellitus, Hypertension, Mitral Valve Prolapse (MVP), Osteoarthritis (OA), Renal Disease Additional Past Medical History / Comment(s): LOW IRON., URINE URGENCY., BACK AND HIP PAIN, USING CANE. STAGE 4 KIDNEY DISEASE,Valvular heart disease. History of Any Multi-Drug Resistant Organisms: None Reported Past Surgical History: Orthopedic Surgery, Tubal Ligation Additional Past Surgical History / Comment(s): COLONOSCOPY, EGD., TRH. RIGHT HIP REPLACEMENT. bilat CATARACT SURGERY Past Anesthesia/Blood Transfusion Reactions: No Reported Reaction Past Psychological History: No Psychological Hx Reported Smoking Status: Never smoker - Past Family History Mother Family Medical History: Cancer Additional Family Medical History / Comment(s): SKIN CANCER, stroke Father Family Medical History: CVA/TIA Medications and Allergies Home Medications Medication Instructions Recorded Confirmed Type Pioglitazone [Actos] 45 mg PO DAILY 09/11/17 05/14/23 History Warfarin [Coumadin] 2.5 tab PO SUMOTUTHFRSA@2100 12/16/18 05/14/23 History calcitrioL 0.25 mcg PO MOTUWETHFR 12/16/18 05/14/23 History Cholecalciferol [Vitamin D3 (125 125 mcg PO HS 09/14/21 05/14/23 History Mcg = 5000 Iu)] Cinnamon Bark [Cinnamon] 1,000 mg PO QID 09/14/21 05/14/23 History Cyanocobalamin [Vitamin B-12] 500 mcg PO DAILY 09/14/21 05/14/23 History Garlic 1,000 mg PO DAILY 09/14/21 05/14/23 History Glimepiride [Amaryl] 2 mg PO DAILY 09/14/21 05/14/23 History Pravastatin Sodium [Pravachol] 10 mg PO HS 09/14/21 05/14/23 History Selenium 200 mg PO HS 09/14/21 05/14/23 History Metoprolol Succinate (ER) [Toprol 25 mg PO DAILY 09/22/22 05/14/23 History XL] Sodium Bicarbonate Tab 650 mg PO BID 09/22/22 05/14/23 History Warfarin [Coumadin] 5 mg PO WE@2100 05/09/23 05/14/23 History Folic Acid 0.8 mg PO DAILY 05/14/23 05/14/23 History Allergies Allergy/AdvReac Type Severity Reaction Status Date / Time ciprofloxacin [From Cipro] Allergy Unknown Itching, Verified 05/15/23 18:52 Rash codeine Allergy Itching Verified 05/15/23 18:52 Surgical - Exam Vital Signs Temp Pulse Resp BP Pulse Ox 97.3 F L 56 L 16 119/75 98 05/14/23 09:55 05/14/23 09:55 05/14/23 09:55 05/14/23 09:55 05/14/23 09:55 Results - Labs 05/16/23 05:11 05/16/23 05:11 Abnormal Lab Results - Last 24 Hours (Table) 05/15/23 05/15/23 05/16/23 Range/Units 16:57 20:05 05:11 RBC (4.10-5.20) X 10*6/uL Hgb (12.0-15.0) g/dL Hct (37.2-46.3) % MCV (80.0-97.0) FL MCH (27.0-32.0) pg RDW (11.5-14.5) % Lymphocytes # (0.90-5.00) X 10*3/uL Sodium (135-145) mmol/L Potassium (3.5-5.5) mmol/L Carbon Dioxide (21.6-31.8) mmol/L Anion Gap (4.00-12.00) mmol/L BUN (9.0-27.0) mg/dL Creatinine (0.6-1.5) mg/dL Est GFR (CKD-EPI) (>=60) BUN/Creatinine Ratio (12.00-20.00) Ratio POC Glucose (mg/dL) 227 H 205 H (70-110) mg/dL Hemoglobin A1c 7.3 H (<=6.0) % Calcium (8.7-10.3) mg/dL 05/16/23 05/16/23 05/16/23 Range/Units 05:11 05:11 11:23 RBC 3.31 L (4.10-5.20) X 10*6/uL Hgb 10.7 L (12.0-15.0) g/dL Hct 33.3 L (37.2-46.3) % MCV 100.6 H (80.0-97.0) FL MCH 32.3 H (27.0-32.0) pg RDW 15.0 H (11.5-14.5) % Lymphocytes # 0.71 L (0.90-5.00) X 10*3/uL Sodium 133 L (135-145) mmol/L Potassium 5.9 H (3.5-5.5) mmol/L Carbon Dioxide 16.9 L (21.6-31.8) mmol/L Anion Gap 14.10 H (4.00-12.00) mmol/L BUN 70.9 H (9.0-27.0) mg/dL Creatinine 3.3 H (0.6-1.5) mg/dL Est GFR (CKD-EPI) 14 L (>=60) BUN/Creatinine Ratio 21.48 H (12.00-20.00) Ratio POC Glucose (mg/dL) 153 H (70-110) mg/dL Hemoglobin A1c (<=6.0) % Calcium 8.6 L (8.7-10.3) mg/dL Diabetes panel 05/16/23 05/16/23 Range/Units 05:11 05:11 Sodium 133 L (135-145) mmol/L Potassium 5.9 H (3.5-5.5) mmol/L Chloride 102 (96-109) mmol/L Carbon Dioxide 16.9 L (21.6-31.8) mmol/L BUN 70.9 H (9.0-27.0) mg/dL Creatinine 3.3 H (0.6-1.5) mg/dL Glucose 89 (70-110) mg/dL Hemoglobin A1c 7.3 H (<=6.0) % Calcium 8.6 L (8.7-10.3) mg/dL Calcium panel 05/16/23 Range/Units 05:11 Calcium 8.6 L (8.7-10.3) mg/dL Pituitary panel 05/16/23 Range/Units 05:11 Sodium 133 L (135-145) mmol/L Potassium 5.9 H (3.5-5.5) mmol/L Chloride 102 (96-109) mmol/L Carbon Dioxide 16.9 L (21.6-31.8) mmol/L BUN 70.9 H (9.0-27.0) mg/dL Creatinine 3.3 H (0.6-1.5) mg/dL Glucose 89 (70-110) mg/dL Calcium 8.6 L (8.7-10.3) mg/dL Adrenal panel 05/16/23 Range/Units 05:11 Sodium 133 L (135-145) mmol/L Potassium 5.9 H (3.5-5.5) mmol/L Chloride 102 (96-109) mmol/L Carbon Dioxide 16.9 L (21.6-31.8) mmol/L BUN 70.9 H (9.0-27.0) mg/dL Creatinine 3.3 H (0.6-1.5) mg/dL Glucose 89 (70-110) mg/dL Calcium 8.6 L (8.7-10.3) mg/dL
[2023-05-16] MEDS: polyethylene glycoL 3350 17 GM POWD.PACK PO PRN (12:23)
[2023-05-16 16:38] LABS: Glucose,Whole Blood 217 mg/dL (70-110)
[2023-05-16 20:36] LABS: Glucose,Whole Blood 186 mg/dL (70-110)
--- NOTE | 2023-05-17 03:00 | P.PN ---
Subjective Progress Note Date: 05/16/23 Patient is a 78-year-old female with a past medical history of CKD stage V, status post peritoneal dialysis catheter placed on last Friday, atrial fibrillation on anticoagulation with Coumadin, hypertension, diabetes type 2, mitral valve prolapse and osteoarthritis was sent to ER by his PCP due to abnorm al lab. Patient received phone call from her PCP stating her labs are off and was recommended to go to ER. Patient had peritoneal dialysis catheter placed by Dr. melendez on Friday. Patient also complaining of some blood oozing from her dressing as well. Denies any complaints of fever or chills. No nausea or vomiting. Complains of cough and congestion in the lungs. No complaints of chest pain. Does have leg swelling. EKG showed atrial fibrillation with heart rate 66. Laboratory data showed WBC 11.7 hemoglobin 12.5 and platelets 176 INR 1.4 Sodium 133 potassium 6.1 with slight hemolysis Chloride 107 bicarb is 16 BUN 71 and creatinine 3.06 and blood sugar 153. Liver enzymes are not elevated. 05/16/2023 Patient is currently sitting in the chair and is able to tolerate oral diet. No complaints of chest pain or worsening shortness of breath. Patient is still having drainage from the site of the peritoneal dialysis catheter but much improved today. Patient has been afebrile. No cough or sputum function. N no nausea vomiting or diarrhea. Laboratory showed sodium 133 potassium 5.9 chloride 102 bicarb is 16.9 BUN 17.9 creatinine 3.3 and A1c 7.3 WBC 6.9 hemoglobin 10.7 platelets 154 Current medications reviewed. Objective - Vital Signs Vital signs: Vital Signs Temp 98.1 F 05/16/23 20:00 Pulse 76 05/16/23 20:00 Resp 20 05/16/23 20:00 BP 119/50 05/16/23 20:00 Pulse Ox 100 05/16/23 20:00 FiO2 Intake & Output 05/16/23 05/16/23 05/17/23 06:59 18:59 06:59 Output Total 250 Balance -250 Weight 67.585 kg Output: Urine 250 Other: Voiding Method Toilet Toilet # Voids 5 5 1 # Bowel Movements 1 3 - Exam PHYSICAL EXAMINATION: Patient is lying in the bed comfortably, no acute distress, awake alert and oriented.. HEENT: Normocephalic. Neck is supple. Pupils reactive. Nostrils clear. Oral cavity is moist. Neck reveals no JVD, carotid bruits, or thyromegaly. CHEST EXAMINATION: Trachea is central. Symmetrical expansion. Bibasilar coarse sounds. No wheezing or rhonchi. CARDIAC: Normal S1, S2 with no gallops. No murmurs ABDOMEN: Soft. Bowel sounds present. Nontender. Dressing currently catheter site. Mild distention. No organomegaly. No abdominal bruits. Extremities: Bilateral trace pedal edema. No clubbing or cyanosis Neurologically awake, alert, oriented x3 with well-coordinated movements. No focal deficits noted Skin: No rash or skin lesions. Psychiatric: Coperative. Nonsuicidal, Musculoskeletal: No joint swelling or deformity. Normal range of motion. - Labs CBC & Chem 7: 05/16/23 05:11 05/16/23 16:45 Labs: Abnormal Lab Results - Last 24 Hours (Table) 05/16/23 05/16/23 05/16/23 Range/Units 05:11 05:11 05:11 RBC 3.31 L (4.10-5.20) X 10*6/uL Hgb 10.7 L (12.0-15.0) g/dL Hct 33.3 L (37.2-46.3) % MCV 100.6 H (80.0-97.0) FL MCH 32.3 H (27.0-32.0) pg RDW 15.0 H (11.5-14.5) % Lymphocytes # 0.71 L (0.90-5.00) X 10*3/uL Sodium 133 L (135-145) mmol/L Potassium 5.9 H (3.5-5.5) mmol/L Carbon Dioxide 16.9 L (21.6-31.8) mmol/L Anion Gap 14.10 H (4.00-12.00) mmol/L BUN 70.9 H (9.0-27.0) mg/dL Creatinine 3.3 H (0.6-1.5) mg/dL Est GFR (CKD-EPI) 14 L (>=60) BUN/Creatinine Ratio 21.48 H (12.00-20.00) Ratio POC Glucose (mg/dL) (70-110) mg/dL Hemoglobin A1c 7.3 H (<=6.0) % Calcium 8.6 L (8.7-10.3) mg/dL 05/16/23 05/16/23 05/16/23 Range/Units 11:23 16:37 20:35 RBC (4.10-5.20) X 10*6/uL Hgb (12.0-15.0) g/dL Hct (37.2-46.3) % MCV (80.0-97.0) FL MCH (27.0-32.0) pg RDW (11.5-14.5) % Lymphocytes # (0.90-5.00) X 10*3/uL Sodium (135-145) mmol/L Potassium (3.5-5.5) mmol/L Carbon Dioxide (21.6-31.8) mmol/L Anion Gap (4.00-12.00) mmol/L BUN (9.0-27.0) mg/dL Creatinine (0.6-1.5) mg/dL Est GFR (CKD-EPI) (>=60) BUN/Creatinine Ratio (12.00-20.00) Ratio POC Glucose (mg/dL) 153 H 217 H 186 H (70-110) mg/dL Hemoglobin A1c (<=6.0) % Calcium (8.7-10.3) mg/dL Assessment and Plan Assessment: Hyperkalemia due to chronic kidney disease CKD stage V status post peritoneal dialysis catheter placement on 05/13/2023 Fluid overload Normal anion gap metabolic acidosis leading to CKD Chronic atrial fibrillation on anticoagulation with Coumadin Subtherapeutic INR Mitral valve prolapse Hypertension Osteoarthritis Diabetes type 2 [id number] DVT prophylaxis patient is already on Coumadin Plan: Patient was given a dose of Lokelma and D50/insulin in the ER. Repeat potassium level came down to 5.4. Potassium went up to 5.9 today. Patient was given sodium bicarb, insulin IV/D50 was again given today. Continue with diuretics and also initiate peritoneal dialysis as per nephrology recommendations.. Patient was seen by general surgery due to serosanguineous oozing from the PEG tube insertion site. Will consider paracentesis if continues to drain. Continue with sodium bicarbonate and multivitamins. Continue with home medications and follow-up closely. Will start back on Coumadin. Continue the dressing changes and follow-up closely. Nephrology is on board. Continue with insulin sliding scale while in the hospital. Time with Patient: Greater than 30
[2023-05-17 05:56] LABS: Glucose,Whole Blood 136 mg/dL (70-110)
[2023-05-17] MEDS ORDERED: DIALYSIS (PERITONEAL) DEX 2.5% 2,500 ML BAG INTRAPERIT STA ×2 (10:10→11:16)
--- NOTE | 2023-05-17 10:39 | P.PN ---
Subjective Patient is seen for follow-up CKD stage IV-V. Status post PD catheter on 05/13/2023. Patient was noted to have some drainage which was mostly the ascitic fluid. Fluid drainage had improved yesterday. Patient was admitted with hyperkalemia. Bladder scan to be performed now to rule out urine retention. Serum potassium was elevated to 5.9 yesterday. Status post IV treatment. Serum creatinine is not too far from baseline of around 2.9 mg/dL Constipation has improved. Patient had 4 hard stools yesterday and had a soft bowel movement today. Objective - Vital Signs Vital signs: Vital Signs Temp 98.4 F 05/17/23 07:29 Pulse 70 05/17/23 07:29 Resp 18 05/17/23 07:29 BP 125/78 05/17/23 07:29 Pulse Ox 93 L 05/17/23 07:29 FiO2 Intake & Output 05/16/23 05/17/23 05/17/23 18:59 06:59 18:59 Other: Voiding Method Toilet # Voids 5 1 # Bowel Movements 3 - Exam Patient is awake, comfortable, no acute distress Examination of the heart S1 and S2 Examination of the lungs bilateral breath sounds are heard. Abdomen is soft nontender PD catheter site is dressed. Some drainage noted on the dressing. 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 CKD stage V with renal function not too far from baseline. Previous creatinine was 2.9 and 3.1 in March 2023 and in September 2022. Status post PD catheter placement on 05/13/2023. No indication for acute hemodialysis. 2. Hyperkalemia associated with advanced chronic kidney disease and recent decrease in dose of loop diuretics 3. Nongap metabolic acidosis secondary to renal failure 4. Volume overload Plan: Continue with IV Lasix Check labs today Continue with oral sodium bicarb. Check bladder scan rule out urine retention. Since patient stated that there was drainage around the PD catheter site again I will go ahead and drain the ascitic fluid off. Discussed with nursing staff.
[2023-05-17 11:27] LABS: Glucose,Whole Blood 195 mg/dL (70-110)
[2023-05-17 11:37] LABS: BUN/Creat Ratio 23.19 Ratio (12.00-20.00); Blood Urea Nitrogen 74.2 mg/dL (9.0-27.0); Glucose 137 mg/dL (70-110)
[2023-05-17 11:38] LABS: Calcium 8.5 mg/dL (8.7-10.3); Chloride 101 mmol/L (96-109); Sodium 135 mmol/L (135-145)
[2023-05-17 12:04] LABS: Basophils # (A) 0.06 X 10*3/uL (0.00-0.10); Basophils % (A) 0.9 %; Eosinophils # (A) 0.26 X 10*3/uL (0.04-0.35); Eosinophils % (A) 3.7 %; HCT 32.2 % (37.2-46.3); HGB 10.3 g/dL (12.0-15.0); Lymphocytes # (A) 0.73 X 10*3/uL (0.90-5.00); Lymphocytes % (A) 10.4 %; MCH 30.9 pg (27.0-32.0); MCV 96.7 FL (80.0-97.0); Mean Platelet Volume 12.4 FL (9.5-12.2); Monocytes # (A) 0.95 X 10*3/uL (0.20-1.00); Monocytes % (A) 13.6 %; NRBC Per 100 WBC 0 X 10*3/uL (0.00-0.01); Neutrophils # (A) 4.97 X 10*3/uL (1.80-7.70); Neutrophils % (A) 71.1 %; Platelet Count 99 X 10*3/uL (140-440); RBC 3.33 X 10*6/uL (4.10-5.20); RBC Morphology Normal (Normal); RDW 14.8 % (11.5-14.5); WBC 6.99 X 10*3/uL (4.50-10.00)
[2023-05-17] MEDS: HEPARIN SODIUM INTRAPERIT STA (13:44)
[2023-05-17] MEDS: DIALYSIS DEX INTRAPERIT STA (13:44)
[2023-05-17] MEDS: DIALYSIS (PERIT 2.5%) 2,000 ML 50 G/2,000 ML BAG INTRAPERIT STA (13:51)
[2023-05-17 13:57] LABS: INR 1.27 sec (0.93-1.11); Prothrombin Time 13.5 sec (9.9-11.9)
[2023-05-17 16:40] LABS: Glucose,Whole Blood 183 mg/dL (70-110)
[2023-05-17] MEDS: WARFARIN 5 MG TAB PO ONE (17:27)
--- NOTE | 2023-05-17 19:37 | P.PN ---
Subjective Patient is a 78-year-old female with a past medical history of CKD stage V, status post peritoneal dialysis catheter placed on last Friday, atrial fibrillation on anticoagulation with Coumadin, hypertension, diabetes type 2, mitral valve prolapse and osteoarthritis was sent to ER by his PCP due to abnormal lab. Patient received phone call from her PCP stating her labs are off and was recommended to go to ER. Patient had peritoneal dialysis catheter placed by Dr. melendez on Friday. Patient also complaining of some blood oozing from her dressing as well. Denies any complaints of fever or chills. No nausea or vomiting. Complains of cough and congestion in the lungs. No complaints of chest pain. Does have leg swelling. EKG showed atrial fibrillation with heart rate 66. Laboratory data showed WBC 11.7 hemoglobin 12.5 and platelets 176 INR 1.4 Sodium 133 potassium 6.1 with slight hemolysis Chloride 107 bicarb is 16 BUN 71 and creatinine 3.06 and blood sugar 153. Liver enzymes are not elevated. 05/16/2023 Patient is currently sitting in the chair and is able to tolerate oral diet. No complaints of chest pain or worsening shortness of breath. Patient is still having drainage from the site of the peritoneal dialysis catheter but much improved today. Patient has been afebrile. No cough or sputum function. N no nausea vomiting or diarrhea. Laboratory showed sodium 133 potassium 5.9 chloride 102 bicarb is 16.9 BUN 17.9 creatinine 3.3 and A1c 7.3 WBC 6.9 hemoglobin 10.7 platelets 154 05/17/2023 This is a pleasant 78 years old female who was sent by her PCP for abnormal labs, on admission patient had hyperkalemia with potassium 6.1, it was thought secondary to holding her Lasix as an outpatient. Patient is a known case of chronic kidney disease stage IV and she is getting peritoneal dialysis when which the catheter was placed 1 day prior to hospitalization on 05/13. There was some leakage from the PD site. Currently patient comfortable, fully awake and oriented, no specific complaint PD catheter in place with minimal or no discharge. No evidence of cellulitis, no abdominal pain or tenderness Patient on IV Lasix 60 mg twice daily She is on warfarin pharmacy to dose for her A-fib and her INR is 1.2 today. She is going to get 5 mg of Coumadin [facility] Nephrology team also following closely Objective - Vital Signs Vital signs: Vital Signs Temp 97.6 F 05/17/23 13:56 Pulse 71 05/17/23 13:56 Resp 16 05/17/23 13:56 BP 113/69 05/17/23 13:56 Pulse Ox 98 05/17/23 13:56 FiO2 Intake & Output 05/16/23 05/17/23 05/17/23 18:59 06:59 18:59 Output Total 37 Balance -37 Output: Post Void Residual 37 Other: Voiding Method Toilet # Voids 5 1 # Bowel Movements 3 - Exam GENERAL: The patient is alert and oriented x3, not in any acute distress. Well developed, well nourished. HEENT: Pupils are round and equally reacting to light. EOMI. No scleral icterus. No conjunctival pallor. Normocephalic, atraumatic. No pharyngeal erythema. No thyromegaly. CARDIOVASCULAR: S1 and S2 present. No murmurs, rubs, or gallops. PULMONARY: Chest is clear to auscultation, no wheezing , no crackles. -ABDOMEN: Soft, nontender, nondistended, normoactive bowel sounds. No palpable organomegaly. PD catheter in place with minimal or no leakage MUSCULOSKELETAL: No joint swelling or deformity. EXTREMITIES: No cyanosis, clubbing, or pedal edema. NEUROLOGICAL: Gross neurological examination did not reveal any focal deficits. SKIN: No rashes. no petechiae. - Labs CBC & Chem 7: 05/17/23 05:35 05/17/23 05:35 Labs: Abnormal Lab Results - Last 24 Hours (Table) 05/16/23 05/16/23 05/17/23 Range/Units 16:37 20:35 05:35 RBC 3.33 L (4.10-5.20) X 10*6/uL Hgb 10.3 L (12.0-15.0) g/dL Hct 32.2 L (37.2-46.3) % RDW 14.8 H (11.5-14.5) % Plt Count 99 L (140-440) X 10*3/uL MPV 12.4 H (9.5-12.2) FL Lymphocytes # 0.73 L (0.90-5.00) X 10*3/uL PT (9.9-11.9) sec INR (0.93-1.11) sec Carbon Dioxide (21.6-31.8) mmol/L Anion Gap (4.00-12.00) mmol/L BUN (9.0-27.0) mg/dL Creatinine (0.6-1.5) mg/dL Est GFR (CKD-EPI) (>=60) BUN/Creatinine Ratio (12.00-20.00) Ratio Glucose (70-110) mg/dL POC Glucose (mg/dL) 217 H 186 H (70-110) mg/dL Calcium (8.7-10.3) mg/dL 24 24 05/17/23 Range/Units 05:35 05:35 05:55 RBC (4.10-5.20) X 10*6/uL Hgb (12.0-15.0) g/dL Hct (37.2-46.3) % RDW (11.5-14.5) % Plt Count (140-440) X 10*3/uL MPV (9.5-12.2) FL Lymphocytes # (0.90-5.00) X 10*3/uL PT 13.5 H (9.9-11.9) sec INR 1.27 H (0.93-1.11) sec Carbon Dioxide 20.0 L (21.6-31.8) mmol/L Anion Gap 14.00 H (4.00-12.00) mmol/L BUN 74.2 H (9.0-27.0) mg/dL Creatinine 3.2 H (0.6-1.5) mg/dL Est GFR (CKD-EPI) 14 L (>=60) BUN/Creatinine Ratio 23.19 H (12.00-20.00) Ratio Glucose 137 H (70-110) mg/dL POC Glucose (mg/dL) 136 H (70-110) mg/dL Calcium 8.5 L (8.7-10.3) mg/dL 05/17/23 Range/Units 11:25 RBC (4.10-5.20) X 10*6/uL Hgb (12.0-15.0) g/dL Hct (37.2-46.3) % RDW (11.5-14.5) % Plt Count (140-440) X 10*3/uL MPV (9.5-12.2) FL Lymphocytes # (0.90-5.00) X 10*3/uL PT (9.9-11.9) sec INR (0.93-1.11) sec Carbon Dioxide (21.6-31.8) mmol/L Anion Gap (4.00-12.00) mmol/L BUN (9.0-27.0) mg/dL Creatinine (0.6-1.5) mg/dL Est GFR (CKD-EPI) (>=60) BUN/Creatinine Ratio (12.00-20.00) Ratio Glucose (70-110) mg/dL POC Glucose (mg/dL) 195 H (70-110) mg/dL Calcium (8.7-10.3) mg/dL Assessment and Plan Assessment: Hyperkalemia due to worsening chronic kidney disease CKD stage V status post peritoneal dialysis catheter placement on 05/13/2023 Fluid overload Chronic atrial fibrillation on anticoagulation with Coumadin Subtherapeutic INR Mitral valve prolapse Hypertension Osteoarthritis Diabetes type 2 [id number] DVT prophylaxis patient is already on Coumadin Plan: Continue with IV Lasix and monitor potassium and creatinine level Nephrology consult on the pillowcase sewer discharge from the PD catheter site Continue with warfarin pharmacy to dose and monitor INR Continue with insulin sliding scale while in the hospital. Labs and medication were reviewed.. Continue same treatment. Continue with symptomatic treatment. Resume home medication. Monitor labs and vitals. DVT and GI prophylaxis. Further recommendations as per clinical course of the demond ent DVT prophylaxis: Subcutaneous heparin Prognosis is guarded
[2023-05-17 21:12] LABS: Glucose,Whole Blood 164 mg/dL (70-110)
[2023-05-18 05:49] LABS: Glucose,Whole Blood 119 mg/dL (70-110)
[2023-05-18 08:01] LABS: INR 1.3 (<1.2); Prothrombin Time 13.7 sec (10.0-12.5)
[2023-05-18 08:10] LABS: African American GFR (CKD) 16 (>60 ml/min/1.73 sqM); Anion Gap 6 mmol/L; Blood Urea Nitrogen 80 mg/dL (7-17); Calcium 8.2 mg/dL (8.4-10.2); Carbon Dioxide 24 mmol/L (22-30); Chloride 102 mmol/L (98-107); Glucose 119 mg/dL (74-99); Non-African American GFR(CKD) 14 (>60 ml/min/1.73 sqM); Potassium 4.8 mmol/L (3.5-5.1); Sodium 132 mmol/L (137-145)
[2023-05-18] MEDS: polyethylene glycoL 3350 17 GM POWD.PACK PO SCH (09:54)
[2023-05-18 11:15] LABS: Glucose,Whole Blood 172 mg/dL (70-110)
--- NOTE | 2023-05-18 11:25 | P.PN ---
Subjective Patient is seen for follow-up CKD stage IV-V. Status post PD catheter on 05/13/2023. Patient was noted to have some drainage which was mostly the ascitic fluid. Patient was admitted with hyperkalemia. She is currently maintained on IV Lasix. No urine retention. Serum creatinine is not too far from baseline of around 2.9 mg/dL Constipation has improved. Ascitic fluid was drained through the PD catheter yesterday. Objective - Vital Signs Vital signs: Vital Signs Temp 98.8 F 05/18/23 07:29 Pulse 75 05/18/23 07:29 Resp 18 05/18/23 07:29 BP 125/88 05/18/23 07:29 Pulse Ox 98 05/18/23 07:29 FiO2 Intake & Output 05/17/23 05/18/23 05/18/23 18:59 06:59 18:59 Output Total 37 Balance -37 Output: Post Void Residual 37 Other: # Voids 10 5 - Exam Patient is awake, comfortable, no acute distress Examination of the heart S1 and S2 Examination of the lungs bilateral breath sounds are heard. Abdomen is soft nontender PD catheter site is dressed. Some drainage noted on the dressing. 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 - Labs CBC & Chem 7: 05/17/23 05:35 05/18/23 06:29 Labs: Abnormal Lab Results - Last 24 Hours (Table) 05/17/23 05/17/23 05/17/23 Range/Units 05:35 05:35 05:35 RBC 3.33 L (4.10-5.20) X 10*6/uL Hgb 10.3 L (12.0-15.0) g/dL Hct 32.2 L (37.2-46.3) % RDW 14.8 H (11.5-14.5) % Plt Count 99 L (140-440) X 10*3/uL MPV 12.4 H (9.5-12.2) FL Lymphocytes # 0.73 L (0.90-5.00) X 10*3/uL PT 13.5 H (9.9-11.9) sec INR 1.27 H (0.93-1.11) sec Sodium (137-145) mmol/L Carbon Dioxide 20.0 L (21.6-31.8) mmol/L Anion Gap 14.00 H (4.00-12.00) mmol/L BUN 74.2 H (9.0-27.0) mg/dL Creatinine 3.2 H (0.6-1.5) mg/dL Est GFR (CKD-EPI) 14 L (>=60) BUN/Creatinine Ratio 23.19 H (12.00-20.00) Ratio Glucose 137 H (70-110) mg/dL POC Glucose (mg/dL) (70-110) mg/dL Calcium 8.5 L (8.7-10.3) mg/dL 05/17/23 05/17/23 05/17/23 Range/Units 11:25 16:38 21:10 RBC (4.10-5.20) X 10*6/uL Hgb (12.0-15.0) g/dL Hct (37.2-46.3) % RDW (11.5-14.5) % Plt Count (140-440) X 10*3/uL MPV (9.5-12.2) FL Lymphocytes # (0.90-5.00) X 10*3/uL PT (9.9-11.9) sec INR (0.93-1.11) sec Sodium (137-145) mmol/L Carbon Dioxide (21.6-31.8) mmol/L Anion Gap (4.00-12.00) mmol/L BUN (9.0-27.0) mg/dL Creatinine (0.6-1.5) mg/dL Est GFR (CKD-EPI) (>=60) BUN/Creatinine Ratio (12.00-20.00) Ratio Glucose (70-110) mg/dL POC Glucose (mg/dL) 195 H 183 H 164 H (70-110) mg/dL Calcium (8.7-10.3) mg/dL 05/18/23 05/18/23 05/18/23 Range/Units 05:43 06:29 06:29 RBC (4.10-5.20) X 10*6/uL Hgb (12.0-15.0) g/dL Hct (37.2-46.3) % RDW (11.5-14.5) % Plt Count (140-440) X 10*3/uL MPV (9.5-12.2) FL Lymphocytes # (0.90-5.00) X 10*3/uL PT 13.7 H (9.9-11.9) sec INR 1.3 H (0.93-1.11) sec Sodium 132 L (137-145) mmol/L Carbon Dioxide (21.6-31.8) mmol/L Anion Gap (4.00-12.00) mmol/L BUN 80 H (9.0-27.0) mg/dL Creatinine 3.08 H (0.6-1.5) mg/dL Est GFR (CKD-EPI) (>=60) BUN/Creatinine Ratio (12.00-20.00) Ratio Glucose 119 H (70-110) mg/dL POC Glucose (mg/dL) 119 H (70-110) mg/dL Calcium 8.2 L (8.7-10.3) mg/dL 05/18/23 Range/Units 11:12 RBC (4.10-5.20) X 10*6/uL Hgb (12.0-15.0) g/dL Hct (37.2-46.3) % RDW (11.5-14.5) % Plt Count (140-440) X 10*3/uL MPV (9.5-12.2) FL Lymphocytes # (0.90-5.00) X 10*3/uL PT (9.9-11.9) sec INR (0.93-1.11) sec Sodium (137-145) mmol/L Carbon Dioxide (21.6-31.8) mmol/L Anion Gap (4.00-12.00) mmol/L BUN (9.0-27.0) mg/dL Creatinine (0.6-1.5) mg/dL Est GFR (CKD-EPI) (>=60) BUN/Creatinine Ratio (12.00-20.00) Ratio Glucose (70-110) mg/dL POC Glucose (mg/dL) 172 H (70-110) mg/dL Calcium (8.7-10.3) mg/dL Assessment and Plan Assessment: 1. CKD stage V with renal function not too far from baseline. Previous creatinine was 2.9 and 3.1 in March 2023 and in September 2022. Status post PD catheter placement on 05/13/2023. No indication for acute hemodialysis. 2. Hyperkalemia associated with advanced chronic kidney disease and recent decrease in dose of loop diuretics, currently improved. 3. Nongap metabolic acidosis secondary to renal failure, improved 4. Volume overload, improving 5. Drainage from site of PD catheter which was mostly ascitic fluid and this has been drained out through the PD catheter yesterday. Plan: Continue with IV Lasix Continue with oral sodium bicarb. Possible discharge tomorrow. Continue with MiraLAX
--- NOTE | 2023-05-18 12:39 | P.PN ---
Subjective Progress Note Date: 05/18/23 Had peritoneal dialysis yesterday with good runoff. No blood in peritoneal dialysis catheter site. Incision clean dry intact. No signs of infection. Continue dialysis per peritoneal dialysis catheter. No abdominal pain. Objective - Vital Signs Vital signs: Vital Signs Temp 98.8 F 05/18/23 07:29 Pulse 75 05/18/23 07:29 Resp 18 05/18/23 07:29 BP 125/88 05/18/23 07:29 Pulse Ox 98 05/18/23 07:29 FiO2 Intake & Output 05/17/23 05/18/23 05/18/23 18:59 06:59 18:59 Output Total 37 Balance -37 Output: Post Void Residual 37 Other: # Voids 10 5 - Labs CBC & Chem 7: 05/17/23 05:35 05/18/23 06:29 Labs: Abnormal Lab Results - Last 24 Hours (Table) 05/17/23 05/17/23 05/17/23 Range/Units 05:35 16:38 21:10 PT 13.5 H (9.9-11.9) sec INR 1.27 H (0.93-1.11) sec Sodium (137-145) mmol/L BUN (7-17) mg/dL Creatinine (0.52-1.04) mg/dL Glucose (74-99) mg/dL POC Glucose (mg/dL) 183 H 164 H (70-110) mg/dL Calcium (8.4-10.2) mg/dL 05/18/23 05/18/23 05/18/23 Range/Units 05:43 06:29 06:29 PT 13.7 H (9.9-11.9) sec INR 1.3 H (0.93-1.11) sec Sodium 132 L (137-145) mmol/L BUN 80 H (7-17) mg/dL Creatinine 3.08 H (0.52-1.04) mg/dL Glucose 119 H (74-99) mg/dL POC Glucose (mg/dL) 119 H (70-110) mg/dL Calcium 8.2 L (8.4-10.2) mg/dL 05/18/23 Range/Units 11:12 PT (9.9-11.9) sec INR (0.93-1.11) sec Sodium (137-145) mmol/L BUN (7-17) mg/dL Creatinine (0.52-1.04) mg/dL Glucose (74-99) mg/dL POC Glucose (mg/dL) 172 H (70-110) mg/dL Calcium (8.4-10.2) mg/dL
--- NOTE | 2023-05-18 13:25 | P.PN ---
Subjective Progress Note Date: 05/18/23 78-year-old female with a past medical history of CKD stage V, status post peritoneal dialysis catheter placed on last Friday, atrial fibrillation on anticoagulation with Coumadin, hypertension, diabetes type 2, mitral valve prolapse and osteoarthritis was sent to ER by his PCP due to abnormal lab. Talita ent received phone call from her PCP stating her labs are off and was recommended to go to ER. Patient had peritoneal dialysis catheter placed by Dr. melendez on Friday. Patient also complaining of some blood oozing from her dressing as well. Denies any complaints of fever or chills. No nausea or vomiting. Complains of cough and congestion in the lungs. No complaints of chest pain. Does have leg swelling. EKG showed atrial fibrillation with heart rate 66. Laboratory data showed WBC 11.7 hemoglobin 12.5 and platelets 176 INR 1.4 Sodium 133 potassium 6.1 with slight hemolysis Chloride 107 bicarb is 16 BUN 71 and creatinine 3.06 and blood sugar 153. Liver enzymes are not elevated. 05/16/2023 Patient is currently sitting in the chair and is able to tolerate oral diet. No complaints of chest pain or worsening shortness of breath. Patient is still having drainage from the site of the peritoneal dialysis catheter but much improved today. Patient has been afebrile. No cough or sputum function. N no nausea vomiting or diarrhea. Laboratory showed sodium 133 potassium 5.9 chloride 102 bicarb is 16.9 BUN 17.9 creatinine 3.3 and A1c 7.3 WBC 6.9 hemoglobin 10.7 platelets 154 05/17/2023This is a pleasant 78 years old female who was sent by her PCP for abnormal labs, on admission patient had hyperkalemia with potassium 6.1, it was thought secondary to holding her Lasix as an outpatient. Patient is a known case of chronic kidney disease stage IV and she is getting peritoneal dialysis when which the catheter was placed 1 day prior to hospitalization on 05/13. There was some leakage from the PD site. Currently patient comfortable, fully awake and oriented, no specific complaintPD catheter in place with minimal or no discharge. No evidence of cellulitis, no abdominal pain or tendernessPatient on IV Lasix 60 mg twice dailyShe is on warfarin pharmacy to dose for her A-fib and her INR is 1.2 today. She is going to get 5 mg of Coumadin [facility]rology team also following closely 05/18/23: Patient seen and evaluated at bedside, potassium levels have improved. Continue patient on Lasix seen by pulmonary medicine. INR noted to be 1.3 continue to monitor intake and output PHYSICAL EXAMINATION: GENERAL: The patient is alert and oriented x3, ill appearance, HEENT: Pupils are round and equally reacting to light. EOMI. . CARDIOVASCULAR: S1 and S2 present. No murmurs, rubs, or gallops. PULMONARY: Chest is clear to auscultation, no wheezing or crackles. ABDOMEN: Soft, nontender, nondistended, normoactive bowel sounds. PD catheter in place MUSCULOSKELETAL: No joint swelling or deformity. EXTREMITIES: No cyanosis, clubbing, or pedal edema. NEUROLOGICAL: Gross neurological examination did not reveal any focal deficits. SKIN: No rashes. Objective - Vital Signs Vital signs: Vital Signs Temp 98.8 F 05/18/23 07:29 Pulse 75 05/18/23 07:29 Resp 18 05/18/23 07:29 BP 125/88 05/18/23 07:29 Pulse Ox 98 05/18/23 07:29 FiO2 Intake & Output 05/17/23 05/18/23 05/18/23 18:59 06:59 18:59 Output Total 37 Balance -37 Output: Post Void Residual 37 Other: # Voids 10 5 - Labs CBC & Chem 7: 05/17/23 05:35 05/18/23 06:29 Labs: Abnormal Lab Results - Last 24 Hours (Table) 05/17/23 05/17/23 05/17/23 Range/Units 05:35 16:38 21:10 PT 13.5 H (9.9-11.9) sec INR 1.27 H (0.93-1.11) sec Sodium (137-145) mmol/L BUN (7-17) mg/dL Creatinine (0.52-1.04) mg/dL Glucose (74-99) mg/dL POC Glucose (mg/dL) 183 H 164 H (70-110) mg/dL Calcium (8.4-10.2) mg/dL 05/18/23 05/18/23 05/18/23 Range/Units 05:43 06:29 06:29 PT 13.7 H (9.9-11.9) sec INR 1.3 H (0.93-1.11) sec Sodium 132 L (137-145) mmol/L BUN 80 H (7-17) mg/dL Creatinine 3.08 H (0.52-1.04) mg/dL Glucose 119 H (74-99) mg/dL POC Glucose (mg/dL) 119 H (70-110) mg/dL Calcium 8.2 L (8.4-10.2) mg/dL 05/18/23 Range/Units 11:12 PT (9.9-11.9) sec INR (0.93-1.11) sec Sodium (137-145) mmol/L BUN (7-17) mg/dL Creatinine (0.52-1.04) mg/dL Glucose (74-99) mg/dL POC Glucose (mg/dL) 172 H (70-110) mg/dL Calcium (8.4-10.2) mg/dL Assessment and Plan Assessment: Assessment and plan Hyperkalemia in the setting of end-stage renal disease on peritoneal dialysis CKD stage V status post peritoneal dialysis catheter placement on 05/13/2023 Chronic atrial fibrillation on anticoagulation with Coumadin Subtherapeutic INR Mitral valve prolapse Hypertension Osteoarthritis Diabetes type 2 [id number] * In regards to hyperkalemia follow-up potassium levels improved continue patient on IV Lasix, nephrology following * In regards to atrial fibrillation, continue Coumadin pharmacy to dose continue metoprolol continue telemonitoring * In regards to history of hypertension continue metoprolol, monitor for transient hypotension * In regards to diabetes mellitus, Accu-Cheks ACHS monitor for hypoglycemia continue correctional insulin
[2023-05-18 16:26] LABS: Glucose,Whole Blood 182 mg/dL (70-110)
[2023-05-18] MEDS: WARFARIN 5 MG TAB PO ONE (18:59)
[2023-05-18 20:05] LABS: Glucose,Whole Blood 162 mg/dL (70-110)
[2023-05-19 05:57] LABS: Glucose,Whole Blood 119 mg/dL (70-110)
[2023-05-19 06:55] LABS: INR 1.4 (<1.2); Prothrombin Time 14.8 sec (10.0-12.5)
[2023-05-19 08:23] LABS: HCT 32.3 % (37.2-46.3); HGB 10.5 g/dL (12.0-15.0); MCH 31.6 pg (27.0-32.0); MCHC 32.5 g/dL (32.0-37.0); MCV 97.3 FL (80.0-97.0); Mean Platelet Volume 10.7 FL (9.5-12.2); NRBC Per 100 WBC 0 X 10*3/uL (0.00-0.01); Platelet Count 175 X 10*3/uL (140-440); RBC 3.32 X 10*6/uL (4.10-5.20); RDW 14.7 % (11.5-14.5)
[2023-05-19 08:37] LABS: BUN/Creat Ratio 24.68 Ratio (12.00-20.00); Blood Urea Nitrogen 76.5 mg/dL (9.0-27.0); Calcium 8.5 mg/dL (8.7-10.3); Carbon Dioxide 25.9 mmol/L (21.6-31.8); Chloride 98 mmol/L (96-109); Glucose 127 mg/dL (70-110); Potassium 4.6 mmol/L (3.5-5.5); Sodium 136 mmol/L (135-145)
--- NOTE | 2023-05-19 09:44 | XR ---
EXAMINATION TYPE: XR chest 1V DATE OF EXAM: 05/19/2023 9:35 AM CLINICAL INDICATION:Female, 78 years old with history of shortness breath; [facility] COMPARISON: Chest radiographs from 09/22/2022. TECHNIQUE: XR chest 1V Frontal view of the chest. FINDINGS: Lungs/Pleura: Prominent interstitial lung markings are seen scattered throughout the lungs with shannon ening of the diaphragm and increased lucency of the lung apices. No evidence of focal consolidation, pneumothorax or pleural effusion. Pulmonary vascularity: Unremarkable. Heart/mediastinum: Cardiomediastinal silhouette is enlarged and stable. Musculoskeletal: No acute osseous pathology. Other findings: None IMPRESSION: 1. Cardiomegaly and mild pulmonary vascular congestion. Correlate with BNP for congestive heart fail ure. 2. COPD/chronic interstitial lung changes.
[2023-05-19] MEDS: TORSEMIDE 20 MG TAB PO SCH (10:06)
--- NOTE | 2023-05-19 10:41 | P.PN ---
Subjective Patient is seen in follow-up for chronic kidney disease. Renal function fairly stable. Receiving IV Lasix. Edema improved. Admits to good urine output. Vital signs are stable. General: No acute distress. HEENT: Head exam is unremarkable. LUNGS: No audible rhonchi or wheezes. HEART: Rate and Rhythm are regular. ABDOMEN: Nontender. EXTREMITITES: No edema. Objective - Vital Signs Vital signs: Vital Signs Temp 98.0 F 05/19/23 07:20 Pulse 80 05/19/23 07:20 Resp 18 05/19/23 07:20 BP 121/76 05/19/23 07:20 Pulse Ox 98 05/19/23 07:20 FiO2 Intake & Output 05/18/23 05/19/23 05/19/23 18:59 06:59 18:59 Other: # Voids 6 1 - Labs CBC & Chem 7: 05/19/23 06:23 05/19/23 06:23 Labs: Abnormal Lab Results - Last 24 Hours (Table) 05/18/23 05/18/23 05/18/23 Range/Units 11:12 16:25 20:03 RBC (4.10-5.20) X 10*6/uL Hgb (12.0-15.0) g/dL Hct (37.2-46.3) % MCV (80.0-97.0) FL RDW (11.5-14.5) % PT (10.0-12.5) sec INR (<1.2) Anion Gap (4.00-12.00) mmol/L BUN (9.0-27.0) mg/dL Creatinine (0.6-1.5) mg/dL Est GFR (CKD-EPI) (>=60) BUN/Creatinine Ratio (12.00-20.00) Ratio Glucose (70-110) mg/dL POC Glucose (mg/dL) 172 H 182 H 162 H (70-110) mg/dL Calcium (8.7-10.3) mg/dL 05/19/23 05/19/23 05/19/23 Range/Units 05:56 06:23 06:23 RBC 3.32 L (4.10-5.20) X 10*6/uL Hgb 10.5 L (12.0-15.0) g/dL Hct 32.3 L (37.2-46.3) % MCV 97.3 H (80.0-97.0) FL RDW 14.7 H (11.5-14.5) % PT 14.8 H (10.0-12.5) sec INR 1.4 H (<1.2) Anion Gap (4.00-12.00) mmol/L BUN (9.0-27.0) mg/dL Creatinine (0.6-1.5) mg/dL Est GFR (CKD-EPI) (>=60) BUN/Creatinine Ratio (12.00-20.00) Ratio Glucose (70-110) mg/dL POC Glucose (mg/dL) 119 H (70-110) mg/dL Calcium (8.7-10.3) mg/dL 05/19/23 Range/Units 06:23 RBC (4.10-5.20) X 10*6/uL Hgb (12.0-15.0) g/dL Hct (37.2-46.3) % MCV (80.0-97.0) FL RDW (11.5-14.5) % PT (10.0-12.5) sec INR (<1.2) Anion Gap 12.10 H (4.00-12.00) mmol/L BUN 76.5 H (9.0-27.0) mg/dL Creatinine 3.1 H (0.6-1.5) mg/dL Est GFR (CKD-EPI) 15 L (>=60) BUN/Creatinine Ratio 24.68 H (12.00-20.00) Ratio Glucose 127 H (70-110) mg/dL POC Glucose (mg/dL) (70-110) mg/dL Calcium 8.5 L (8.7-10.3) mg/dL Assessment and Plan Plan: Assessment: 1. Chronic kidney disease stage V secondary to diabetic kidney disease and cardiorenal syndrome. GFR near baseline. 2. Hyperkalemia secondary to chronic kidney disease. Improved with medical management. 3. Hypervolemic hyponatremia. Better. 4. Chronic kidney disease mineral bone disease maintained on calcitriol. 5. Metabolic acidosis secondary to chronic kidney disease maintained on oral bicarb. Improved. 6. Volume overload. Improved with diuresis. 7. Acute on chronic systolic CHF ejection fraction of 30 to 35% with severe pulmonary hypertension. Plan: Patient does not have a functioning IV. Change IV Lasix to oral torsemide 40 mg twice daily. Patient has a PD catheter that was placed last week. She will follow-up outpatient at the dialysis unit to start training in the near future. Advised patient to maintain low-salt diet and fluid restriction of less than 40 to 45 ounces per day.
[2023-05-19 11:23] LABS: Glucose,Whole Blood 212 mg/dL (70-110)
--- NOTE | 2023-05-19 11:56 | P.PN ---
Subjective Progress Note Date: 05/19/23 78-year-old female with a past medical history of CKD stage V, status post peritoneal dialysis catheter placed on last Friday, atrial fibrillation on anticoagulation with Coumadin, hypertension, diabetes type 2, mitral valve prolapse and osteoarthritis was sent to ER by his PCP due to abnormal lab. Talita ent received phone call from her PCP stating her labs are off and was recommended to go to ER. Patient had peritoneal dialysis catheter placed by Dr. melendez on Friday. Patient also complaining of some blood oozing from her dressing as well. Denies any complaints of fever or chills. No nausea or vomiting. Complains of cough and congestion in the lungs. No complaints of chest pain. Does have leg swelling. EKG showed atrial fibrillation with heart rate 66. Laboratory data showed WBC 11.7 hemoglobin 12.5 and platelets 176 INR 1.4 Sodium 133 potassium 6.1 with slight hemolysis Chloride 107 bicarb is 16 BUN 71 and creatinine 3.06 and blood sugar 153. Liver enzymes are not elevated. 05/16/2023 Patient is currently sitting in the chair and is able to tolerate oral diet. No complaints of chest pain or worsening shortness of breath. Patient is still having drainage from the site of the peritoneal dialysis catheter but much improved today. Patient has been afebrile. No cough or sputum function. N no nausea vomiting or diarrhea. Laboratory showed sodium 133 potassium 5.9 chloride 102 bicarb is 16.9 BUN 17.9 creatinine 3.3 and A1c 7.3 WBC 6.9 hemoglobin 10.7 platelets 154 05/17/2023This is a pleasant 78 years old female who was sent by her PCP for abnormal labs, on admission patient had hyperkalemia with potassium 6.1, it was thought secondary to holding her Lasix as an outpatient. Patient is a known case of chronic kidney disease stage IV and she is getting peritoneal dialysis when which the catheter was placed 1 day prior to hospitalization on 05/13. There was some leakage from the PD site. Currently patient comfortable, fully awake and oriented, no specific complaintPD catheter in place with minimal or no discharge. No evidence of cellulitis, no abdominal pain or tendernessPatient on IV Lasix 60 mg twice dailyShe is on warfarin pharmacy to dose for her A-fib and her INR is 1.2 today. She is going to get 5 mg of Coumadin [facility] Nephrology team also following closely 05/18/23: Patient seen and evaluated at bedside, potassium levels have improved. Continue patient on Lasix seen by pulmonary medicine. INR noted to be 1.3 continue to monitor intake and output 05/19/23: Patient seen and evaluated bedside, patient was shortness breath on evaluation. Chest x-ray obtained did show pulmonary vascular congestion. Changes consistent with COPD noted. Will coordinate with case management regarding home on oxygen PHYSICAL EXAMINATION: GENERAL: The patient is alert and oriented x3, ill appearance, HEENT: Pupils are round and equally reacting to light. EOMI. . CARDIOVASCULAR: S1 and S2 present. Systolic murmur appreciated PULMONARY: Creased breath sounds bilaterally, use accessory muscle. ABDOMEN: Soft, nontender, nondistended, normoactive bowel sounds. PD catheter in place MUSCULOSKELETAL: No joint swelling or deformity. EXTREMITIES: No cyanosis, clubbing, or pedal edema. NEUROLOGICAL: Gross neurological examination did not reveal any focal deficits. SKIN: No rashes. Objective - Vital Signs Vital signs: Vital Signs Temp 98.0 F 05/19/23 07:20 Pulse 80 05/19/23 11:04 Resp 18 05/19/23 11:04 BP 121/76 05/19/23 07:20 Pulse Ox 98 05/19/23 07:20 FiO2 Intake & Output 05/18/23 05/19/23 05/19/23 18:59 06:59 18:59 Output Total 1 Balance -1 Output: Stool 1 Other: Voiding Method Toilet # Voids 6 1 - Labs CBC & Chem 7: 05/19/23 06:23 05/19/23 06:23 Labs: Abnormal Lab Results - Last 24 Hours (Table) 05/18/23 05/18/23 05/19/23 Range/Units 16:25 20:03 05:56 RBC (4.10-5.20) X 10*6/uL Hgb (12.0-15.0) g/dL Hct (37.2-46.3) % MCV (80.0-97.0) FL RDW (11.5-14.5) % PT (10.0-12.5) sec INR (<1.2) Anion Gap (4.00-12.00) mmol/L BUN (9.0-27.0) mg/dL Creatinine (0.6-1.5) mg/dL Est GFR (CKD-EPI) (>=60) BUN/Creatinine Ratio (12.00-20.00) Ratio Glucose (70-110) mg/dL POC Glucose (mg/dL) 182 H 162 H 119 H (70-110) mg/dL Calcium (8.7-10.3) mg/dL 05/19/23 05/19/23 05/19/23 Range/Units 06:23 06:23 06:23 RBC 3.32 L (4.10-5.20) X 10*6/uL Hgb 10.5 L (12.0-15.0) g/dL Hct 32.3 L (37.2-46.3) % MCV 97.3 H (80.0-97.0) FL RDW 14.7 H (11.5-14.5) % PT 14.8 H (10.0-12.5) sec INR 1.4 H (<1.2) Anion Gap 12.10 H (4.00-12.00) mmol/L BUN 76.5 H (9.0-27.0) mg/dL Creatinine 3.1 H (0.6-1.5) mg/dL Est GFR (CKD-EPI) 15 L (>=60) BUN/Creatinine Ratio 24.68 H (12.00-20.00) Ratio Glucose 127 H (70-110) mg/dL POC Glucose (mg/dL) (70-110) mg/dL Calcium 8.5 L (8.7-10.3) mg/dL 05/19/23 Range/Units 11:22 RBC (4.10-5.20) X 10*6/uL Hgb (12.0-15.0) g/dL Hct (37.2-46.3) % MCV (80.0-97.0) FL RDW (11.5-14.5) % PT (10.0-12.5) sec INR (<1.2) Anion Gap (4.00-12.00) mmol/L BUN (9.0-27.0) mg/dL Creatinine (0.6-1.5) mg/dL Est GFR (CKD-EPI) (>=60) BUN/Creatinine Ratio (12.00-20.00) Ratio Glucose (70-110) mg/dL POC Glucose (mg/dL) 212 H (70-110) mg/dL Calcium (8.7-10.3) mg/dL Assessment and Plan Assessment: Assessment and plan Hyperkalemia in the setting of end-stage renal disease on peritoneal dialysis CKD stage V status post peritoneal dialysis catheter placement on 05/13/2023 Chronic atrial fibrillation on anticoagulation with Coumadin Subtherapeutic INR Mitral valve prolapse Hypertension Osteoarthritis Diabetes type 2 [id number] * In regards to hyperkalemia follow-up potassium levels improved , patient was on IV Lasix transition to torsemide, refusing IV will monitor if remains stable overnight discharge by tomorrow * In regards to atrial fibrillation, continue Coumadin pharmacy to dose continue metoprolol continue telemonitoring, INR 1.4 * In regards to history of hypertension continue metoprolol, monitor for transient hypotension * In regards to diabetes mellitus, Accu-Cheks ACHS monitor for hypoglycemia continue correctional insulin * Potential discharge home within next 24 hours
--- NOTE | 2023-05-19 15:55 | P.PN ---
Subjective Progress Note Date: 05/19/23 CHIEF COMPLAINT: Drainage from PD catheter HISTORY OF PRESENT ILLNESS: Drainage from PD catheter has resolved. Patient denies any abdominal pain. Denies any nausea or vomiting. Patient has not started dialysis through PD catheter. Patient maintained on Lasix per nephrology. PHYSICAL EXAM: VITAL SIGNS: Reviewed. GENERAL: Well-developed in no acute distress. ABDOMEN: Soft. Nondistended. Nontender. PD catheter site clean dry and intact NEUROLOGIC: Alert and oriented. Cranial nerves II through XII grossly intact. ASSESSMENT: 1. Serosanguineous drainage from peritoneal dialysis catheter resolved 2. Chronic kidney disease stage IV 3. Volume overload PLAN: -No surgical intervention planned -Continue supportive care Physician Garment Alteration Examiner note has been reviewed by physician. Signing provider agrees with the documented findings, assessment, and plan of care. I have personally seen and examined the patient, reviewed the CROSSING WATCHMAN /PAs history, exam and MDM and agree with the assessment and plan as written. Based on total visit time, I have performed more than 50% of the visit. As above: Patient doing well today. No further drainage. No significant pain. Incision is clean and dry at this time. May still require intermittent drainage of the patient's ascites using the catheter as outpatient. No further plans from my point of view. Will sign off. Please reconsult if needed. Objective - Vital Signs Vital signs: Vital Signs Temp 97.5 F L 05/19/23 13:42 Pulse 87 05/19/23 13:42 Resp 18 05/19/23 13:42 BP 122/98 05/19/23 13:42 Pulse Ox 95 05/19/23 13:48 FiO2 Intake & Output 05/18/23 05/19/23 05/19/23 18:59 06:59 18:59 Intake Total 300 Output Total 1 Balance 299 Intake: Oral 300 Output: Stool 1 Other: Voiding Method Toilet # Voids 6 1 - Labs CBC & Chem 7: 05/19/23 06:23 05/19/23 06:23 Labs: Abnormal Lab Results - Last 24 Hours (Table) 05/18/23 05/18/23 05/19/23 Range/Units 16:25 20:03 05:56 RBC (4.10-5.20) X 10*6/uL Hgb (12.0-15.0) g/dL Hct (37.2-46.3) % MCV (80.0-97.0) FL RDW (11.5-14.5) % PT (10.0-12.5) sec INR (<1.2) Anion Gap (4.00-12.00) mmol/L BUN (9.0-27.0) mg/dL Creatinine (0.6-1.5) mg/dL Est GFR (CKD-EPI) (>=60) BUN/Creatinine Ratio (12.00-20.00) Ratio Glucose (70-110) mg/dL POC Glucose (mg/dL) 182 H 162 H 119 H (70-110) mg/dL Calcium (8.7-10.3) mg/dL 05/19/23 05/19/23 05/19/23 Range/Units 06:23 06:23 06:23 RBC 3.32 L (4.10-5.20) X 10*6/uL Hgb 10.5 L (12.0-15.0) g/dL Hct 32.3 L (37.2-46.3) % MCV 97.3 H (80.0-97.0) FL RDW 14.7 H (11.5-14.5) % PT 14.8 H (10.0-12.5) sec INR 1.4 H (<1.2) Anion Gap 12.10 H (4.00-12.00) mmol/L BUN 76.5 H (9.0-27.0) mg/dL Creatinine 3.1 H (0.6-1.5) mg/dL Est GFR (CKD-EPI) 15 L (>=60) BUN/Creatinine Ratio 24.68 H (12.00-20.00) Ratio Glucose 127 H (70-110) mg/dL POC Glucose (mg/dL) (70-110) mg/dL Calcium 8.5 L (8.7-10.3) mg/dL 05/19/23 Range/Units 11:22 RBC (4.10-5.20) X 10*6/uL Hgb (12.0-15.0) g/dL Hct (37.2-46.3) % MCV (80.0-97.0) FL RDW (11.5-14.5) % PT (10.0-12.5) sec INR (<1.2) Anion Gap (4.00-12.00) mmol/L BUN (9.0-27.0) mg/dL Creatinine (0.6-1.5) mg/dL Est GFR (CKD-EPI) (>=60) BUN/Creatinine Ratio (12.00-20.00) Ratio Glucose (70-110) mg/dL POC Glucose (mg/dL) 212 H (70-110) mg/dL Calcium (8.7-10.3) mg/dL
[2023-05-19 16:47] LABS: Glucose,Whole Blood 131 mg/dL (70-110)
[2023-05-19] MEDS: WARFARIN 5 MG TAB PO ONE (17:11)
[2023-05-19 19:58] LABS: Glucose,Whole Blood 234 mg/dL (70-110)
[2023-05-20 06:04] LABS: Glucose,Whole Blood 121 mg/dL (70-110)
[2023-05-20 09:21] LABS: INR 1.7 (<1.2)
--- NOTE | 2023-05-20 10:59 | P.PN ---
Subjective Patient is seen in follow-up for chronic kidney disease. Renal function fairly stable. On oral torsemide. Edema improved. Admits to good urine output. No active complaints. Vital signs are stable. General: No acute distress. HEENT: Head exam is unremarkable. LUNGS: No audible rhonchi or wheezes. HEART: Rate and Rhythm are regular. ABDOMEN: Nontender. EXTREMITITES: No edema. Objective - Vital Signs Vital signs: Vital Signs Temp 97.9 F 05/20/23 06:53 Pulse 75 05/20/23 06:53 Resp 16 05/20/23 06:53 BP 127/74 05/20/23 06:53 Pulse Ox 97 05/20/23 06:53 FiO2 Intake & Output 05/19/23 05/20/23 05/20/23 18:59 06:59 18:59 Intake Total 300 118 Output Total 1 Balance 299 118 Intake: Oral 300 118 Output: Stool 1 Other: Voiding Method Toilet Toilet Toilet # Voids 4 3 - Labs CBC & Chem 7: 05/19/23 06:23 05/19/23 06:23 Labs: Abnormal Lab Results - Last 24 Hours (Table) 05/19/23 05/19/23 05/19/23 Range/Units 11:22 16:45 19:56 PT (10.0-12.5) sec INR (<1.2) POC Glucose (mg/dL) 212 H 131 H 234 H (70-110) mg/dL 05/20/23 05/20/23 Range/Units 06:00 07:31 PT 17.0 H (10.0-12.5) sec INR 1.7 H (<1.2) POC Glucose (mg/dL) 121 H (70-110) mg/dL Assessment and Plan Plan: Assessment: 1. Chronic kidney disease stage V secondary to diabetic kidney disease and cardiorenal syndrome. GFR near baseline. 2. Hyperkalemia secondary to chronic kidney disease. Improved with medical management. 3. Hypervolemic hyponatremia. Better. 4. Chronic kidney disease mineral bone disease maintained on calcitriol. 5. Metabolic acidosis secondary to chronic kidney disease maintained on oral bicarb. Improved. 6. Volume overload. Improved with diuresis. 7. Acute on chronic systolic CHF ejection fraction of 30 to 35% with severe pulmonary hypertension. Plan: Maintain torsemide 40 mg twice daily. Patient has a PD catheter that was placed last week. She will follow-up outpatient at the dialysis unit to start training in the near future. Advised patient to maintain low-salt diet and fluid restriction of less than 40 to 45 ounces per day.
--- NOTE | 2023-05-20 11:28 | P.DS ---
Providers Date of admission: 05/14/23 14:17 Expected date of discharge: 05/20/23 Attending physician: Romulo Bowens Consults: 05/14/23 14:18 Consult Physician Urgent Consulting Provider: Ebony Sommer Consult Reason/Comments: renal failure, hyperkalemia Do you want consulting provider notified?: Yes [facility]: 78-year-old female with a past medical history of CKD stage V, status post peritoneal dialysis catheter placed on last Friday, atrial fibrillation on anticoagulation with Coumadin, hypertension, diabetes type 2, mitral valve prolapse and osteoarthritis was sent to ER by his PCP due to abnormal lab. Patient received phone call from her PCP stating her labs are off and was recommended to go to ER. Patient had peritoneal dialysis catheter placed by Dr. melendez on Friday. Patient also complaining of some blood oozing from her dressing as well. Denies any complaints of fever or chills. No nausea or vomiting. Complains of cough and congestion in the lungs. No complaints of chest pain. Does have leg swelling. EKG showed atrial fibrillation with heart rate 66. Laboratory data showed WBC 11.7 hemoglobin 12.5 and platelets 176 INR 1.4 Sodium 133 potassium 6.1 with slight hemolysis Chloride 107 bicarb is 16 BUN 71 and creatinine 3.06 and blood sugar 153. Liver enzymes are not elevated. 05/16/2023 Patient is currently sitting in the chair and is able to tolerate oral diet. No complaints of chest pain or worsening shortness of breath. Patient is still having drainage from the site of the peritoneal dialysis catheter but much improved today. Patient has been afebrile. No cough or sputum function. N no nausea vomiting or diarrhea. Laboratory showed sodium 133 potassium 5.9 chloride 102 bicarb is 16.9 BUN 17.9 creatinine 3.3 and A1c 7.3 WBC 6.9 hemoglobin 10.7 platelets 154 05/17/2023This is a pleasant 78 years old female who was sent by her PCP for abnormal labs, on admission patient had hyperkalemia with potassium 6.1, it was thought secondary to holding her Lasix as an outpatient. Patient is a known case of chronic kidney disease stage IV and she is getting peritoneal dialysis when which the catheter was placed 1 day prior to hospitalization on 05/13. There was some leakage from the PD site. Currently patient comfortable, fully awake and oriented, no specific complaintPD catheter in place with minimal or no discharge. No evidence of cellulitis, no abdominal pain or tendernessPatient on IV Lasix 60 mg twice dailyShe is on warfarin pharmacy to dose for her A-fib and her INR is 1.2 today. She is going to get 5 mg of Coumadin [facility] Nephrology team also following closely 05/18/23: Patient seen and evaluated at bedside, potassium levels have improved. Continue patient on Lasix seen by pulmonary medicine. INR noted to be 1.3 continue to monitor intake and output 05/19/23: Patient seen and evaluated bedside, patient was shortness breath on evaluation. Chest x-ray obtained did show pulmonary vascular congestion. Changes consistent with COPD noted. Will coordinate with case management regarding home on oxygen 05/20/23: Patient seen and evaluated at bedside, patient is alert and oriented patient remains on room air. Blood pressure remained stable patient remains on room air. Patient to be discharged home with home care. Patient discharged on torsemide INR improving 1.7. Continue Coumadin home regimen PHYSICAL EXAMINATION: GENERAL: The patient is alert and oriented x3, chronic ill appearance, HEENT: Pupils are round and equally reacting to light. EOMI. . CARDIOVASCULAR: S1 and S2 present. Systolic murmur appreciated PULMONARY: Improved breath sounds bilaterally, no use accessory muscle. ABDOMEN: Soft, nontender, nondistended, normoactive bowel sounds. PD catheter in place MUSCULOSKELETAL: No joint swelling or deformity. EXTREMITIES: No cyanosis, clubbing, or pedal edema. NEUROLOGICAL: Gross neurological examination did not reveal any focal deficits. SKIN: No rashes. Assessment and plan Hyperkalemia in the setting of end-stage renal disease on peritoneal dialysis CKD stage V status post peritoneal dialysis catheter placement on 05/13/2023 Chronic atrial fibrillation on anticoagulation with Coumadin Acute on chronic congestive heart failure with reduced ejection fraction of 30 to 35% moderate to large pericardial effusion noted in September 2022 Subtherapeutic INR Mitral valve prolapse Hypertension Osteoarthritis Diabetes type 2 [id number] * In regards to hyperkalemia follow-up potassium levels improved , patient was on IV Lasix transition to torsemide, prescription provided * In regards to atrial fibrillation, continue Coumadin pharmacy to dose continue metoprolol continue telemonitoring, INR 1.7, close to therapeutic range * In regards to history of hypertension continue metoprolol, monitor for transient hypotension * In regards to diabetes mellitus, Accu-Cheks ACHS monitor for hypoglycemia , Actos discontinued secondary to fluid overload contraindication and CHF, patient noted to have ejection fraction of 30 to 35% * To be discharged home with home care Patient Condition at Discharge: Fair Plan - Discharge Summary Discharge Rx Participant: Yes New Discharge Prescriptions: New Torsemide [Demadex] 40 mg PO BID 30 Days #120 tablet Continue calcitrioL 0.25 mcg PO MOTUWETHFR Warfarin [Coumadin] 2.5 tab PO SUMOTUTHFRSA@2100 Garlic 1,000 mg PO DAILY Cyanocobalamin [Vitamin B-12] 500 mcg PO DAILY Metoprolol Succinate (ER) [Toprol XL] 25 mg PO DAILY Sodium Bicarbonate Tab 650 mg PO BID Warfarin [Coumadin] 5 mg PO WE@2099 Selenium 200 mg PO HS Pravastatin Sodium [Pravachol] 10 mg PO HS Glimepiride [Amaryl] 2 mg PO DAILY Cinnamon Bark [Cinnamon] 1,000 mg PO QID Cholecalciferol [Vitamin D3 (125 Mcg = 5000 Iu)] 125 mcg PO HS Folic Acid 0.8 mg PO DAILY Discontinued Pioglitazone [Actos] 45 mg PO DAILY Discharge Medication List Warfarin [Coumadin] 2.5 tab PO SUMOTUTHFRSA@2100 12/16/18 [History] calcitrioL 0.25 mcg PO MOTUWETHFR 12/16/18 [History] Cholecalciferol [Vitamin D3 (125 Mcg = 5000 Iu)] 125 mcg PO HS 09/14/21 [His tory] Cinnamon Bark [Cinnamon] 1,000 mg PO QID 09/14/21 [History] Cyanocobalamin [Vitamin B-12] 500 mcg PO DAILY 09/14/21 [History] Garlic 1,000 mg PO DAILY 09/14/21 [History] Glimepiride [Amaryl] 2 mg PO DAILY 09/14/21 [History] Pravastatin Sodium [Pravachol] 10 mg PO HS 09/14/21 [History] Selenium 200 mg PO HS 09/14/21 [History] Metoprolol Succinate (ER) [Toprol XL] 25 mg PO DAILY 09/22/22 [History] Sodium Bicarbonate Tab 650 mg PO BID 09/22/22 [History] Warfarin [Coumadin] 5 mg PO WE@209905/09/23 [History] Folic Acid 0.8 mg PO DAILY 05/14/23 [History] Torsemide [Demadex] 40 mg PO BID 30 Days #120 tablet 05/20/23 [Rx] Follow up Appointment(s)/Referral(s): Casey Okeefe MD [Primary Care Provider] - 1-2 days [facility] Visiting Nurse, [NON-STAFF] - As Needed ([facility] will call you to schedule your in home nursing visits.) Discharge Disposition: HOME WITH HOME HEALTH SERVICES
[2023-05-20 11:48] LABS: Glucose,Whole Blood 153 mg/dL (70-110)
[2023-05-20 15:07] VITALS: BP 118/44; PULSE 73; RESP 17; TEMP 98.3
[2023-05-20] MEDS ORDERED: WARFARIN 2.5 MG TAB PO ONE (18:00)
--- NOTE | 2023-05-21 20:09 | CDI ---
Documentation Clarification Form Date: 05/21/2023 07:59:27 PM From: Monae Vivar Phone: Admit Date: 05/14/2023 02:17:00 PM Patient Name: Isabel Klein Visit Number: [id number] Discharge Date: 05/20/2023 04:26:00 PM ATTENTION: The Clinical Documentation Specialists (CDI) and [facility] Coding Staff appreciate your assistance in clarifying documentation. Please respond to the clarification below the line at the bottom and electronically sign. The CDI & [facility] Coding staff will review the response and follow-up if needed. Please note: Queries are made part of the Legal Health Record. If you have any questions, please contact the author of this message via ITS. Dr. Romulo Bowens Your patient has glucose of 227 per Progress Note 05/16. Based on this information and the findings below, is there an additional diagnosis that is clinically appropriate for this patient? Patient history/risk factors: 78yo F, Hyperkalemia, DMII w CKD on PD, chronic A Fib, ACSHF, subtherapeutic INR, MV prolapse, HTN, OA Clinical Indicators: Glucose: 05/14 153 05/15 153 05/16 89-227 05/17 136- 195 Hemoglobin A1C 7.3 Treatment: Continue with insulin sliding scale while in the hospital. Home Medications: Pioglitazone [Actos] 45 mg PO DAILY; Glimepiride [Amaryl] 2 mg PO DAILY Is there an additional diagnosis that is clinically appropriate for this patient? [ x ] Type 2 diabetes mellitus with hyperglycemia [ ] No additional diagnosis/Not clinically significant [ ] Unable to determine [ ] Other, please specify (Template Last Reviewed: April 2022) MTDD
--- NOTE | 2023-05-21 20:22 | CDI ---
Documentation Clarification Form Date: 05/21/2023 08:10:00 PM From: Monae Vivar Phone: Admit Date: 05/14/2023 02:17:00 PM Patient Name: Isabel Klein Visit Number: [id number] Discharge Date: 05/20/2023 04:26:00 PM ATTENTION: The Clinical Documentation Specialists (CDI) and [facility] Coding Staff appreciate your assistance in clarifying documentation. Please respond to the clarification below the line at the bottom and electronically sign. The CDI & [facility] Coding staff will review the response and follow-up if needed. Please note: Queries are made part of the Legal Health Record. If you have any questions, please contact the author of this message via ITS. Dr. Romulo Bowens Conflicting documentation has been found in the medical record. As attending physician, please provide clarification. End-stage renal disease on peritoneal dialysis per DC Summary CKD stage Vstatus post PDcatheter per DC Summary History/Risk Factors: 78yo F, Hyperkalemia, DMII w CKD on peritoneal dialysis, chronic A Fib, ACSHF, subtherapeutic INR, MV prolapse, HTN, OA Patients Historical: Serum creatinine is not too far from baseline of around 2.9 mg/dL Previous creatinine was 2.9 and 3.1 in March 2023 and in September 2022. Clinical Indicators: BUN: 71 CR: 3.06 AfAm: 16 NonAfAm: 14 Treatment: peritoneal dialysiscatheter placementon05/13/2023 Nephrology Consult: Add IV loop diuretics. Repeat labs in a.m. Consults Dr. Enzo bell from PD catheter exit site. Noindication for acuteHD. Continue with oral sodium bicarb. Continue with calcitriol Please clarify the stage of the CKD, if known: [ ] CKD Stage 5 [ x ] ESRD [ ] Other, please specify [ ] Unable to determine Reference: National [employer] Stage 1 eGFR = 90 and kidney damage for =3 months Stage 2 eGFR 60-89 and kidney damage for =3 months Stage 3a eGFR 45-59 and kidney damage for =3 months Stage 3b eGFR 30-44 and kidney damage for =3 months Stage 4 eGFR 15-29 r and kidney damage for =3 months Stage 5 eGFR <15 and kidney damage for =3 months (Template last revised: March 2023) MTDD
== END 2023-05-20 16:26 | disposition home health service (06) | DRG 640 ==
LOC: EC 09:54 → 4SSUR 14:17
PROVIDERS: ADMIT Internal Medicine; ATTEND Internal Medicine
DX: E87.5 Hyperkalemia (principal); I50.23 Acute on chronic systolic (congestive) heart failure; N18.6 End stage renal disease; I31.39 Other pericardial effusion (noninflammatory); I13.2 Hypertensive heart and chronic kidney disease with heart failure and with stage 5 chronic kidney disease, or end stage renal disease; I48.20 Chronic atrial fibrillation, unspecified; E87.20 Acidosis, unspecified; I27.22 Pulmonary hypertension due to left heart disease; E11.22 Type 2 diabetes mellitus with diabetic chronic kidney disease; Z99.2 Dependence on renal dialysis; E11.65 Type 2 diabetes mellitus with hyperglycemia; I34.1 Nonrheumatic mitral (valve) prolapse; E87.1 Hypo-osmolality and hyponatremia; M19.90 Unspecified osteoarthritis, unspecified site; M89.8X9 Other specified disorders of bone, unspecified site; E86.0 Dehydration; K59.00 Constipation, unspecified; R79.1 Abnormal coagulation profile; Z96.641 Presence of right artificial hip joint; Z79.84 Long term (current) use of oral hypoglycemic drugs; Z79.01 Long term (current) use of anticoagulants; Z79.899 Other long term (current) drug therapy; Z88.1 Allergy status to other antibiotic agents; Z88.5 Allergy status to narcotic agent
CPT/HCPCS: 36415; 71045; 80048; 80053; 83036; 84132; 85025; 85027; 85610; 85730; 93005; 96361; 96374; 99285

== ENCOUNTER 2024-03-25 11:42 | Inpatient (IN) | payer MEDICARE, BC ==
[2024-03-25] MEDS: SODIUM CHLORIDE 0.9% 1,000 ML IV STA (12:13)
--- NOTE | 2024-03-25 12:13 | ED ---
General Adult HPI - General Chief complaint: Weakness Stated complaint: SOB, weakness Time Seen by Provider: 03/25/24 11:43 Source: patient, RN notes reviewed Mode of arrival: EMS Limitations: no limitations - History of Present Illness Initial comments: Patient is an 78-year-old female presenting to the emergency department with concerns for not feeling well. Symptoms have been present over a week. Patient tested positive for flu. Patient has had decreased activity, some cough and shortness of breath. Patient feels very fatigued. Patient states she has been eating. Patient states it is difficult for her to get up and walk around. - Related Data Home Medications Medication Instructions Recorded Confirmed Warfarin [Coumadin] 2.5 tab PO SUMOTUTHFRSA@2100 12/16/18 05/14/23 calcitrioL 0.25 mcg PO MOTUWETHFR 12/16/18 05/14/23 Cholecalciferol [Vitamin D3 (125 125 mcg PO HS 09/14/21 05/14/23 Mcg = 5000 Iu)] Cinnamon Bark [Cinnamon] 1,000 mg PO QID 09/14/21 05/14/23 Cyanocobalamin [Vitamin B-12] 500 mcg PO DAILY 09/14/21 05/14/23 Garlic 1,000 mg PO DAILY 09/14/21 05/14/23 Glimepiride [Amaryl] 2 mg PO DAILY 09/14/21 05/14/23 Pravastatin Sodium [Pravachol] 10 mg PO HS 09/14/21 05/14/23 Selenium 200 mg PO HS 09/14/21 05/14/23 Metoprolol Succinate (ER) [Toprol 25 mg PO DAILY 09/22/22 05/14/23 XL] Sodium Bicarbonate Tab 650 mg PO BID 09/22/22 05/14/23 Warfarin [Coumadin] 5 mg PO WE@209905/09/23 05/14/23 Folic Acid 0.8 mg PO DAILY 05/14/23 05/14/23 Previous Rx's Medication Instructions Recorded Torsemide [Demadex] 40 mg PO BID 30 Days #120 tablet 05/20/23 Allergies Allergy/AdvReac Type Severity Reaction Status Date / Time ciprofloxacin [From Cipro] Allergy Unknown Itching, Verified 05/15/23 18:52 Rash codeine Allergy Itching Verified 05/15/23 18:52 Review of Systems ROS Statement: Those systems with pertinent positive or pertinent negative responses have been documented in the HPI. ROS Other: All systems not noted in ROS Statement are negative. Constitutional: Denies: fever Eyes: Denies: eye pain ENT: Denies: ear pain Respiratory: Reports: cough, dyspnea Cardiovascular: Denies: chest pain Endocrine: Reports: fatigue Gastrointestinal: Denies: abdominal pain Musculoskeletal: Denies: back pain Past Medical History Past Medical History: Atrial Fibrillation, Blood Disorder, Chest Pain / Angina, Heart Failure, Diabetes Mellitus, Hypertension, Mitral Valve Prolapse (MVP), Osteoarthritis (OA), Renal Disease Additional Past Medical History / Comment(s): LOW IRON., URINE URGENCY., BACK AND HIP PAIN, USING CANE. STAGE 4 KIDNEY DISEASE,Valvular heart disease. History of Any Multi-Drug Resistant Organisms: None Reported Past Surgical History: Orthopedic Surgery, Tubal Ligation Additional Past Surgical History / Comment(s): COLONOSCOPY, EGD., TRH. RIGHT HIP REPLACEMENT. bilat CATARACT SURGERY Past Anesthesia/Blood Transfusion Reactions: No Reported Reaction Past Psychological History: No Psychological Hx Reported Smoking Status: Never smoker - Past Family History Mother Family Medical History: Cancer Additional Family Medical History / Comment(s): SKIN CANCER, stroke Father Family Medical History: CVA/TIA General Exam Limitations: no limitations General appearance: alert, in no apparent distress Head exam: Present: normocephalic Eye exam: Present: normal appearance Neck exam: Present: normal inspection Respiratory exam: Present: normal lung sounds bilaterally Cardiovascular Exam: Present: regular rate, normal rhythm Expanded Peripheral pulses: 2+: Dorsalis Pedis (R), Dorsalis Pedis (L) GI/Abdominal exam: Present: soft. Absent: tenderness, pulsatile mass Extremities exam: Present: normal inspection Neurological exam: Present: alert Psychiatric exam: Present: normal affect, normal mood Skin exam: Present: normal color Course Vital Signs 03/25/24 03/25/24 03/25/24 11:47 12:45 13:00 Temperature 97.6 F Pulse Rate 57 L 87 87 Respiratory 24 20 14 Rate Blood Pressure 115/73 111/72 99/62 O2 Sat by Pulse 98 98 98 Oximetry 03/25/24 03/25/24 13:15 13:30 Temperature Pulse Rate 86 88 Respiratory 14 13 Rate Blood Pressure 86/71 100/80 O2 Sat by Pulse 94 L 100 Oximetry EKG Findings - EKG Results: EKG: interpreted by ERMD (PVCs present), normal axis, normal QRS, normal ST/T EKG shows: atrial fibrillation Medical Decision Making - Medical Decision Making Was pt. sent in by a medical professional or institution ([facility], [facility]MIN, urgent care, hospital, or [place] [facility] facility...) When possible be specific @ -No Did you speak to anyone other than the patient for history (EMS, parent, family, police, friend...)? What history was obtained from this source @ -No Did you review nursing and triage notes (agree or disagree)? Why? @ -I reviewed and agree with nursing and triage notes Were old charts reviewed (outside hosp., previous admission, EMS record, old EKG, old radiological studies, urgent care reports/EKG's, [place] health [facility] facility records)? Report findings @ -Previous renal function evaluated with similar findings Differential Diagnosis (chest pain, altered mental status, abdominal pain women, abdominal pain men, vaginal bleeding, weakness, fever, dyspnea, syncope, headache, dizziness, GI bleed, back pain, seizure, CVA, palpatations, mental health, musculoskeletal)? @ -Differential Weakness: Hypoglycemia, shock, sepsis, hyponatremia, anemia, infection, [place], ETOH, adverse medicine reaction, overdose, stroke, this is not meant to be an all-inclusive list. EKG interpreted by me (3pts min.). @ -As above X-rays interpreted by me (1pt min.). @ -Chest x-ray shows mild interstitial changes CT interpreted by me (1pt min.). @ -None done U/S interpreted by me (1pt. min.). @ -None done What testing was considered but not performed or refused? (CT, X-rays, U/S, labs)? Why? @ -None What meds were considered but not given or refused? Why? @ -None Did you discuss the management of the patient with other professionals (professionals i.e. [facility], [facility], lab, RT, psych nurse, social worker delinquency prevention, nurse executive, teacher, youth officer, binder caser)? Give summary @ -Case discussed with Dr. Gill who will admit covering Dr. Okeefe. He agrees no antibiotics at this time and will evaluate patient and procalcitonin will be added. No definitive bacterial infection at this time. Patient has known influenza Was smoking cessation discussed for >3mins.? @ -No Was critical care preformed (if so, how long)? @ -No Were there social determinants of health that impacted care today? How? (Homelessness, low income, unemployed, alcoholism, drug addiction, transportation, low edu. Level, literacy, decrease access to med. care, fpc, rehab)? @ -No Was there de-escalation of care discussed even if they declined (Discuss DNR or withdrawal of care, Hospice)? DNR status @ -No What co-morbidities impacted this encounter? (DM, HTN, Smoking, COPD, CAD, Cancer, CVA, ARF, Chemo, Hep., AIDS, mental health diagnosis, sleep apnea, morbid obesity)? @ -Peritoneal dialysis patient Was patient admitted / discharged? Hospital course, mention meds given and route, prescriptions, significant lab abnormalities, going to OR and other pertinent info. @ -Patient presents with generalized weakness. Flu positive. Hyponatremic. Chest x-ray questionable for atypical pneumonia which could include influenza or fluid overload. Patient will need further evaluation including cardiac and echo. Admission orders written. Patient reevaluated. Patient and family updated. Undiagnosed new problem with uncertain prognosis? @ -No Drug Therapy requiring intensive monitoring for toxicity (Heparin, Nitro, Insulin, Cardizem)? @ -No Were any procedures done? @ -No Diagnosis/symptom? @ -Hyponatremia, weakness, influenza Acute, or Chronic, or Acute on Chronic? @ -Acute, acute, acute Uncomplicated (without systemic symptoms) or Complicated (systemic symptoms)? @ -Complicated fluid status determine if there is associated CHF which will be further evaluated Side effects of treatment? @ -No Exacerbation, Progression, or Severe Exacerbation? @ -No Poses a threat to life or bodily function? How? (Chest pain, [place], AZ, pneumonia, PE, COPD, DKA, ARF, appy, cholecystitis, CVA, Diverticulitis, Homicidal, Suicidal, threat to staff... and all critical care pts) @ -Threat to cardiac and electrolyte function - Lab Data Result diagrams: 03/25/24 12:14 03/25/24 12:14 Lab Results 03/25/24 03/25/24 03/25/24 Range/Units 12:14 12:14 12:14 WBC 25.0 H (3.8-10.6) k/uL RBC 4.40 (3.80-5.40) m/uL Hgb 14.0 (11.4-16.0) gm/dL Hct 41.5 (34.0-46.0) % MCV 94.4 (80.0-100.0) fL MCH 31.8 (25.0-35.0) pg MCHC 33.7 (31.0-37.0) g/dL RDW 12.1 (11.5-15.5) % Plt Count 275 (150-450) k/uL MPV 8.1 Neutrophils % 88 % Lymphocytes % 5 % Monocytes % 5 % Eosinophils % 0 % Basophils % 0 % Neutrophils # 22.0 H (1.3-7.7) k/uL Lymphocytes # 1.2 (1.0-4.8) k/uL Monocytes # 1.3 H (0-1.0) k/uL Eosinophils # 0.1 (0-0.7) k/uL Basophils # 0.1 (0-0.2) k/uL PT 21.4 H (10.0-12.5) sec INR 2.1 H (<1.2) APTT 26.0 (22.0-30.0) sec Sodium 125 L (137-145) mmol/L Potassium 3.7 (3.5-5.1) mmol/L Chloride 87 L (98-107) mmol/L Carbon Dioxide 27 (22-30) mmol/L Anion Gap 11 mmol/L BUN 69 H (7-17) mg/dL Creatinine 3.75 H (0.52-1.04) mg/dL Est GFR (CKD-EPI)AfAm 12 (>60 ml/min/1.73 sqM) Est GFR (CKD-EPI)NonAf 11 (>60 ml/min/1.73 sqM) Glucose 133 H (74-99) mg/dL Plasma Lactic Acid Oj (0.7-2.0) mmol/L Calcium 8.1 L (8.4-10.2) mg/dL Magnesium 1.9 (1.6-2.3) mg/dL Total Bilirubin 1.0 (0.2-1.3) mg/dL AST 34 (14-36) U/L ALT 34 (4-34) U/L Alkaline Phosphatase 87 (38-126) U/L Troponin I (0.000-0.034) ng/mL NT-Pro-B Natriuret Pep 7070 pg/mL Total Protein 6.0 L (6.3-8.2) g/dL Albumin 2.9 L (3.5-5.0) g/dL Influenza Type A (PCR) (Not Detectd) Influenza Type B (PCR) (Not Detectd) RSV (PCR) (Not Detectd) SARS-CoV-2 (PCR) (Not Detectd) 03/25/24 03/25/24 03/25/24 Range/Units 12:14 12:14 12:20 WBC (3.8-10.6) k/uL RBC (3.80-5.40) m/uL Hgb (11.4-16.0) gm/dL Hct (34.0-46.0) % MCV (80.0-100.0) fL MCH (25.0-35.0) pg MCHC (31.0-37.0) g/dL RDW (11.5-15.5) % Plt Count (150-450) k/uL MPV Neutrophils % % Lymphocytes % % Monocytes % % Eosinophils % % Basophils % % Neutrophils # (1.3-7.7) k/uL Lymphocytes # (1.0-4.8) k/uL Monocytes # (0-1.0) k/uL Eosinophils # (0-0.7) k/uL Basophils # (0-0.2) k/uL PT (10.0-12.5) sec INR (<1.2) APTT (22.0-30.0) sec Sodium (137-145) mmol/L Potassium (3.5-5.1) mmol/L Chloride (98-107) mmol/L Carbon Dioxide (22-30) mmol/L Anion Gap mmol/L BUN (7-17) mg/dL Creatinine (0.52-1.04) mg/dL Est GFR (CKD-EPI)AfAm (>60 ml/min/1.73 sqM) Est GFR (CKD-EPI)NonAf (>60 ml/min/1.73 sqM) Glucose (74-99) mg/dL Plasma Lactic Acid Oj 1.9 (0.7-2.0) mmol/L Calcium (8.4-10.2) mg/dL Magnesium (1.6-2.3) mg/dL Total Bilirubin (0.2-1.3) mg/dL AST (14-36) U/L ALT (4-34) U/L Alkaline Phosphatase (38-126) U/L Troponin I 0.051 H* (0.000-0.034) ng/mL NT-Pro-B Natriuret Pep pg/mL Total Protein (6.3-8.2) g/dL Albumin (3.5-5.0) g/dL Influenza Type A (PCR) Detected A (Not Detectd) Influenza Type B (PCR) Not Detected (Not Detectd) RSV (PCR) Not Detected (Not Detectd) SARS-CoV-2 (PCR) Not Detected (Not Detectd) Disposition Clinical Impression: Hyponatremia, Influenza Disposition: ADMITTED IP TO THIS HOSP Is patient prescribed a controlled substance at d/c from ED?: No Referrals: Casey Okeefe MD [Primary Care Provider] - 1-2 days Time of Disposition: 14:44
[2024-03-25 12:43] LABS: Basophils # (A) 0.1 k/uL (0-0.2); Basophils % (A) 0 %; Eosinophils # (A) 0.1 k/uL (0-0.7); Eosinophils % (A) 0 %; HCT 41.5 % (34.0-46.0); Lymphocytes # (A) 1.2 k/uL (1.0-4.8); Lymphocytes % (A) 5 %; MCH 31.8 pg (25.0-35.0); MCHC 33.7 g/dL (31.0-37.0); MCV 94.4 fL (80.0-100.0); Mean Platelet Volume 8.1; Monocytes # (A) 1.3 k/uL (0-1.0); Monocytes % (A) 5 %; Neutrophils % (A) 88 %; Platelet Count 275 k/uL (150-450); RDW 12.1 % (11.5-15.5)
[2024-03-25 13:00] LABS: INR 2.1 (<1.2); Prothrombin Time 21.4 sec (10.0-12.5)
[2024-03-25 13:06] LABS: ALT 34 U/L (4-34); AST 34 U/L (14-36); African American GFR (CKD) 12 (>60 ml/min/1.73 sqM); Albumin 2.9 g/dL (3.5-5.0); Alkaline Phosphatase 87 U/L (38-126); Anion Gap 11 mmol/L; Blood Urea Nitrogen 69 mg/dL (7-17); Calcium 8.1 mg/dL (8.4-10.2); Carbon Dioxide 27 mmol/L (22-30); Chloride 87 mmol/L (98-107); Glucose 133 mg/dL (74-99); Magnesium 1.9 mg/dL (1.6-2.3); Non-African American GFR(CKD) 11 (>60 ml/min/1.73 sqM); Potassium 3.7 mmol/L (3.5-5.1); Sodium 125 mmol/L (137-145)
[2024-03-25 13:16] LABS: NT-Pro-B-Type Natriuretic Pept 7070 pg/mL
--- NOTE | 2024-03-25 13:37 | XR ---
EXAMINATION TYPE: XR chest 2V DATE OF EXAM: 03/25/2024 1:08 PM COMPARISON: 05/19/2023 CLINICAL INDICATION: Female, 78 years old with history of Weakness, , TECHNIQUE: AP and lateral views FINDINGS: Right anterior chest wall injection port catheter tip mid to lower SVC level. Heart mildly enlarged. Diffuse interstitial density. No brian consolidation or pleural effusion. IMPRESSION: Borderline cardiomegaly and diffuse interstitial density. Correlate for pulmonary vascular congestion versus atypical pneumonias. [facility], , 03/25/2024 1:34 PM
[2024-03-25] MEDS ORDERED: NALOXONE 0.4 MG/ML 1 ML VIAL IV PRN (14:47)
[2024-03-25] MEDS: SODIUM CHLORIDE 0.9% 1,000 ML IV SCH (17:26)
--- NOTE | 2024-03-25 20:10 | P.HPIM ---
History of Present Illness This is a pleasant 78 years old female with past medical history of multiple medical problems as below. Including end-stage renal disease on peritoneal dialysis Presents because of multiple symptoms. Information was obtained with the help of the daughter at bedside. Her symptoms has been going on for 2 to 3 weeks got worse lately including headache dizziness weakness shortness of breath and coughing. Because of her weakness she had to use a walker and she could not walk to the kitchen only to the restroom into her room. She has no energy She checked her pulse ox at home and it was low at 72 as per daughter. Patient is not on oxygen at home. She has history of lung fibrosis and follow-up with Dr. Daniels, lately she saw her appeals rn Dr. Hurt prescribed her Zithromax and steroids which she finished 2 weeks ago. Also patient is known to have a port in the right upper chest because she has small veins it hard for her to obtain blood samples which she requires given her management of peritoneal dialysis. Patient makes little amount of urine but there is no burning She feels nausea but no abdominal pain vomiting or diarrhea She is coughing with some clear phlegm but no chest pain No dizziness unilateral weakness or numbness Of note patient recently she had prescribed Tamiflu which she used for 2 to 3 days as well as Ceftin 250 mg once daily for 3 days On admission patient had no fever and vitals look stable She had leukocytosis of 25,000 as per daughter her appetite has been slowly trending up last week when he came dialysis it was 14-19 INR is 2.1, sodium 125 Creatinine 3.7 which is close to baseline of 3.0-3.5 Influenza test came back positive Troponin is mildly elevated 0.05 proBNP is elevated 7070 EKG showing A-fib with controlled rate at 90 Chest x-ray showing cardiomegaly with increased interstitial markings suspicious for CHF versus atypical pneumonia. Review of Systems Review of systems -CONSTITUTIONAL: No fever,+ malaise, + fatigue. HEENT: No recent visual problems or hearing problems. Denied any sore throat. CARDIOVASCULAR: No orthopnea, PND, no palpitations, no syncope. -PULMONARY: + shortness of breath, + cough, no hemoptysis. GASTROINTESTINAL: No diarrhea, no nausea, no vomiting, no abdominal pain. Normoactive bowel sounds. NEUROLOGICAL: No headaches, no weakness, no numbness. HEMATOLOGICAL: Denies any bleeding or petechiae. GENITOURINARY: Denies any burning micturition, frequency, or urgency. MUSCULOSKELETAL/RHEUMATOLOGICAL: Denies any joint pain, swelling, or any muscle pain. ENDOCRINE: Denies any polyuria or polydipsia. Past Medical History Past Medical History: Atrial Fibrillation, Blood Disorder, Chest Pain / Angina, Heart Failure, Diabetes Mellitus, Hypertension, Mitral Valve Prolapse (MVP), Osteoarthritis (OA), Renal Disease Additional Past Medical History / Comment(s): LOW IRON., URINE URGENCY., BACK AND HIP PAIN, USING CANE. STAGE 4 KIDNEY DISEASE,Valvular heart disease. History of Any Multi-Drug Resistant Organisms: None Reported Past Surgical History: Orthopedic Surgery, Tubal Ligation Additional Past Surgical History / Comment(s): COLONOSCOPY, EGD., TRH. RIGHT H IP REPLACEMENT. bilat CATARACT SURGERY Past Anesthesia/Blood Transfusion Reactions: No Reported Reaction Past Psychological History: No Psychological Hx Reported Smoking Status: Never smoker - Past Family History Mother Family Medical History: Cancer Additional Family Medical History / Comment(s): SKIN CANCER, stroke Father Family Medical History: CVA/TIA Medications and Allergies Home Medications Medication Instructions Recorded Confirmed Type Warfarin [Coumadin] 2.5 tab PO MOTUWEFRSA@209912/16/18 03/25/24 History Pravastatin Sodium [Pravachol] 10 mg PO HS 09/14/21 03/25/24 History Metoprolol Succinate (ER) [Toprol 25 mg PO DAILY 09/22/22 03/25/24 History XL] Warfarin [Coumadin] 5 mg PO SUTH@209905/09/23 03/25/24 History Folic Acid 1.6 mg PO DAILY 05/14/23 03/25/24 History Torsemide [Demadex] 40 mg PO BID 30 Days #120 tablet 05/20/23 03/25/24 Rx Albuterol Sulfate [Albuterol 1 puff PO RT-Q4H PRN 03/25/24 03/25/24 History Sulfate Hfa] Glucagon [Gvoke Pfs 1-Pack Syringe] 1 mg SQ DIRECTED PRN 03/25/24 03/25/24 History Insulin Aspart (Niacinamide) 5 units SQ AC-BID 03/25/24 03/25/24 History [Fiasp 100 Unit/ml Flextouch Pen] Insulin Degludec [Tresiba 15 units SQ HS 03/25/24 03/25/24 History Flextouch U-200 Pen] Insulin NPH Human Isophane 10 units SQ HS 03/25/24 03/25/24 History [NovoLIN N Flexpen] Ipratropium-Albuterol Nebulize 3 ml INHALATION RT-TID 03/25/24 03/25/24 History [Duoneb 0.5 mg-3 mg/3 ml Soln] Renaplex-D 1 tab PO DAILY 03/25/24 03/25/24 History Sevelamer [Renvela] 2,400 mg PO TID-W/MEALS 03/25/24 03/25/24 History Allergies Allergy/AdvReac Type Severity Reaction Status Date / Time ciprofloxacin [From Cipro] Allergy Unknown Itching, Verified 03/25/24 15:01 Rash codeine Allergy Itching Verified 03/25/24 15:01 Physical Exam Vitals: Vital Signs Temp Pulse Resp BP Pulse Ox 03/25/24 15:00 89 22 118/70 97 03/25/24 14:30 71 20 103/60 97 03/25/24 14:00 81 26 H 114/67 100 03/25/24 13:30 88 13 100/80 100 03/25/24 13:15 86 14 86/71 94 L 03/25/24 13:00 87 14 99/62 98 03/25/24 12:45 87 20 111/72 98 03/25/24 11:47 97.6 F 57 L 24 115/73 98 Intake and Output 03/25/24 03/25/24 03/25/24 06:59 14:59 22:59 Other: Weight 59.874 kg Results CBC & Chem 7: 03/25/24 12:14 03/25/24 12:14 Labs: Abnormal Lab Results - Last 24 Hours (Table) 03/25/24 03/25/24 03/25/24 Range/Units 12:14 12:14 12:14 WBC 25.0 H (3.8-10.6) k/uL Neutrophils # 22.0 H (1.3-7.7) k/uL Monocytes # 1.3 H (0-1.0) k/uL PT 21.4 H (10.0-12.5) sec INR 2.1 H (<1.2) Sodium 125 L (137-145) mmol/L Chloride 87 L (98-107) mmol/L BUN 69 H (7-17) mg/dL Creatinine 3.75 H (0.52-1.04) mg/dL Glucose 133 H (74-99) mg/dL Calcium 8.1 L (8.4-10.2) mg/dL Troponin I (0.000-0.034) ng/mL Total Protein 6.0 L (6.3-8.2) g/dL Albumin 2.9 L (3.5-5.0) g/dL Influenza Type A (PCR) (Not Detectd) 03/25/24 03/25/24 Range/Units 12:14 12:20 WBC (3.8-10.6) k/uL Neutrophils # (1.3-7.7) k/uL Monocytes # (0-1.0) k/uL PT (10.0-12.5) sec INR (<1.2) Sodium (137-145) mmol/L Chloride (98-107) mmol/L BUN (7-17) mg/dL Creatinine (0.52-1.04) mg/dL Glucose (74-99) mg/dL Calcium (8.4-10.2) mg/dL Troponin I 0.051 H* (0.000-0.034) ng/mL Total Protein (6.3-8.2) g/dL Albumin (3.5-5.0) g/dL Influenza Type A (PCR) Detected A (Not Detectd) Assessment and Plan Assessment: Acute influenza infection Hyponatremia Leukocytosis End-stage renal disease on peritoneal dialysis Elevated troponin most likely secondary to her kidney disease Chronic atrial fibrillation not on a blood thinner, currently rate is controlled Pulmonary fibrosis. She follows up Outpatient with Dr. Daniels. Not on oxygen at home Plan: Continue with Tamiflu Consult nephrology team for peritoneal dialysis and hyponatremia Monitor sodium level Will do panculture Monitor white cell count Nephrology team consult Cardiac team consult Labs and medication were reviewed.. Continue same treatment. Continue with symptomatic treatment. Resume home medication. Monitor labs and vitals. DVT and GI prophylaxis. Further recommendations as per clinical course of the patient DVT prophylaxis: Subcutaneous heparin GI Prophylaxis: Pepcid PT/OT: Pending Prognosis is guarded
[2024-03-25] MEDS ORDERED: GLUCAGON 1 MG/ML VIAL SQ PRN (20:12)
[2024-03-25] MEDS: PRAVASTATIN SODIUM 20 MG TAB PO SCH (21:19)
[2024-03-25] MEDS: DIALYSIS (PERIT 2.5%) 2,000 ML 50 G/2,000 ML BAG INTRAPERIT SCH (21:19)
[2024-03-25] MEDS: OSELTAMIVIR 75 MG CAP PO ONE (21:20)
[2024-03-25] MEDS: WARFARIN 5 MG TAB PO ONE (22:29)
[2024-03-25 22:56] LABS: Appearance,Urine Cloudy (Clear); Bacteria,Urine Many /hpf; Bilirubin,Urine Negative (Negative); Blood,Urine Trace (Negative); Color,Urine Light Yellow; Glucose,Urine (UA) Negative (Negative); Ketones,Urine Negative (Negative); Leukocyte Esterase,Urine Negative (Negative); Mucus,Urine Rare /hpf; Nitrite,Urine Negative (Negative); Protein,Urine Trace (Negative); RBC,Urine 2 /hpf (0-5); Squamous Epithelial Cell,Urine 14 /hpf (0-4); Urobilinogen,Urine <2.0 mg/dL (<2.0); WBC,Urine 3 /hpf (0-5)
[2024-03-26] MEDS: BENZONATATE 100 MG CAP PO PRN (00:06)
[2024-03-26 06:37] LABS: Basophils # (A) 0.1 k/uL (0-0.2); Basophils % (A) 1 %; Eosinophils # (A) 0.3 k/uL (0-0.7); Eosinophils % (A) 2 %; HGB 12.7 gm/dL (11.4-16.0); Lymphocytes # (A) 1.3 k/uL (1.0-4.8); Lymphocytes % (A) 8 %; MCH 32.5 pg (25.0-35.0); MCHC 33.5 g/dL (31.0-37.0); MCV 96.9 fL (80.0-100.0); Mean Platelet Volume 7.7; Monocytes # (A) 1.3 k/uL (0-1.0); Monocytes % (A) 7 %; Neutrophils # (A) 14.3 k/uL (1.3-7.7); Neutrophils % (A) 82 %; Platelet Count 246 k/uL (150-450); RBC 3.92 m/uL (3.80-5.40); RDW 12.4 % (11.5-15.5); WBC 17.4 k/uL (3.8-10.6)
[2024-03-26 06:49] LABS: Glucose,Whole Blood 218 mg/dL (70-110)
[2024-03-26 06:49] LABS: ALT 30 U/L (4-34); AST 32 U/L (14-36); African American GFR (CKD) 15 (>60 ml/min/1.73 sqM); Albumin 2.5 g/dL (3.5-5.0); Alkaline Phosphatase 72 U/L (38-126); Anion Gap 10 mmol/L; Blood Urea Nitrogen 57 mg/dL (7-17); C Reactive Protein 1.6 mg/dL (<1.0); Calcium 7.7 mg/dL (8.4-10.2); Carbon Dioxide 25 mmol/L (22-30); Chloride 91 mmol/L (98-107); Glucose 209 mg/dL (74-99); Magnesium 1.9 mg/dL (1.6-2.3); Non-African American GFR(CKD) 13 (>60 ml/min/1.73 sqM); Phosphorus 4.5 mg/dL (2.5-4.5); Potassium 3.2 mmol/L (3.5-5.1); Sodium 126 mmol/L (137-145); Total Bilirubin 0.7 mg/dL (0.2-1.3); Total Protein 5.4 g/dL (6.3-8.2)
[2024-03-26 07:01] LABS: INR 2.5 (<1.2); Prothrombin Time 25.2 sec (10.0-12.5)
[2024-03-26] MEDS: SEVELAMER 800 MG TAB PO SCH (07:02)
[2024-03-26] MEDS: INSULIN ASPART (NovoLOG) 100 UNIT/ML VIAL SQ SCH (07:02)
[2024-03-26] MEDS: FOLIC ACID 1 MG TAB PO SCH (07:58)
[2024-03-26] MEDS: METOPROLOL SUCCINATE (ER) 25 MG TAB.ER.24H PO SCH (07:58)
[2024-03-26] MEDS ORDERED: IOPAMIDOL CONTRAST (ORAL USE) VIAL PO PRN (08:43)
--- NOTE | 2024-03-26 09:57 | P.PN ---
Subjective This is a pleasant 78 years old female with past medical history of multiple medical problems as below. Including end-stage renal disease on peritoneal dialysis Presents because of multiple symptoms. Information was obtained with the help of the daughter at bedside. Her symptoms has been going on for 2 to 3 weeks got worse lately including headache dizziness weakness shortness of breath and coughing. Because of her weakness she had to use a walker and she could not walk to the kitchen only to the restroom into her room. She has no energy She checked her pulse ox at home and it was low at 72 as per daughter. Patient is not on oxygen at home. She has history of lung fibrosis and follow-up with Dr. Daniels, lately she saw her strip roller Dr. Hurt prescribed her Zithromax and steroids which she finished 2 weeks ago. Also patient is known to have a port in the right upper chest because she has small veins it hard for her to obtain blood samples which she requires given her management of peritoneal dialysis. Patient makes little amount of urine but there is no burning She feels nausea but no abdominal pain vomiting or diarrhea She is coughing with some clear phlegm but no chest pain No dizziness unilateral weakness or numbness Of note patient recently she had prescribed Tamiflu which she used for 2 to 3 days as well as Ceftin 250 mg once daily for 3 days On admission patient had no fever and vitals look stable She had leukocytosis of 25,000 as per daughter her appetite has been slowly trending up last week when he came dialysis it was 14-19 INR is 2.1, sodium 125 Creatinine 3.7 which is close to baseline of 3.0-3.5 Influenza test came back positive Troponin is mildly elevated 0.05 proBNP is elevated 7070 EKG showing A-fib with controlled rate at 90 Chest x-ray showing cardiomegaly with increased interstitial markings suspicious for CHF versus atypical pneumonia. 1/3 Patient awake alert She is still tachypneic today, she is refusing her Tamiflu because states it make her sick. No chest pain Patient is getting. Diagnosis this morning however she has some tenderness mainly in the lower abdomen. Patient states she has loose bowel movement last night. Will order C. difficile. Remains afebrile Leukocytosis improving down to 17 INR is 2.5, sodium is improved slightly 126 and creatinine 3.2 Troponin is stable at 0.05 and 0.06. Given her abdominal tenderness we will going to order CT of the abdomen and pelvis with oral and IV contrast. Also will send peritoneal fluid for analysis Review of systems HEENT: No recent visual problems or hearing problems. Denied any sore throat. CARDIOVASCULAR: No orthopnea, PND, no palpitations, no syncope. NEUROLOGICAL: No headaches, no weakness, no numbness. HEMATOLOGICAL: Denies any bleeding or petechiae. GENITOURINARY: Denies any burning micturition, frequency, or urgency. Active Medications Generic Name Dose Route Start Last Admin Trade Name Freq PRN Reason Stop Dose Admin Acetaminophen 650 mg 03/25/24 23:30 Acetaminophen Tab 325 Mg Tab PO Q6HR PRN Fever and/ or Pain Benzonatate 200 mg 03/25/24 23:31 03/26/24 00:06 Benzonatate 100 Mg Cap PO 200 mg TID PRN Administration Cough Folic Acid 1.5 mg 03/26/24 09:00 03/26/24 07:58 Folic Acid 1 Mg Tab PO 1.5 mg DAILY DOROTHY Administration Glucagon 1 mg 03/25/24 20:12 Glucagon 1 Mg/Ml Vial SQ DAILY PRN LOW BLOOD SUGAR Sodium Chloride 1,000 mls @ 50 mls/hr 03/25/24 15:00 03/25/24 17:26 Saline 0.9% IV 50 mls/hr .Q20H DOROTHY Administration Peritoneal Dialysis Solution 50 g in 2,000 mls @ 0 mls/hr 03/25/24 20:00 03/26/24 08:09 Delflex With 2.5% Dextrose (2,000 Ml) INTRAPERIT 2,000 mls/hr Q4HR DOROTHY Administration Protocol As Directed Insulin Aspart 5 unit 03/26/24 07:30 03/26/24 07:02 Insulin Aspart (Novolog) 100 Unit/Ml Vial SQ 5 unit AC-BID DOROTHY Administration Iopamidol 30 ml 03/26/24 08:43 Iopamidol Contrast (Oral Use) Vial PO 03/27/24 08:[address] Scan Metoprolol Succinate 25 mg 03/26/24 09:00 03/26/24 07:58 Metoprolol Succinate (Er) 25 Mg Tab.Er.24h PO 25 mg DAILY DOROTHY Administration Miscellaneous Information 1 each 03/25/24 21:31 Warfarin Per Pharmacy MISCELLANE DIRECTED PRN Per Protocol Protocol Naloxone HCl 0.2 mg 03/25/24 14:47 Naloxone 0.4 Mg/Ml 1 Ml Vial IV Q2M PRN Opioid Reversal Ondansetron HCl 4 mg 03/25/24 23:31 Ondansetron 4 Mg/2 Ml Vial IVP Q6HR PRN Nausea And Vomiting Pravastatin Sodium 10 mg 03/25/24 21:00 03/25/24 21:19 Pravastatin Sodium 20 Mg Tab PO 10 mg HS DOROTHY Administration Sevelamer Carbonate 2,400 mg 03/26/24 07:30 03/26/24 07:02 Sevelamer 800 Mg Tab PO 2,400 mg TID-W/MEALS DOROTHY Administration Warfarin Sodium 2.5 mg 03/26/24 18:00 Warfarin 2.5 Mg Tab PO 03/26/24 18:01 ONCE@1800 ONE Objective - Vital Signs Vital signs: Vital Signs Temp 97.9 F 03/26/24 05:00 Pulse 89 03/26/24 05:00 Resp 16 03/26/24 05:00 BP 109/61 03/26/24 05:00 Pulse Ox 99 03/26/24 05:00 FiO2 Intake & Output 03/25/24 03/26/24 03/26/24 18:59 06:59 18:59 Intake Total 640 118 Output Total 100 Balance 540 118 Weight 59.874 kg 59.874 kg Intake: Intake, IV Titration 100 Amount Sodium Chloride 0.9% 1, 100 000 ml @ 50 mls/hr IV . Q20H DOROTHY Rx#:[id number] Oral 540 118 Output: Urine 100 Other: Voiding Method External Catheter # Voids 2 - Exam GENERAL: The patient is alert and oriented x3, not in any acute distress. Well developed, well nourished. HEENT: Pupils are round and equally reacting to light. EOMI. No scleral icterus. No conjunctival pallor. Normocephalic, atraumatic. No pharyngeal erythema. No thyromegaly. CARDIOVASCULAR: S1 and S2 present. No murmurs, rubs, or gallops. PULMONARY: Chest is clear to auscultation, no wheezing , no crackles. -ABDOMEN: Soft, lower abd tender, nondistended, normoactive bowel sounds. No palpable organomegaly. MUSCULOSKELETAL: No joint swelling or deformity. EXTREMITIES: No cyanosis, clubbing, or pedal edema. NEUROLOGICAL: Gross neurological examination did not reveal any focal deficits. SKIN: No rashes. no petechiae. - Labs CBC & Chem 7: 03/26/24 05:45 03/26/24 05:45 Labs: Abnormal Lab Results - Last 24 Hours (Table) 03/25/24 03/25/24 03/25/24 Range/Units 12:14 12:14 12:14 WBC 25.0 H (3.8-10.6) k/uL Neutrophils # 22.0 H (1.3-7.7) k/uL Monocytes # 1.3 H (0-1.0) k/uL PT 21.4 H (10.0-12.5) sec INR 2.1 H (<1.2) Sodium 125 L (137-145) mmol/L Potassium (3.5-5.1) mmol/L Chloride 87 L (98-107) mmol/L BUN 69 H (7-17) mg/dL Creatinine 3.75 H (0.52-1.04) mg/dL Glucose 133 H (74-99) mg/dL POC Glucose (mg/dL) (70-110) mg/dL Calcium 8.1 L (8.4-10.2) mg/dL Troponin I (0.000-0.034) ng/mL C-Reactive Protein (<1.0) mg/dL Total Protein 6.0 L (6.3-8.2) g/dL Albumin 2.9 L (3.5-5.0) g/dL Urine Appearance (Clear) Urine Protein (Negative) Urine Blood (Negative) Ur Squamous Epith Cells (0-4) /hpf Urine Bacteria (None) /hpf Urine Mucus (None) /hpf Influenza Type A (PCR) (Not Detectd) 03/25/24 03/25/24 03/25/24 Range/Units 12:14 12:20 22:35 WBC (3.8-10.6) k/uL Neutrophils # (1.3-7.7) k/uL Monocytes # (0-1.0) k/uL PT (10.0-12.5) sec INR (<1.2) Sodium (137-145) mmol/L Potassium (3.5-5.1) mmol/L Chloride (98-107) mmol/L BUN (7-17) mg/dL Creatinine (0.52-1.04) mg/dL Glucose (74-99) mg/dL POC Glucose (mg/dL) (70-110) mg/dL Calcium (8.4-10.2) mg/dL Troponin I 0.051 H* (0.000-0.034) ng/mL C-Reactive Protein (<1.0) mg/dL Total Protein (6.3-8.2) g/dL Albumin (3.5-5.0) g/dL Urine Appearance Cloudy H (Clear) Urine Protein Trace H (Negative) Urine Blood Trace H (Negative) Ur Squamous Epith Cells 14 H (0-4) /hpf Urine Bacteria Many H (None) /hpf Urine Mucus Rare H (None) /hpf Influenza Type A (PCR) Detected A (Not Detectd) 03/26/24 03/26/24 03/26/24 Range/Units 05:45 05:45 05:45 WBC 17.4 H (3.8-10.6) k/uL Neutrophils # 14.3 H (1.3-7.7) k/uL Monocytes # 1.3 H (0-1.0) k/uL PT 25.2 H (10.0-12.5) sec INR 2.5 H (<1.2) Sodium 126 L (137-145) mmol/L Potassium 3.2 L (3.5-5.1) mmol/L Chloride 91 L (98-107) mmol/L BUN 57 H (7-17) mg/dL Creatinine 3.29 H (0.52-1.04) mg/dL Glucose 209 H (74-99) mg/dL POC Glucose (mg/dL) (70-110) mg/dL Calcium 7.7 L (8.4-10.2) mg/dL Troponin I (0.000-0.034) ng/mL C-Reactive Protein 1.6 H (<1.0) mg/dL Total Protein 5.4 L (6.3-8.2) g/dL Albumin 2.5 L (3.5-5.0) g/dL Urine Appearance (Clear) Urine Protein (Negative) Urine Blood (Negative) Ur Squamous Epith Cells (0-4) /hpf Urine Bacteria (None) /hpf Urine Mucus (None) /hpf Influenza Type A (PCR) (Not Detectd) 03/26/24 03/26/24 Range/Units 06:47 07:34 WBC (3.8-10.6) k/uL Neutrophils # (1.3-7.7) k/uL Monocytes # (0-1.0) k/uL PT (10.0-12.5) sec INR (<1.2) Sodium (137-145) mmol/L Potassium (3.5-5.1) mmol/L Chloride (98-107) mmol/L BUN (7-17) mg/dL Creatinine (0.52-1.04) mg/dL Glucose (74-99) mg/dL POC Glucose (mg/dL) 218 H (70-110) mg/dL Calcium (8.4-10.2) mg/dL Troponin I 0.062 H* (0.000-0.034) ng/mL C-Reactive Protein (<1.0) mg/dL Total Protein (6.3-8.2) g/dL Albumin (3.5-5.0) g/dL Urine Appearance (Clear) Urine Protein (Negative) Urine Blood (Negative) Ur Squamous Epith Cells (0-4) /hpf Urine Bacteria (None) /hpf Urine Mucus (None) /hpf Influenza Type A (PCR) (Not Detectd) Assessment and Plan Assessment: Acute influenza infection Hyponatremia abd pain and tenderness with some diarrhea, r/u c diff colitis , SBP , intraabdominal infection , ischemia vs others Leukocytosis, improving End-stage renal disease on peritoneal dialysis Elevated troponin most likely secondary to her kidney disease Chronic atrial fibrillation not on a blood thinner, currently rate is controlled Pulmonary fibrosis. She follows up Outpatient with Dr. Daniels. Not on oxygen at home Plan: Continue with Tamiflu Consult nephrology team for peritoneal dialysis and hyponatremia Monitor sodium level Check peritoneal fluid for now analysis CT of the abdomen and pelvis with IV and oral contrast General Surgery team consult Pulmonary team consult Monitor white cell count Nephrology team consult Cardiac team consult Labs and medication were reviewed.. Continue same treatment. Continue with symptomatic treatment. Resume home medication. Monitor labs and vitals. DVT and GI prophylaxis. Further recommendations as per clinical course of the patient DVT prophylaxis: Subcutaneous heparin GI Prophylaxis: Pepcid PT/OT: Pending Prognosis is guarded
[2024-03-26] MEDS: POTASSIUM CHLORIDE ER 10 MEQ TAB.ER.PRT PO STA (10:58)
[2024-03-26] MEDS: PIPERACILLIN-TAZOBACTAM 3.375 GM in SODIUM CHLORIDE 0.9% 100 ML IVPB STA (10:58)
[2024-03-26] MEDS: ONDANSETRON 4 MG/2 ML VIAL IVP PRN (11:08)
[2024-03-26 11:49] LABS: Glucose,Whole Blood 148 mg/dL (70-110)
--- NOTE | 2024-03-26 13:28 | P.CRDCN ---
History of Present Illness Consult date: 03/26/24 Reason for Consult (text): Eval for CHF History of present illness: This is an 78-year-old female patient of Dr. Milton Sherman with past medical history of permanent atrial fibrillation, severe pulmonary hypertension, end-stage renal disease on peritoneal dialysis, moderate mitral regurgitation. We have been asked to evaluate the patient for CHF exacerbation. Patient states that she came into the hospital because she does not have any energy and short of breath. She states she has a cough with no sputum production. She complains of nausea without vomiting. She last saw her pulmonary doctor a couple weeks ago and was stable at that time. Patient has tested positive for influenza A. She has been afebrile, blood pressure 109/61, heart rate 89, pulse ox 99% on 2 L nasal cannula. -EKG: Atrial fibrillation at 90 bpm -Chest x-ray: Borderline cardiomegaly and diffuse interstitial density. Correlate for pulmonary vascular congestion versus atypical pneumonias. -Laboratory studies: WBC 17.4, hemoglobin 12.7. INR 2.5. Sodium 126, potassium 3.2, BUN 57 and creatinine 3.29. Troponin 0.062. Procalcitonin 0.18 C-reactive protein 1.6. -Home cardiac medications: Toprol XL 25 mg daily, pravastatin 10 mg at bedtime, torsemide 40 mg twice daily, Coumadin. -Echocardiogram performed in the office on 11/14/2023 revealed EF of 40 to 45%, mild LV H. Mildly dilated left atrium and right atrium. Aortic valve is calcified. Moderate mitral regurgitation, moderate tricuspid regurgitation, PASP 53 mmHg. Review Of Systems: At the time of my exam: CONSTITUTIONAL: Denies fever or chills. Reports fatigue. HEENT: Denies blurred vision, vision changes, or eye pain. Denies hemoptysis CARDIOVASCULAR: Denies chest pain. Denies orthopnea. Denies PND. Denies palpitations RESPIRATORY: Reports shortness of breath. GASTROINTESTINAL: Denies abdominal pain. Reports nausea without vomiting. HEMATOLOGIC: Denies bleeding disorders. GENITOURINARY: Denies any blood in urine. SKIN: Denies puritis. Denies rash. Physical examination: Gen: This is a frail 78-year-old female in no acute respiratory distress VS: reviewed HEENT: Head is atraumatic, normocephalic. Pupils equal, round. Sclerae is anicteric. NECK: Supple. No JVD. LUNGS: Clear to auscultation. No wheezes or rhonchi. No intercostal retractions. HEART: Irregular rate and rhythm. Systolic murmur. ABDOMEN: Soft No tenderness. EXTREMITIES: No pedal edema. No calf tenderness. NEUROLOGICAL: Patient is awake, alert and oriented x3. Assessment: Influenza A No clinical evidence of heart failure Permanent atrial fibrillation controlled rate Severe pulmonary hypertension End-stage renal disease on peritoneal dialysis Moderate mitral regurgitation Plan: Resume patient's home cardiac medications No further cardiac workup at this time. Continue treatment for influenza A No need to repeat echocardiogram Cardiology will sign off this case and follow on an as-needed basis. Please reconsult for any new concerns. Patient may follow-up in the office in one to 2 weeks. Thank you kindly for this consultation. Nurse practitioner note has been reviewed, I agree with documented findings and plan of care. Patient was seen and examined. Past Medical History Past Medical History: Atrial Fibrillation, Blood Disorder, Chest Pain / Angina, Heart Failure, Diabetes Mellitus, Hypertension, Mitral Valve Prolapse (MVP), Osteoarthritis (OA), Renal Disease Additional Past Medical History / Comment(s): LOW IRON, BACK AND HIP PAIN, USING CANE. STAGE 4 KIDNEY DISEASE,Valvular heart disease. History of Any Multi-Drug Resistant Organisms: None Reported Past Surgical History: Orthopedic Surgery, Tubal Ligation Additional Past Surgical History / Comment(s): COLONOSCOPY, EGD., TRH. RIGHT HIP REPLACEMENT. bilat CATARACT SURGERY Past Anesthesia/Blood Transfusion Reactions: No Reported Reaction Smoking Status: Never smoker - Past Family History Mother Family Medical History: Cancer Additional Family Medical History / Comment(s): SKIN CANCER, stroke Father Family Medical History: CVA/TIA Medications and Allergies Home Medications Medication Instructions Recorded Confirmed Type Warfarin [Coumadin] 2.5 tab PO MOTUWEFRSA@2100 12/16/18 03/25/24 History Pravastatin Sodium [Pravachol] 10 mg PO 09/14/21 03/25/24 History Metoprolol Succinate (ER) [Toprol 25 mg PO DAILY 09/22/22 03/25/24 History XL] Warfarin [Coumadin] 5 mg PO SUTH@2100 05/09/23 03/25/24 History Folic Acid 1.6 mg PO DAILY 05/14/23 03/25/24 History Torsemide [Demadex] 40 mg PO BID 30 Days #120 tablet 05/20/23 03/25/24 Rx Albuterol Sulfate [Albuterol 1 puff PO RT-Q4H PRN 03/25/24 03/25/24 History Sulfate Hfa] Glucagon [Gvoke Pfs 1-Pack Syringe] 1 mg SQ DIRECTED PRN 03/25/24 03/25/24 History Insulin Aspart (Niacinamide) 5 units SQ AC-BID 03/25/24 03/25/24 History [Fiasp 100 Unit/ml Flextouch Pen] Insulin Degludec [Tresiba 15 units SQ HS 03/25/24 03/25/24 History Flextouch U-200 Pen] Insulin NPH Human Isophane 10 units SQ HS 03/25/24 03/25/24 History [NovoLIN N Flexpen] Ipratropium-Albuterol Nebulize 3 ml INHALATION RT-TID 03/25/24 03/25/24 History [Duoneb 0.5 mg-3 mg/3 ml Soln] Renaplex-D 1 tab PO DAILY 03/25/24 03/25/24 History Sevelamer [Renvela] 2,400 mg PO TID-W/MEALS 03/25/24 03/25/24 History Allergies Allergy/AdvReac Type Severity Reaction Status Date / Time ciprofloxacin [From Cipro] Allergy Unknown Itching, Verified 03/25/24 15:01 Rash codeine Allergy Itching Verified 03/25/24 15:01 Physical Exam Vitals: Vital Signs Temp Pulse Pulse Resp BP BP Pulse Ox 03/26/24 05:00 97.9 F 89 16 109/61 99 03/26/24 04:00 97.9 F 94 16 114/78 100 03/26/24 02:01 97.5 F L 85 16 111/68 99 03/26/24 00:00 97.6 F 86 18 93/58 96 03/25/24 23:41 98.4 F 86 20 107/61 100 03/25/24 21:56 98.4 F 86 18 107/61 100 03/25/24 19:50 97.7 F 80 14 124/64 99 03/25/24 15:00 89 22 118/70 97 03/25/24 14:30 71 20 103/60 97 03/25/24 14:00 81 26 H 114/67 100 03/25/24 13:30 88 13 100/80 100 03/25/24 13:15 86 14 86/71 94 L 03/25/24 13:00 87 14 99/62 98 03/25/24 12:45 87 20 111/72 98 03/25/24 11:47 97.6 F 57 L 24 115/73 98 Intake and Output 03/25/24 03/26/24 03/26/24 22:59 06:59 14:59 Intake Total 640 118 Output Total 100 Balance 540 118 Intake: Intake, IV Titration 100 Amount Sodium Chloride 0.9% 1, 100 000 ml @ 50 mls/hr IV . Q20H [facility] Rx#:[id number] Oral 540 118 Output: Urine 100 Other: Voiding Method External Catheter External Catheter # Voids 2 Weight 59.874 kg Results 03/26/24 05:45 03/26/24 05:45 Cardiac Enzymes 03/25/24 03/25/24 03/26/24 Range/Units 12:14 12:14 05:45 AST 34 32 (14-36) U/L Troponin I 0.051 H* (0.000-0.034) ng/mL 03/26/24 Range/Units 07:34 AST (14-36) U/L Troponin I 0.062 H* (0.000-0.034) ng/mL Coagulation 03/25/24 03/26/24 Range/Units 12:14 05:45 PT 21.4 H 25.2 H (10.0-12.5) sec APTT 26.0 (22.0-30.0) sec CBC 03/25/24 03/26/24 Range/Units 12:14 05:45 WBC 25.0 H 17.4 H (3.8-10.6) k/uL RBC 4.40 3.92 (3.80-5.40) m/uL Hgb 14.0 12.7 (11.4-16.0) gm/dL Hct 41.5 38.0 (34.0-46.0) % Plt Count 275 246 (150-450) k/uL Comprehensive Metabolic Panel 03/25/24 03/26/24 Range/Units 12:14 05:45 Sodium 125 L 126 L (137-145) mmol/L Potassium 3.7 3.2 L (3.5-5.1) mmol/L Chloride 87 L 91 L (98-107) mmol/L Carbon Dioxide 27 25 (22-30) mmol/L BUN 69 H 57 H (7-17) mg/dL Creatinine 3.75 H 3.29 H (0.52-1.04) mg/dL Glucose 133 H 209 H (74-99) mg/dL Calcium 8.1 L 7.7 L (8.4-10.2) mg/dL AST 34 32 (14-36) U/L ALT 34 30 (4-34) U/L Alkaline Phosphatase 87 72 (38-126) U/L Total Protein 6.0 L 5.4 L (6.3-8.2) g/dL Albumin 2.9 L 2.5 L (3.5-5.0) g/dL Current Medications Generic Name Dose Route Start Last Admin Trade Name Freq PRN Reason Stop Dose Admin Acetaminophen 650 mg 03/25/24 23:30 Acetaminophen Tab 325 Mg Tab PO Q6HR PRN Fever and/ or Pain Benzonatate 200 mg 03/25/24 23:31 03/26/24 00:06 Benzonatate 100 Mg Cap PO 200 mg TID PRN Administration Cough Folic Acid 1.5 mg 03/26/24 09:00 03/26/24 07:58 Folic Acid 1 Mg Tab PO 1.5 mg DAILY DOROTHY Administration Glucagon 1 mg 03/25/24 20:12 Glucagon 1 Mg/Ml Vial SQ DAILY PRN LOW BLOOD SUGAR Sodium Chloride 1,000 mls @ 50 mls/hr 03/25/24 15:00 03/25/24 17:26 Saline 0.9% IV 50 mls/hr .Q20H DOROTHY Administration Peritoneal Dialysis Solution 50 g in 2,000 mls @ 0 mls/hr 03/25/24 20:00 03/26/24 08:09 Delflex With 2.5% Dextrose (2,000 Ml) INTRAPERIT 2,000 mls/hr Q4HR DOROTHY Administration Protocol As Directed Piperacillin Sod/Tazobactam 100 mls @ 200 mls/hr 03/26/24 08:46 Sod 3.375 gm/ Sodium Chloride IVPB 03/26/24 09:15 ONCE STA Protocol Insulin Aspart 5 unit 03/26/24 07:30 03/26/24 07:02 Insulin Aspart (Novolog) 100 Unit/Ml Vial SQ 5 unit AC-BID DOROTHY Administration Iopamidol 30 ml 03/26/24 08:43 Iopamidol Contrast (Oral Use) Vial PO 03/27/24 08:[address] Scan Metoprolol Succinate 25 mg 03/26/24 09:00 03/26/24 07:58 Metoprolol Succinate (Er) 25 Mg Tab.Er.24h PO 25 mg DAILY DOROTHY Administration Miscellaneous Information 1 each 03/25/24 21:31 Warfarin Per Pharmacy MISCELLANE DIRECTED PRN Per Protocol Protocol Naloxone HCl 0.2 mg 03/25/24 14:47 Naloxone 0.4 Mg/Ml 1 Ml Vial IV Q2M PRN Opioid Reversal Ondansetron HCl 4 mg 03/25/24 23:31 Ondansetron 4 Mg/2 Ml Vial IVP Q6HR PRN Nausea And Vomiting Pravastatin Sodium 10 mg 03/25/24 21:00 03/25/24 21:19 Pravastatin Sodium 20 Mg Tab PO 10 mg HS DOROTHY Administration Sevelamer Carbonate 2,400 mg 03/26/24 07:30 03/26/24 07:02 Sevelamer 800 Mg Tab PO 2,400 mg TID-W/MEALS DOROTHY Administration Warfarin Sodium 2.5 mg 03/26/24 18:00 Warfarin 2.5 Mg Tab PO 03/26/24 18:01 ONCE@1800 ONE Intake and Output 03/25/24 03/26/24 03/26/24 22:59 06:59 14:59 Intake Total 640 118 Output Total 100 Balance 540 118 Intake: Intake, IV Titration 100 Amount Sodium Chloride 0.9% 1, 100 000 ml @ 50 mls/hr IV . Q20H DOROTHY Rx#:[id number] Oral 540 118 Output: Urine 100 Other: Voiding Method External Catheter External Catheter # Voids 2 Weight 59.874 kg 03/26/24 05:45 03/26/24 05:45
--- NOTE | 2024-03-26 15:30 | P.GSCN ---
History of Present Illness Consult date: 03/26/24 History of present illness: CHIEF COMPLAINT: Not feeling well, weakness HISTORY OF PRESENT ILLNESS: This is a 78-year-old female who presented the hospital with not feeling well and cough. She has been found to have influenza A positive. Patient has end-stage renal disease and is on peritoneal dialysis. Patient had abdominal pain during the inflow of fluid during the peritoneal dialysis. Nursing staff adjusted the rate and patient's abdominal pain resolved. The fluid was not not cloudy per family member at bedside. Patient has had no further abdominal pain. Initially medicine service did order a CAT scan with oral contrast. Patient did not want to take the oral contrast and CAT scan was discontinued. She has tolerated diet today. No nausea or vomiting reported. And she has had bowel movements. Patient is on Coumadin for her atrial fibrillation. She denies any fevers. PAST MEDICAL HISTORY: See below PAST SURGICAL HISTORY: See below MEDICATIONS: See below ALLERGIES: See below SOCIAL HISTORY: No illicit drug use. REVIEW OF SYSTEMS: CONSTITUTIONAL: Denies fever or chills. HEENT: Denies blurred vision, vision changes, or eye pain. Denies hemoptysis CARDIOVASCULAR: Denies chest pain or pressure. RESPIRATORY: No shortness of breath. GASTROINTESTINAL: See HPI for pertinent findings HEMATOLOGIC: Denies bleeding disorders. GENITOURINARY: Denies any blood in urine or increased urinary frequency. SKIN: Denies pruitis. Denies rash. PHYSICAL EXAM: VITAL SIGNS: Reviewed GENERAL: Well-developed in no acute distress. ABDOMEN: Soft. Nondistended. Nontender. No rebound. No guarding. Peritoneal dialysis catheter site is clean dry and intact. No signs of peritonitis NEUROLOGIC: Alert and oriented. Cranial nerves II through XII grossly intact. LABORATORY DATA: WBC 25 down to 17.4 Hgb 12.7 platelets 246 INR 2.5 sodium 126 potassium 3.2 creatinine 3.29 Influenza A detected IMAGING: Chest x-ray borderline cardiomegaly and diffuse interstitial density. Correlate for pulmonary vascular congestion versus atypical pneumonias ASSESSMENT: 1. Influenza A positive with cough and weakness 2. Abdominal pain likely due to inflow of peritoneal dialysis fluid. Now resolved PLAN: -Continue to monitor -Continue regular diet -Follow-up on peritoneal fluid culture -Continue supportive care for influenza Physician Plating Foreman note has been reviewed by physician. Signing provider agrees with the documented findings, assessment, and plan of care. Past Medical History Past Medical History: Atrial Fibrillation, Blood Disorder, Chest Pain / Angina, Heart Failure, Diabetes Mellitus, Hypertension, Mitral Valve Prolapse (MVP), Osteoarthritis (OA), Renal Disease Additional Past Medical History / Comment(s): LOW IRON, BACK AND HIP PAIN, USING CANE. STAGE 4 KIDNEY DISEASE,Valvular heart disease. History of Any Multi-Drug Resistant Organisms: None Reported Past Surgical History: Orthopedic Surgery, Tubal Ligation Additional Past Surgical History / Comment(s): COLONOSCOPY, EGD., TRH. RIGHT HIP REPLACEMENT. bilat CATARACT SURGERY Past Anesthesia/Blood Transfusion Reactions: No Reported Reaction Smoking Status: Never smoker - Past Family History Mother Family Medical History: Cancer Additional Family Medical History / Comment(s): SKIN CANCER, stroke Father Family Medical History: CVA/TIA Medications and Allergies Home Medications Medication Instructions Recorded Confirmed Type Warfarin [Coumadin] 2.5 tab PO MOTUWEFRSA@209912/16/18 03/25/24 History Pravastatin Sodium [Pravachol] 10 mg PO HS 09/14/21 03/25/24 History Metoprolol Succinate (ER) [Toprol 25 mg PO DAILY 09/22/22 03/25/24 History XL] Warfarin [Coumadin] 5 mg PO SUTH@209905/09/23 03/25/24 History Folic Acid 1.6 mg PO DAILY 05/14/23 03/25/24 History Torsemide [Demadex] 40 mg PO BID 30 Days #120 tablet 05/20/23 03/25/24 Rx Albuterol Sulfate [Albuterol 1 puff PO RT-Q4H PRN 03/25/24 03/25/24 History Sulfate Hfa] Glucagon [Gvoke Pfs 1-Pack Syringe] 1 mg SQ DIRECTED PRN 03/25/24 03/25/24 History Insulin Aspart (Niacinamide) 5 units SQ AC-BID 03/25/24 03/25/24 History [Fiasp 100 Unit/ml Flextouch Pen] Insulin Degludec [Tresiba 15 units SQ HS 03/25/24 03/25/24 History Flextouch U-200 Pen] Insulin NPH Human Isophane 10 units SQ HS 03/25/24 03/25/24 History [NovoLIN N Flexpen] Ipratropium-Albuterol Nebulize 3 ml INHALATION RT-TID 03/25/24 03/25/24 History [Duoneb 0.5 mg-3 mg/3 ml Soln] Renaplex-D 1 tab PO DAILY 03/25/24 03/25/24 History Sevelamer [Renvela] 2,400 mg PO TID-W/MEALS 03/25/24 03/25/24 History Allergies Allergy/AdvReac Type Severity Reaction Status Date / Time ciprofloxacin [From Cipro] Allergy Unknown Itching, Verified 03/25/24 15:01 Rash codeine Allergy Itching Verified 03/25/24 15:01 Surgical - Exam Vital Signs Temp Pulse Resp BP Pulse Ox 97.6 F 57 L 24 115/73 98 03/25/24 11:47 03/25/24 11:47 03/25/24 11:47 03/25/24 11:47 03/25/24 11:47 Results - Labs 03/26/24 05:45 03/26/24 05:45 Abnormal Lab Results - Last 24 Hours (Table) 03/25/24 03/26/24 03/26/24 Range/Units 22:35 05:45 05:45 WBC 17.4 H (3.8-10.6) k/uL Neutrophils # 14.3 H (1.3-7.7) k/uL Monocytes # 1.3 H (0-1.0) k/uL PT (10.0-12.5) sec INR (<1.2) Sodium 126 L (137-145) mmol/L Potassium 3.2 L (3.5-5.1) mmol/L Chloride 91 L (98-107) mmol/L BUN 57 H (7-17) mg/dL Creatinine 3.29 H (0.52-1.04) mg/dL Glucose 209 H (74-99) mg/dL POC Glucose (mg/dL) (70-110) mg/dL Calcium 7.7 L (8.4-10.2) mg/dL Troponin I (0.000-0.034) ng/mL C-Reactive Protein 1.6 H (<1.0) mg/dL Total Protein 5.4 L (6.3-8.2) g/dL Albumin 2.5 L (3.5-5.0) g/dL Urine Appearance Cloudy H (Clear) Urine Protein Trace H (Negative) Urine Blood Trace H (Negative) Ur Squamous Epith Cells 14 H (0-4) /hpf Urine Bacteria Many H (None) /hpf Urine Mucus Rare H (None) /hpf 03/26/24 03/26/24 03/26/24 Range/Units 05:45 06:47 07:34 WBC (3.8-10.6) k/uL Neutrophils # (1.3-7.7) k/uL Monocytes # (0-1.0) k/uL PT 25.2 H (10.0-12.5) sec INR 2.5 H (<1.2) Sodium (137-145) mmol/L Potassium (3.5-5.1) mmol/L Chloride (98-107) mmol/L BUN (7-17) mg/dL Creatinine (0.52-1.04) mg/dL Glucose (74-99) mg/dL POC Glucose (mg/dL) 218 H (70-110) mg/dL Calcium (8.4-10.2) mg/dL Troponin I 0.062 H* (0.000-0.034) ng/mL C-Reactive Protein (<1.0) mg/dL Total Protein (6.3-8.2) g/dL Albumin (3.5-5.0) g/dL Urine Appearance (Clear) Urine Protein (Negative) Urine Blood (Negative) Ur Squamous Epith Cells (0-4) /hpf Urine Bacteria (None) /hpf Urine Mucus (None) /hpf 03/26/24 Range/Units 11:47 WBC (3.8-10.6) k/uL Neutrophils # (1.3-7.7) k/uL Monocytes # (0-1.0) k/uL PT (10.0-12.5) sec INR (<1.2) Sodium (137-145) mmol/L Potassium (3.5-5.1) mmol/L Chloride (98-107) mmol/L BUN (7-17) mg/dL Creatinine (0.52-1.04) mg/dL Glucose (74-99) mg/dL POC Glucose (mg/dL) 148 H (70-110) mg/dL Calcium (8.4-10.2) mg/dL Troponin I (0.000-0.034) ng/mL C-Reactive Protein (<1.0) mg/dL Total Protein (6.3-8.2) g/dL Albumin (3.5-5.0) g/dL Urine Appearance (Clear) Urine Protein (Negative) Urine Blood (Negative) Ur Squamous Epith Cells (0-4) /hpf Urine Bacteria (None) /hpf Urine Mucus (None) /hpf Diabetes panel 03/26/24 Range/Units 05:45 Sodium 126 L (137-145) mmol/L Potassium 3.2 L (3.5-5.1) mmol/L Chloride 91 L (98-107) mmol/L Carbon Dioxide 25 (22-30) mmol/L BUN 57 H (7-17) mg/dL Creatinine 3.29 H (0.52-1.04) mg/dL Glucose 209 H (74-99) mg/dL Calcium 7.7 L (8.4-10.2) mg/dL AST 32 (14-36) U/L ALT 30 (4-34) U/L Alkaline Phosphatase 72 (38-126) U/L Total Protein 5.4 L (6.3-8.2) g/dL Albumin 2.5 L (3.5-5.0) g/dL Calcium panel 03/26/24 Range/Units 05:45 Calcium 7.7 L (8.4-10.2) mg/dL Phosphorus 4.5 (2.5-4.5) mg/dL Albumin 2.5 L (3.5-5.0) g/dL Pituitary panel 03/26/24 Range/Units 05:45 Sodium 126 L (137-145) mmol/L Potassium 3.2 L (3.5-5.1) mmol/L Chloride 91 L (98-107) mmol/L Carbon Dioxide 25 (22-30) mmol/L BUN 57 H (7-17) mg/dL Creatinine 3.29 H (0.52-1.04) mg/dL Glucose 209 H (74-99) mg/dL Calcium 7.7 L (8.4-10.2) mg/dL Adrenal panel 03/26/24 Range/Units 05:45 Sodium 126 L (137-145) mmol/L Potassium 3.2 L (3.5-5.1) mmol/L Chloride 91 L (98-107) mmol/L Carbon Dioxide 25 (22-30) mmol/L BUN 57 H (7-17) mg/dL Creatinine 3.29 H (0.52-1.04) mg/dL Glucose 209 H (74-99) mg/dL Calcium 7.7 L (8.4-10.2) mg/dL Total Bilirubin 0.7 (0.2-1.3) mg/dL AST 32 (14-36) U/L ALT 30 (4-34) U/L Alkaline Phosphatase 72 (38-126) U/L Total Protein 5.4 L (6.3-8.2) g/dL Albumin 2.5 L (3.5-5.0) g/dL
--- NOTE | 2024-03-26 16:23 | P.NPCON ---
History of Present Illness - Reason for Consult end stage renal disease - History of Present Illness Patient is an 78-year-old female with end-stage renal disease maintained on peritoneal dialysis. She is admitted to the hospital with complaints of weakness, headache and feeling poorly. She was treated recently with Tamiflu as outpatient. Patient also received outpatient antibiotics and steroids. She follows with pulmonology. Tested positive for influenza A. Patient complaint of abdominal pain. She states her fluid has been clear. The abdominal pain is usually associated with PD exchange when the fluid does not warmed. No complaints of diarrhea or vomiting Past Medical History Past Medical History: Atrial Fibrillation, Blood Disorder, Chest Pain / Angina, Heart Failure, Diabetes Mellitus, Hypertension, Mitral Valve Prolapse (MVP), Osteoarthritis (OA), Renal Disease Additional Past Medical History / Comment(s): LOW IRON, BACK AND HIP PAIN, USING CANE. STAGE 4 KIDNEY DISEASE,Valvular heart disease. History of Any Multi-Drug Resistant Organisms: None Reported Past Surgical History: Orthopedic Surgery, Tubal Ligation Additional Past Surgical History / Comment(s): COLONOSCOPY, EGD., TRH. RIGHT HIP REPLACEMENT. bilat CATARACT SURGERY Past Anesthesia/Blood Transfusion Reactions: No Reported Reaction Smoking Status: Never smoker - Past Family History Mother Family Medical History: Cancer Additional Family Medical History / Comment(s): SKIN CANCER, stroke Father Family Medical History: CVA/TIA Medications and Allergies Home Medications Medication Instructions Recorded Confirmed Type Warfarin [Coumadin] 2.5 tab PO MOTUWEFRSA@209912/16/18 03/25/24 History Pravastatin Sodium [Pravachol] 10 mg PO HS 09/14/21 03/25/24 History Metoprolol Succinate (ER) [Toprol 25 mg PO DAILY 09/22/22 03/25/24 History XL] Warfarin [Coumadin] 5 mg PO SUTH@2100 05/09/23 03/25/24 History Folic Acid 1.6 mg PO DAILY 05/14/23 03/25/24 History Torsemide [Demadex] 40 mg PO BID 30 Days #120 tablet 05/20/23 03/25/24 Rx Albuterol Sulfate [Albuterol 1 puff PO RT-Q4H PRN 03/25/24 03/25/24 History Sulfate Hfa] Glucagon [Gvoke Pfs 1-Pack Syringe] 1 mg SQ DIRECTED PRN 03/25/24 03/25/24 History Insulin Aspart (Niacinamide) 5 units SQ AC-BID 03/25/24 03/25/24 History [Fiasp 100 Unit/ml Flextouch Pen] Insulin Degludec [Tresiba 15 units SQ HS 03/25/24 03/25/24 History Flextouch U-200 Pen] Insulin NPH Human Isophane 10 units SQ HS 03/25/24 03/25/24 History [NovoLIN N Flexpen] Ipratropium-Albuterol Nebulize 3 ml INHALATION RT-TID 03/25/24 03/25/24 History [Duoneb 0.5 mg-3 mg/3 ml Soln] Renaplex-D 1 tab PO DAILY 03/25/24 03/25/24 History Sevelamer [Renvela] 2,400 mg PO TID-W/MEALS 03/25/24 03/25/24 History Allergies Allergy/AdvReac Type Severity Reaction Status Date / Time ciprofloxacin [From Cipro] Allergy Unknown Itching, Verified 03/25/24 15:01 Rash codeine Allergy Itching Verified 03/25/24 15:01 Physical Exam Vitals: Vital Signs Temp Pulse Pulse Resp BP BP Pulse Ox 03/26/24 13:44 97.5 F L 99 16 90/61 96 03/26/24 12:00 97.5 F L 99 16 90/61 96 03/26/24 08:00 97.8 F 71 16 117/69 96 03/26/24 05:00 97.9 F 89 16 109/61 99 03/26/24 04:00 97.9 F 94 16 114/78 100 03/26/24 02:01 97.5 F L 85 16 111/68 99 03/26/24 00:00 97.6 F 86 18 93/58 96 03/25/24 23:41 98.4 F 86 20 107/61 100 03/25/24 21:56 98.4 F 86 18 107/61 100 03/25/24 19:50 97.7 F 80 14 124/64 99 Intake and Output 03/26/24 03/26/24 03/26/24 06:59 14:59 22:59 Intake Total 640 118 Output Total 100 Balance 540 118 Intake: Intake, IV Titration 100 Amount Sodium Chloride 0.9% 1, 100 000 ml @ 50 mls/hr IV . Q20H [facility] Rx#:[id number] Oral 540 118 Output: Urine 100 Other: Voiding Method External Catheter # Voids 2 Patient is awake, comfortable, no acute distress Examination of the heart S1 and S2 Examination of the lungs shows decreased breath sounds at the bases Abdomen is soft nontender Examination of lower extremities shows trace edema bilaterally HYPERION ADMINISTRATOR exam grossly intact Results - Lab Results Most recent lab results Calcium 7.7 mg/dL (8.4-10.2) L 03/26/24 05:45 Phosphorus 4.5 mg/dL (2.5-4.5) 03/26/24 05:45 Magnesium 1.9 mg/dL (1.6-2.3) 03/26/24 05:45 03/26/24 05:45 03/26/24 05:45 Assessment and Plan Assessment: 1. End-stage renal disease maintained on peritoneal dialysis. It appears that patient is a rapid transporter and usually requires short exchanges. It appears her volume status worsens with fluid retention if CAPD fluid dwells too long. 2. Influenza A infection 3. History of CHF and cardiomyopathy with EF of 40% 4. Abdominal pain which seems to have improved. PD fluid will be sent out to rule out peritonitis. Plan: Patient has not had significant UF earlier but noted to have about a liter of UF for the last 2 exchanges. PD fluid will be changed to 1.5% solution for now. We will continue to monitor volume status. Decrease IV fluids Continue with phosphate binders. Next Thank you for the consultation. We will continue to follow the patient with you during her hospitalization.
[2024-03-26] MEDS: WARFARIN 2.5 MG TAB PO ONE (16:31)
[2024-03-26 16:32] LABS: Glucose,Whole Blood 368 mg/dL (70-110)
[2024-03-26] MEDS: ACETAMINOPHEN TAB 325 MG TAB PO PRN (16:37)
--- NOTE | 2024-03-26 16:54 | P.CNPUL ---
History of Present Illness Consult date: 03/26/24 Requesting physician: Darrell Hope Reason for consult: dyspnea, hypoxemia, abnormal CXR/CT Chief complaint: Shortness of breath. History of present illness: Pulmonary consult dated March 26, 2024. 78-year-old female who presented to the hospital, on March 25, 2024, complaining of weakness, shortness of breath, dizziness, and lightheadedness. She has not been feeling well for about 2 weeks. The patient has a history of renal disease, on peritoneal dialysis, atrial fibrillation, valvular heart disease, vocal cord paralysis, diabetes, and hyperlipidemia. The patient is seen today in room 362. She was admitted with a diagnosis of influenza, and she had a procalcitonin level of 0.18. She is currently on 2 L of oxygen. Her primary care provider is Dr. Okeefe. 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 The patient is seen in room 362. She is on 2 L of oxygen. She is getting salin e at 50 cc an hour. She looks quite comfortable. Family members in the room with the patient, who gives most of the history. Laboratory data includes a white count of 17.4, hemoglobin 12.7, hematocrit 38, and a platelet count of 246,000. PT is 25.2 with an INR of 2.5. Sodium 126, potassium 3.2, chlorides 91, CO2 25, anion gap 10, BUN 57, and creatinine 3.29. Patient's calcium is 7.7. Troponin 0.062. N-terminal proBNP was 7070. Troponins were 0.051 and 0.062. Both procalcitonin levels that were done, were in the normal range. Procalcitonin level is 0.18. Chest x-ray shows borderline cardiomegaly, and a diffuse interstitial pattern, which may relate to interstitial edema, or atypic al pneumonia. Review of Systems REVIEW OF SYSTEMS: CONSTITUTIONAL: Weakness, dizziness, and lightheadedness. NEUROLOGIC: [ Negative.] HEENT: [ Negative.] CARDIAC: [Negative.] PULMONARY: Shortness of breath. GI: [Negative.] : [Negative.] RHEUMATOLOGIC: [ Negative.] IMMUNOLOGIC: [ Negative.] ENDOCRINE: [Negative. ] DERMATOLOGIC: [Negative.] Past Medical History Past Medical History: Atrial Fibrillation, Blood Disorder, Chest Pain / Angina, Heart Failure, Diabetes Mellitus, Hypertension, Mitral Valve Prolapse (MVP), O steoarthritis (OA), Renal Disease Additional Past Medical History / Comment(s): LOW IRON, BACK AND HIP PAIN, USING CANE. STAGE 4 KIDNEY DISEASE,Valvular heart disease. History of Any Multi-Drug Resistant Organisms: None Reported Past Surgical History: Orthopedic Surgery, Tubal Ligation Additional Past Surgical History / Comment(s): COLONOSCOPY, EGD., TRH. RIGHT HIP REPLACEMENT. bilat CATARACT SURGERY Past Anesthesia/Blood Transfusion Reactions: No Reported Reaction Smoking Status: Never smoker - Past Family History Mother Family Medical History: Cancer Additional Family Medical History / Comment(s): SKIN CANCER, stroke Father Family Medical History: CVA/TIA Medications and Allergies Home Medications Medication Instructions Recorded Confirmed Type Warfarin [Coumadin] 2.5 tab PO MOTUWEFRSA@209912/16/18 03/25/24 History Pravastatin Sodium [Pravachol] 10 mg PO HS 09/14/21 03/25/24 History Metoprolol Succinate (ER) [Toprol 25 mg PO DAILY 09/22/22 03/25/24 History XL] Warfarin [Coumadin] 5 mg PO SUTH@209905/09/23 03/25/24 History Folic Acid 1.6 mg PO DAILY 05/14/23 03/25/24 History Torsemide [Demadex] 40 mg PO BID 30 Days #120 tablet 05/20/23 03/25/24 Rx Albuterol Sulfate [Albuterol 1 puff PO RT-Q4H PRN 03/25/24 03/25/24 History Sulfate Hfa] Glucagon [Gvoke Pfs 1-Pack Syringe] 1 mg SQ DIRECTED PRN 03/25/24 03/25/24 History Insulin Aspart (Niacinamide) 5 units SQ AC-BID 03/25/24 03/25/24 History [Fiasp 100 Unit/ml Flextouch Pen] Insulin Degludec [Tresiba 15 units SQ HS 03/25/24 03/25/24 History Flextouch U-200 Pen] Insulin NPH Human Isophane 10 units SQ HS 03/25/24 03/25/24 History [NovoLIN N Flexpen] Ipratropium-Albuterol Nebulize 3 ml INHALATION RT-TID 03/25/24 03/25/24 History [Duoneb 0.5 mg-3 mg/3 ml Soln] Renaplex-D 1 tab PO DAILY 03/25/24 03/25/24 History Sevelamer [Renvela] 2,400 mg PO TID-W/MEALS 03/25/24 03/25/24 History Allergies Allergy/AdvReac Type Severity Reaction Status Date / Time ciprofloxacin [From Cipro] Allergy Unknown Itching, Verified 03/25/24 15:01 Rash codeine Allergy Itching Verified 03/25/24 15:01 Physical Exam Osteopathic Statement: *. No significant issues noted on an osteopathic structural exam other than those noted in the History and Physical/Consult. Vitals: Vital Signs Temp Pulse Pulse Resp BP BP Pulse Ox 03/26/24 16:28 87 16 93/42 95 03/26/24 13:44 97.5 F L 99 16 90/61 96 03/26/24 12:00 97.5 F L 99 16 90/61 96 03/26/24 08:00 97.8 F 71 16 117/69 96 03/26/24 05:00 97.9 F 89 16 109/61 99 03/26/24 04:00 97.9 F 94 16 114/78 100 03/26/24 02:01 97.5 F L 85 16 111/68 99 03/26/24 00:00 97.6 F 86 18 93/58 96 03/25/24 23:41 98.4 F 86 20 107/61 100 03/25/24 21:56 98.4 F 86 18 107/61 100 03/25/24 19:50 97.7 F 80 14 124/64 99 Intake and Output 03/26/24 03/26/24 03/26/24 06:59 14:59 22:59 Intake Total 640 128 540 Output Total 100 200 Balance 540 128 340 Intake: IV 10 Invasive Line 1 10 Intake, IV Titration 100 Amount Sodium Chloride 0.9% 1, 100 000 ml @ 50 mls/hr IV . Q20H [facility] Rx#:[id number] Oral 540 118 540 Output: Urine 100 200 Other: Voiding Method External Catheter # Voids 2 No acute distress, oriented 3. Currently on 2 L of oxygen. No respiratory distress, or conversational dyspnea. HEENT examination is grossly unremarkable. Mucous membranes are moist. No oral lesions. Neck supple. Full range of motion. No adenopathy thyromegaly or neck vein distention. Cardiovascular examination reveals an irregular rhythm and rate. S1-S2 normal. No S3 or S4. No discernible murmur noted. Lungs reveal scattered crackles. No rhonchi or wheezes. Breath sounds are equal. Abdomen soft bowel sounds are heard. No masses or tenderness. Extremities are intact. No cyanosis clubbing or edema. Skin is without rash or lesion. Neurologic examination is brief but nonfocal. Results - Laboratory Findings CBC and BMP: 03/26/24 05:45 03/26/24 05:45 PT/INR, D-dimer PT 25.2 sec (10.0-12.5) H 03/26/24 05:45 INR 2.5 (<1.2) H 03/26/24 05:45 Abnormal lab findings: Abnormal Labs 03/25/24 03/25/24 03/25/24 12:14 12:14 12:14 WBC 25.0 H Neutrophils # 22.0 H Monocytes # 1.3 H PT 21.4 H INR 2.1 H Sodium 125 L Potassium Chloride 87 L BUN 69 H Creatinine 3.75 H Glucose 133 H POC Glucose (mg/dL) Calcium 8.1 L Troponin I C-Reactive Protein Total Protein 6.0 L Albumin 2.9 L Urine Appearance Urine Protein Urine Blood Ur Squamous Epith Cells Urine Bacteria Urine Mucus Influenza Type A (PCR) 03/25/24 03/25/24 03/25/24 12:14 12:20 22:35 WBC Neutrophils # Monocytes # PT INR Sodium Potassium Chloride BUN Creatinine Glucose POC Glucose (mg/dL) Calcium Troponin I 0.051 H* C-Reactive Protein Total Protein Albumin Urine Appearance Cloudy H Urine Protein Trace H Urine Blood Trace H Ur Squamous Epith Cells 14 H Urine Bacteria Many H Urine Mucus Rare H Influenza Type A (PCR) Detected A 03/26/24 03/26/24 03/26/24 05:45 05:45 05:45 WBC 17.4 H Neutrophils # 14.3 H Monocytes # 1.3 H PT 25.2 H INR 2.5 H Sodium 126 L Potassium 3.2 L Chloride 91 L BUN 57 H Creatinine 3.29 H Glucose 209 H POC Glucose (mg/dL) Calcium 7.7 L Troponin I C-Reactive Protein 1.6 H Total Protein 5.4 L Albumin 2.5 L Urine Appearance Urine Protein Urine Blood Ur Squamous Epith Cells Urine Bacteria Urine Mucus Influenza Type A (PCR) 03/26/24 03/26/24 03/26/24 06:47 07:34 11:47 WBC Neutrophils # Monocytes # PT INR Sodium Potassium Chloride BUN Creatinine Glucose POC Glucose (mg/dL) 218 H 148 H Calcium Troponin I 0.062 H* C-Reactive Protein Total Protein Albumin Urine Appearance Urine Protein Urine Blood Ur Squamous Epith Cells Urine Bacteria Urine Mucus Influenza Type A (PCR) 03/26/24 16:31 WBC Neutrophils # Monocytes # PT INR Sodium Potassium Chloride BUN Creatinine Glucose POC Glucose (mg/dL) 368 H Calcium Troponin I C-Reactive Protein Total Protein Albumin Urine Appearance Urine Protein Urine Blood Ur Squamous Epith Cells Urine Bacteria Urine Mucus Influenza Type A (PCR) - Diagnostic Findings Chest x-ray: image reviewed Assessment and Plan Assessment: Shortness of breath, likely related to mild interstitial edema, from the patient's history of cardiac disease, as well as her history of chronic renal failure, requiring peritoneal dialysis. In addition, the patient did test positive for influenza, which may be contributing to her symptoms. History of stage IV chronic kidney disease, currently on peritoneal dialysis. History of congestive heart failure. History of hypertension. History of chronic atrial fibrillation. History of valvular heart disease/mitral valve prolapse. History of vocal cord paralysis. History of diabetes mellitus. History of hyperlipidemia. Plan: Plan dated March 26, 2024. The patient is seen today in room 362. She is currently on 2 L. No acute distress. The patient had 2 procalcitonin levels that were both normal. Antibiotic should be discontinued. In addition, the patient has not been feeling well for some time, and I think it would be inappropriate to give her Tamiflu at this time. The patient's pattern, on x-ray, plus her elevated proBNP, which suggest some interstitial edema. Labs, x-rays, and medications are reviewed. Will continue to follow. Prognosis is guarded. The patient has a DO NOT RESUSCITATE patient. Time with Patient: Greater than 30
[2024-03-26] MEDS: POTASSIUM CHLORIDE ER 20 MEQ TAB.ER PO STA (17:22)
[2024-03-26] MEDS: SODIUM CHLORIDE 0.9% 1,000 ML IV SCH (17:23)
--- NOTE | 2024-03-26 19:18 | CA ---
Transthoracic Echo Report Name: Isabel Klein Age: 78 Gender: F : 1945 Exam Date: 03/26/2024 10:11 Exam Location: [facility] Ht (in): 62 Wt (lb): 132 Ordering Physician: Fish Carroll DO Attending/Referring Phys: Linux Consultant Jane Fong RDCS Procedure CPT: Indications: JUSTIN Cardiac Hx: Technical Quality: Fair Contrast 1: Total Dose (mL): Contrast 2: Total Dose (mL): MEASUREMENTS (Male / Female) Normal Values 2D ECHO LV Diastolic Diameter PLAX 3.3 cm 4.2 - 5.9 / 3.9 - 5.3 cm LV Systolic Diameter PLAX 2.4 cm IVS Diastolic Thickness 0.9 cm 0.6 - 1.0 / 0.6 - 0.9 cm LVPW Diastolic Thickness 1.1 cm 0.6 - 1.0 / 0.6 - 0.9 cm LV Relative Wall Thickness 0.6 LVOT Diameter 1.9 cm LV Diastolic Volume MOD BP 45.5 cm??? 67 - 155 / 56 - 104 cm??? LV Systolic Volume MOD BP 21.7 cm??? 22 - 58 / 19 - 49 cm??? LV Ejection Fraction MOD BP 52.2 % >= 55 % LV Cardiac Index MOD BP 1269.8 cm???/min???m??? LV Diastolic Volume MOD 4C 45.7 cm??? LV Systolic Volume MOD 4C 25.1 cm??? LV Ejection Fraction MOD 4C 45.0 % LV Cardiac Index MOD 4C 1098.9 cm???/min???m??? LV Diastolic Length 4C 6.6 cm LV Systolic Length 4C 5.5 cm LV Diastolic Volume MOD 2C 43.7 cm??? LV Systolic Volume MOD 2C 18.4 cm??? LV Ejection Fraction MOD 2C 57.8 % LV Cardiac Index MOD 2C 1350.0 cm???/min???m??? LV Diastolic Length 2C 6.3 cm LV Systolic Length 2C 5.4 cm LA Volume 25.5 cm??? 18 - 58 / 22 - 52 cm??? LA Volume Index 15.6 cm???/m??? 16 - 28 cm???/m??? Ascending Aorta Diameter 3.2 cm DOPPLER AV Peak Velocity 83.3 cm/s AV Peak Gradient 2.8 mmHg AV Mean Velocity 62.9 cm/s AV Mean Gradient 1.7 mmHg AV Velocity Time Integral 13.5 cm LVOT Peak Velocity 67.0 cm/s LVOT Peak Gradient 1.8 mmHg LVOT Velocity Time Integral 9.3 cm LVOT Stroke Volume 26.3 cm??? LVOT Stroke Volume Index 16.4 ml/m??? LVOT Cardiac Index 1405.5 cm???/min???m??? AV Area Cont Eq vti 2.0 cm??? AV Area Cont Eq pk 2.3 cm??? TR Peak Velocity 255.2 cm/s TR Peak Gradient 26.1 mmHg Right Atrial Pressure 5.0 mmHg Pulmonary Artery Systolic Pressu 31.1 mmHg Right Ventricular Systolic Press 31.1 mmHg PV Peak Velocity 61.1 cm/s PV Peak Gradient 1.5 mmHg FINDINGS Left Ventricle Left ventricular ejection fraction is estimated at 40-45 %. Mildly increased posterior wall thickness. Mildly decreased left ventricular ejection fraction. Left ventricular cavity size normal. Mildly reduced global left ventricular systolic function. Right Ventricle Right ventricle not well visualized. Right ventricular systolic pressure within normal limits. Right Atrium Right atrium not well visualized. Left Atrium Normal left atrial size. Mitral Valve Mitral valve thickened. Mitral annular calcification. No evidence for mitral valve prolapse. No mitral stenosis. Mild mitral regurgitation. Aortic Valve Trileaflet aortic valve. Aortic valve sclerosis. No aortic valve stenosis or regurgitation. Tricuspid Valve Structurally normal tricuspid valve. No tricuspid stenosis. Mild tricuspid regurgitation. Pulmonic Valve Structurally normal pulmonic valve. No pulmonic stenosis. No pulmonic regurgitation. Pericardium No pericardial effusion. Aorta Normal size aortic root and proximal ascending aorta. CONCLUSIONS Technically difficult study for interpretation Impaired LV function with EF between 40 to 45% Normal pulmonary artery systolic pressure Aortic sclerosis Mitral annular calcification No pericardial effusion Previewed by: Dr. Loc Chambers MD (Electronically Signed) Final Date: 26 March 2024 19:17
[2024-03-26] MEDS: DIALYSIS (PERIT 1.5%) 2,000 ML 30 G/2,000 ML BAG INTRAPERIT SCH (19:34)
[2024-03-26 20:14] LABS: Glucose,Whole Blood 119 mg/dL (70-110)
[2024-03-26 21:03] LABS: Appearance,BF Clear (Clear)
[2024-03-27 05:34] LABS: Glucose,Whole Blood 174 mg/dL (70-110)
[2024-03-27 06:51] LABS: Glucose,Whole Blood 239 mg/dL (70-110)
[2024-03-27 07:30] LABS: INR 4.6 (<1.2)
--- NOTE | 2024-03-27 10:02 | P.PN ---
Subjective Patient is seen in follow-up for end-stage renal disease. She is maintained on peritoneal dialysis. Currently on room air. No problems with PD exchanges. Denies chest pain or shortness of breath. Oral intake fair. Vital signs are stable. General: No acute distress. HEENT: Head exam is unremarkable. LUNGS: No audible rhonchi or wheezes. HEART: Rate and Rhythm are regular. ABDOMEN: Nontender. EXTREMITITES: No edema. Objective - Vital Signs Vital signs: Vital Signs Temp 97.4 F L 03/27/24 07:53 Pulse 91 03/27/24 07:53 Resp 20 03/27/24 07:53 BP 96/56 03/27/24 07:53 Pulse Ox 98 03/27/24 07:53 FiO2 Intake & Output 03/26/24 03/27/24 03/27/24 18:59 06:59 18:59 Intake Total 668 620 180 Output Total 200 Balance 468 620 180 Weight 63.5 kg Intake: IV 10 20 Invasive Line 1 10 20 Intake, IV Titration 600 Amount Sodium Chloride 0.9% 1, 600 000 ml @ 50 mls/hr IV . Q20H [facility] Rx#:[id number] Oral 658 180 Output: Urine 200 Other: Voiding Method External Catheter # Bowel Movements 1 - Labs CBC & Chem 7: 03/26/24 05:45 03/26/24 05:45 Labs: Abnormal Lab Results - Last 24 Hours (Table) 03/26/24 03/26/24 03/26/24 Range/Units 11:47 16:31 20:12 PT (10.0-12.5) sec INR (<1.2) POC Glucose (mg/dL) 148 H 368 H 119 H (70-110) mg/dL 03/27/24 03/27/24 03/27/24 Range/Units 05:30 06:49 07:00 PT 46.0 H (10.0-12.5) sec INR 4.6 H (<1.2) POC Glucose (mg/dL) 174 H 239 H (70-110) mg/dL Assessment and Plan Plan: Assessment: 1. End-stage renal disease maintained on peritoneal dialysis. 2. Influenza A infection. 3. Hyponatremia secondary to chronic kidney disease. Appears euvolemic. 4. Chronic systolic CHF ejection fraction of 40 to 45%. 5. Hypokalemia from poor intake and PD losses. Replaced. 6. Chronic kidney disease mineral bone disease maintained on Renvela. Plan: Change PD exchanges to 2 L every 6 hours with 1.5% dextrose solution. Check labs in the morning. Maintain gentle IV hydration. Encouraged oral intake.
[2024-03-27] MEDS ORDERED: DEXTROSE 50% SYRINGE 50 ML IVP PRN (10:48)
[2024-03-27 11:10] LABS: Basophils # (A) 0.1 k/uL (0-0.2); Basophils % (A) 1 %; Eosinophils # (A) 0.3 k/uL (0-0.7); Eosinophils % (A) 3 %; HCT 36.5 % (34.0-46.0); HGB 12.3 gm/dL (11.4-16.0); Lymphocytes # (A) 1.3 k/uL (1.0-4.8); Lymphocytes % (A) 10 %; MCH 32.1 pg (25.0-35.0); MCHC 33.6 g/dL (31.0-37.0); MCV 95.4 fL (80.0-100.0); Mean Platelet Volume 8.3; Monocytes # (A) 1.1 k/uL (0-1.0); Monocytes % (A) 8 %; Neutrophils # (A) 10.8 k/uL (1.3-7.7); Neutrophils % (A) 78 %; Platelet Count 271 k/uL (150-450); RBC 3.83 m/uL (3.80-5.40); RDW 12.9 % (11.5-15.5); WBC 13.8 k/uL (3.8-10.6)
[2024-03-27 11:12] LABS: Glucose,Whole Blood 159 mg/dL (70-110)
[2024-03-27 11:24] LABS: African American GFR (CKD) 13 (>60 ml/min/1.73 sqM); Anion Gap 7 mmol/L; Blood Urea Nitrogen 46 mg/dL (7-17); Calcium 7.6 mg/dL (8.4-10.2); Carbon Dioxide 28 mmol/L (22-30); Chloride 94 mmol/L (98-107); Glucose 146 mg/dL (74-99); Non-African American GFR(CKD) 12 (>60 ml/min/1.73 sqM); Sodium 129 mmol/L (137-145)
[2024-03-27] MEDS: INSULIN ASPART (NovoLOG) 100 UNIT/ML VIAL SQ SCH (11:35)
[2024-03-27] MEDS: DIALYSIS (PERIT 1.5%) 2,000 ML 30 G/2,000 ML BAG INTRAPERIT SCH (11:47)
[2024-03-27] MEDS ORDERED: Potassium Replacement Protocol 1 EACH MISC MISCELLANE PRN (12:03)
[2024-03-27] MEDS: POTASSIUM CHLORIDE ER 20 MEQ TAB.ER PO SCH (12:20)
[2024-03-27 16:16] LABS: Glucose,Whole Blood 312 mg/dL (70-110)
[2024-03-27] MEDS: WARFARIN 0.5 MG TAB PO ONE (16:28)
[2024-03-27 20:29] LABS: Glucose,Whole Blood 127 mg/dL (70-110)
--- NOTE | 2024-03-27 20:33 | P.PN ---
Subjective Progress Note Date: 03/27/24 Patient is evaluated in follow-up on the medical floor resting in bed with family at the bedside. She continues to have fatigue some shortness of breath with cough worse when she is up ambulating she is also having decreased appetite but states it is mostly related to meals coming when she is undergoing p eritoneal dialysis. Labs today reveal a white blood cell count of 13.8, sodium level of 129, potassium 3.0, BUN of 46 creatinine 3.50. Echocardiogram reveals an EF of 40 to 45% with normal pulmonary artery systolic pressure technically difficult study for interpretation. Review of Systems Constitutional: Reports fatigue denied any fever. Cardio vascular: denied any chest pain, palpitations Gastrointestinal: denied any nausea, vomiting, diarrhea reports decreased appetite Pulmonary: Denied any shortness of breath reports cough Neurologic denied any new focal deficits reports weakness All inpatient medications were reviewed and appropriate changes in these medications as dictated in the interval history and assessment and plan. PHYSICAL EXAMINATION: GENERAL: The patient is alert and oriented x3, not in any acute distress. Well developed, well nourished. HEENT: Pupils are round and equally reacting to light. EOMI. No scleral icterus. No conjunctival pallor. Normocephalic, atraumatic. No pharyngeal erythema. No thyromegaly. CARDIOVASCULAR: S1 and S2 present. No murmurs, rubs, or gallops. PULMONARY: Lungs are diminished. No wheezing ABDOMEN: Soft, nontender, nondistended, normoactive bowel sounds. No palpable organomegaly. MUSCULOSKELETAL: No joint swelling or deformity. EXTREMITIES: No cyanosis, clubbing, or pedal edema. NEUROLOGICAL: Gross neurological examination did not reveal any focal deficits. SKIN: No rashes. Assessment and plan Acute influenza infection Hyponatremia hypovolemic abd pain and tenderness with some diarrhea, r/u c diff colitis , SBP , intraa bdominal infection , ischemia vs others This is likely due to viral illness /influenza infection Leukocytosis, improving Chronic systolic dysfunction Supratherapeutic INR warfarin currently on hold End-stage renal disease on peritoneal dialysis Elevated troponin most likely secondary to her kidney disease Chronic atrial fibrillation currently rate is controlled Pulmonary fibrosis. She follows up Outpatient with Dr. Daniels. Not on oxygen at home Diabetes mellitus type 2 with hyperglycemia GI prophylaxis DVT prophylaxis NO CODE Plan Continue with Tamiflu Consult nephrology team for peritoneal dialysis and hyponatremia Monitor sodium level No plans for abdominal CT with IV and oral contrast as patient had refused the contrast and imaging discontinued Pending final peritoneal fluid culture to rule out SBP, negative so far and her abdominal pain has improved. Continue Accu-Cheks ACHS and sliding scale/scheduled insulin General Surgery team consult Pulmonary team consult Nephrology team consult Cardiac team consult Repeat blood work in the morning The impression and plan of care has been dictated by Alena Harper, Nurse Practitioner as directed. Dr. Jose Alfredo MD I have performed a history and physical examination and medical decision making of this patient, discussed the same with the dictator, and agree with the dictators assessment and plan as written, documented as a scribe. Based on total visit time, I have performed more than 50% of this visit. Objective - Vital Signs Vital signs: Vital Signs Temp 97.6 F 03/27/24 11:30 Pulse 77 03/27/24 13:41 Resp 20 03/27/24 11:30 BP 106/71 03/27/24 11:30 Pulse Ox 99 03/27/24 11:30 FiO2 Intake & Output 03/26/24 03/27/24 03/27/24 18:59 06:59 18:59 Intake Total 668 620 360 Output Total 200 Balance 468 620 360 Weight 63.5 kg Intake: IV 10 20 Invasive Line 1 10 20 Intake, IV Titration 600 Amount Sodium Chloride 0.9% 1, 600 000 ml @ 50 mls/hr IV . Q20H [facility] Rx#:[id number] Oral 658 360 Output: Urine 200 Other: Voiding Method External Catheter External Catheter # Bowel Movements 1 - Labs CBC & Chem 7: 03/27/24 10:53 03/27/24 10:53 Labs: Abnormal Lab Results - Last 24 Hours (Table) 03/26/24 03/26/24 03/27/24 Range/Units 16:31 20:12 05:30 WBC (3.8-10.6) k/uL Neutrophils # (1.3-7.7) k/uL Monocytes # (0-1.0) k/uL PT (10.0-12.5) sec INR (<1.2) Sodium (137-145) mmol/L Potassium (3.5-5.1) mmol/L Chloride (98-107) mmol/L BUN (7-17) mg/dL Creatinine (0.52-1.04) mg/dL Glucose (74-99) mg/dL POC Glucose (mg/dL) 368 H 119 H 174 H (70-110) mg/dL Calcium (8.4-10.2) mg/dL 03/27/24 03/27/24 03/27/24 Range/Units 06:49 07:00 10:53 WBC 13.8 H (3.8-10.6) k/uL Neutrophils # 10.8 H (1.3-7.7) k/uL Monocytes # 1.1 H (0-1.0) k/uL PT 46.0 H (10.0-12.5) sec INR 4.6 H (<1.2) Sodium (137-145) mmol/L Potassium (3.5-5.1) mmol/L Chloride (98-107) mmol/L BUN (7-17) mg/dL Creatinine (0.52-1.04) mg/dL Glucose (74-99) mg/dL POC Glucose (mg/dL) 239 H (70-110) mg/dL Calcium (8.4-10.2) mg/dL 03/27/24 03/27/24 Range/Units 10:53 11:10 WBC (3.8-10.6) k/uL Neutrophils # (1.3-7.7) k/uL Monocytes # (0-1.0) k/uL PT (10.0-12.5) sec INR (<1.2) Sodium 129 L (137-145) mmol/L Potassium 3.0 L (3.5-5.1) mmol/L Chloride 94 L (98-107) mmol/L BUN 46 H (7-17) mg/dL Creatinine 3.51 H (0.52-1.04) mg/dL Glucose 146 H (74-99) mg/dL POC Glucose (mg/dL) 159 H (70-110) mg/dL Calcium 7.6 L (8.4-10.2) mg/dL Microbiology - Last 24 Hours (Table) 03/26/24 00:07 Blood Culture - Preliminary Blood Assessment and Plan Time with Patient: Less than 30
--- NOTE | 2024-03-28 00:42 | P.PN ---
Progress Note - Text Progress Note Date: 03/27/24 No acute events overnight. Abdominal pain is improved. Patient is tolerating diet. PHYSICAL EXAM: VITAL SIGNS: Reviewed GENERAL: Well-developed in no acute distress. ABDOMEN: Soft. Nondistended. Nontender. No rebound. No guarding. Peritoneal dialysis catheter site is clean dry and intact. No signs of peritonitis NEUROLOGIC: Alert and oriented. Cranial nerves II through XII grossly intact. ASSESSMENT: 1. Influenza A positive with cough and weakness 2. Abdominal pain likely due to inflow of peritoneal dialysis fluid. Now resolved PLAN: -Renal Diet -Follow-up on peritoneal fluid culture -Continue supportive care for influenza -No acute surgical intervention planned Nnamdi Palencia DO [facility] [phone]
[2024-03-28 06:17] LABS: Glucose,Whole Blood 197 mg/dL (70-110)
[2024-03-28 08:06] LABS: Basophils # (A) 0.1 k/uL (0-0.2); Basophils % (A) 1 %; Eosinophils # (A) 0.3 k/uL (0-0.7); Eosinophils % (A) 3 %; HCT 35.4 % (34.0-46.0); Lymphocytes # (A) 1.1 k/uL (1.0-4.8); Lymphocytes % (A) 10 %; MCHC 33.8 g/dL (31.0-37.0); MCV 97.6 fL (80.0-100.0); Mean Platelet Volume 7.2; Monocytes # (A) 0.7 k/uL (0-1.0); Monocytes % (A) 6 %; Neutrophils % (A) 80 %; Platelet Count 295 k/uL (150-450); RBC 3.63 m/uL (3.80-5.40); RDW 12.5 % (11.5-15.5); WBC 11.3 k/uL (3.8-10.6)
[2024-03-28 08:12] LABS: Prothrombin Time 39.8 sec (10.0-12.5)
[2024-03-28 08:42] LABS: African American GFR (CKD) 15 (>60 ml/min/1.73 sqM); Anion Gap 9 mmol/L; Blood Urea Nitrogen 37 mg/dL (7-17); Calcium 7.4 mg/dL (8.4-10.2); Carbon Dioxide 23 mmol/L (22-30); Chloride 95 mmol/L (98-107); Glucose 234 mg/dL (74-99); Magnesium 1.5 mg/dL (1.6-2.3); Non-African American GFR(CKD) 13 (>60 ml/min/1.73 sqM); Phosphorus 3.7 mg/dL (2.5-4.5); Potassium 3.3 mmol/L (3.5-5.1); Sodium 127 mmol/L (137-145)
[2024-03-28] MEDS: POTASSIUM CHLORIDE 10 MEQ in WATER FOR INJECTION 1 100ML.BAG IVPB SCH (09:31)
[2024-03-28] MEDS: MAGNESIUM SULFATE-D5W PMX 1 GM in DEXTROSE/WATER 1 100ML.BAG IVPB SCH (09:31)
[2024-03-28] MEDS: ZINC OXIDE PASTE (Z-GUARD) 1 APPLIC TOPICAL PRN (09:43)
--- NOTE | 2024-03-28 10:29 | P.PN ---
Subjective Patient is seen in follow-up for end-stage renal disease. She is maintained on peritoneal dialysis. Currently on room air. No problems with PD exchanges. Denies chest pain or shortness of breath. Oral intake fair. Vital signs are stable. General: No acute distress. HEENT: Head exam is unremarkable. LUNGS: No audible rhonchi or wheezes. HEART: Rate and Rhythm are regular. ABDOMEN: Nontender. EXTREMITITES: No edema. Objective - Vital Signs Vital signs: Vital Signs Temp 97.6 F 03/28/24 07:44 Pulse 73 03/28/24 07:44 Resp 20 03/28/24 07:44 BP 95/60 03/28/24 07:44 Pulse Ox 98 03/28/24 07:44 FiO2 Intake & Output 03/27/24 03/28/24 03/28/24 18:59 06:59 18:59 Intake Total 360 90 Output Total 150 Balance 360 -150 90 Weight 67.5 kg Intake: Oral 360 90 Output: Urine 150 Other: Voiding Method External Catheter External Catheter External Catheter # Voids 1 - Labs CBC & Chem 7: 03/28/24 07:55 03/28/24 07:55 Labs: Abnormal Lab Results - Last 24 Hours (Table) 03/27/24 03/27/24 03/27/24 Range/Units 10:53 10:53 11:10 WBC 13.8 H (3.8-10.6) k/uL RBC (3.80-5.40) m/uL Neutrophils # 10.8 H (1.3-7.7) k/uL Monocytes # 1.1 H (0-1.0) k/uL PT (10.0-12.5) sec INR (<1.2) Sodium 129 L (137-145) mmol/L Potassium 3.0 L (3.5-5.1) mmol/L Chloride 94 L (98-107) mmol/L BUN 46 H (7-17) mg/dL Creatinine 3.51 H (0.52-1.04) mg/dL Glucose 146 H (74-99) mg/dL POC Glucose (mg/dL) 159 H (70-110) mg/dL Calcium 7.6 L (8.4-10.2) mg/dL Magnesium (1.6-2.3) mg/dL 03/27/24 03/27/24 03/28/24 Range/Units 16:15 20:27 06:15 WBC (3.8-10.6) k/uL RBC (3.80-5.40) m/uL Neutrophils # (1.3-7.7) k/uL Monocytes # (0-1.0) k/uL PT (10.0-12.5) sec INR (<1.2) Sodium (137-145) mmol/L Potassium (3.5-5.1) mmol/L Chloride (98-107) mmol/L BUN (7-17) mg/dL Creatinine (0.52-1.04) mg/dL Glucose (74-99) mg/dL POC Glucose (mg/dL) 312 H 127 H 197 H (70-110) mg/dL Calcium (8.4-10.2) mg/dL Magnesium (1.6-2.3) mg/dL 03/28/24 03/28/24 03/28/24 Range/Units 07:55 07:55 07:55 WBC 11.3 H (3.8-10.6) k/uL RBC 3.63 L (3.80-5.40) m/uL Neutrophils # 9.0 H (1.3-7.7) k/uL Monocytes # (0-1.0) k/uL PT 39.8 H (10.0-12.5) sec INR 4.0 H (<1.2) Sodium 127 L (137-145) mmol/L Potassium 3.3 L (3.5-5.1) mmol/L Chloride 95 L (98-107) mmol/L BUN 37 H (7-17) mg/dL Creatinine 3.15 H (0.52-1.04) mg/dL Glucose 234 H (74-99) mg/dL POC Glucose (mg/dL) (70-110) mg/dL Calcium 7.4 L (8.4-10.2) mg/dL Magnesium 1.5 L (1.6-2.3) mg/dL Microbiology - Last 24 Hours (Table) 03/26/24 12:41 Gram Stain - Preliminary Peritoneal Fluid Body Fluid Culture - Preliminary 03/26/24 00:07 Blood Culture - Preliminary Blood Assessment and Plan Plan: Assessment: 1. End-stage renal disease maintained on peritoneal dialysis. 2. Influenza A infection. 3. Hyponatremia secondary to chronic kidney disease. Appears euvolemic. 4. Chronic systolic CHF ejection fraction of 40 to 45%. 5. Hypokalemia from poor intake and PD losses. 6. Chronic kidney disease mineral bone disease maintained on Renvela. Plan: Maintain PD exchanges with 2 L every 6 hours with 1.5% dextrose solution. Maintain gentle IV hydration. Encouraged oral intake. Add 1500 cc fluid restriction. Replace potassium and magnesium.
[2024-03-28] MEDS: PSYLLIUM HUSK 100% 6 GM PACKET PO SCH (10:42)
[2024-03-28 11:49] LABS: Glucose,Whole Blood 202 mg/dL (70-110)
--- NOTE | 2024-03-28 14:04 | P.PN ---
Subjective Progress Note Date: 03/28/24 Patient is evaluated in follow-up on the medical floor resting in bed with family at the bedside. She continues to have fatigue some shortness of breath with cough worse when she is up ambulating she is also having decreased appetite but states it is mostly related to meals coming when she is undergoing p eritoneal dialysis. Labs today reveal a white blood cell count of 13.8, sodium level of 129, potassium 3.0, BUN of 46 creatinine 3.50. Echocardiogram reveals an EF of 40 to 45% with normal pulmonary artery systolic pressure technically difficult study for interpretation. 03/28/2024 Patient evaluated in follow-up in the medical floor resting in bed. She reports feeling the same fatigued and short of breath. She is still complaining of decreased appetite. Currently undergoing peritoneal dialysis every 6 hours. White blood cell count today 11.3. Globin A1c found to be 10.2. Review of Systems Constitutional: Reports fatigue denied any fever. Cardio vascular: denied any chest pain, palpitations Gastrointestinal: denied any nausea, vomiting, diarrhea reports decreased appetite Pulmonary: Denied any shortness of breath reports cough Neurologic denied any new focal deficits reports weakness All inpatient medications were reviewed and appropriate changes in these medications as dictated in the interval history and assessment and plan. PHYSICAL EXAMINATION: GENERAL: The patient is alert and oriented x3, not in any acute distress. Well developed, well nourished. HEENT: Pupils are round and equally reacting to light. EOMI. No scleral icterus. No conjunctival pallor. Normocephalic, atraumatic. No pharyngeal erythema. No thyromegaly. CARDIOVASCULAR: S1 and S2 present. No murmurs, rubs, or gallops. PULMONARY: Lungs are diminished. No wheezing ABDOMEN: Soft, nontender, nondistended, normoactive bowel sounds. No palpable organomegaly. MUSCULOSKELETAL: No joint swelling or deformity. EXTREMITIES: No cyanosis, clubbing, or pedal edema. NEUROLOGICAL: Gross neurological examination did not reveal any focal deficits. SKIN: No rashes. Assessment and plan Acute influenza infection Hyponatremia hypovolemic abd pain and tenderness with some diarrhea, r/u c diff colitis , SBP , intraabdominal infection , ischemia vs others This is likely due to viral illness /influenza infection Leukocytosis, improving Chronic systolic dysfunction Supratherapeutic INR warfarin currently on hold End-stage renal disease on peritoneal dialysis Elevated troponin most likely secondary to her kidney disease Chronic atrial fibrillation currently rate is controlled Pulmonary fibrosis. She follows up Outpatient with Dr. Daniels. Not on oxygen at home Diabetes mellitus type 2 with hyperglycemia GI prophylaxis DVT prophylaxis NO CODE Plan Tamiflu completed Nephrology following, continues with peritoneal dialysis q6 hour. Monitor sodium level No plans for abdominal CT with IV and oral contrast as patient had refused the contrast and imaging discontinued Pending final peritoneal fluid culture to rule out SBP, negative so far and her abdominal pain has improved. Continue Accu-Cheks ACHS and sliding scale/scheduled insulin hemoglobin A1c significantly elevated will add a dose of Levemir 10 units at at bedtime and monitor will titrate up insulin as needed. General Surgery team consult Pulmonary team consult Cardiac team consult PT and OT have been consulted for discharge planning. Repeat blood work in the morning The impression and plan of care has been dictated by Alena Harper, Nurse Practitioner as directed. Dr. Jose Alfredo MD I have performed a history and physical examination and medical decision making of this patient, discussed the same with the dictator, and agree with the dictators assessment and plan as written, documented as a scribe. Based on total visit time, I have performed more than 50% of this visit. Objective - Vital Signs Vital signs: Vital Signs Temp 97.6 F 03/28/24 11:00 Pulse 72 03/28/24 13:25 Resp 20 03/28/24 11:00 BP 114/67 03/28/24 11:00 Pulse Ox 98 03/28/24 11:00 FiO2 Intake & Output 03/27/24 03/28/24 03/28/24 18:59 06:59 18:59 Intake Total 360 570 Output Total 150 Balance 360 -150 570 Weight 67.5 kg Intake: Oral 360 570 Output: Urine 150 Other: Voiding Method External Catheter External Catheter External Catheter # Voids 1 - Labs CBC & Chem 7: 03/28/24 07:55 03/28/24 07:55 Labs: Abnormal Lab Results - Last 24 Hours (Table) 03/27/24 03/27/24 03/28/24 Range/Units 16:15 20:27 06:15 WBC (3.8-10.6) k/uL RBC (3.80-5.40) m/uL Neutrophils # (1.3-7.7) k/uL PT (10.0-12.5) sec INR (<1.2) Sodium (137-145) mmol/L Potassium (3.5-5.1) mmol/L Chloride (98-107) mmol/L BUN (7-17) mg/dL Creatinine (0.52-1.04) mg/dL Glucose (74-99) mg/dL POC Glucose (mg/dL) 312 H 127 H 197 H (70-110) mg/dL Hemoglobin A1c (<=6.0) % Calcium (8.4-10.2) mg/dL Magnesium (1.6-2.3) mg/dL 03/28/24 03/28/24 03/28/24 Range/Units 07:55 07:55 07:55 WBC (3.8-10.6) k/uL RBC (3.80-5.40) m/uL Neutrophils # (1.3-7.7) k/uL PT 39.8 H (10.0-12.5) sec INR 4.0 H (<1.2) Sodium 127 L (137-145) mmol/L Potassium 3.3 L (3.5-5.1) mmol/L Chloride 95 L (98-107) mmol/L BUN 37 H (7-17) mg/dL Creatinine 3.15 H (0.52-1.04) mg/dL Glucose 234 H (74-99) mg/dL POC Glucose (mg/dL) (70-110) mg/dL Hemoglobin A1c 10.2 H (<=6.0) % Calcium 7.4 L (8.4-10.2) mg/dL Magnesium 1.5 L (1.6-2.3) mg/dL 03/28/24 03/28/24 Range/Units 07:55 11:47 WBC 11.3 H (3.8-10.6) k/uL RBC 3.63 L (3.80-5.40) m/uL Neutrophils # 9.0 H (1.3-7.7) k/uL PT (10.0-12.5) sec INR (<1.2) Sodium (137-145) mmol/L Potassium (3.5-5.1) mmol/L Chloride (98-107) mmol/L BUN (7-17) mg/dL Creatinine (0.52-1.04) mg/dL Glucose (74-99) mg/dL POC Glucose (mg/dL) 202 H (70-110) mg/dL Hemoglobin A1c (<=6.0) % Calcium (8.4-10.2) mg/dL Magnesium (1.6-2.3) mg/dL Microbiology - Last 24 Hours (Table) 03/26/24 00:07 Blood Culture - Preliminary Blood 03/26/24 12:41 Gram Stain - Preliminary Peritoneal Fluid Body Fluid Culture - Preliminary Assessment and Plan Time with Patient: Less than 30
[2024-03-28 16:46] LABS: Glucose,Whole Blood 198 mg/dL (70-110)
[2024-03-28] MEDS: WARFARIN 0.5 MG TAB PO ONE (16:52)
[2024-03-28 20:11] LABS: Glucose,Whole Blood 145 mg/dL (70-110)
[2024-03-28] MEDS: INSULIN DETEMIR (LEVEMIR) 100 UNIT/ML SYR SQ SCH (20:47)
[2024-03-29 06:00] LABS: Glucose,Whole Blood 105 mg/dL (70-110)
[2024-03-29 07:22] LABS: INR 2.3 (<1.2); Prothrombin Time 22.9 sec (10.0-12.5)
[2024-03-29 07:24] LABS: African American GFR (CKD) 16 (>60 ml/min/1.73 sqM); Anion Gap 3 mmol/L; Blood Urea Nitrogen 31 mg/dL (7-17); Calcium 7.6 mg/dL (8.4-10.2); Carbon Dioxide 25 mmol/L (22-30); Chloride 97 mmol/L (98-107); Glucose 95 mg/dL (74-99); Magnesium 2.2 mg/dL (1.6-2.3); Non-African American GFR(CKD) 14 (>60 ml/min/1.73 sqM); Potassium 3.7 mmol/L (3.5-5.1); Sodium 125 mmol/L (137-145)
--- NOTE | 2024-03-29 07:43 | P.PN ---
Progress Note - Text Progress Note Date: 03/28/24 No acute events overnight. Abdominal pain is improved. Patient is tolerating diet. PHYSICAL EXAM: VITAL SIGNS: Reviewed GENERAL: Well-developed in no acute distress. ABDOMEN: Soft. Nondistended. Nontender. No rebound. No guarding. Peritoneal dialysis catheter site is clean dry and intact. No signs of peritonitis NEUROLOGIC: Alert and oriented. Cranial nerves II through XII grossly intact. ASSESSMENT: 1. Influenza A positive with cough and weakness 2. Abdominal pain likely due to inflow of peritoneal dialysis fluid. Now resolved PLAN: -Renal Diet -Follow-up on final peritoneal fluid culture -Continue supportive care for influenza -No acute surgical intervention planned Nnamdi Palencia DO [facility] [phone]
[2024-03-29 11:18] LABS: Glucose,Whole Blood 71 mg/dL (70-110)
--- NOTE | 2024-03-29 11:49 | P.CNPUL ---
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 On arrival hemodynamically was stable however blood pressure was soft dropped down to 86/71 saturation 94% on supplemental oxygen, she was found to be positive for influenza A, influenza B, COVID, RSV were negative. Peritoneal fluid was clear, urine analysis was positive for many bacteria, BNP was over 7000 tropes were high 0.051 and second was 0.062, LFTs were within normal limit, sodium was 125 potassium 3.7 BUN/creatinine 69/3.75, white cell count is 25,000 hemoglobin hematocrit and platelet count were fairly within normal limit. Chest x-ray on arrival interstitial edema versus atypical pneumonia. Echocardiogram revealed ejection fraction of 45%, posterior wall thickness increased, decreased LV function, Review of Systems All systems: negative Past Medical History Past Medical History: Atrial Fibrillation, Blood Disorder, Chest Pain / Angina, Heart Failure, Diabetes Mellitus, Hypertension, Mitral Valve Prolapse (MVP), Osteoarthritis (OA), Renal Disease Additional Past Medical History / Comment(s): LOW IRON, BACK AND HIP PAIN, USING CANE. STAGE 4 KIDNEY DISEASE,Valvular heart disease. History of Any Multi-Drug Resistant Organisms: None Reported Past Surgical History: Orthopedic Surgery, Tubal Ligation Additional Past Surgical History / Comment(s): COLONOSCOPY, EGD., TRH. RIGHT HIP REPLACEMENT. bilat CATARACT SURGERY Past Anesthesia/Blood Transfusion Reactions: No Reported Reaction Smoking Status: Never smoker - Past Family History Mother Family Medical History: Cancer Additional Family Medical History / Comment(s): SKIN CANCER, stroke Father Family Medical History: CVA/TIA Medications and Allergies Home Medications Medication Instructions Recorded Confirmed Type Warfarin [Coumadin] 2.5 tab PO KAUSHIK@12/16/03/25/24 History Pravastatin Sodium [Pravachol] 10 mg PO HS 09/14/21 03/25/24 History Metoprolol Succinate (ER) [Toprol 25 mg PO DAILY 09/22/22 03/25/24 History XL] Warfarin [Coumadin] 5 mg PO SUTH@2100 05/09/23 03/25/24 History Folic Acid 1.6 mg PO DAILY 05/14/23 03/25/24 History Torsemide [Demadex] 40 mg PO BID 30 Days #120 tablet 05/20/23 03/25/24 Rx Albuterol Sulfate [Albuterol 1 puff PO RT-Q4H PRN 03/25/24 03/25/24 History Sulfate Hfa] Glucagon [Gvoke Pfs 1-Pack Syringe] 1 mg SQ DIRECTED PRN 03/25/24 03/25/24 History Insulin Aspart (Niacinamide) 5 units SQ AC-BID 03/25/24 03/25/24 History [Fiasp 100 Unit/ml Flextouch Pen] Insulin Degludec [Tresiba 15 units SQ HS 03/25/24 03/25/24 History Flextouch U-200 Pen] Insulin NPH Human Isophane 10 units SQ HS 03/25/24 03/25/24 History [NovoLIN N Flexpen] Ipratropium-Albuterol Nebulize 3 ml INHALATION RT-TID 03/25/24 03/25/24 History [Duoneb 0.5 mg-3 mg/3 ml Soln] Renaplex-D 1 tab PO DAILY 03/25/24 03/25/24 History Sevelamer [Renvela] 2,400 mg PO TID-W/MEALS 03/25/24 03/25/24 History Allergies Allergy/AdvReac Type Severity Reaction Status Date / Time ciprofloxacin [From Cipro] Allergy Unknown Itching, Verified 03/25/24 15:01 Rash codeine Allergy Itching Verified 03/25/24 15:01 Physical Exam Vitals: Vital Signs Temp Pulse Pulse Resp BP BP Pulse Ox 03/29/24 09:20 97.7 F 71 16 105/63 98 03/29/24 04:55 97.3 F L 85 16 116/64 97 03/28/24 23:55 98.1 F 64 18 116/67 95 01/05/25 20:45 77 16 03/28/24 20:25 98.1 F 77 16 120/64 96 03/28/24 18:41 97.5 F L 78 20 105/62 96 03/28/24 15:00 97.4 F L 81 16 109/62 97 03/28/24 13:25 72 Intake and Output 03/28/24 03/29/24 03/29/24 22:59 06:59 14:59 Intake Total 200 128 Output Total 0 450 Balance 200 -450 128 Intake: IV 10 Invasive Line 1 10 Oral 200 118 Output: Urine 0 450 Other: Voiding Method External Catheter External Catheter External Catheter Weight 50.5 kg - Constitutional General appearance: average body habitus, no acute distress - EENT Eyes: PERRLA Ears: bilateral: normal - Neck Carotids: bilateral: upstroke normal - Respiratory Respiratory: bilateral: rales (Bilateral dry Rales) - Cardiovascular Rhythm: irregularly irregular Heart sounds: normal: S1, S2 - Gastrointestinal General gastrointestinal: normal bowel sounds, soft - Integumentary Integumentary: normal turgor - Neurologic Neurologic: CNII-XII intact - Musculoskeletal Musculoskeletal: gait normal, generalized weakness, strength equal bilaterally - Psychiatric Psychiatric: A&O x's 3, appropriate affect, intact judgment & insight Results - Laboratory Findings CBC and BMP: 03/28/24 07:55 03/29/24 06:15 PT/INR, D-dimer PT 22.9 sec (10.0-12.5) H 03/29/24 06:15 INR 2.3 (<1.2) H 03/29/24 06:15 Abnormal lab findings: Abnormal Labs 03/25/24 03/25/24 03/25/24 12:14 12:14 12:14 WBC 25.0 H RBC Neutrophils # 22.0 H Monocytes # 1.3 H PT 21.4 H INR 2.1 H Sodium 125 L Potassium Chloride 87 L BUN 69 H Creatinine 3.75 H Glucose 133 H POC Glucose (mg/dL) Hemoglobin A1c Calcium 8.1 L Magnesium Troponin I C-Reactive Protein Total Protein 6.0 L Albumin 2.9 L Urine Appearance Urine Protein Urine Blood Ur Squamous Epith Cells Urine Bacteria Urine Mucus Influenza Type A (PCR) 03/25/24 03/25/24 03/25/24 12:14 12:20 22:35 WBC RBC Neutrophils # Monocytes # PT INR Sodium Potassium Chloride BUN Creatinine Glucose POC Glucose (mg/dL) Hemoglobin A1c Calcium Magnesium Troponin I 0.051 H* C-Reactive Protein Total Protein Albumin Urine Appearance Cloudy H Urine Protein Trace H Urine Blood Trace H Ur Squamous Epith Cells 14 H Urine Bacteria Many H Urine Mucus Rare H Influenza Type A (PCR) Detected A 03/26/24 03/26/24 03/26/24 05:45 05:45 05:45 WBC 17.4 H RBC Neutrophils # 14.3 H Monocytes # 1.3 H PT 25.2 H INR 2.5 H Sodium 126 L Potassium 3.2 L Chloride 91 L BUN 57 H Creatinine 3.29 H Glucose 209 H POC Glucose (mg/dL) Hemoglobin A1c Calcium 7.7 L Magnesium Troponin I C-Reactive Protein 1.6 H Total Protein 5.4 L Albumin 2.5 L Urine Appearance Urine Protein Urine Blood Ur Squamous Epith Cells Urine Bacteria Urine Mucus Influenza Type A (PCR) 03/26/24 03/26/24 03/26/24 06:47 07:34 11:47 WBC RBC Neutrophils # Monocytes # PT INR Sodium Potassium Chloride BUN Creatinine Glucose POC Glucose (mg/dL) 218 H 148 H Hemoglobin A1c Calcium Magnesium Troponin I 0.062 H* C-Reactive Protein Total Protein Albumin Urine Appearance Urine Protein Urine Blood Ur Squamous Epith Cells Urine Bacteria Urine Mucus Influenza Type A (PCR) 03/26/24 03/26/24 03/27/24 16:31 20:12 05:30 WBC RBC Neutrophils # Monocytes # PT INR Sodium Potassium Chloride BUN Creatinine Glucose POC Glucose (mg/dL) 368 H 119 H 174 H Hemoglobin A1c Calcium Magnesium Troponin I C-Reactive Protein Total Protein Albumin Urine Appearance Urine Protein Urine Blood Ur Squamous Epith Cells Urine Bacteria Urine Mucus Influenza Type A (PCR) 03/27/24 03/27/24 03/27/24 06:49 07:00 10:53 WBC 13.8 H RBC Neutrophils # 10.8 H Monocytes # 1.1 H PT 46.0 H INR 4.6 H Sodium Potassium Chloride BUN Creatinine Glucose POC Glucose (mg/dL) 239 H Hemoglobin A1c Calcium Magnesium Troponin I C-Reactive Protein Total Protein Albumin Urine Appearance Urine Protein Urine Blood Ur Squamous Epith Cells Urine Bacteria Urine Mucus Influenza Type A (PCR) 03/27/24 03/27/24 03/27/24 10:53 11:10 16:15 WBC RBC Neutrophils # Monocytes # PT INR Sodium 129 L Potassium 3.0 L Chloride 94 L BUN 46 H Creatinine 3.51 H Glucose 146 H POC Glucose (mg/dL) 159 H 312 H Hemoglobin A1c Calcium 7.6 L Magnesium Troponin I C-Reactive Protein Total Protein Albumin Urine Appearance Urine Protein Urine Blood Ur Squamous Epith Cells Urine Bacteria Urine Mucus Influenza Type A (PCR) 03/27/24 03/28/24 03/28/24 20:27 06:15 07:55 WBC RBC Neutrophils # Monocytes # PT INR Sodium Potassium Chloride BUN Creatinine Glucose POC Glucose (mg/dL) 127 H 197 H Hemoglobin A1c 10.2 H Calcium Magnesium Troponin I C-Reactive Protein Total Protein Albumin Urine Appearance Urine Protein Urine Blood Ur Squamous Epith Cells Urine Bacteria Urine Mucus Influenza Type A (PCR) 03/28/24 03/28/24 03/28/24 07:55 07:55 07:55 WBC 11.3 H RBC 3.63 L Neutrophils # 9.0 H Monocytes # PT 39.8 H INR 4.0 H Sodium 127 L Potassium 3.3 L Chloride 95 L BUN 37 H Creatinine 3.15 H Glucose 234 H POC Glucose (mg/dL) Hemoglobin A1c Calcium 7.4 L Magnesium 1.5 L Troponin I C-Reactive Protein Total Protein Albumin Urine Appearance Urine Protein Urine Blood Ur Squamous Epith Cells Urine Bacteria Urine Mucus Influenza Type A (PCR) 03/28/24 03/28/24 03/28/24 11:47 16:43 20:10 WBC RBC Neutrophils # Monocytes # PT INR Sodium Potassium Chloride BUN Creatinine Glucose POC Glucose (mg/dL) 202 H 198 H 145 H Hemoglobin A1c Calcium Magnesium Troponin I C-Reactive Protein Total Protein Albumin Urine Appearance Urine Protein Urine Blood Ur Squamous Epith Cells Urine Bacteria Urine Mucus Influenza Type A (PCR) 03/29/24 03/29/24 06:15 06:15 WBC RBC Neutrophils # Monocytes # PT 22.9 H INR 2.3 H Sodium 125 L Potassium Chloride 97 L BUN 31 H Creatinine 2.98 H Glucose POC Glucose (mg/dL) Hemoglobin A1c Calcium 7.6 L Magnesium Troponin I C-Reactive Protein Total Protein Albumin Urine Appearance Urine Protein Urine Blood Ur Squamous Epith Cells Urine Bacteria Urine Mucus Influenza Type A (PCR) - Diagnostic Findings Chest x-ray: report reviewed, image reviewed Assessment and Plan Assessment: Acute hypoxic respiratory failure due to baseline interstitial lung disease as well as acute influenza A infection Sepsis related to viral infection leukocytosis Acute influenza A infection Interstitial lung disease Bird fanciers lung End-stage renal disease on peritoneal dialysis Chronic atrial fibrillation on anticoagulation with Coumadin Left paralyzed vocal cord Generalized weakness and medical debility Plan: Observe off of antibiotic Leukocytosis is progressively improving Assessment of home oxygen need pre and post exertion activity as patient started walking with the help of walker Bronchodilator as needed PT OT evaluation Agree with placement in ECF for short-term rehab Continue anticoagulation and increase activity as tolerated Follow clinical course closely Time with Patient: Greater than 30
[2024-03-29 12:42] VITALS: BMI 20.3
--- NOTE | 2024-03-29 12:58 | P.PN ---
Subjective Patient is seen for follow-up for end-stage renal disease. Currently maintained on PD with 1.5% solution. UF noted about 300-400 with each exchange. Also maintained on IV fluids at 50 cc an hour. No significant shortness of breath. Overall feeling better than last week. Trying to increase oral intake. Objective - Vital Signs Vital signs: Vital Signs Temp 97.9 F 03/29/24 11:35 Pulse 75 03/29/24 11:35 Resp 19 03/29/24 11:35 BP 111/53 03/29/24 11:35 Pulse Ox 96 03/29/24 11:35 FiO2 Intake & Output 03/28/24 03/29/24 03/29/24 18:59 06:59 18:59 Intake Total 770 128 Output Total 450 Balance 770 -450 128 Weight 50.5 kg 50.5 kg Intake: IV 10 Invasive Line 1 10 Oral 770 118 Output: Urine 450 Other: Voiding Method External Catheter External Catheter External Catheter - Exam Patient is awake, comfortable, no acute distress Examination of the heart S1 and S2 Examination of the lungs shows decreased breath sounds at the bases Abdomen is soft nontender Examination of lower extremities shows no edema [employer] exam grossly intact - Labs CBC & Chem 7: 03/28/24 07:55 03/29/24 06:15 Labs: Abnormal Lab Results - Last 24 Hours (Table) 03/28/24 03/28/24 03/29/24 Range/Units 16:43 20:10 06:15 PT 22.9 H (10.0-12.5) sec INR 2.3 H (<1.2) Sodium (137-145) mmol/L Chloride (98-107) mmol/L BUN (7-17) mg/dL Creatinine (0.52-1.04) mg/dL POC Glucose (mg/dL) 198 H 145 H (70-110) mg/dL Calcium (8.4-10.2) mg/dL 03/29/24 Range/Units 06:15 PT (10.0-12.5) sec INR (<1.2) Sodium 125 L (137-145) mmol/L Chloride 97 L (98-107) mmol/L BUN 31 H (7-17) mg/dL Creatinine 2.98 H (0.52-1.04) mg/dL POC Glucose (mg/dL) (70-110) mg/dL Calcium 7.6 L (8.4-10.2) mg/dL Microbiology - Last 24 Hours (Table) 03/26/24 12:41 Gram Stain - Preliminary Peritoneal Fluid Body Fluid Culture - Preliminary 03/26/24 00:07 Blood Culture - Preliminary Blood Assessment and Plan Assessment: 1. End-stage renal disease maintained on peritoneal dialysis. 2. Influenza A infection 3. History of CHF and cardiomyopathy with EF of 40% 4. Abdominal pain which seems to have improved. PD fluid cell count not elevated. Plan: Continue current PD exchanges Encourage increased oral intake. May continue with IV fluids at 50 cc an hour
--- NOTE | 2024-03-29 13:03 | XR ---
EXAMINATION TYPE: XR foot limited LT DATE OF EXAM: 03/29/2024 COMPARISON: NONE CLINICAL INDICATION: Female, 78 years old with history of left heel bony prominence; pain TECHNIQUE: 2 views FINDINGS: Vascular calcifications suggesting underlying diabetes and/or chronic kidney disease. Small -to-moderate sized plantar heel spur. Bipartite os peroneum. Enthesopathy at the base of the fifth me tatarsal. There may be a mild bony bunion and mild bunionette. Diffuse osteopenia. No acute fracture, subluxation, dislocation is seen. Tiny type I accessory navicular. IMPRESSION: 1. Limited by osteopenia. No displaced fracture is seen. Mild bunion and mild bunionette. 2. [id number] sized plantar heel spur. 3. Vascular calcifications suggest underlying diabetes and/or chronic kidney disease. [facility], Workstation: [facility], 03/29/2024 1:00 PM
[2024-03-29] MEDS: CARBAMIDE PEROXIDE 6.5% DROPS 15 ML BTL RIGHT EAR SCH (14:05)
[2024-03-29] MEDS: polyethylene glycoL 3350 17 GM POWD.PACK PO SCH (14:05)
[2024-03-29] MEDS: SENNOSIDES 8.6 MG TAB PO SCH (14:12)
--- NOTE | 2024-03-29 15:25 | P.PN ---
Subjective Progress Note Date: 03/29/24 SURGICAL PROGRESS NOTE HISTORY OF PRESENT ILLNESS: Patient has no new complaints. Denies any abdominal pain. She is tolerating diet. Patient reports her pain has improved with adjustment of administration of the PD fluid. Afebrile. WBC 11.3 as of yesterday PHYSICAL EXAM: VITAL SIGNS: Reviewed. GENERAL: Well-developed in no acute distress. ABDOMEN: Soft. Nondistended. Nontender. ASSESSMENT: 1. Influenza A positive with cough and weakness 2. Abdominal pain likely due to inflow of peritoneal dialysis fluid. Now resolved PLAN: -No surgical intervention planned -Continue supportive care -Surgical service will sign off. Please call with any questions or concerns. Physician Barbecue Cook note has been reviewed by physician. Signing provider agrees with the documented findings, assessment, and plan of care. Objective - Vital Signs Vital signs: Vital Signs Temp 97.9 F 03/29/24 11:35 Pulse 75 03/29/24 11:35 Resp 19 03/29/24 11:35 BP 111/53 03/29/24 11:35 Pulse Ox 96 03/29/24 11:35 FiO2 Intake & Output 03/28/24 03/29/24 03/29/24 18:59 06:59 18:59 Intake Total 770 128 Output Total 450 Balance 770 -450 128 Weight 50.5 kg 50.5 kg Intake: IV 10 Invasive Line 1 10 Oral 770 118 Output: Urine 450 Other: Voiding Method External Catheter External Catheter External Catheter - Labs CBC & Chem 7: 03/28/24 07:55 03/29/24 06:15 Labs: Abnormal Lab Results - Last 24 Hours (Table) 03/28/24 03/28/24 03/29/24 Range/Units 16:43 20:10 06:15 PT 22.9 H (10.0-12.5) sec INR 2.3 H (<1.2) Sodium (137-145) mmol/L Chloride (98-107) mmol/L BUN (7-17) mg/dL Creatinine (0.52-1.04) mg/dL POC Glucose (mg/dL) 198 H 145 H (70-110) mg/dL Calcium (8.4-10.2) mg/dL 03/29/24 Range/Units 06:15 PT (10.0-12.5) sec INR (<1.2) Sodium 125 L (137-145) mmol/L Chloride 97 L (98-107) mmol/L BUN 31 H (7-17) mg/dL Creatinine 2.98 H (0.52-1.04) mg/dL POC Glucose (mg/dL) (70-110) mg/dL Calcium 7.6 L (8.4-10.2) mg/dL Microbiology - Last 24 Hours (Table) 03/26/24 00:07 Blood Culture - Preliminary Blood 03/26/24 12:41 Gram Stain - Preliminary Peritoneal Fluid Body Fluid Culture - Preliminary
[2024-03-29 16:17] LABS: Glucose,Whole Blood 192 mg/dL (70-110)
[2024-03-29] MEDS: WARFARIN 2.5 MG TAB PO ONE (16:53)
[2024-03-29 21:01] LABS: Glucose,Whole Blood 110 mg/dL (70-110)
--- NOTE | 2024-03-29 23:45 | P.PN ---
Subjective Progress Note Date: 03/29/24 Patient is evaluated in follow-up on the medical floor resting in bed with family at the bedside. She continues to have fatigue some shortness of breath with cough worse when she is up ambulating she is also having decreased appetite but states it is mostly related to meals coming when she is undergoing peritoneal dialysis. Labs today reveal a white blood cell count of 13.8, sodium level of 129, potassium 3.0, BUN of 46 creatinine 3.50. Echocardiogram reveals an EF of 40 to 45% with normal pulmonary artery systolic pressure technically difficult study for interpretation. 03/28/2024 Patient evaluated in follow-up in the medical floor resting in bed. She reports feeling the same fatigued and short of breath. She is still complaining of decreased appetite. Currently undergoing peritoneal dialysis every 6 hours. White blood cell count today 11.3. Globin A1c found to be 10.2. 03/29/2024 Patient is seen in follow-up today with multiple consultations following. Currently sitting up in the chair significantly weak with daughter at the bedside and working on possibly ECF on discharge. [facility] referral sent with case management following. Patient is continued on antibiotics with infectious disease following. Patient is continued to receive peritoneal dialysis with nephrology following. Sodium remains low at 125 and will follow- up on repeat labs. Patient is not eating very well and reports has no appetite. Dietary following and will be adding supplements and encourage small frequent meals. This was discussed with family at the bedside as well. INR is therapeutic at 2.3 today as patient is on Coumadin with pharmacy to dose. Review of Systems Constitutional: Reports fatigue denied any fever. Cardio vascular: denied any chest pain, palpitations Gastrointestinal: denied any nausea, vomiting, diarrhea reports decreased appetite Pulmonary: Denied any shortness of breath reports cough Neurologic denied any new focal deficits, reports weakness and some left heel pain All inpatient medications were reviewed and appropriate changes in these medications as dictated in the interval history and assessment and plan. PHYSICAL EXAMINATION: GENERAL: The patient is alert and oriented x3, not in any acute distress. Well developed, well nourished. Elderly appearing HEENT: Pupils are round and equally reacting to light. EOMI. No scleral icterus. No conjunctival pallor. Normocephalic, atraumatic. No pharyngeal erythema. No thyromegaly. CARDIOVASCULAR: S1 and S2 muffled PULMONARY: Lungs are diminished. No wheezing ABDOMEN: Soft, nontender, nondistended, normoactive bowel sounds. No palpable organomegaly. MUSCULOSKELETAL: No joint swelling or deformity. EXTREMITIES: No cyanosis, clubbing, or pedal edema. Left foot pain near a bony prominence at the heel NEUROLOGICAL: Gross neurological examination did not reveal any focal deficits. Diffusely weak SKIN: No rashes. Assessment and plan: Acute influenza infection Hyponatremia hypovolemic abd pain and tenderness with some diarrhea, r/u c diff colitis , SBP , intraabdominal infection , ischemia vs others This is likely due to viral illness /influenza infection Leukocytosis, improving Chronic congestive heart failure systolic dysfunction, not in exacerbation Supratherapeutic INR, INR is therapeutic at 2.3 with pharmacy following closely and dosing Coumadin End-stage renal disease on peritoneal dialysis Elevated troponin most likely secondary to her kidney disease Chronic atrial fibrillation currently rate is controlled Pulmonary fibrosis. She follows up Outpatient with Dr. Daniels. Not on oxygen at home Diabetes mellitus type 2 uncontrolled with hyperglycemia GI prophylaxis DVT prophylaxis NO CODE Plan: Tamiflu completed Nephrology following, continues with peritoneal dialysis q6 hour. Monitor sodium level, currently 125 today and will follow-up with repeat labs No plans for abdominal CT with IV and oral contrast as patient had refused the contrast and imaging discontinued Pending final peritoneal fluid culture to rule out SBP, negative so far and her abdominal pain has improved. Infectious disease following Continue Accu-Cheks ACHS and sliding scale/scheduled insulin hemoglobin A1c significantly elevated will add a dose of Levemir 10 units at at bedtime and monitor will titrate up insulin as needed. General Surgery team as well as pulmonary and cardiology along with nephrology Need updated PT/OT therapy notes as patient is extremely weak and lives alone, would benefit from continued PT/OT therapy for strength and mobility. Case management following and has placed a referral to [facility] which is pending Patient is reporting some ear muffling and has history of wax, will add Debrox and monitor closely Repeat blood work in the morning The impression and plan of care has been dictated by Anayeli Jo, Nurse Practitioner as directed. Dr. Jose Alfredo MD I have performed a history and physical examination and medical decision making of this patient, discussed the same with the dictator, and agree with the dictators assessment and plan as written, documented as a scribe. Based on total visit time, I have performed more than 50% of this visit. Objective - Vital Signs Vital signs: Vital Signs Temp 97.3 F L 03/29/24 04:55 Pulse 85 03/29/24 04:55 Resp 16 03/29/24 04:55 BP 116/64 03/29/24 04:55 Pulse Ox 97 03/29/24 04:55 FiO2 Intake & Output 03/28/24 03/29/24 03/29/24 18:59 06:59 18:59 Intake Total 770 118 Output Total 450 Balance 770 -450 118 Weight 50.5 kg Intake: Oral 770 118 Output: Urine 450 Other: Voiding Method External Catheter External Catheter - Labs CBC & Chem 7: 03/28/24 07:55 03/29/24 06:15 Labs: Abnormal Lab Results - Last 24 Hours (Table) 03/28/24 03/28/24 03/28/24 Range/Units 07:55 11:47 16:43 PT (10.0-12.5) sec INR (<1.2) Sodium (137-145) mmol/L Chloride (98-107) mmol/L BUN (7-17) mg/dL Creatinine (0.52-1.04) mg/dL POC Glucose (mg/dL) 202 H 198 H (70-110) mg/dL Hemoglobin A1c 10.2 H (<=6.0) % Calcium (8.4-10.2) mg/dL 03/28/24 03/29/24 03/29/24 Range/Units 20:10 06:15 06:15 PT 22.9 H (10.0-12.5) sec INR 2.3 H (<1.2) Sodium 125 L (137-145) mmol/L Chloride 97 L (98-107) mmol/L BUN 31 H (7-17) mg/dL Creatinine 2.98 H (0.52-1.04) mg/dL POC Glucose (mg/dL) 145 H (70-110) mg/dL Hemoglobin A1c (<=6.0) % Calcium 7.6 L (8.4-10.2) mg/dL Microbiology - Last 24 Hours (Table) 03/26/24 12:41 Gram Stain - Preliminary Peritoneal Fluid Body Fluid Culture - Preliminary 03/26/24 00:07 Blood Culture - Preliminary Blood
[2024-03-30 06:06] LABS: Glucose,Whole Blood 69 mg/dL (70-110)
[2024-03-30 06:25] LABS: Glucose,Whole Blood 101 mg/dL (70-110)
[2024-03-30 06:46] LABS: INR 2.2 (<1.2); Prothrombin Time 22.3 sec (10.0-12.5)
[2024-03-30 08:30] LABS: Basophils % (A) 0.9 %; Eosinophils # (A) 0.44 X 10*3/uL (0.04-0.35); Eosinophils % (A) 4.1 %; HGB 10.4 g/dL (12.0-15.0); Lymphocytes # (A) 1.39 X 10*3/uL (0.90-5.00); MCH 31.9 pg (27.0-32.0); MCHC 33.5 g/dL (32.0-37.0); MCV 95.1 FL (80.0-97.0); Mean Platelet Volume 9.6 FL (9.5-12.2); Monocytes # (A) 1.45 X 10*3/uL (0.20-1.00); Monocytes % (A) 13.6 %; NRBC Per 100 WBC 0 X 10*3/uL (0.00-0.01); Neutrophils # (A) 7.23 X 10*3/uL (1.80-7.70); Neutrophils % (A) 67.9 %; Platelet Count 234 X 10*3/uL (140-440); RBC 3.26 X 10*6/uL (4.10-5.20); RDW 12.8 % (11.5-14.5); WBC 10.66 X 10*3/uL (4.50-10.00)
[2024-03-30 08:46] LABS: BUN/Creat Ratio 10.42 Ratio (12.00-20.00); Blood Urea Nitrogen 27.1 mg/dL (9.0-27.0); Calcium 7.4 mg/dL (8.7-10.3); Carbon Dioxide 25.7 mmol/L (21.6-31.8); Chloride 99 mmol/L (96-109); Glucose 77 mg/dL (70-110); Potassium 3.3 mmol/L (3.5-5.5); Sodium 133 mmol/L (135-145)
[2024-03-30] MEDS ORDERED: Potassium Replacement Protocol 1 EACH MISC MISCELLANE PRN (09:27)
--- NOTE | 2024-03-30 10:05 | P.PN ---
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 Chronic atrial fibrillation on anticoagulation with Coumadin Left paralyzed vocal cord Generalized weakness and medical debility March 30, 2023, patient seen eval examined during rounds labs reviewed medications reviewed care plan discussed, patient remains afebrile on room air oxygen saturation 98%, labs reviewed sodium is 133 potassium 3.3 BUN/creatinine is 27/2.6, glucose 77, patient has been on potassium replacement protocol, patient undergoing physical therapy and rehab, medications being continued, PT/INR 22.3/2.2 78-year-old female well-known to me, patient has a history of chronic atrial fibrillation, type 2 diabetes mellitus, mitral valve prolapse, 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 On arrival hemodynamically was stable however blood pressure was soft dropped down to 86/71 saturation 94% on supplemental oxygen, she was found to be posit kumar for influenza A, influenza B, COVID, RSV were negative. Peritoneal fluid was clear, urine analysis was positive for many bacteria, BNP was over 7000 tropes were high 0.051 and second was 0.062, LFTs were within normal limit, sodium was 125 potassium 3.7 BUN/creatinine 69/3.75, white cell count is 25,000 hemoglobin hematocrit and platelet count were fairly within normal limit. Chest x-ray on arrival interstitial edema versus atypical pneumonia. Echocardiogram revealed ejection fraction of 45%, posterior wall thickness increased, decreased LV function, Objective - Vital Signs Vital signs: Vital Signs Temp 97.7 F 03/30/24 08:00 Pulse 70 03/30/24 08:00 Resp 17 03/30/24 08:00 BP 113/68 03/30/24 08:00 Pulse Ox 98 03/30/24 08:00 FiO2 Intake & Output 03/29/24 03/30/24 03/30/24 18:59 06:59 18:59 Intake Total 246 Balance 246 Weight 50.5 kg Intake: IV 10 Invasive Line 1 10 Oral 236 Other: Voiding Method External Catheter External Catheter # Voids 2 0 # Bowel Movements 1 - Exam - Constitutional General appearance: average body habitus, no acute distress - EENT Eyes: PERRLA Ears: bilateral: normal - Neck Carotids: bilateral: upstroke normal - Respiratory Respiratory: bilateral: rales (Bilateral dry Rales) - Cardiovascular Rhythm: irregularly irregular Heart sounds: normal: S1, S2 - Gastrointestinal General gastrointestinal: normal bowel sounds, soft - Integumentary Integumentary: normal turgor - Neurologic Neurologic: CNII-XII intact - Musculoskeletal Musculoskeletal: gait normal, generalized weakness, strength equal bilaterally - Psychiatric Psychiatric: A&O x's 3, appropriate affect, intact judgment & insight - Labs CBC & Chem 7: 03/30/24 06:19 03/30/24 06:19 Labs: Abnormal Lab Results - Last 24 Hours (Table) 03/29/24 03/30/24 03/30/24 Range/Units 16:15 06:05 06:19 WBC (4.50-10.00) X 10*3/uL RBC (4.10-5.20) X 10*6/uL Hgb (12.0-15.0) g/dL Hct (37.2-46.3) % Immature Gran # (0.00-0.04) X 10*3/uL Monocytes # (0.20-1.00) X 10*3/uL Eosinophils # (0.04-0.35) X 10*3/uL PT 22.3 H (10.0-12.5) sec INR 2.2 H (<1.2) Sodium (135-145) mmol/L Potassium (3.5-5.5) mmol/L BUN (9.0-27.0) mg/dL Creatinine (0.6-1.5) mg/dL Est GFR (CKD-EPI) (>=60) BUN/Creatinine Ratio (12.00-20.00) Ratio POC Glucose (mg/dL) 192 H 69 L (70-110) mg/dL Calcium (8.7-10.3) mg/dL 03/30/24 03/30/24 Range/Units 06:19 06:19 WBC 10.66 H (4.50-10.00) X 10*3/uL RBC 3.26 L (4.10-5.20) X 10*6/uL Hgb 10.4 L (12.0-15.0) g/dL Hct 31.0 L (37.2-46.3) % Immature Gran # 0.05 H (0.00-0.04) X 10*3/uL Monocytes # 1.45 H (0.20-1.00) X 10*3/uL Eosinophils # 0.44 H (0.04-0.35) X 10*3/uL PT (10.0-12.5) sec INR (<1.2) Sodium 133 L (135-145) mmol/L Potassium 3.3 L (3.5-5.5) mmol/L BUN 27.1 H (9.0-27.0) mg/dL Creatinine 2.6 H (0.6-1.5) mg/dL Est GFR (CKD-EPI) 18 L (>=60) BUN/Creatinine Ratio 10.42 L (12.00-20.00) Ratio POC Glucose (mg/dL) (70-110) mg/dL Calcium 7.4 L (8.7-10.3) mg/dL Microbiology - Last 24 Hours (Table) 03/26/24 12:41 Gram Stain - Preliminary Peritoneal Fluid Body Fluid Culture - Preliminary 03/26/24 00:07 Blood Culture - Preliminary Blood Assessment and Plan Assessment: Acute hypoxic respiratory failure due to baseline interstitial lung disease as well as acute influenza A infection Sepsis related to viral infection leukocytosis Acute influenza A infection Interstitial lung disease Bird fanciers lung End-stage renal disease on peritoneal dialysis Chronic atrial fibrillation on anticoagulation with Coumadin Left paralyzed vocal cord Generalized weakness and medical debility Plan: Observe off of antibiotic Leukocytosis is progressively improving Assessment of home oxygen need pre and post exertion activity as patient started walking with the help of walker Bronchodilator as needed PT OT evaluation Agree with placement in ECF for short-term rehab Continue anticoagulation and increase activity as tolerated Follow clinical course closely Time with Patient: Greater than 30
[2024-03-30] MEDS: POTASSIUM CHLORIDE ER 20 MEQ TAB.ER PO SCH (10:47)
[2024-03-30 11:59] LABS: Glucose,Whole Blood 155 mg/dL (70-110)
[2024-03-30 14:49] VITALS: BP 129/65; PULSE 75; RESP 16; TEMP 97.5
[2024-03-30] MEDS: WARFARIN 1.5 MG TAB PO ONE (16:51)
--- NOTE | 2024-03-30 20:48 | P.PN ---
Subjective Patient is seen for follow-up for end-stage renal disease. Currently maintained on PD with 1.5% solution. UF noted about 300-400 with each exchange. Also maintained on IV fluids at 50 cc an hour. No significant shortness of breath. Overall feeling better and plan is to go home with home therapy Objective - Vital Signs Vital signs: Vital Signs Temp 97.5 F L 03/30/24 14:00 Pulse 75 03/30/24 14:00 Resp 16 03/30/24 14:00 BP 129/65 03/30/24 14:00 Pulse Ox 98 03/30/24 14:00 FiO2 Intake & Output 03/30/24 03/30/24 03/31/24 06:59 18:59 06:59 Intake Total 118 Balance 118 Intake: Oral 118 Other: Voiding Method External Catheter # Voids 0 - Exam Patient is awake, comfortable, no acute distress Examination of the heart S1 and S2 Examination of the lungs shows decreased breath sounds at the bases Abdomen is soft nontender Examination of lower extremities shows no edema 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 - Labs CBC & Chem 7: 03/30/24 06:19 03/30/24 06:19 Labs: Abnormal Lab Results - Last 24 Hours (Table) 03/30/24 03/30/24 03/30/24 Range/Units 06:05 06:19 06:19 WBC 10.66 H (4.50-10.00) X 10*3/uL RBC 3.26 L (4.10-5.20) X 10*6/uL Hgb 10.4 L (12.0-15.0) g/dL Hct 31.0 L (37.2-46.3) % Immature Gran # 0.05 H (0.00-0.04) X 10*3/uL Monocytes # 1.45 H (0.20-1.00) X 10*3/uL Eosinophils # 0.44 H (0.04-0.35) X 10*3/uL PT 22.3 H (10.0-12.5) sec INR 2.2 H (<1.2) Sodium (135-145) mmol/L Potassium (3.5-5.5) mmol/L BUN (9.0-27.0) mg/dL Creatinine (0.6-1.5) mg/dL Est GFR (CKD-EPI) (>=60) BUN/Creatinine Ratio (12.00-20.00) Ratio POC Glucose (mg/dL) 69 L (70-110) mg/dL Calcium (8.7-10.3) mg/dL 03/30/24 03/30/24 Range/Units 06:19 11:58 WBC (4.50-10.00) X 10*3/uL RBC (4.10-5.20) X 10*6/uL Hgb (12.0-15.0) g/dL Hct (37.2-46.3) % Immature Gran # (0.00-0.04) X 10*3/uL Monocytes # (0.20-1.00) X 10*3/uL Eosinophils # (0.04-0.35) X 10*3/uL PT (10.0-12.5) sec INR (<1.2) Sodium 133 L (135-145) mmol/L Potassium 3.3 L (3.5-5.5) mmol/L BUN 27.1 H (9.0-27.0) mg/dL Creatinine 2.6 H (0.6-1.5) mg/dL Est GFR (CKD-EPI) 18 L (>=60) BUN/Creatinine Ratio 10.42 L (12.00-20.00) Ratio POC Glucose (mg/dL) 155 H (70-110) mg/dL Calcium 7.4 L (8.7-10.3) mg/dL Microbiology - Last 24 Hours (Table) 03/26/24 12:41 Gram Stain - Final Peritoneal Fluid Body Fluid Culture - Final Assessment and Plan Assessment: 1. End-stage renal disease maintained on peritoneal dialysis. 2. Influenza A infection 3. History of CHF and cardiomyopathy with EF of 40% 4. Abdominal pain which seems to have improved. PD fluid cell count not elevated. 5. Generalized debility. Patient will be going home with home therapy. Plan: Continue with 1.5% exchanges post discharge. Encourage increased oral intake.
== END 2024-03-30 17:54 | disposition home health service (06) | DRG 193 ==
LOC: EC 11:42 → 3SCARD 14:48 → 6NMEDSUR 03-29 22:17
PROVIDERS: ADMIT Internal Medicine; ATTEND Internal Medicine
DX: J10.1 Influenza due to other identified influenza virus with other respiratory manifestations (principal); J96.01 Acute respiratory failure with hypoxia; N18.6 End stage renal disease; I50.22 Chronic systolic (congestive) heart failure; I13.2 Hypertensive heart and chronic kidney disease with heart failure and with stage 5 chronic kidney disease, or end stage renal disease; I48.21 Permanent atrial fibrillation; E87.1 Hypo-osmolality and hyponatremia; I42.9 Cardiomyopathy, unspecified; E11.65 Type 2 diabetes mellitus with hyperglycemia; M19.90 Unspecified osteoarthritis, unspecified site; J67.2 Bird fancier's lung; I27.20 Pulmonary hypertension, unspecified; E11.22 Type 2 diabetes mellitus with diabetic chronic kidney disease; I08.1 Rheumatic disorders of both mitral and tricuspid valves; E78.5 Hyperlipidemia, unspecified; J84.10 Pulmonary fibrosis, unspecified; M89.8X9 Other specified disorders of bone, unspecified site; E86.1 Hypovolemia; E87.6 Hypokalemia; Z66 Do not resuscitate; J38.00 Paralysis of vocal cords and larynx, unspecified; Z79.84 Long term (current) use of oral hypoglycemic drugs; Z79.899 Other long term (current) drug therapy; Z79.01 Long term (current) use of anticoagulants; Z88.1 Allergy status to other antibiotic agents; Z88.5 Allergy status to narcotic agent; Z99.2 Dependence on renal dialysis; Z79.4 Long term (current) use of insulin; Z96.641 Presence of right artificial hip joint
CPT/HCPCS: 36415; 71046; 80048; 80053; 81001; 83036; 83605; 83735; 83880; 84100; 84145; 84484; 85025; 85610; 85730; 86140; 87040; 87070; 87205; 87636; 88108; 88305; 89050; 93005; 93306; 96360; 96361; 99285

== ENCOUNTER → 2024-08-31 | Outpatient (CLI) | payer MEDICARE, BC ==
--- NOTE | 2024-08-31 15:46 | CT ---
EXAMINATION TYPE: CT chest wo con DATE OF EXAM: 08/31/2024 COMPARISON: None CLINICAL INDICATION: Female, 79 years old with history of J84.9 INTERSTITIAL PULMONARY DISEASE, UNSPE CIFIED; PHH, INTERSTITIAL LUNG DISEASE TECHNIQUE: CT scan of the thorax is performed without IV contrast. CT DLP: [address] CTDI: mGy Automated exposure control for dose reduction was used. FINDINGS: There is marked diffuse fine reticular density, honeycombing and scattered areas of groundglass opaci ties with a mild apical basal gradient. There is no pleural effusion or pneumothorax or pleural thick ening. There is diffuse calcification of the trachea, main bronchi bronchioles but no definite bronch iectasis there is moderate to marked cardiomegaly. There are multiple enlarged right paratracheal and precarinal lymph nodes approximately 12 -14 mm in size. Evaluation of hilar adenopathy is limited due to lack of IV contrast. Limited scanning of the upper abdomen reveals no gross abnormality. No focal osseous lesions are seen. IMPRESSION: 1. 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 2. Marked cardiomegaly. 3. Mild mediastinal adenopathy. [facility], , 08/31/2024 3:44 PM
== END | disposition home or self-care (01) ==
LOC: RADCTMAIN 15:09
PROVIDERS: ATTEND Internal Medicine Critical Care Medicine
DX: J84.9 Interstitial pulmonary disease, unspecified (principal); I51.7 Cardiomegaly; R59.0 Localized enlarged lymph nodes
CPT/HCPCS: 71250